=== PATIENT | male | born 1940 | race Caucasian/White ===

== ENCOUNTER 2020-05-22 19:48 | Emergency (ER) | payer MEDICARE, SELFPAY ==
[2020-05-22 19:49] VITALS: BP 214/90; PULSE 135; RESP 22; TEMP 36.8; O2SAT 98; BMI 32.1
--- NOTE | 2020-05-22 20:03 | EKG12_ITS ---
Test Reason : HTN Blood Pressure : / mmHG Vent. Rate : 063 BPM Atrial Rate : 063 BPM P-R Int : 146 ms QRS Dur : 126 ms QT Int : 440 ms P-R-T Axes : 035 059 059 degrees QTc Int : 450 ms Normal sinus rhythm Right bundle branch block Abnormal ECG Confirmed by JUAN J LEON, SIMONE ([id number]), editor farm journal TREV MACIEL ([id number]) on 05/28/2020 11:02:27 AM Referred By: EMIL Confirmed By:ASTRID ARITA MD
--- NOTE | 2020-05-22 20:04 | ED.DCSUM_ITS ---
History of Present Illness Chief Complaint: Hypertension Informant: Patient Narrative: 79-year-old male with past medical history of hypertension presents with concern for elevated blood pressure. Patient recently had an appointment with his rn community health 2 to 3 days ago and was told if his blood pressure goes over 200 systolic to come to the emergency department. Patient checked his blood pressure at home and it was over 200. He is completely asymptomatic. Denies any chest pain, shortness of breath, headache, vision change, lightheadedness, dizziness. Past Medical History - Allergies and Home Meds Allergies/Adverse Reactions: Allergies No Known Allergies Allergy (Verified 05/22/20 19:54) Primary Care Physician: Pasha Bland DO [NON-STAFF] - 2 Days Prior records reviewed: Yes Past Medical History: - - HTN and HLD Surgical History: noncontributory Lives: With Family Smoking Status: Former smoker Alcohol: None Drugs: None Review of Systems General: Denies: Chills, Fever, Sweats Eyes: Denies: Visual changes - bilaterally, Diplopia ENT: Denies: Rhinorrhea, Sore throat Cardiovascular: Denies: Chest pain, Palpitations Respiratory: Denies: Dyspnea, Cough, Dyspnea on exertion Gastrointestinal: Denies: Abdominal pain, Nausea, Vomiting, Diarrhea, Melena, Hematochezia Genitourinary: Denies: Dysuria, Hematuria, Frequency Musculoskeletal: Denies: Back pain, Extremity Pain Skin: Denies: Rash, Wounds Neurological: Denies: Headache, Weakness, Numbness Physical Exam Vital Signs/Narrative: Vital Signs Temp Pulse Resp BP Pulse Ox 05/22/20 19:49 98.2 F 135 H 22 H 214/90 H 98 Inital Vital Signs reviewed: Yes General: Well nourished, Well developed, No Acute Distress Head: Normocephalic, Atraumatic Eyes: Perrl, EOMI ENT: Moist mucous membranes, No rhinorrhea Neck: Supple, Nontender Cardiovascular: Regular rate, Regular rhythm, No murmurs Respiratory: No distress, CTA bilaterally, Chest nontender Abdomen: Soft, Nontender, Nondistended, Normal bowel sounds Back: Nontender, Normal Inspection Extremities: Nontender, No edema Skin: Normal color, No rash Neurological: Alert, Oriented x3, Cranial nerves II-XII grossly intact, Normal Strength, Normal Sensation Psychological: Normal affect, Normal Mood Diagnostic/Tx/Re-eval Laboratory Data 05/22/20 05/22/20 20:01 20:01 WBC 7.1 RBC 4.05 L Hgb 12.4 L Hct 36.9 L MCV 91.1 MCH 30.6 MCHC 33.6 RDW Std Deviation 40.5 RDW Coeff of Sapna 12.2 Plt Count 200 MPV 11.5 Immature Gran % (Auto) 0.400 Neut % (Auto) 57.4 Lymph % (Auto) 24.9 [place] % (Auto) 13.9 H Eos % (Auto) 3.0 Baso % (Auto) 0.4 Absolute Neuts (auto) 4.1 Absolute Lymphs (auto) 1.76 Nucleated RBC % 0 Sodium 137 Potassium 4.2 Chloride 104 Carbon Dioxide 29.0 Anion Gap 4 L BUN 25 H Creatinine 1.20 Estim Creat Clear Calc 35.71 Est GFR (MDRD) Af Amer 75 Est GFR (MDRD) Non-Af 62 BUN/Creatinine Ratio 20.8 H Glucose 96 Calcium 8.8 Troponin I < 0.015 - Rhythm Strip Rhythm Strip: Sinus Rhythm Rate: 63 Ectopy: None - EKG Initial EKG Interpretation: Sinus Rhythm - Sinus rhythm at 63 bpm. MD interval of 146 ms. QTC of 450 ms. Right bundle branch block. No evidence of acute ischemia. - Medical Decision Making Appears well nontoxic. Lab work within normal limits showing no evidence of endorgan damage. EKG nonischemic. Patient will be given 20 mg of IV labetalol. Blood pressure still elevated and was given 10 mg of IV hydralazine. His blood pressure reduced to approximately 180 systolic. Patient's family requesting his nighttime medication. Patient will be given this medication and then will be monitored for approximately 1 hour to make sure that his blood pressure does not drop too low. Patient will be asked to follow-up with his rn community health who manages his blood pressure medicine. It was recently changed yesterday and erik sheila just needs to be titrated. Patient advised to return for any chest pain, shortness of breath, headache, slurred speech, vision change, dizziness, lightheadedness. 1. Hypertension exacerbation ED Disposition - Plan for ED Patient: Disposition: Home or Assisted Living Instructions: ED High Blood Pressure Established Out of Control Referrals: Pasha Bland DO [NON-STAFF] - 2 Days
[2020-05-22 20:16] LABS: Absolute Lymphocyte Count 1.76 X10^3/uL (0.83-4.51); Absolute Neutrophil Count 4.1 X10^3/uL (2.0-7.7); Basophil# 0.03 X10^3/uL; Basophil% 0.4 % (0-1); Eosinophil# 0.21 X10^3/uL; Hematocrit 36.9 % (40-54); Hemoglobin 12.4 g/dL (13.0-16.5); Lymphocyte # 1.76 X10^3/ul (4.0); Lymphocyte % 24.9 % (19-41); Mean Corp Hgb Conc 33.6 g/dL (32-36); Mean Corpuscular Hgb 30.6 pg (27.0-32.0); Mean Corpuscular Volume 91.1 fL (80-94); Mean Platelet Vol. 11.5 fl (6.2-12.0); Monocyte# 0.98 X10^3/uL; Monocyte% 13.9 % (0-10); NRBC Flagged by Analyzer 0 % (0-5); Neutrophil # 4.05 X10^3/uL (2.7-7.7); Neutrophil % 57.4 % (47-70); Platelet Count 200 K/mm3 (150-450); RBC Distribution Width CV 12.2 % (11.6-14.6); RBC Distribution Width SD 40.5 fl (35.1-43.9); Red Blood Count 4.05 M/mm3 (4.6-6.2); White Blood Count 7.1 K/mm3 (4.4-11.0)
[2020-05-22 20:30] LABS: Anion Gap 4 (5-15); BUN 25 mg/dL (7-18); BUN/Creat Ratio 20.8 RATIO (10-20); Calcium,Total 8.8 mg/dL (8.5-10.1); Chloride 104 mmol/L (98-107); EST Glomerular Filtration Rate 62 mL/min (>60); Est Glom Filt Rate - Afr Amer 75 mL/min (>60); Estimated Creatinine Clearance 35.71 ml/min; Glucose 96 mg/dL (74-106); Potassium 4.2 mmol/L (3.5-5.1); Sodium Level 137 mmol/L (136-145)
[2020-05-22] MEDS: Labetalol (Prefilled) 20 MG/4 ML IV (20:49)
[2020-05-22 21:48] VITALS: BP 196/85; PULSE 68; RESP 21; O2SAT 95
--- NOTE | 2020-05-22 21:51 | ED.RN ---
patients son in triage upset that [facility] is not finding anything wrong with the patient. Would like patient transferred to [facility] for further treatment. Will discuss with Dr. Evangelista at this time
[2020-05-22] MEDS: hydrALAZINE 20 MG/ML Vial 10 MG IV (21:52)
[2020-05-22 22:37] VITALS: BP 173/72; PULSE 64; RESP 24; O2SAT 94
[2020-05-22] MEDS: Carvedilol 25 MG Tablet PO (22:44)
[2020-05-22] MEDS: Losartan Potassium 25 MG Tablet 50 MG PO (22:44)
[2020-05-22] MEDS: cloNIDine HCl 0.1 MG Tablet 0.2 MG PO (22:44)
== END 2020-05-22 22:51 | disposition home or self-care (01) ==
PROVIDERS: Emergency Provider Emergency Medicine
DX: I10 Essential (primary) hypertension (principal); I45.10 Unspecified right bundle-branch block; E78.5 Hyperlipidemia, unspecified; Z79.899 Other long term (current) drug therapy; Z87.891 Personal history of nicotine dependence
CPT/HCPCS: 36415; 80048; 84484; 85025; 93005; 96374; 96375; 99285; A4216

== ENCOUNTER 2020-06-18 23:24 | Observation (INO) | payer MEDICARE, SELFPAY ==
[2020-06-18 23:26] VITALS: BP 194/93; PULSE 64; RESP 16; TEMP 36.7; O2SAT 97; BMI 31.6
--- NOTE | 2020-06-18 23:28 | EKG12_ITS ---
Test Reason : NEURO S/X Blood Pressure : / mmHG Vent. Rate : 064 BPM Atrial Rate : 064 BPM P-R Int : 132 ms QRS Dur : 134 ms QT Int : 408 ms P-R-T Axes : 022 064 055 degrees QTc Int : 420 ms Normal sinus rhythm Right bundle branch block Abnormal ECG Confirmed by JUAN J LEON, SIMONE ([id number]), technical writer and editor LUIS HUSAIN ([id number]) on 06/19/2020 12:05:49 PM Referred By: STELLA Confirmed By:ASTRID ARITA MD
--- NOTE | 2020-06-18 23:28 | CT_ITS ---
STUDY: CT BRAIN WITHOUT CONTRAST REASON FOR EXAM: Male, 79 years old. FACIAL DROOP PER FAMILY, HX CHF, HTN, ASTHMA RADIATION DOSAGE (If Supplied By Facility): CTDIvol = ( 44.99 ) mGy, DLP = ( 914.22 ) mGycm TECHNIQUE: Transaxial CT imaging of the brain was performed without administration of intravenous contrast material. Individualized dose optimization techniques were used for this CT. COMPARISON: CT scan brain 01/20/2017. FINDINGS: Normal soft tissue structures. Normal calvarium. There is mild cerebral atrophy with widening of the extra-axial spaces and ventricular dilatation. There are areas of decreased attenuation within the white matter tracts of the supratentorial brain, consistent with microvascular disease changes. Normal basal ganglia and thalami. Normal brainstem. Normal cerebellum. There is atherosclerotic calcification of the cavernous carotid arteries. There is no intracranial hemorrhage. There are no findings of an acute ischemic infarction. Normal visualized paranasal sinuses. CT/Brain/Head without Contrast IMPRESSION: Chronic involutional changes of the brain. No demonstrated acute intracranial process. Electronically Signed: Arturo Lambert MD at 0:35 EST , Service support ,
--- NOTE | 2020-06-18 23:28 | RAD_ITS ---
STUDY: X-RAY CHEST REASON FOR EXAM: Male, 79 years old. COUGH AND FACIAL DROOP TECHNIQUE: Single AP portable view of the chest. COMPARISON: 01/20/2017. 08/25/2016. FINDINGS: There is mild chronic atelectasis or fibrosis in the left lung base. In general, lungs are hyperexpanded, suggesting COPD. There are no confluent pulmonary infiltrates. There is no demonstrated pleural abnormality. Normal size heart. Normal mediastinum and khurram. Normal visualized aortic arch and descending thoracic aorta. There are no demonstrated acute fractures or destructive bone lesions. There is no demonstrated abnormality of the visualized soft tissue structures of the upper abdomen. RAD/Chest 1 View IMPRESSION: Suggestion of COPD. No evidence for acute cardiopulmonary pathology. Electronically Signed: Arturo Lambert MD at 0:05 EST , Service support ,
[2020-06-18 23:30] VITALS: BP 194/93; PULSE 64; RESP 16; TEMP 36.7; O2SAT 97
--- NOTE | 2020-06-18 23:38 | ED.VIS.GEN ---
History of Present Illness Chief Complaint: Neuro S/Sx Informant: Patient, Family Onset: Today Context: Sudden Onset Current Severity: Mild Maximum Severity: Moderate Narrative: Patient is an 79-year-old male with medical history significant for hypertension and CHF that presents to the emergency department with strokelike symptoms. Apparently, family have talked to him on the phone earlier today at around 7 PM. He seemed to have some nonsensical speech. Patient's [id number] went to the house at 8 PM. She seemed noticed that he had a slight right-sided facial droop and had some dysarthria. They took his blood pressure and he was hypertensive. He has been battling with swings of blood pressure here recently. They called his primary care and by Hattie who told him to come to the hospital. On arrival, the patient has had resolution of his facial droop. He still has a mild dysarthria, but states it is improving. He has no history of stroke. He denies headache or visual change. Prior similar symptoms: No Recent Illness/Hospitalization: No Past Medical History - Allergies and Home Meds Allergies/Adverse Reactions: Allergies tylenol arthritis Adverse Reaction (Uncoded 06/18/20 23:36) high blood pressure Primary Care Physician: CLEMENTE SHEN [Other] Prior records reviewed: Yes Past Medical History: - - Hypertension, CHF Surgical History: noncontributory Smoking Status: Former smoker Review of Systems General: Denies: Chills, Fever, Sweats Eyes: Denies: Visual changes - bilaterally, Diplopia ENT: Denies: Rhinorrhea, Sore throat Cardiovascular: Denies: Chest pain, Palpitations Respiratory: Denies: Dyspnea, Cough, Dyspnea on exertion Gastrointestinal: Denies: Abdominal pain, Nausea, Vomiting, Diarrhea, Melena, Hematochezia Genitourinary: Denies: Dysuria, Hematuria, Frequency Musculoskeletal: Denies: Back pain, Extremity Pain Skin: Denies: Rash, Wounds Neurological: Denies: Headache, Weakness, Numbness Physical Exam Vital Signs/Narrative: Vital Signs Temp Pulse Resp BP Pulse Ox 06/18/20 23:26 98.0 F 64 16 194/93 H 97 Inital Vital Signs reviewed: Yes General: Well nourished, Well developed, No Acute Distress Head: Normocephalic, Atraumatic Eyes: Perrl, EOMI ENT: Moist mucous membranes, No rhinorrhea Neck: Supple, Nontender Cardiovascular: Regular rate, Regular rhythm, No murmurs Respiratory: No distress, CTA bilaterally, Chest nontender Abdomen: Soft, Nontender, Nondistended, Normal bowel sounds Back: Nontender, Normal Inspection Extremities: Nontender, No edema Skin: Normal color, No rash Neurological: Alert, Oriented x3, Cranial nerves II-XII grossly intact, Normal Strength, Normal Sensation, - - Patient received an NIH of 1 for mild dysarthria. No other focal neurologic signs. Psychological: Normal affect, Normal Mood Diagnostic/Tx/Re-eval Clinical Impression(s) from Imaging Studies Brain CT 06/18/20 23:28 IMPRESSION: Chronic involutional changes of the brain. No demonstrated acute intracranial process. Electronically Signed: Arturo Lambert MD at 0:35 EST , Service support , Chest X-Ray 06/18/20 23:28 IMPRESSION: Suggestion of COPD. No evidence for acute cardiopulmonary pathology. Electronically Signed: Arturo Lambert MD at 0:05 EST , Service support , Abnormal Lab Results 06/18/20 06/18/20 06/18/20 23:39 23:40 23:40 WBC 10.2 RBC 4.12 L Hgb 12.6 L Hct 37.6 L MCV 91.3 MCH 30.6 MCHC 33.5 RDW Std Deviation 38.8 RDW Coeff of Sapna 11.6 Plt Count 202 MPV 11.3 Immature Gran % (Auto) 0.200 Neut % (Auto) 68.0 Lymph % (Auto) 17.2 L [place] % (Auto) 11.9 H Eos % (Auto) 2.4 Baso % (Auto) 0.3 Absolute Neuts (auto) 6.9 Absolute Lymphs (auto) 1.76 Nucleated RBC % 0 PT 13.4 INR 1.1 APTT 27.9 Sodium Potassium Chloride Carbon Dioxide Anion Gap BUN Creatinine Estim Creat Clear Calc Est GFR (MDRD) Af Amer Est GFR (MDRD) Non-Af BUN/Creatinine Ratio Glucose Calcium Troponin I POC Glucose 115 H 06/18/20 23:40 WBC RBC Hgb Hct MCV MCH MCHC RDW Std Deviation RDW Coeff of Sapna Plt Count MPV Immature Gran % (Auto) Neut % (Auto) Lymph % (Auto) [place] % (Auto) Eos % (Auto) Baso % (Auto) Absolute Neuts (auto) Absolute Lymphs (auto) Nucleated RBC % PT INR APTT Sodium 139 Potassium 5.5 H Chloride 107 Carbon Dioxide 25.0 Anion Gap 7 BUN 41 H Creatinine 1.62 H Estim Creat Clear Calc 26.45 Est GFR (MDRD) Af Amer 53 L Est GFR (MDRD) Non-Af 44 L BUN/Creatinine Ratio 25.3 H Glucose 111 H Calcium 9.4 Troponin I < 0.015 POC Glucose - Medical Decision Making The patient presents with right-sided facial droop that is since resolved and dysarthria. On arrival, his NIH was 1 for the dysarthria. However, his symptoms are rapidly improving. The time of onset was greater than 3-1/2 hours, and his NIH only being 1, I do not feel that he was a candidate for TPA. While in the emergency department, the patient's speech continued to improve with better fluency. His repeat NIH is 0. Metabolic work-up was pursued. EKG demonstrates a sinus rhythm with a right bundle branch block. There is no acute ischemia. Screening labs are unremarkable. Noncontrast head CT was obtained. This was unremarkable for acute process. Given the patient's age and risk factors, I do feel that most prudent plan of care would be observation for TIA work-up. Patient was discussed with the hospitalist. Impression 1. TIA ED Disposition - Plan for ED Patient: Referrals: CLEMENTE SHEN [Other]
[2020-06-18 23:52] VITALS: BMI 31.6
[2020-06-18 23:54] LABS: Absolute Lymphocyte Count 1.76 X10^3/uL (0.83-4.51); Absolute Neutrophil Count 6.9 X10^3/uL (2.0-7.7); Basophil# 0.03 X10^3/uL; Basophil% 0.3 % (0-1); Eosinophil# 0.24 X10^3/uL; Eosinophils% 2.4 % (0-5); Hematocrit 37.6 % (40-54); Hemoglobin 12.6 g/dL (13.0-16.5); Lymphocyte # 1.76 X10^3/ul (4.0); Lymphocyte % 17.2 % (19-41); Mean Corp Hgb Conc 33.5 g/dL (32-36); Mean Corpuscular Hgb 30.6 pg (27.0-32.0); Mean Corpuscular Volume 91.3 fL (80-94); Mean Platelet Vol. 11.3 fl (6.2-12.0); Monocyte# 1.22 X10^3/uL; Monocyte% 11.9 % (0-10); NRBC Flagged by Analyzer 0 % (0-5); Neutrophil # 6.94 X10^3/uL (2.7-7.7); Platelet Count 202 K/mm3 (150-450); RBC Distribution Width CV 11.6 % (11.6-14.6); RBC Distribution Width SD 38.8 fl (35.1-43.9); Red Blood Count 4.12 M/mm3 (4.6-6.2); White Blood Count 10.2 K/mm3 (4.4-11.0)
[2020-06-18 23:55] LABS: Bedside Glucose 115 mg/dL (70-110)
[2020-06-19] VITALS (17 sets, daily range): BP systolic 159–186; BP diastolic 66–88; PULSE 55–76; RESP 16–18; TEMP 36.4–37.1; O2SAT 95–98; BMI 30.3; BMI 30.4
[2020-06-19 00:05] LABS: International Normalized Ratio 1.1; Partial Thromboplast Time 27.9 Seconds (24.1-36.2); Prothrombin Time (Protime)PT. 13.4 SECONDS (11.7-14.9)
[2020-06-19 00:14] LABS: Anion Gap 7 (5-15); BUN 41 mg/dL (7-18); BUN/Creat Ratio 25.3 RATIO (10-20); Calcium,Total 9.4 mg/dL (8.5-10.1); Chloride 107 mmol/L (98-107); Creatinine, Serum 1.62 mg/dL (0.70-1.30); EST Glomerular Filtration Rate 44 mL/min (>60); Est Glom Filt Rate - Afr Amer 53 mL/min (>60); Estimated Creatinine Clearance 26.45 ml/min; Glucose 111 mg/dL (74-106); Potassium 5.5 mmol/L (3.5-5.1); Sodium Level 139 mmol/L (136-145)
--- NOTE | 2020-06-19 00:36 | HP.PCM_ITS ---
Problem List (1) TIA (transient ischemic attack) Status: Acute (2) SHIVA (acute kidney injury) Status: Acute (3) CKD (chronic kidney disease), stage III Status: Chronic Qualifiers: Chronic kidney disease stage 3 subtype: unspecified whether 3a or 3b Qualified Code(s): N18.30 - Chronic kidney disease, stage 3 unspecified (4) CHF (congestive heart failure) Status: Chronic Qualifiers: Heart failure type: unspecified Heart failure chronicity: chronic Qualified Code(s): I50.9 - Heart failure, unspecified (5) Hypertension Status: Chronic Qualifiers: Hypertension type: essential hypertension Qualified Code(s): I10 - Essential (primary) hypertension (6) Hyperlipidemia Status: Chronic Qualifiers: Hyperlipidemia type: unspecified Qualified Code(s): E78.5 - Hyperlipidemia, unspecified (7) COPD with asthma Status: Chronic History of Present Illness Date of Admission: 06/19/20 Chief Complaint: R sided facial droop, dysarthria, expressive aphasia The patient is a 79 y/o M w/ PMHx: CKD stage III, HTN, HLD, BPH, CHF unclear type, Asthma/COPD who presents to the [facility] ED on 06/19/20 with history of noted expressive aphasia with described nonsensical speech over the phone at approximately 7 PM with evaluation per his [id number] at 8 PM at which point patient had a right-sided facial droop and dysarthria with blood pressure at that time noted to be elevated with PCP recommendation to present to the ED for evaluation with noted resolution of facial droop upon ED presentation however ongoing mild dysarthria but improving. Patient notes he feels as though he is back to his baseline. In the emergency room he states that when his asthma acts up he does tend to have alterations in his speech however family did note that he consistently will use this excuse thus some concern that this has been happening intermittently over time. ED physician notes that he definitely had aphasia upon presentation. Work-up in the ED included T 98, heart rate 64, BP initially 194/93 with repeat most recently 178/79, respiratory rate 16, 97% on room air, CBC with WBC 10.2, hemoglobin 12.6, platelet 202 without market shift, unremarkable coags, BMP with potassium 5.5, BUN/creatinine 41/1.62, glucose 111, troponin less than 0.015, chest x-ray with chronic COPD type changes with no acute cardiopulmonary findings otherwise, CT of the brain with no acute intra cranial process with chronic involutional changes the EKG with sinus rhythm with right bundle branch block with no acute evidence of ischemia. Past Medical History Past Medical History (Chronic Problems): Chronic Problems CKD (chronic kidney disease), stage III (Chronic) CHF (congestive heart failure) (Chronic) Hypertension (Chronic) Hyperlipidemia (Chronic) COPD with asthma (Chronic) Allergies tylenol arthritis Adverse Reaction (Uncoded 06/18/20 23:36) high blood pressure Home Medications: Ambulatory Orders Medication Instructions Recorded Albuterol Inhaler [Ventolin Hfa 2 puff INHALATION Q6H PRN PRN 08/25/16 (SP)] Carvedilol [Coreg] 25 mg PO BID 08/25/16 Clonidine HCl 0.2 mg PO BID 08/25/16 Doxazosin Mesylate [Cardura] 4 mg PO QHS 08/25/16 Losartan Potassium [Cozaar] 100 mg PO BID 08/25/16 Simvastatin [Zocor] 40 mg PO QHS 08/25/16 Ascorbic Acid [Vitamin C] 1,000 mg PO DAILY 01/20/17 Calcium Carbonate [Calcium] 500 mg PO DAILY 01/20/17 [place] 450 mg PO DAILY 01/20/17 Cholecalciferol (Vitamin D3) 2,000 unit PO DAILY 01/20/17 [Vitamin D3] Garlic 1,000 mg PO DAILY 01/20/17 Ginseng 100 mg PO DAILY 01/20/17 Lecithin 1,200 mg PO DAILY 01/20/17 Milk Thistle 150 mg PO DAILY 01/20/17 [place]-3 Fatty Acids [Fish Oil] 500 mg PO DAILY 01/20/17 Papaya 1 each PO DAILY 01/20/17 Saw [place] 500 mg PO DAILY 01/20/17 Vitamin B Complex/Folic Acid 0.4 mg PO DAILY 01/20/17 [Super B Maxi Complex Caplet] Furosemide [Lasix] 20 mg PO DAILY 05/22/20 Surgical History: noncontributory, - - Lumbar spine surgery, tonsillectomy, vocal cord tumor resection. Psychiatric History: No pertinent psych hx Lives: Alone Smoking Status: Former smoker - Patient quit cigarette tobacco usage in 1992, prior to this was up to 3 pack/day and had been progressively increasing since he was early teenager. Tobacco Use: Cigarettes Alcohol: None Drugs: None - *Family History Paternal History Items: Cancer - Father with a history of stomach cancer noted to be metastatic. Maternal History Items: Pulmonary Disease, Stroke Sibling History Items: Stroke - Patient's youngest brother with history of stroke. Review of Systems Constitutional: Reports: Fatigue. Denies: Anorexia, Chills, Fever, Malaise, Weakness, Weight Change HEENT: Reports: - - R sided facial droop per family.. Denies: Head Aches, Sinus Congestion, Sinus Drainage Cardiovascular: Denies: Chest Pain, Palpitations Respiratory: Reports: Shortness of Breath - Notes occasional difficulties with his asthma.. Denies: Cough, Shortness of breath at rest, Sputum production Gastrointestinal: Denies: Abdominal Pain, Nausea, Vomiting Genitourinary: Denies: Dysuria Musculoskeletal: Reports: Joint Pain. Denies: Joint Tenderness Skin: Denies: Rash, Wounds Neurological: Reports: Change in Speech, Slurred speech. Denies: Focal weakness, Numbness, Tingling Psychiatric: Denies: Anxiety, Depression, Homicidal Ideations, Suicidal Ideations Hematologic/ Lymphatic: Denies: Easy Bruising, Easy Bleeding VTE Information - Inpt Only VTE Present on Admission: No VTE Mechan Device Prophylaxis: SCD's VTE Pharm Prophylaxis ordered?: Yes Subjective: Patient seated upright in the ED bed, returned to baseline, denies any acute complaints. Objective: Physical Examination: General: awake, alert, oriented x 3 including to person, place, recent events and cooperative, seated upright in the ED bed in no apparent distress. Skin: normal color, turgor, no icterus, cyanosis. HEENT: AT/NC, EOMI, PERRLA, MMM, lacking teeth, no obvious evidence of ongoing right sided facial droop, no carotid bruits or JVD noted. Lungs: Diminished breath sounds, greater bases, normal effort, no rales, ronchi or wheezing. Heart: Regular rate and rhythm; no gallop, rub audible. Abdomen: soft, NTTP, ND, normal BS, no HSM. Extremities: no cyanosis, clubbing, mild bilateral lower extremity ankle edema. Neurological: patient awake, alert, oriented as noted; cognitive function appears baseline intact; pupils equally reactive to light and accomodation; cranial nerves II-XII grossly normal, moving all 4 extremities, no focal deficits, strength preserved, resolved prior noted aphasia, no facial droop, equivocal Babinski, normal finger to toe and [id number]. Psychiatric: affect appears normal, no acute evidence of depressive or anxiety feelings. - Physical Exam Vitals/I&O's: Vital Signs Temp Pulse Resp BP Pulse Ox 98.0 F 76 18 178/79 H 96 06/18/20 23:30 06/19/20 00:04 06/19/20 00:04 06/19/20 00:04 06/19/20 00:04 Oxygen Delivery Method Room Air Weight: 167 lb 5.294 oz Body Mass Index (BMI) 31.6 Finger Stick Blood Glucose 115 Laboratory Results 06/18/20 23:39: POC Glucose 115 H 06/18/20 23:40: WBC 10.2, RBC 4.12 L, Hgb 12.6 L, Hct 37.6 L, MCV 91.3, MCH 30.6, MCHC 33.5, RDW Std Deviation 38.8, RDW Coeff of Sapna 11.6, Plt Count 202, M PV 11.3, Immature Gran % (Auto) 0.200, Neut % (Auto) 68.0, Lymph % (Auto) 17.2 L , [place] % (Auto) 11.9 H, Eos % (Auto) 2.4, Baso % (Auto) 0.3, Absolute Neuts (auto) 6.9, Absolute Lymphs (auto) 1.76, Nucleated RBC % 0 06/18/20 23:40: PT 13.4, INR 1.1, APTT 27.9 06/18/20 23:40: Sodium 139, Potassium 5.5 H, Chloride 107, Carbon Dioxide 25.0, Anion Gap 7, BUN 41 H, Creatinine 1.62 H, Estim Creat Clear Calc 26.45, Est GFR (MDRD) Af Amer 53 L, Est GFR (MDRD) Non-Af 44 L, BUN/Creatinine Ratio 25.3 H, Glucose 111 H, Calcium 9.4, Troponin I < 0.015 Current Medications Labetalol HCl (Labetalol (Prefilled) 20 Mg/4 Ml) 20 mg IV X1 PRN PRN Reason: BLOOD PRESSURE Assessment/Plan All Active Problems TIA (transient ischemic attack) (Acute) SHIVA (acute kidney injury) (Acute) The patient is a 79 y/o M w/ PMHx: CKD stage III, HTN, HLD, BPH, CHF unclear type, Asthma/COPD who presents to the [facility] ED on 06/19/20 with history of noted expressive aphasia with described nonsensical speech over the phone at approximately 7 PM with evaluation per his [id number] at 8 PM at which point patient had a right-sided facial droop and dysarthria, resolved. 1. Expressive aphasia, dysarthria, right-sided facial droop, improving concerning for TIA/CVA: Will admit to PCU, will obtain MRI Brain, MRA Head and Neck, ECHO, PT/OT/Speech/Nutrition evaluation per protocol. Given dysarthria still present upon ED presentation although improving will maintain on permissiv e HTN, maintain on asa, statin w/ AM FLP, fall precautions. Magnesium, TSH, hemoglobin A1c, FLP pending. 2. Acute kidney injury on CKD stage III: Secondary to likely acute presentation, suspect poor oral intake over the course of today. Admission BUN/Cr 41/1.62, prior baseline creatinine noted to be 1.1-1.2, most recently 05/22/2020 21.2. Will hydrate, hold nephrotoxic medications and repeat chemistry in AM. If no improvement would plan FeNa and renal ultrasound assessment. 3. Hyperkalemia: Admission potassium 5.5, judiciously hydrating given concurrent SHIVA, will repeat BMP and initiate medical intervention if not improved. 4. CHF, unclear type: No echocardiogram noted in system, will maintain on aspirin, statin, temporarily holding patient Coreg, Lasix, losartan for permissive hypertension but resume once appropriate, judiciously hydrating given unclear history, echocardiogram requested. 5. Hypertension: Given presentation with dysarthria still upon presentation although improving will maintain on permissive hypertension with as needed agents add back if MRI unremarkable immediately as patient is on aggressive regimen and does have labile history including currently on clonidine. 6. Hyperlipidemia: Continue home statin regimen. AM FLP. 7. Chronic asthma/COPD: We will continue head of bed, I-S, as needed albuterol. 8. DVT prophylaxis: SCDs, renally dosed Lovenox. 9. CODE status: Patient HCPOA is his jeremiah Wray and living will is currently in place. Discussed CODE status at length including difference between FULL code, DNR-CCA and DNR-CC status. Following discussions about the differences in these status, requested Full Code status. Advanced Care Planning Face to Face Time: 16 minutes. OBSV E&M: 28727 Initial observation care L3 Procedures: 54942 Advncd Care Plan 30 Min
--- NOTE | 2020-06-19 01:18 | MRI_ITS ---
STUDY: MRA NECK WITHOUT CONTRAST REASON FOR EXAM: Male, 79 years old. cva, right facial droop, slurred speech, expressive aphasia TECHNIQUE: Source images were obtained, MIPs were performed. The study was performed unenhanced. COMPARISON: None. FINDINGS: RIGHT CAROTID ARTERIES: Normal right common carotid artery (CCA). Normal right internal carotid bulb. Normal origin of the right internal carotid (ICA) artery without a hemodynamically significant stenosis. Normal visualized cervical portion of the right internal carotid artery. Normal origin of the right external carotid artery (ECA). LEFT CAROTID ARTERIES: Normal left common carotid artery (CCA). Normal left internal carotid bulb. Normal origin of the left internal carotid (ICA) artery without a hemodynamically significant stenosis. Normal visualized cervical portion of the left internal carotid artery. Normal origin of the left external carotid artery (ECA). VERTEBRAL ARTERIES: Normal antegrade flow within the bilateral vertebral artery without a hemodynamically significant stenosis. The right is markedly hypoplastic. MRI/MRA Neck without Contrast IMPRESSION: 1. Normal bilateral common carotid arteries, bilateral common carotid bifurcations, bilateral internal and external carotid arteries. 2. Normal bilateral vertebral arteries, right is markedly hypoplastic. Electronically Signed: David Wiley MD at 13:34 EST , Service support ,
--- NOTE | 2020-06-19 01:18 | ECHOCS_ITS ---
Reason For Study: TIA/CVA Procedure This was a 2D Doppler, Color Flow transthoracic echocardiogram. The study was technically difficult. Contrast injection was performed. Exam performed portable in patient room. Left Ventricle Normal LV size. The estimated ejection fraction is 65 %. No evidence for diastolic dysfunction. No regional wall motion abnormalities noted. Right Ventricle Normal RV size. Normal systolic function. Atria Normal left atrium. Normal right atrium. No doppler evidence for ASD. Mitral Valve There is mild mitral annular calcification. There is no mitral valve stenosis. No mitral valve insufficiency. Tricuspid Valve There is no tricuspid stenosis. Trivial tricuspid valve insufficiency. Unable to estimate RV systolic pressure due to insufficient tricuspid regurgitant envelope. Aortic Valve Trisinus/trileaflet aortic valve. There is no aortic stenosis. No aortic valve insufficiency. Pulmonic Valve There is no pulmonic valvular stenosis. No pulmonic valve insufficiency. Great Vessels Normal aortic root. Pericardium/Pleural No pericardial effusion. Medication Diluted definity 3ml given slow IV push to enhance endocardial definition. Performed a rapid injection of agitated mix of 9 cc saline and 1cc air to assess for atrial septal defect. MMode/2D Measurements & Calculations LVIDd: 4.1 cm IVSd: 1.4 cm LVOT diam: 2.0 cm LVIDs: 1.9 cm LVPWd: 1.2 cm FS: 54.4 % LVOT area: 3.0 cm2 Ao root diam: 3.4 cm LAV(MOD-sp4): 42.1 ml LA A4 area: 16.2 cm2 LA dimension: 3.7 cm RA A4 area: 15.5 cm2 Time Measurements MV dec time: 0.32 sec Doppler Measurements & Calculations MV E max sandro: 93.0 cm/sec Lat Peak E' Sandro: 6.4 cm/sec Med Peak E' Sandro: 6.8 cm/sec MV A max sandro: 122.2 cm/sec E/E' lat: 14.5 E/E' med: 13.7 MV E/A: 0.76 MV V2 max: 133.9 cm/sec MV P1/2t max sandro: 124.2 cm/sec Ao V2 max: 216.7 cm/sec MV max P.2 mmHg MV P1/2t: 97.6 msec Ao max P.8 mmHg MV V2 mean: 69.7 cm/sec MV dec slope: 372.7 cm/sec2 Ao V2 mean: 131.1 cm/sec MV mean P.3 mmHg MVA(P1/2t): 2.3 cm2 Ao mean P.2 mmHg MV V2 VTI: 42.9 cm Ao V2 VTI: 45.5 cm MVA(VTI): 2.4 cm2 AMBER(I,D): 2.2 cm2 AMBER(V,D): 2.0 cm2 LV V1 max: 140.5 cm/sec SV(LVOT): 102.3 ml PA V2 max: 105.0 cm/sec LV V1 max P.9 mmHg LV V1 mean P.8 mmHg LV V1 mean: 90.3 cm/sec LV V1 VTI: 33.5 cm Interpretation Summary The estimated ejection fraction is 65 %. No evidence for diastolic dysfunction. The study was technically difficult. Contrast injection was performed. Ordering Physician: Lorena Machado Performed By: Reji Downs RCS
[2020-06-19] MEDS: 0.9% Normal Saline 1,000 ML 100 ML IV ×3 (01:50→22:34)
[2020-06-19] MEDS: 0.9% Saline Lock 10 ML Syringe IV (01:50)
[2020-06-19 05:28] LABS: Absolute Lymphocyte Count 1.72 X10^3/uL (0.83-4.51); Absolute Neutrophil Count 4.5 X10^3/uL (2.0-7.7); Basophil# 0.03 X10^3/uL; Basophil% 0.4 % (0-1); Eosinophil# 0.21 X10^3/uL; Eosinophils% 2.8 % (0-5); Hematocrit 36.9 % (40-54); Hemoglobin 12.2 g/dL (13.0-16.5); Lymphocyte # 1.72 X10^3/ul (4.0); Mean Corp Hgb Conc 33.1 g/dL (32-36); Mean Corpuscular Hgb 30.3 pg (27.0-32.0); Mean Corpuscular Volume 91.8 fL (80-94); Mean Platelet Vol. 11.5 fl (6.2-12.0); Monocyte# 0.97 X10^3/uL; NRBC Flagged by Analyzer 0 % (0-5); Neutrophil % 60.3 % (47-70); Platelet Count 192 K/mm3 (150-450); RBC Distribution Width CV 11.5 % (11.6-14.6); RBC Distribution Width SD 39.1 fl (35.1-43.9); Red Blood Count 4.02 M/mm3 (4.6-6.2); White Blood Count 7.5 K/mm3 (4.4-11.0)
--- NOTE | 2020-06-19 05:55 | MRI_ITS ---
STUDY: MRA OF THE HEAD WITHOUT CONTRAST REASON FOR EXAM: Male, 79 years old. cva, right facial droop, slurred speech, expressive aphasia TECHNIQUE: 3-D [id number] (TOF) imaging was performed with MIPs. The study was performed unenhanced. COMPARISON: None. FINDINGS: Normal bilateral petrous carotid arteries. Normal right cavernous carotid artery with a normal supraclinoid bifurcation. Normal left cavernous carotid artery with a normal supraclinoid bifurcation. Normal right A1 segment of the anterior cerebral artery. Normal left A1 segments of the anterior cerebral artery. Normal intact anterior communicating artery (ACOM). Normal bilateral A2 segments of the anterior cerebral arteries. Normal right M1 and M2 segments of the middle cerebral arteries, with a normal M1 bifurcation. Normal left M1 and M2 segments of the middle cerebral arteries, with a normal M1 bifurcation. No visible right posterior communicating artery (PCOM). Normal left posterior communicating artery (PCOM). Normal bilateral vertebral arteries. The right is hypoplastic. Normal basilar artery with a normal basilar bifurcation. The visualized bilateral superior cerebellar (SCA) arteries are normal. Normal bilateral P1, P2 and visualized P3 segments of the posterior cerebral arteries. There is no demonstrated aneurysm of the moapa of [place]. There is no major vessel occlusion or hemodynamically significant stenosis. There is no demonstrated abnormality of the visualized brain. MRI/MRA Head ONLY without Contrast IMPRESSION: Normal MRA of the head Electronically Signed: David Wiley MD at 13:09 EST , Service support ,
--- NOTE | 2020-06-19 05:55 | MRI_ITS ---
STUDY: MRI BRAIN WITHOUT CONTRAST REASON FOR EXAM: Male, 79 years old. cva, right facial droop, slurred speech, expressive aphasia TECHNIQUE: Standardized multiplanar fat and water weighted pulse sequences were obtained. COMPARISON: CT head without contrast 06/18/2020. FINDINGS: No restricted diffusion to suspect acute or subacute ischemic infarct. Normal size of the ventricles and extra-axial spaces for the patient''s age. Multiple small T2 FLAIR hyperintensity foci in the white matter of both cerebral hemispheres are predominantly in the periventricular white matter. They are chronic white matter ischemic changes. No midline shift and no mass effects. Normal bilateral basal ganglia. Normal thalami. There is no extra-axial fluid accumulation. Normal flow voids within the major intracranial circulation suggesting patency by spin echo criteria. Normal sella turcica, pituitary gland, infundibular stalk, optic chiasm and hypothalamus. Normal tectal plate and pineal gland. Normal midbrain, maicol and medulla. Normal cerebellum. Normal basal cisterns. Mucosal edema of the right temporal mastoid bone is unchanged. Normal left temporal bone. Normal bilateral internal auditory canals. No demonstrated orbital abnormality, within the constraints of a routine brain study. Normal visualized paranasal sinuses. Normal calvarium and skull base. Normal visualized soft tissue structures. Normal visualized upper cervical spine. MRI/Brain without Contrast IMPRESSION: 1. No MRI evidence of acute or subacute ischemic infarct or acute intracranial abnormality. 2. Multiple chronic white matter ischemic changes in both cerebral hemispheres. 3. Mucosal edema of the right temporal mastoid bone is unchanged when compared to CT head of 06/18/2020. Electronically Signed: David Wiley MD at 12:08 EST , Service support ,
[2020-06-19 06:00] LABS: AST(SGOT) 17 U/L (15-37); Alanine Aminotransfer ALT/SGPT 22 U/L (16-61); Albumin, Serum 3.6 g/dL (3.2-5.0); Alkaline Phosphatase 63 U/L (45-117); Anion Gap 7 (5-15); BUN 36 mg/dL (7-18); BUN/Creat Ratio 25.5 RATIO (10-20); Calcium,Total 8.8 mg/dL (8.5-10.1); Chloride 106 mmol/L (98-107); Cholesterol 122 mg/dL (200); Creatinine, Serum 1.41 mg/dL (0.70-1.30); EST Glomerular Filtration Rate 51 mL/min (>60); Est Glom Filt Rate - Afr Amer 62 mL/min (>60); Estimated Creatinine Clearance 30.39 ml/min; Globulin 3.5 g/dL (2.2-4.2); Glucose 106 mg/dL (74-106); High Density Lipoprotein 29 mg/dL; Potassium 4.7 mmol/L (3.5-5.1); Protein, Total 7.1 g/dL (6.4-8.2); Sodium Level 139 mmol/L (136-145); Thyroid Stim Hormone (TSH) 3.21 uIU/mL (0.358-3.74); Triglycerides 274 mg/dL; Very Low Density Lipoprotein 55 mg/dL (5-40)
[2020-06-19 07:50] LABS: Hemoglobin A1c 5.6 % (3.8-5.6)
[2020-06-19] MEDS: Aspirin 81 MG TAB.CHEW PO (08:59)
[2020-06-19] MEDS: Enoxaparin 30 MG/0.3 ML Syringe SC (08:59)
--- NOTE | 2020-06-19 12:44 | CASEMGMT ---
Per therapy, no recommendation for further therapy at this time. SStaten RN CM
--- NOTE | 2020-06-19 12:49 | TELEMED_ITS ---
[facility] Telemed has confirmed receipt of a request for visit. This document confirms receipt of the order initiating the consult. To find the results of the consultation, please view the patient's reports for the scanned Telemed Consult.
--- NOTE | 2020-06-19 13:40 | PN_ITS ---
<RodElisa TRACER CLERK - Last Filed: 06/19/20 13:46> Patient Problems: Active and Suspected Problems TIA (transient ischemic attack) (Acute) SHIVA (acute kidney injury) (Acute) Subjective: Patient seen and examined. Denies further speech changes. Patient states he has had this intermittently in the past when his asthma acts up. He denies current neuro symptoms or focal deficits. - Physical Exam Vitals/I&O's: Vital Signs Temp Pulse Resp BP Pulse Ox 97.8 F 62 16 176/84 H 95 06/19/20 11:53 06/19/20 11:53 06/19/20 11:53 06/19/20 11:53 06/19/20 11:53 Oxygen Delivery Method Room Air Weight: 160 lb 11.472 oz Body Mass Index (BMI) 30.3 Finger Stick Blood Glucose 115 Intake and Output for Last 24 Hours 06/17/20 06/18/20 06/19/20 23:59 23:59 23:59 Intake Total 1560.00 / 1560.00 Output Total 200 / 200 Balance 1360.00 / 1360.00 General: Alert, Oriented x3, Cooperative HEENT: Atraumatic, PERRLA, EOMI, Normocephalic Neck: Supple, No JVD, Negative Carotid Bruits Lungs: Clear to auscultation, Normal air movement Cardiovascular: Regular rate, No murmurs Abdomen: Bowel Sounds Present, Soft, Non Tender, Non-Distended Extremities: No clubbing, No cyanosis, No edema, Capillary Refill Less than 3 Seconds Skin: No rashes, No breakdown Musculoskeletal: No Tenderness to Palpation of Joints or Extremities Neurological: Cranial nerves II-XII grossly intact, Neuro grossly intact Psych/Mental Status: Normal Affect, Appropriate Laboratory Results 06/18/20 23:39: POC Glucose 115 H 06/18/20 23:40: WBC 10.2, RBC 4.12 L, Hgb 12.6 L, Hct 37.6 L, MCV 91.3, MCH 30.6, MCHC 33.5, RDW Std Deviation 38.8, RDW Coeff of Sapna 11.6, Plt Count 202, MPV 11.3, Immature Gran % (Auto) 0.200, Neut % (Auto) 68.0, Lymph % (Auto) 17.2 L, [place]ecos % (Auto) 11.9 H, Eos % (Auto) 2.4, Baso % (Auto) 0.3, Absolute Neuts (auto) 6.9, Absolute Lymphs (auto) 1.76, Nucleated RBC % 0 06/18/20 23:40: PT 13.4, INR 1.1, APTT 27.9 06/18/20 23:40: Sodium 139, Potassium 5.5 H, Chloride 107, Carbon Dioxide 25.0, Anion Gap 7, BUN 41 H, Creatinine 1.62 H, Estim Creat Clear Calc 26.45, Est GFR (MDRD) Af Amer 53 L, Est GFR (MDRD) Non-Af 44 L, BUN/Creatinine Ratio 25.3 H, Glucose 111 H, Calcium 9.4, Troponin I < 0.015 06/18/20 23:40: Magnesium 2.0 06/19/20 05:12: WBC 7.5, RBC 4.02 L, Hgb 12.2 L, Hct 36.9 L, MCV 91.8, MCH 30.3, MCHC 33.1, RDW Std Deviation 39.1, RDW Coeff of Sapna 11.5 L, Plt Count 192, MPV 11.5, Immature Gran % (Auto) 0.500, Neut % (Auto) 60.3, Lymph % (Auto) 23.0, [place]ecos % (Auto) 13.0 H, Eos % (Auto) 2.8, Baso % (Auto) 0.4, Absolute Neuts (auto) 4.5, Absolute Lymphs (auto) 1.72, Nucleated RBC % 0 06/19/20 05:12: Sodium 139, Potassium 4.7, Chloride 106, Carbon Dioxide 26.0, Anion Gap 7, BUN 36 H, Creatinine 1.41 H, Estim Creat Clear Calc 30.39, Est GFR (MDRD) Af Amer 62, Est GFR (MDRD) Non-Af 51 L, BUN/Creatinine Ratio 25.5 H, Glucose 106, Calcium 8.8, Total Bilirubin 0.30, AST 17, ALT 22, Alkaline Phosphatase 63, Total Protein 7.1, Albumin 3.6, Globulin 3.5, Albumin/Globulin Ratio 1.0, Triglycerides 274 H, Cholesterol 122, LDL Cholesterol 38, VLDL Cholesterol 55 H, HDL Cholesterol 29 L, TSH 3.21 06/19/20 05:12: Hemoglobin A1c 5.6 Current Medications Acetaminophen (Acetaminophen 325 Mg Tablet) 650 mg PO Q6H PRN PRN PRN Reason: Pain Score 1-10/Temp > 100.7 F Al Hydroxide/Mg Hydroxide (Mag Hydrox/Al Hydrox/Simeth 30 Ml Udc) 30 ml PO Q6H PRN PRN PRN Reason: Gastric Burning Albuterol Sulfate (Albuterol 2.5 Mg/3 Ml Vial.Neb.) 2.5 mg INHALATION Q2H PRN PRN PRN Reason: Dyspnea, wheezing Aspirin (Aspirin 81 Mg Tab.Chew) 81 mg PO DAILY@0800 ON LICENSE OF [facility] Last Admin: 06/19/20 08:59 Dose: 81 mg Documented by: Atorvastatin Calcium (Atorvastatin Calcium 20 Mg Tablet) 20 mg PO QHS ON LICENSE OF [facility] Enoxaparin Sodium (Enoxaparin 30 Mg/0.3 Ml Syringe) 30 mg SC DAILY ON LICENSE OF [facility] Last Admin: 06/19/20 08:59 Dose: 30 mg Documented by: Guaifenesin (Guaifenesin 10 Ml Udc (200mg/10ml)) 20 ml PO Q4H PRN PRN PRN Reason: COUGH Hydralazine HCl (Hydralazine 20 Mg/Ml Vial) 5 mg IV Q30M PRN PRN Reason: to maintain BP goals Sodium Chloride () 1,000 mls @ 100 mls/hr IV .Q10H ON LICENSE OF [facility] Last Admin: 06/19/20 12:42 Dose: 100 mls/hr Documented by: Sodium Chloride () 250 mls @ 15 mls/hr IV .[id number] PRN PRN Reason: Saline Flush Sodium Chloride () 250 mls @ 15 mls/hr IV .[id number] PRN PRN Reason: Additional IVPB Infusion Labetalol HCl (Labetalol (Prefilled) 20 Mg/4 Ml) 10 - 20 mg IV Q10M PRN PRN PRN Reason: to Maintain BP Goals Magnesium Hydroxide (Magnesium Hydroxide 30 Ml Udc) 30 ml PO DAILY PRN PRN PRN Reason: Constipation Melatonin (Melatonin 3 Mg Tablet) 3 mg PO QHS PRN PRN PRN Reason: INSOMNIA Morphine Sulfate (Morphine 2 Mg/Ml Syringe) 2 mg IV Q3H PRN PRN PRN Reason: Pain Score 6-10 Nitroglycerin (Nitroglycerin (Inpatient Use) 0.4 Mg Tab.Subl) 0.4 mg SUBLINGUAL Q5M PRN PRN Reason: CARDIAC/CHEST PAIN Ondansetron HCl (Ondansetron 4 Mg/2 Ml Vial) 4 mg IV Q8H PRN PRN PRN Reason: NAUSEA/VOMITING Oxycodone HCl (Oxycodone 5 Mg Tablet) 5 mg PO Q4H PRN PRN PRN Reason: Pain Score 4-5 Prochlorperazine Edisylate (Prochlorperazine 10 Mg/2 Ml Vial) 5 mg IV Q4H PRN PRN PRN Reason: Breakthrough Nausea/Vomiting Psyllium Hydrophilic Mucilloid (Psyllium 1 Packet) 1 packet PO DAILY PRN PRN PRN Reason: Constipation Senna/Docusate Sodium (Senna/Docusate Sodium 1 Tablet) 2 tablet PO BID PRN PRN PRN Reason: Constipation Sodium Chloride (0.9% Saline Lock 10 Ml Syringe) 10 - 40 ml IV UD PRN PRN Reason: SALINE FLUSH Last Admin: 06/19/20 01:50 Dose: 10 ml Documented by: Throat Lozenges (Benzocaine/Menthol 1 Lozenge) 1 lozenge MUCOUS MEM Q2H PRN PRN PRN Reason: SORE THROAT Medical Necessity - Tobacco Use Smoking Status: Former smoker Tobacco Use: Cigarettes Assessment/Plan All Active Problems TIA (transient ischemic attack) (Acute) SHIVA (acute kidney injury) (Acute) 1. Expressive aphasia, dysarthria, right sided facial droop-CVA ruled out. Possible TIA. MRI of brain without acute infarct. MRA of head and neck normal. Echocardiogram pending. Continue aspirin, statin. SOC consult placed. 2. Acute kidney injury on chronic kidney disease stage III-improved, trend BMP. 3. Hyperkalemia-resolved. 4. Chronic CHF, unclear subtype-echocardiogram pending. 5. Hypertension-uncontrolled. Continue home carvedilol, clonidine. As needed labetalol. 6. Hyperlipidemia-continue statin. 7. 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 DVT prophylaxis-Lovenox This patient was seen by RALPH Del Toro under the supervision of Dr. Kasper. <Dominic Kasper - Last Filed: 06/19/20 14:39> - Physical Exam Vitals/I&O's: Vital Signs Temp Pulse Resp BP Pulse Ox 97.8 F 62 16 176/84 H 95 06/19/20 11:53 06/19/20 11:53 06/19/20 11:53 06/19/20 11:53 06/19/20 11:53 Oxygen Delivery Method Room Air Weight: 72.9 kg Body Mass Index (BMI) 30.3 Finger Stick Blood Glucose 115 Intake and Output for Last 24 Hours 06/17/20 06/18/20 06/19/20 23:59 23:59 23:59 Intake Total 1560.00 / 1560.00 Output Total 200 / 200 Balance 1360.00 / 1360.00 Laboratory Results 06/18/20 23:39: POC Glucose 115 H 06/18/20 23:40: WBC 10.2, RBC 4.12 L, Hgb 12.6 L, Hct 37.6 L, MCV 91.3, MCH 30.6, MCHC 33.5, RDW Std Deviation 38.8, RDW Coeff of Sapna 11.6, Plt Count 202, MPV 11.3, Immature Gran % (Auto) 0.200, Neut % (Auto) 68.0, Lymph % (Auto) 17.2 L, [place] % (Auto) 11.9 H, Eos % (Auto) 2.4, Baso % (Auto) 0.3, Absolute Neuts (auto) 6.9, Absolute Lymphs (auto) 1.76, Nucleated RBC % 0 06/18/20 23:40: PT 13.4, INR 1.1, APTT 27.9 06/18/20 23:40: Sodium 139, Potassium 5.5 H, Chloride 107, Carbon Dioxide 25.0, Anion Gap 7, BUN 41 H, Creatinine 1.62 H, Estim Creat Clear Calc 26.45, Est GFR (MDRD) Af Amer 53 L, Est GFR (MDRD) Non-Af 44 L, BUN/Creatinine Ratio 25.3 H, Glucose 111 H, Calcium 9.4, Troponin I < 0.015 06/18/20 23:40: Magnesium 2.0 06/19/20 05:12: WBC 7.5, RBC 4.02 L, Hgb 12.2 L, Hct 36.9 L, MCV 91.8, MCH 30.3, MCHC 33.1, RDW Std Deviation 39.1, RDW Coeff of Sapna 11.5 L, Plt Count 192, MPV 11.5, Immature Gran % (Auto) 0.500, Neut % (Auto) 60.3, Lymph % (Auto) 23.0, [place] % (Auto) 13.0 H, Eos % (Auto) 2.8, Baso % (Auto) 0.4, Absolute Neuts (auto) 4.5, Absolute Lymphs (auto) 1.72, Nucleated RBC % 0 06/19/20 05:12: Sodium 139, Potassium 4.7, Chloride 106, Carbon Dioxide 26.0, Anion Gap 7, BUN 36 H, Creatinine 1.41 H, Estim Creat Clear Calc 30.39, Est GFR (MDRD) Af Amer 62, Est GFR (MDRD) Non-Af 51 L, BUN/Creatinine Ratio 25.5 H, Glucose 106, Calcium 8.8, Total Bilirubin 0.30, AST 17, ALT 22, Alkaline Phosph atase 63, Total Protein 7.1, Albumin 3.6, Globulin 3.5, Albumin/Globulin Ratio 1.0, Triglycerides 274 H, Cholesterol 122, LDL Cholesterol 38, VLDL Cholesterol 55 H, HDL Cholesterol 29 L, TSH 3.21 06/19/20 05:12: Hemoglobin A1c 5.6 Current Medications Acetaminophen (Acetaminophen 325 Mg Tablet) 650 mg PO Q6H PRN PRN PRN Reason: Pain Score 1-10/Temp > 100.7 F Al Hydroxide/Mg Hydroxide (Mag Hydrox/Al Hydrox/Simeth 30 Ml Udc) 30 ml PO Q6H PRN PRN PRN Reason: Gastric Burning Albuterol Sulfate (Albuterol 2.5 Mg/3 Ml Vial.Neb.) 2.5 mg INHALATION Q2H PRN PRN PRN Reason: Dyspnea, wheezing Aspirin (Aspirin 81 Mg Tab.Chew) 81 mg PO DAILY@0800 ON LICENSE OF [facility] Last Admin: 06/19/20 08:59 Dose: 81 mg Documented by: Atorvastatin Calcium (Atorvastatin Calcium 20 Mg Tablet) 20 mg PO QHS ON LICENSE OF [facility] Carvedilol (Carvedilol 25 Mg Tablet) 25 mg PO BID ON LICENSE OF [facility] Clonidine (Clonidine Hcl 0.2 Mg Tablet) 0.2 mg PO BID ON LICENSE OF [facility] Enoxaparin Sodium (Enoxaparin 30 Mg/0.3 Ml Syringe) 30 mg SC DAILY ON LICENSE OF [facility] Last Admin: 06/19/20 08:59 Dose: 30 mg Documented by: Guaifenesin (Guaifenesin 10 Ml Udc (200mg/10ml)) 20 ml PO Q4H PRN PRN PRN Reason: COUGH Hydralazine HCl (Hydralazine 20 Mg/Ml Vial) 5 mg IV Q30M PRN PRN Reason: to maintain BP goals Sodium Chloride () 1,000 mls @ 100 mls/hr IV .Q10H ON LICENSE OF [facility] Last Admin: 06/19/20 12:42 Dose: 100 mls/hr Documented by: Sodium Chloride () 250 mls @ 15 mls/hr IV .[id number] PRN PRN Reason: Saline Flush Sodium Chloride () 250 mls @ 15 mls/hr IV .[id number] PRN PRN Reason: Additional IVPB Infusion Labetalol HCl (Labetalol (Prefilled) 20 Mg/4 Ml) 10 - 20 mg IV Q10M PRN PRN PRN Reason: to Maintain BP Goals Magnesium Hydroxide (Magnesium Hydroxide 30 Ml Udc) 30 ml PO DAILY PRN PRN PRN Reason: Constipation Melatonin (Melatonin 3 Mg Tablet) 3 mg PO QHS PRN PRN PRN Reason: INSOMNIA Morphine Sulfate (Morphine 2 Mg/Ml Syringe) 2 mg IV Q3H PRN PRN PRN Reason: Pain Score 6-10 Nitroglycerin (Nitroglycerin (Inpatient Use) 0.4 Mg Tab.Subl) 0.4 mg SUBLINGUAL Q5M PRN PRN Reason: CARDIAC/CHEST PAIN Ondansetron HCl (Ondansetron 4 Mg/2 Ml Vial) 4 mg IV Q8H PRN PRN PRN Reason: NAUSEA/VOMITING Oxycodone HCl (Oxycodone 5 Mg Tablet) 5 mg PO Q4H PRN PRN PRN Reason: Pain Score 4-5 Prochlorperazine Edisylate (Prochlorperazine 10 Mg/2 Ml Vial) 5 mg IV Q4H PRN PRN PRN Reason: Breakthrough Nausea/Vomiting Psyllium Hydrophilic Mucilloid (Psyllium 1 Packet) 1 packet PO DAILY PRN PRN PRN Reason: Constipation Senna/Docusate Sodium (Senna/Docusate Sodium 1 Tablet) 2 tablet PO BID PRN PRN PRN Reason: Constipation Sodium Chloride (0.9% Saline Lock 10 Ml Syringe) 10 - 40 ml IV UD PRN PRN Reason: SALINE FLUSH Last Admin: 06/19/20 01:50 Dose: 10 ml Documented by: Throat Lozenges (Benzocaine/Menthol 1 Lozenge) 1 lozenge MUCOUS MEM Q2H PRN PRN PRN Reason: SORE THROAT Assessment/Plan This patient was seen in conjunction with RALPH Del Toro . I have independently interviewed and examined the patient and reviewed pertinent historical, laboratory, and other data. Please refer to RALPH Del Toro note for details of this patient's presentation, findings, and recommendations. I have reviewed RALPH Del Toro note and concur with documented findings. In brief, patient is an 79-year-old male admitted with dysarthria with associated right facial droop Physical Examination: GENERAL: cooperative HEENT: Atraumatic; EYES; Anicteric, Normal Conjunctiva NECK; supple, normal thyroid, RESPIRATORY: Diminished to auscultation CARDIOVASCULAR: Regular S1 S2, GI: soft, normoactive bowel sounds, : No Renal angle tenderness; EXTREMITIES: No edema, no clubbing, MUSCULOSKELETAL: no muscle waisting NEURO: Awake; no lateralizing signs. SKIN: No Rash PSYCH; Flat affect Assessment: 1. TIA 2. Acute kidney injury 3. Hypokalemia 4. Congestive heart failure with preserved ejection fraction 5. Essential hypertension 6. Dyslipidemia 7. Overlap syndrome asthma/COPD 8. DVT prophylaxis Recommendations: 1. I have discussed the results of my overview and impressions with the patient 2. Options for management were reviewed OBSV E&M: [id number] Observ/hosp same date L3
[2020-06-19] MEDS: cloNIDine HCl 0.2 MG Tablet PO ×2 (14:56→22:32)
[2020-06-19] MEDS: Carvedilol 25 MG Tablet PO (14:56)
--- NOTE | 2020-06-19 18:22 | NURSING ---
This RN talked to the pt's son, Óscar this AM and let the son know that the pt's test results were pending and I would call him back this afternoon with a further update. This RN called the pt's son this afternoon to let him know that the brain mri, head and neck mra and echo had all came back normal and that the pt would be kept overnight and may possible go home tomorrow. This RN asked the pt's son if he would like the doctor to call him to discuss any further questions he may have. The pt's son would not answer if he would like to be called by the pt's doctor and was upset that the pt's pcp and flour mixer had not been contacted and updated during his stay at the hospital. This RN attempted to explain to him how things worked but he remained angry and kept yelling why can't you people warehouse picker the phone and call his doctor. This RN was unable to reason with the pt and told him she would have the doctor call him with an update. This RN messaged Diane Velasco NP the pt's number and let her know the situation.
[2020-06-19] MEDS: Atorvastatin Calcium 20 MG Tablet PO (22:32)
[2020-06-20 03:00] VITALS: PULSE 60
[2020-06-20 03:52] VITALS: BP 162/69; PULSE 58; RESP 18; TEMP 36.6; O2SAT 97
[2020-06-20 06:35] VITALS: PULSE 55
[2020-06-20 06:46] VITALS: BMI 30.3
[2020-06-20 06:53] LABS: Hematocrit 38.3 % (40-54); Hemoglobin 12.9 g/dL (13.0-16.5); Mean Corp Hgb Conc 33.7 g/dL (32-36); Mean Corpuscular Hgb 30.9 pg (27.0-32.0); Mean Corpuscular Volume 91.8 fL (80-94); Mean Platelet Vol. 11.4 fl (6.2-12.0); Platelet Count 180 K/mm3 (150-450); RBC Distribution Width CV 11.7 % (11.6-14.6); RBC Distribution Width SD 39.2 fl (35.1-43.9); Red Blood Count 4.17 M/mm3 (4.6-6.2); White Blood Count 6.4 K/mm3 (4.4-11.0)
[2020-06-20 07:17] LABS: Anion Gap 3 (5-15); BUN 29 mg/dL (7-18); Calcium,Total 8.7 mg/dL (8.5-10.1); Chloride 111 mmol/L (98-107); Creatinine, Serum 1.16 mg/dL (0.70-1.30); EST Glomerular Filtration Rate 64 mL/min (>60); Est Glom Filt Rate - Afr Amer 78 mL/min (>60); Estimated Creatinine Clearance 36.95 ml/min; Glucose 93 mg/dL (74-106); Potassium 5.1 mmol/L (3.5-5.1); Sodium Level 140 mmol/L (136-145)
[2020-06-20 07:28] VITALS: O2SAT 97
[2020-06-20 07:44] VITALS: BMI 30.3
[2020-06-20] MEDS: 0.9% Normal Saline 1,000 ML 100 ML IV (08:14)
[2020-06-20 09:23] VITALS: BP 189/62; PULSE 65; RESP 14; TEMP 36.7; O2SAT 97
[2020-06-20] MEDS: cloNIDine HCl 0.2 MG Tablet PO (09:25)
[2020-06-20] MEDS: Aspirin 81 MG TAB.CHEW PO (09:25)
[2020-06-20] MEDS: Carvedilol 25 MG Tablet PO (09:26)
[2020-06-20] MEDS: Enoxaparin 30 MG/0.3 ML Syringe SC (09:26)
--- NOTE | 2020-06-20 10:36 | DCINST_ITS ---
- Discharge Diagnoses Current Active Problems: Current Active and Chronic Problems TIA (transient ischemic attack) (Acute) SHIVA (acute kidney injury) (Acute) CKD (chronic kidney disease), stage III (Chronic) CHF (congestive heart failure) (Chronic) Hypertension (Chronic) Hyperlipidemia (Chronic) COPD with asthma (Chronic) You will use the following diet at home:: Cardiac Discharge Activity: Return to Normal Activity Call your doctor if you observe: Shortness of breath, Dizziness, Fainting spells, Chest pain Allergies/Adverse Reactions: Allergies tylenol arthritis Adverse Reaction (Uncoded 06/18/20 23:36) high blood pressure Medications to take at Discharge Albuterol Inhaler [Ventolin Hfa] 2 puff INHALATION Q6H PRN PRN 08/25/16 Carvedilol [Coreg] 25 mg PO BID 08/25/16 Clonidine HCl 0.2 mg PO BID 08/25/16 Doxazosin Mesylate [Cardura] 4 mg PO QHS 08/25/16 Simvastatin [Zocor] 40 mg PO QHS 08/25/16 Ascorbic Acid [Vitamin C] 1,000 mg PO DAILY 01/20/17 Calcium Carbonate [Calcium] 500 mg PO DAILY 01/20/17 Cayenne 450 mg PO DAILY 01/20/17 Cholecalciferol (Vitamin D3) [Vitamin D3] 2,000 unit PO DAILY 01/20/17 Garlic 1,000 mg PO DAILY 01/20/17 Ginseng 100 mg PO DAILY 01/20/17 Lecithin 1,200 mg PO DAILY 01/20/17 Milk Thistle 150 mg PO DAILY 01/20/17 [place]-3 Fatty Acids [Fish Oil] 500 mg PO DAILY 01/20/17 Papaya 1 each PO DAILY 01/20/17 [place] 500 mg PO DAILY 01/20/17 Vitamin B Complex/Folic Acid [Super B Maxi Complex Caplet] 0.4 mg PO DAILY 01/20/17 Furosemide [Lasix] 20 mg PO DAILY 05/22/20 Aspirin [Aspirin, Baby] 81 mg PO DAILY@0800 #90 tab.chew 06/20/20 Losartan Potassium [Cozaar] 100 mg PO DAILY #0 06/20/20 The following prescriptions were given: Aspirin [Aspirin, Baby] 81 mg PO DAILY@0800 #90 tab.chew Transmission Status: Pending to [facility]/pharmacy #[id number] Primary Care Physician: CLEMENTE SHEN [Other] Please follow up with your Primary Care Physician in: 1 Week Test Results: Test results from this visit will be discussed in further detail at your follow- up appointment, if applicable. Please Follow Up With: Lukasz Palafox MD - Neurology When: Call for follow up appointment Proposed Discharge Date: 06/20/20
--- NOTE | 2020-06-20 10:39 | PCM.DC.SUM ---
<Elisa Velasco SENIOR DIRECTOR MARKETING - Last Filed: 06/20/20 10:54> Discharge Date and Diagnosis - Problem List Patient Problems: Active and Suspected Problems TIA (transient ischemic attack) (Acute) SHIVA (acute kidney injury) (Acute) Date of Admission: 06/19/20 Date of Discharge: 06/20/20 - Primary Discharge Diagnosis Acute Problems: Active Problems 1. TIA versus migraine variant, CVA ruled out 2. Acute kidney injury on chronic kidney disease stage III 3. Hyperkalemia 4. Chronic heart failure with preserved ejection fraction 5. Hypertension 6. Hyperlipidemia 7. Chronic asthma/COPD - Secondary Discharge Diagnosis Chronic Problems: Chronic Problems CKD (chronic kidney disease), stage III (Chronic) CHF (congestive heart failure) (Chronic) Hypertension (Chronic) Hyperlipidemia (Chronic) COPD with asthma (Chronic) Hospital Course and Treatment Imaging Results: Diagnostic Data Brain CT 06/18/20 23:28 IMPRESSION: Chronic involutional changes of the brain. No demonstrated acute intracranial process. Electronically Signed: Arturo Lambert MD at 0:35 EST , Service support , Chest X-Ray 06/18/20 23:28 IMPRESSION: Suggestion of COPD. No evidence for acute cardiopulmonary pathology. Electronically Signed: Arturo Lambert MD at 0:05 EST , Service support , Neck MRA 06/19/20 01:18 IMPRESSION: 1. Normal bilateral common carotid arteries, bilateral common carotid bifurcations, bilateral internal and external carotid arteries. 2. Normal bilateral vertebral arteries, right is markedly hypoplastic. Electronically Signed: David Wiley MD at 13:34 EST , Service support , Brain MRI 06/19/20 05:55 IMPRESSION: 1. No MRI evidence of acute or subacute ischemic infarct or acute intracranial abnormality. 2. Multiple chronic white matter ischemic changes in both cerebral hemispheres. 3. Mucosal edema of the right temporal mastoid bone is unchanged when compared to CT head of 06/18/2020. Electronically Signed: David Wiley MD at 12:08 EST , Service support , Head MRA 06/19/20 05:55 IMPRESSION: Normal MRA of the head Electronically Signed: David Wiley MD at 13:09 EST , Service support , SOC neurology Operations: None Procedures: 2-D Echocardiogram Summary of Care Provided: The patient is a 79 year old M admitted 06/19/2020 due to right facial droop, dysarthria and expressive aphasia. 1. TIA versus migraine variant-CVA ruled out. MRI of brain without acute infarct. MRA of head and neck normal. Echocardiogram demonstrates an EF of 65%. SOC consult placed who suspects TIA versus migraine variant given patient has reported triggers prior to episodes of speech changes. Recommended initiating baby aspirin. Continue statin. Follow-up with PCP in 1 week. Follow-up with neurology in 2 weeks. Continue home statin regimen. 2. Acute kidney injury on chronic kidney disease stage III-resolved with IV fluids. Lasix held during admission. Will resume at discharge however patient will need further BMP monitoring as outpatient. 3. Hyperkalemia-resolved. 4. Chronic heart failure with preserved ejection fraction-echocardiogram as noted above. 5. Hypertension-Continue home carvedilol, clonidine. Home losartan regimen decreased to 100 mg daily. Per home medication list, previously on losartan 100 mg twice daily? 6. Hyperlipidemia-continue statin. 7. 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 General: Alert, Oriented x3, Cooperative HEENT: Atraumatic, PERRLA, EOMI, Normocephalic Neck: Supple, No JVD, Negative Carotid Bruits Lungs: Clear to auscultation, Normal air movement Cardiovascular: Regular rate, No murmurs Abdomen: Bowel Sounds Present, Soft, Non Tender, Non-Distended Extremities: No clubbing, No cyanosis, No edema, Capillary Refill Less than 3 Seconds Skin: No rashes, No breakdown Musculoskeletal: No Tenderness to Palpation of Joints or Extremities Neurological: Cranial nerves II-XII grossly intact, Neuro grossly intact Psych/Mental Status: Normal Affect, Appropriate Patient seen and examined prior to discharge. Physical assessment as noted above. Patient is stable for discharge with follow up recommendations as noted above. This patient was seen by RALPH Del Toro under the supervision of Dr. Kasper. Patient Problems: Active and Suspected Problems TIA (transient ischemic attack) (Acute) SHIVA (acute kidney injury) (Acute) - Physical Exam Vitals/I&O's: Vital Signs Temp Pulse Resp BP Pulse Ox 98.0 F 65 14 189/62 H 97 06/20/20 09:23 06/20/20 09:23 06/20/20 09:23 06/20/20 09:23 06/20/20 09:23 Oxygen Delivery Method Room Air Weight: 160 lb 11.472 oz Body Mass Index (BMI) 30.3 Finger Stick Blood Glucose 115 Intake and Output for Last 24 Hours 06/18/20 06/19/20 06/20/20 23:59 23:59 23:59 Intake Total 3246.67 / 3246.67 1266.67 / 1266.67 Output Total 200 / 200 Balance 3046.67 / 3046.67 1266.67 / 1266.67 Laboratory Results 06/20/20 06:00: WBC 6.4, RBC 4.17 L, Hgb 12.9 L, Hct 38.3 L, MCV 91.8, MCH 30.9, MCHC 33.7, RDW Std Deviation 39.2, RDW Coeff of Sapna 11.7, Plt Count 180, MPV 11.4 06/20/20 06:00: Sodium 140, Potassium 5.1, Chloride 111 H, Carbon Dioxide 26.0, Anion Gap 3 L, BUN 29 H, Creatinine 1.16, Estim Creat Clear Calc 36.95, Est GFR (MDRD) Af Amer 78, Est GFR (MDRD) Non-Af 64, BUN/Creatinine Ratio 25.0 H, Glucose 93, Calcium 8.7 Current Medications Acetaminophen (Acetaminophen 325 Mg Tablet) 650 mg PO Q6H PRN PRN PRN Reason: Pain Score 1-10/Temp > 100.7 F Al Hydroxide/Mg Hydroxide (Mag Hydrox/Al Hydrox/Simeth 30 Ml Udc) 30 ml PO Q6H PRN PRN PRN Reason: Gastric Burning Albuterol Sulfate (Albuterol 2.5 Mg/3 Ml Vial.Neb.) 2.5 mg INHALATION Q2H PRN PRN PRN Reason: Dyspnea, wheezing Aspirin (Aspirin 81 Mg Tab.Chew) 81 mg PO DAILY@0800 [facility] Last Admin: 06/20/20 09:25 Dose: 81 mg Documented by: Atorvastatin Calcium (Atorvastatin Calcium 20 Mg Tablet) 20 mg PO QHS [facility] Last Admin: 06/19/20 22:32 Dose: 20 mg Documented by: Carvedilol (Carvedilol 25 Mg Tablet) 25 mg PO BID [facility] Last Admin: 06/20/20 09:26 Dose: 25 mg Documented by: Clonidine (Clonidine Hcl 0.2 Mg Tablet) 0.2 mg PO BID [facility] Last Admin: 06/20/20 09:25 Dose: 0.2 mg Documented by: Enoxaparin Sodium (Enoxaparin 30 Mg/0.3 Ml Syringe) 30 mg SC DAILY [facility] Last Admin: 06/20/20 09:26 Dose: 30 mg Documented by: Guaifenesin (Guaifenesin 10 Ml Udc (200mg/10ml)) 20 ml PO Q4H PRN PRN PRN Reason: COUGH Hydralazine HCl (Hydralazine 20 Mg/Ml Vial) 5 mg IV Q30M PRN PRN Reason: to maintain BP goals Sodium Chloride () 1,000 mls @ 100 mls/hr IV .Q10H [facility] Last Admin: 06/20/20 08:14 Dose: 100 mls/hr Documented by: Sodium Chloride () 250 mls @ 15 mls/hr IV .[id number] PRN PRN Reason: Saline Flush Sodium Chloride () 250 mls @ 15 mls/hr IV .[id number] PRN PRN Reason: Additional IVPB Infusion Labetalol HCl (Labetalol (Prefilled) 20 Mg/4 Ml) 10 - 20 mg IV Q10M PRN PRN PRN Reason: to Maintain BP Goals Magnesium Hydroxide (Magnesium Hydroxide 30 Ml Udc) 30 ml PO DAILY PRN PRN PRN Reason: Constipation Melatonin (Melatonin 3 Mg Tablet) 3 mg PO QHS PRN PRN PRN Reason: INSOMNIA Morphine Sulfate (Morphine 2 Mg/Ml Syringe) 2 mg IV Q3H PRN PRN PRN Reason: Pain Score 6-10 Nitroglycerin (Nitroglycerin (Inpatient Use) 0.4 Mg Tab.Subl) 0.4 mg SUBLINGUAL Q5M PRN PRN Reason: CARDIAC/CHEST PAIN Ondansetron HCl (Ondansetron 4 Mg/2 Ml Vial) 4 mg IV Q8H PRN PRN PRN Reason: NAUSEA/VOMITING Oxycodone HCl (Oxycodone 5 Mg Tablet) 5 mg PO Q4H PRN PRN PRN Reason: Pain Score 4-5 Prochlorperazine Edisylate (Prochlorperazine 10 Mg/2 Ml Vial) 5 mg IV Q4H PRN PRN PRN Reason: Breakthrough Nausea/Vomiting Psyllium Hydrophilic Mucilloid (Psyllium 1 Packet) 1 packet PO DAILY PRN PRN PRN Reason: Constipation Senna/Docusate Sodium (Senna/Docusate Sodium 1 Tablet) 2 tablet PO BID PRN PRN PRN Reason: Constipation Sodium Chloride (0.9% Saline Lock 10 Ml Syringe) 10 - 40 ml IV UD PRN PRN Reason: SALINE FLUSH Last Admin: 06/19/20 01:50 Dose: 10 ml Documented by: Throat Lozenges (Benzocaine/Menthol 1 Lozenge) 1 lozenge MUCOUS MEM Q2H PRN PRN PRN Reason: SORE THROAT Discharge Diet: Low fat/ Low Cholesterol Discharge Activity: Return to Normal Activity Call your doctor if you observe: Shortness of breath, Dizziness, Fainting spells, Chest pain Home Medications: Medications to take at Discharge Albuterol Inhaler [Ventolin Hfa] 2 puff INHALATION Q6H PRN PRN 08/25/16 Carvedilol [Coreg] 25 mg PO BID 08/25/16 Clonidine HCl 0.2 mg PO BID 08/25/16 Doxazosin Mesylate [Cardura] 4 mg PO QHS 08/25/16 Simvastatin [Zocor] 40 mg PO QHS 08/25/16 Ascorbic Acid [Vitamin C] 1,000 mg PO DAILY 01/20/17 Calcium Carbonate [Calcium] 500 mg PO DAILY 01/20/17 Cayenne 450 mg PO DAILY 01/20/17 Cholecalciferol (Vitamin D3) [Vitamin D3] 2,000 unit PO DAILY 01/20/17 Garlic 1,000 mg PO DAILY 01/20/17 Ginseng 100 mg PO DAILY 01/20/17 Lecithin 1,200 mg PO DAILY 01/20/17 Milk Thistle 150 mg PO DAILY 01/20/17 [place]-3 Fatty Acids [Fish Oil] 500 mg PO DAILY 01/20/17 Papaya 1 each PO DAILY 01/20/17 Saw [place] 500 mg PO DAILY 01/20/17 Vitamin B Complex/Folic Acid [Super B Maxi Complex Caplet] 0.4 mg PO DAILY 01/20/17 Furosemide [Lasix] 20 mg PO DAILY 05/22/20 Aspirin [Aspirin, Baby] 81 mg PO DAILY@0800 #90 tab.chew 06/20/20 Losartan Potassium [Cozaar] 100 mg PO DAILY #0 06/20/20 Following Prescriptions Were Given to Patient: Aspirin [Aspirin, Baby] 81 mg PO DAILY@0800 #90 tab.chew Transmission Status: Received by [id number] Primary Care Physician: CLEMENTE SHEN [Other] Please follow up with your Primary Care Physician in: 1 Week Please Follow Up With: Lukasz Palafox MD - Neurology When: Call for follow up appointment Disposition: Home Minutes spent on discharge:: 35 Patient Condition:: Stable Medical Necessity - Tobacco Use Smoking Status: Former smoker Tobacco Use: Cigarettes Meaningful Use Info Meaningful Use Diagnoses (Choose all that apply): None applicable <Dominic Kasper - Last Filed: 06/20/20 12:27> Discharge Date and Diagnosis - Primary Discharge Diagnosis Acute Problems: Active Problems TIA (transient ischemic attack) (Acute) SHIVA (acute kidney injury) (Acute) - Secondary Discharge Diagnosis Chronic Problems: Chronic Problems CKD (chronic kidney disease), stage III (Chronic) CHF (congestive heart failure) (Chronic) Hypertension (Chronic) Hyperlipidemia (Chronic) COPD with asthma (Chronic) Hospital Course and Treatment Summary of Care Provided: This patient was seen in conjunction with RALPH Del Toro . I have independently interviewed and examined the patient and reviewed pertinent historical, laboratory, and other data. Please refer to RALPH Del Toro note for details of this patient's presentation, findings, and recommendations. I have reviewed RALPH Del Toro note and concur with documented findings. In brief, patient is an 79-year-old male admitted with dysarthria with associated right facial droop Assessment: 1. TIA 2. Acute kidney injury 3. Hypokalemia 4. Congestive heart failure with preserved ejection fraction 5. Essential hypertension 6. Dyslipidemia 7. Overlap syndrome asthma/COPD 8. DVT prophylaxis Hospital course: As documented above - Physical Exam Vitals/I&O's: Vital Signs Temp Pulse Resp BP Pulse Ox 98.0 F 65 14 189/62 H 97 06/20/20 09:23 06/20/20 09:23 06/20/20 09:23 06/20/20 09:23 06/20/20 09:23 Oxygen Delivery Method Room Air Weight: 72.9 kg Body Mass Index (BMI) 30.3 Finger Stick Blood Glucose 115 Intake and Output for Last 24 Hours 06/18/20 06/19/20 06/20/20 23:59 23:59 23:59 Intake Total 3246.67 / 3246.67 1266.67 / 1266.67 Output Total 200 / 200 Balance 3046.67 / 3046.67 1266.67 / 1266.67 Laboratory Results 06/20/20 06:00: WBC 6.4, RBC 4.17 L, Hgb 12.9 L, Hct 38.3 L, MCV 91.8, MCH 30.9, MCHC 33.7, RDW Std Deviation 39.2, RDW Coeff of Sapna 11.7, Plt Count 180, MPV 11.4 06/20/20 06:00: Sodium 140, Potassium 5.1, Chloride 111 H, Carbon Dioxide 26.0, Anion Gap 3 L, BUN 29 H, Creatinine 1.16, Estim Creat Clear Calc 36.95, Est GFR (MDRD) Af Amer 78, Est GFR (MDRD) Non-Af 64, BUN/Creatinine Ratio 25.0 H, Glucose 93, Calcium 8.7 OBSV E&M: 04184 Observation care discharge
--- NOTE | 2020-06-20 10:46 | CASEMGMT ---
SW completed a PHQ9 with patient as he may have had a TIA. He scored a 2 which indicates minimal depression. He denies the need for any counseling. [place] FLANAGAN MSW
--- NOTE | 2020-06-20 10:54 | CASEMGMT ---
This RN CM to room with MILLER form at this time, explanation done-pt voices understanding, and pt signs MILLER form at this time. Original to chart and copy to pt at this time. Pt has IP vs OBS booklet at bedside. Pt declines need for therapy or any further resources at this time. Pt voices no further questions/concerns/needs at this time. SStaten RN CM
--- NOTE | 2020-06-20 14:40 | PHA.DC.MR ---
Pharmacy Service has performed discharge medication reconciliation for this patient. The patient's discharge medication list was reviewed for discrepancies and discrepancies were resolved. Home Medications Albuterol Inhaler [Ventolin Hfa] 2 puff INHALATION Q6H PRN PRN 08/25/16 Carvedilol [Coreg] 25 mg PO BID 08/25/16 Clonidine HCl 0.2 mg PO BID 08/25/16 Doxazosin Mesylate [Cardura] 4 mg PO QHS 08/25/16 Simvastatin [Zocor] 40 mg PO QHS 08/25/16 Ascorbic Acid [Vitamin C] 1,000 mg PO DAILY 01/20/17 Calcium Carbonate [Calcium] 500 mg PO DAILY 01/20/17 [place] 450 mg PO DAILY 01/20/17 Cholecalciferol (Vitamin D3) [Vitamin D3] 2,000 unit PO DAILY 01/20/17 Garlic 1,000 mg PO DAILY 01/20/17 Ginseng 100 mg PO DAILY 01/20/17 Lecithin 1,200 mg PO DAILY 01/20/17 Milk Thistle 150 mg PO DAILY 01/20/17 [place]-3 Fatty Acids [Fish Oil] 500 mg PO DAILY 01/20/17 Papaya 1 each PO DAILY 01/20/17 Saw [place] 500 mg PO DAILY 01/20/17 Vitamin B Complex/Folic Acid [Super B Maxi Complex Caplet] 0.4 mg PO DAILY 01/20/17 Furosemide [Lasix] 20 mg PO DAILY 05/22/20 Aspirin [Aspirin, Baby] 81 mg PO DAILY@0800 #90 tab.chew 06/20/20 Losartan Potassium [Cozaar] 100 mg PO DAILY #0 06/20/20
--- NOTE | 2020-06-20 15:05 | NURSING ---
Read and reviewed SN documentation
== END 2020-06-20 10:39 | disposition home or self-care (01) ==
LOC: ED 06-19 00:11 → PCU 06-19 00:54
PROVIDERS: Nurse Practitioner Family; Admitting Provider Family Medicine; Emergency Provider Emergency Medicine; Visit Provider Internal Medicine
DX: G45.9 Transient cerebral ischemic attack, unspecified (principal); N17.9 Acute kidney failure, unspecified; I13.0 Hypertensive heart and chronic kidney disease with heart failure and stage 1 through stage 4 chronic kidney disease, or unspecified chronic kidney disease; N18.30 Chronic kidney disease, stage 3 unspecified; E87.5 Hyperkalemia; E78.5 Hyperlipidemia, unspecified; J44.9 Chronic obstructive pulmonary disease, unspecified; Z23 Encounter for immunization; R47.1 Dysarthria and anarthria; R29.810 Facial weakness; N40.0 Benign prostatic hyperplasia without lower urinary tract symptoms; I50.32 Chronic diastolic (congestive) heart failure; Z79.899 Other long term (current) drug therapy; Z79.82 Long term (current) use of aspirin; Z87.891 Personal history of nicotine dependence; R47.01 Aphasia
CPT/HCPCS: 36415; 70450; 70544; 70547; 70551; 71045; 80048; 80053; 80061; 82962; 83036; 83735; 84443; 84484; 85025; 85027; 85610; 85730; 92522; 93005; 93306; 96360; 96361; 96372; 97161; 97166; 97802; 99218; 99251; 99285; G0008; J7030; Q9957; 90686; A4216; C8929; G0378; G0463

== ENCOUNTER → 2020-10-09 11:54 | Outpatient (CLI) | payer MEDICARE, SELFPAY ==
--- NOTE | 2020-10-09 11:59 | EKG12_ITS ---
Test Reason : PRE OP Blood Pressure : / mmHG Vent. Rate : 057 BPM Atrial Rate : 057 BPM P-R Int : 160 ms QRS Dur : 140 ms QT Int : 428 ms P-R-T Axes : 044 082 066 degrees QTc Int : 416 ms Sinus bradycardia Right bundle branch block Abnormal ECG Confirmed by JUAN J LEON, SIMONE ([id number]), editor news TREV MACIEL ([id number]) on 10/13/2020 7:51:32 AM Referred By: YE Confirmed By:ASTRID ARITA MD
[2020-10-09 13:33] LABS: Hematocrit 36.6 % (40-54); Hemoglobin 11.8 g/dL (13.0-16.5); Mean Corp Hgb Conc 32.2 g/dL (32-36); Mean Corpuscular Hgb 28.9 pg (27.0-32.0); Mean Corpuscular Volume 89.5 fL (80-94); Mean Platelet Vol. 11.6 fl (6.2-12.0); Platelet Count 254 K/mm3 (150-450); RBC Distribution Width SD 39.2 fl (35.1-43.9); Red Blood Count 4.09 M/mm3 (4.6-6.2); White Blood Count 7.4 K/mm3 (4.4-11.0)
[2020-10-09 13:54] LABS: Anion Gap 5 (5-15); BUN 42 mg/dL (7-18); Calcium,Total 9.6 mg/dL (8.5-10.1); Chloride 97 mmol/L (98-107); Creatinine, Serum 1.45 mg/dL (0.70-1.30); EST Glomerular Filtration Rate 50 mL/min (>60); Est Glom Filt Rate - Afr Amer 60 mL/min (>60); Glucose 109 mg/dL (74-106); Potassium 4.9 mmol/L (3.5-5.1); Sodium Level 131 mmol/L (136-145)
== END ==
LOC: LAB.FUTURE 11:57 → CVS 11:58
PROVIDERS: Visit Provider Urology
DX: Z01.812 Encounter for preprocedural laboratory examination (principal); I11.0 Hypertensive heart disease with heart failure; I50.814 Right heart failure due to left heart failure
CPT/HCPCS: 36415; 80048; 85027; 87635; 93005; C9803; U0005; U0003

== ENCOUNTER 2021-03-28 18:25 | Inpatient (IN) | payer MEDICARE, SELFPAY ==
[2021-03-28] VITALS (12 sets, daily range): BP systolic 130–158; BP diastolic 65–112; PULSE 62–75; RESP 14–32; TEMP 36.4–36.7; O2SAT 87–97; BMI 31.0; BMI 29.0
--- NOTE | 2021-03-28 18:57 | EKG12_ITS ---
Test Reason : AM EKG Blood Pressure : / mmHG Vent. Rate : 066 BPM Atrial Rate : 066 BPM P-R Int : 158 ms QRS Dur : 138 ms QT Int : 446 ms P-R-T Axes : 042 077 035 degrees QTc Int : 467 ms Normal sinus rhythm Right bundle branch block Abnormal ECG Confirmed by INA LEON, MARCELO ([id number]), greeting card editor TREV MACIEL ([id number]) on 04/01/2021 11:04:03 AM Referred By: Anthony Bhatia Confirmed By:MARCELO BUCKLEY MD
--- NOTE | 2021-03-28 19:11 | EDS_ITS ---
HPI History of Present Illness Chief Complaint: Shortness of Breath Informant: patient and family Narrative Narrative: 80-year-old male with a history of stage III chronic kidney disease and CHF presents with dyspnea. Symptoms began yesterday. He notes that last night he was unable to lay flat needed to sleep in a chair. Symptoms got even worse today. He denies any fever or significant cough. He notes significantly more leg swelling and bloating of his abdomen. He notes that he has gained over 10 pounds in about a week. He currently sees a postmaster relief in [place] his primary care doctor is in [place]. He takes Lasix 20 mg a day but today took 40 mg. He does not wear home oxygen [facility] Medical History CHF (congestive heart failure) CKD (chronic kidney disease) COPD (chronic obstructive pulmonary disease) HTN (hypertension) TIA (transient ischemic attack) Home Medications albuterol sulfate [Ventolin HFA] 2 puff INHALATION Q6H PRN PRN 08/25/16 [History Last Taken Unknown] carvedilol [Coreg] 25 mg PO BID 08/25/16 [History Last Taken Unknown] clonidine HCl 0.1 mg PO BID 08/25/16 [History Last Taken Unknown] doxazosin 4 mg PO QHS 08/25/16 [History Last Taken Unknown] simvastatin 40 mg PO QHS 08/25/16 [History Last Taken Unknown] Fish Oil 500 mg PO DAILY 01/20/17 [History Last Taken Unknown] ascorbic acid (vitamin C) [Vitamin C] 1,000 mg PO DAILY 01/20/17 [History Last Taken Unknown] calcium carbonate 500 mg PO DAILY 01/20/17 [History Last Taken Unknown] capsicum (cayenne) 450 mg PO DAILY 01/20/17 [History Last Taken Unknown] carica papaya 1 ea PO DAILY 01/20/17 [History Last Taken Unknown] cholecalciferol (vitamin D3) [Vitamin D3] 2,000 unit PO DAILY 01/20/17 [History Last Taken Unknown] garlic 1,000 mg PO DAILY 01/20/17 [History Last Taken Unknown] ginseng 100 mg PO DAILY 01/20/17 [History Last Taken Unknown] lecithin 1,200 mg PO DAILY 01/20/17 [History Last Taken Unknown] milk thistle 150 mg PO DAILY 01/20/17 [History Last Taken Unknown] saw [place] 500 mg PO DAILY 01/20/17 [History Last Taken Unknown] vitamin B complex-folic acid [Super B Maxi Complex] 0.4 mg PO DAILY 01/20/17 [History Last Taken Unknown] furosemide 20 mg PO DAILY 05/22/20 [History Last Taken Unknown] aspirin 81 mg PO DAILY@0800 #90 tab.chew 06/20/20 [Rx Last Taken Unknown] finasteride 5 mg PO DAILY 03/28/21 [History Last Taken Unknown] losartan 50 mg PO DAILY 03/28/21 [History Last Taken Unknown] nifedipine 60 mg PO DAILY 03/28/21 [History Last Taken Unknown] Allergy/AdvReac Type Severity Reaction Status Date / Time tylenol arthritis AdvReac high blood Uncoded 06/18/20 23:36 pressure Social History Smoking Status: Former smoker substance use type: does not use ROS ROS ED Constitutional Constitutional ED: Denies chills or weight loss Eyes Eyes: Denies change in vision or diplopia ENT ENT ED: Denies ear pain, rhinorrhea or sore throat Cardiovascular Cardiovascular: Reports orthopnea; Denies chest pain, palpitations or racing heartbeat Respiratory/Chest Respiratory/Chest: Reports dyspnea, dyspnea on exertion and orthopnea; Denies cough Gastrointestinal Gastrointestinal: Denies abdominal pain, diarrhea, nausea or vomiting Genitourinary Genitourinary ED: Denies dysuria, hematuria or urinary frequency Musculoskeletal Musculoskeletal: Denies arthralgias or myalgias Integumentary Denies abscess or rash Neurologic Neurologic: Denies headache(s) or weakness Psychiatric Psychiatric: Denies anxiety, depression, suicidal ideation or suicidal thoughts Endocrine Endocrinology: Denies polydipsia, polyphagia or polyuria Allergic/Immunologic Allergic/Immunologic ED: Denies mouth swelling, tongue swelling or urticaria EXAM Physical Exam Const Vital Signs: 03/28/21 18:26 03/28/21 19:32 03/28/21 19:36 Temperature 98.1 F Temperature Source Temporal Pulse Rate 62 Respiratory Rate 22 H Respiratory Effort Normal Non-Labored Respiratory Depth Normal Respiratory Pattern Blood Pressure 130/112 H Blood Pressure Mean 118 Pulse Ox 93 93 Oxygen Delivery Method Room Air Nasal Cannula Nasal Cannula Oxygen Flow Rate (L/min) 2 2 Fraction of Inspired Oxygen (FIO2) 03/28/21 20:10 03/28/21 20:11 03/28/21 20:35 Temperature Temperature Source Pulse Rate 73 69 Respiratory Rate 32 H 28 H Respiratory Effort Respiratory Depth Respiratory Pattern Tachypnea Blood Pressure 156/74 H Blood Pressure Mean 101 Pulse Ox 87 90 94 Oxygen Delivery Method Nasal Cannula Nasal Cannula Oxygen Flow Rate (L/min) 4 6 Fraction of Inspired Oxygen (FIO2) 50 03/28/21 20:37 Temperature 97.8 F Temperature Source Temporal Pulse Rate 70 Respiratory Rate 29 H Respiratory Effort Respiratory Depth Respiratory Pattern Blood Pressure 156/65 H Blood Pressure Mean 95 Pulse Ox 96 Oxygen Delivery Method Bi-pap Oxygen Flow Rate (L/min) Fraction of Inspired Oxygen (FIO2) Positive well nourished and well developed General Appearance ED: well developed HEENT Reports normocephalic, head/scalp atraumatic and moist mucous membranes Eyes PERRL and EOMs intact bilaterally Neck no lymphadenopathy, supple and no JVD Resp normal respiratory effort Auscultation: rales Cardio regular rate, regular rhythm and no murmurs GI normal to inspection, nondistended, normoactive bowel sounds and non-tender Palpation: soft Back/Spine no CVA tenderness and normal ROM Extremity normal to inspection Extremity Narrative: 3+ pitting edema lower extremity General Extremety ED: Yes edema General Extremity: edema Neuro oriented x3 and CN's II-XII intact bilaterally Sensorium / Orientation: alert Motor Exam: strength 5/5 throughout Psych mental status grossly normal Mood & Affect: Negative for depressed or tearful Skin no rashes or lesions noted and no wounds MDM MDM MDM Narrative Medical decision making narrative: Simply having the patient undress and sit in the bed causes his pulse ox to decrease to 87% on room air. Covid test is negative. Patient's chest x-ray shows CHF. Beta natruretic peptide is elevated at 270. Patient has had a substantial weight gain over the past month. While at rest the patient's respiratory rate increased into the 30s. On 6 L he was satting 89 to 90%. Due to the work of breathing and the hypoxemia the patient was placed on BiPAP. Patient will receive 80 mg of Lasix IV. Plan will be admission into the intensive care unit Lab Data Attestation: I reviewed the patient's lab results. Labs: Laboratory Results - last 24 hr 03/28/21 03/28/21 03/28/21 19:20 19:20 19:20 WBC 7.2 RBC 3.80 L Hgb 11.5 L Hct 34.0 L MCV 89.5 MCH 30.3 MCHC 33.8 RDW Std Deviation 39.1 RDW Coeff of Sapna 12.0 Plt Count 208 MPV 11.1 Immature Gran % (Auto) 0.300 Neut % (Auto) 62.3 Lymph % (Auto) 14.2 L [place] % (Auto) 19.0 H Eos % (Auto) 3.6 Baso % (Auto) 0.6 Absolute Neuts (auto) 4.5 Absolute Lymphs (auto) 1.02 Nucleated RBC % 0 Sodium 135 L Potassium 4.2 Chloride 102 Carbon Dioxide 29.0 Anion Gap 4 L BUN 33 H Creatinine 1.40 H Estim Creat Clear Calc 30.09 Est GFR (MDRD) Af Amer 62 Est GFR (MDRD) Non-Af 52 L BUN/Creatinine Ratio 23.6 H Glucose 101 Calcium 9.2 Magnesium Troponin I High Sens 10.2 B-Natriuretic Peptide 270.4 H 03/28/21 19:20 WBC RBC Hgb Hct MCV MCH MCHC RDW Std Deviation RDW Coeff of Sapna Plt Count MPV Immature Gran % (Auto) Neut % (Auto) Lymph % (Auto) [place] % (Auto) Eos % (Auto) Baso % (Auto) Absolute Neuts (auto) Absolute Lymphs (auto) Nucleated RBC % Sodium Potassium Chloride Carbon Dioxide Anion Gap BUN Creatinine Estim Creat Clear Calc Est GFR (MDRD) Af Amer Est GFR (MDRD) Non-Af BUN/Creatinine Ratio Glucose Calcium Magnesium 2.4 Troponin I High Sens B-Natriuretic Peptide Radiography Diagnostic Testing: Radiology Impression Chest X-Ray 03/28/21 19:27 IMPRESSION: 1. Vascular congestion with interstitial and groundglass opacities predominantly in the lung bases. Favor CHF/pulmonary edema although component of viral pneumonitis is possible. Electronically Signed: Andrew Hernández MD ([place]) at 19:39 EDT , Service support , EKG Initial EKG: Attestation: I personally reviewed and interpreted this EKG as follows: Comments: EKG is a normal sinus rhythm at a rate of 69 with right bundle branch block Critical Care Time Critical Care Time: Yes Critical care time (excluding procedures): 30-74 minutes (35), Including time spent:, Discussing w/Patient &/or Family/Special Effects Makeup Artist, Discussing w/Consultants, Arranging Admission or Transfer and Performing Direct Patient Care at Bedside Discharge Plan Dx/Rx/DC Orders Clinical Impression: CHF (congestive heart failure), Acute hypoxemic respiratory failure Disposition Disposition: Acute Care Hospital [facility] Discharge Date/Time: 03/28/21 23:02
[2021-03-28 19:24] LABS: Absolute Lymphocyte Count 1.02 X10^3/uL (0.83-4.51); Absolute Neutrophil Count 4.5 X10^3/uL (2.0-7.7); Basophil# 0.04 X10^3/uL; Basophil% 0.6 % (0-1); Eosinophil# 0.26 X10^3/uL; Eosinophils% 3.6 % (0-5); Hemoglobin 11.5 g/dL (13.0-16.5); Lymphocyte # 1.02 X10^3/ul (0.83-4.51); Lymphocyte % 14.2 % (19-41); Mean Corp Hgb Conc 33.8 g/dL (32-36); Mean Corpuscular Hgb 30.3 pg (27.0-32.0); Mean Corpuscular Volume 89.5 fL (80-94); Mean Platelet Vol. 11.1 fl (6.2-12.0); Monocyte# 1.36 X10^3/uL; NRBC Flagged by Analyzer 0 % (0-5); Neutrophil # 4.47 X10^3/uL (2.7-7.7); Neutrophil % 62.3 % (47-70); Platelet Count 208 K/mm3 (150-450); RBC Distribution Width SD 39.1 fl (35.1-43.9); White Blood Count 7.2 K/mm3 (4.4-11.0)
--- NOTE | 2021-03-28 19:27 | RAD_ITS ---
STUDY: X-RAY CHEST REASON FOR EXAM: Male, 80 years old. dyspnea TECHNIQUE: AP COMPARISON: 06/18/2019 FINDINGS: Reticular and groundglass opacities in the central and lower lungs new since the prior study. No sizable pleural effusion. There is borderline cardiomegaly. Normal mediastinum and khurram. Mild central pulmonary vascular congestion. There is atherosclerotic calcification of the aortic arch with tortuosity. No acute bony process. There is no demonstrated abnormality of the visualized soft tissue structures of the upper abdomen. RAD/Chest 1 View (Portable) IMPRESSION: 1. Vascular congestion with interstitial and groundglass opacities predominantly in the lung bases. Favor CHF/pulmonary edema although component of viral pneumonitis is possible. Electronically Signed: Andrew Hernández MD (Brooks) at 19:39 EDT , Service support ,
[2021-03-28] MEDS: Aspirin 81 MG TAB.CHEW 324 MG PO (19:30)
[2021-03-28 19:42] LABS: BNP,B-Type NATRIURETIC PEPTIDE 270.4 pg/mL (0-100)
[2021-03-28 19:44] LABS: Anion Gap 4 (5-15); BUN 33 mg/dL (7-18); BUN/Creat Ratio 23.6 RATIO (10-20); Calcium,Total 9.2 mg/dL (8.5-10.1); Chloride 102 mmol/L (98-107); EST Glomerular Filtration Rate 52 mL/min (>60); Est Glom Filt Rate - Afr Amer 62 mL/min (>60); Estimated Creatinine Clearance 30.09 ml/min; Glucose 101 mg/dL (74-106); Potassium 4.2 mmol/L (3.5-5.1); Sodium Level 135 mmol/L (136-145); Troponin-I HS 10.2 pg/mL (3.0-78.5)
[2021-03-28] MEDS: Furosemide 100 MG/10 ML Vial 80 MG IV (20:36)
--- NOTE | 2021-03-28 22:08 | PCM.HP.STD ---
HPI - General General Date of Admission: 03/28/21 Date of Service: 03/28/21 Chief Complaint: Acute shortness of breath for last 2 days HPI Narrative CARMEN MOCK, is a 80 M with history of heart failure, being managed by [facility] de icer element winder came to ER with acute worsening of shortness of breath for last 2 days. Patient was put on BiPAP therefore history mainly taken from patient's son near the bedside. Patient has bilateral lower extremity swelling increasing for last 3 to 4 months but for last 2 days he got short of breath, abdominal swelling, bloating, loss of appetite and could not eat. Patient is compliant to his medications, Lasix 20 mg daily and today to 40 mg daily. Patient gained 10 pounds of weight in last 1 week. He also reports decrease in urine output in the last 2 to 3 days. Denies chest pain/pressure. Denies history of fever, chills, purulent sputum or features of pneumonia or bronchitis. He had mild cough and rattling chest today. In ER, patient was found very short of breath and put on BiPAP and Lasix 80 mg IV given which shows improvement in breathing. Patient also put about 400 mL of clear urine in urinal. Twelve-lead EKG shows normal sinus rhythm RBBB, QRS 128 ms. No significant change from the previous EKG of 10/09/2020 except it was sinus bradycardia 57 bpm. Chest x-ray independently reviewed shows interstitial vascular congestion and groundglass opacities predominantly in lower lung bases. Labs reviewed and significant abnormal with elevated BNP, BUN/creatinine 33/1.4, sodium 135. PFSH Medical History CHF (congestive heart failure) CKD (chronic kidney disease) COPD (chronic obstructive pulmonary disease) HTN (hypertension) TIA (transient ischemic attack) Home Medications albuterol sulfate [Ventolin HFA] 2 puff INHALATION Q6H PRN PRN 08/25/16 [History Last Taken Unknown] carvedilol [Coreg] 25 mg PO BID 08/25/16 [History Last Taken Unknown] clonidine HCl 0.1 mg PO BID 08/25/16 [History Last Taken Unknown] doxazosin 4 mg PO QHS 08/25/16 [History Last Taken Unknown] simvastatin 40 mg PO QHS 08/25/16 [History Last Taken Unknown] Fish Oil 500 mg PO DAILY 01/20/17 [History Last Taken Unknown] ascorbic acid (vitamin C) [Vitamin C] 1,000 mg PO DAILY 01/20/17 [History Last Taken Unknown] calcium carbonate 500 mg PO DAILY 01/20/17 [History Last Taken Unknown] capsicum (cayenne) 450 mg PO DAILY 01/20/17 [History Last Taken Unknown] carica papaya 1 ea PO DAILY 01/20/17 [History Last Taken Unknown] cholecalciferol (vitamin D3) [Vitamin D3] 2,000 unit PO DAILY 01/20/17 [History Last Taken Unknown] garlic 1,000 mg PO DAILY 01/20/17 [History Last Taken Unknown] ginseng 100 mg PO DAILY 01/20/17 [History Last Taken Unknown] lecithin 1,200 mg PO DAILY 01/20/17 [History Last Taken Unknown] milk thistle 150 mg PO DAILY 01/20/17 [History Last Taken Unknown] saw palmetto 500 mg PO DAILY 01/20/17 [History Last Taken Unknown] vitamin B complex-folic acid [Super B Maxi Complex] 0.4 mg PO DAILY 01/20/17 [History Last Taken Unknown] furosemide 20 mg PO DAILY 05/22/20 [History Last Taken Unknown] aspirin 81 mg PO DAILY@0800 #90 tab.chew 06/20/20 [Rx Last Taken Unknown] finasteride 5 mg PO DAILY 03/28/21 [History Last Taken Unknown] losartan 50 mg PO DAILY 03/28/21 [History Last Taken Unknown] nifedipine 60 mg PO DAILY 03/28/21 [History Last Taken Unknown] Allergy/AdvReac Type Severity Reaction Status Date / Time tylenol arthritis AdvReac high blood Uncoded 06/18/20 23:36 pressure Social History Smoking Status: Former smoker substance use type: does not use ROS ROS Narrative 12 ROS is limited as patient is on BiPAP Discussed with the patient's son Constitutional: Reports fatigue and weakness, shortness of breath, weight gain HEENT: Reports systems reviewed and no addt'l complaints, except as documented Respiratory/Chest: As mentioned in HPI Gastrointestinal: Denies coffee ground emesis, hematemesis or vomiting Genitourinary: Denies burning urination or new urinary tract symptoms Musculoskeletal: Mild joint pain and limited range of motion Neurologic: Denies seizure-like activity skin: Mild lower leg swelling. No ulcer or rash Endocrinology: Reports systems reviewed and no addt'l complaints, except as documented Hematologic/Lymphatic: Reports systems reviewed and no addt'l complaints, except as documented Rest 12 ROS are negative except as mentioned in HPI Vital Signs Vital Signs Vital Signs: 03/28/21 18:26 03/28/21 19:32 03/28/21 19:36 Temperature 98.1 F Temperature Source Temporal Pulse Rate 62 Respiratory Rate 22 H Respiratory Effort Normal Non-Labored Respiratory Depth Normal Blood Pressure 130/112 H Blood Pressure Mean 118 Pulse Ox 93 93 Oxygen Delivery Method Room Air Nasal Cannula Nasal Cannula Oxygen Flow Rate (L/min) 2 2 03/28/21 20:10 03/28/21 20:11 03/28/21 20:37 Temperature 97.8 F Temperature Source Temporal Pulse Rate 73 70 Respiratory Rate 32 H 29 H Respiratory Effort Respiratory Depth Blood Pressure 156/74 H 156/65 H Blood Pressure Mean 101 95 Pulse Ox 87 90 96 Oxygen Delivery Method Nasal Cannula Nasal Cannula Bi-pap Oxygen Flow Rate (L/min) 4 6 03/28/21 21:00 Temperature Temperature Source Pulse Rate 71 Respiratory Rate 20 H Respiratory Effort Respiratory Depth Blood Pressure 145/67 H Blood Pressure Mean 93 Pulse Ox 97 Oxygen Delivery Method Bi-pap Oxygen Flow Rate (L/min) Weight Weight: 164 lb 3.91 oz Body Mass Index (BMI) 31.0 Physical Exam Narrative General: Awake, oriented x3, Cooperative HEENT: Atraumatic, PERRLA, EOMI, Normocephalic Oral: On BiPAP. Neck: Supple, No JVD, Negative Carotid Bruits Lungs: Air entry diminished in bilateral lung bases. No rhonchi. Cardiovascular: Regular rate, Regular Rhythm, Normal S1, Normal S2, No murmurs Abdomen: Abdomen distended, mildly gaseous probably due to BiPAP. Bowel Sounds Present, possible mild ascites in the flanks. : No renal angle tenderness. No suprapubic tenderness. Extremities: Bilateral LE pitting 3+ edema above knee level, Capillary Refill Less than 3 Seconds Skin: No rashes, No breakdown Musculoskeletal: No Tenderness to Palpation of Joints or Extremities Neurological: Cranial nerves II-XII grossly intact, DTR 2+/4 and Symmetrical, Neuro grossly intact Psych/Mental Status: Normal Affect, Appropriate. Results Lab / Micro Data Result Diagrams: 03/28/21 19:20 03/28/21 19:20 Labs: Laboratory Results - last 24 hr 03/28/21 19:20: WBC 7.2, RBC 3.80 L, Hgb 11.5 L, Hct 34.0 L, MCV 89.5, MCH 30.3, MCHC 33.8, RDW Std Deviation 39.1, RDW Coeff of Sapna 12.0, Plt Count 208, MPV 11.1, Immature Gran % (Auto) 0.300, Neut % (Auto) 62.3, Lymph % (Auto) 14.2 L, J[place]uld % (Auto) 19.0 H, Eos % (Auto) 3.6, Baso % (Auto) 0.6, Absolute Neuts (auto) 4.5, Absolute Lymphs (auto) 1.02, Nucleated RBC % 0 03/28/21 19:20: Sodium 135 L, Potassium 4.2, Chloride 102, Carbon Dioxide 29.0, Anion Gap 4 L, BUN 33 H, Creatinine 1.40 H, Estim Creat Clear Calc 30.09, Est GFR (MDRD) Af Amer 62, Est GFR (MDRD) Non-Af 52 L, BUN/Creatinine Ratio 23.6 H, Glucose 101, Calcium 9.2, Troponin I High Sens 10.2 03/28/21 19:20: B-Natriuretic Peptide 270.4 H Micro: Microbiology 03/28/21 Unknown Mucosa - Nose SARS-CoV-2 Antigen (Rapid) - Final Radiology Impression Chest X-Ray 03/28/21 19:27 IMPRESSION: 1. Vascular congestion with interstitial and groundglass opacities predominantly in the lung bases. Favor CHF/pulmonary edema although component of viral pneumonitis is possible. Electronically Signed: Andrew Hernández MD (Brooks) at 19:39 EDT , Service support , Assessment & Plan Assessment/Plan (1) CHF (congestive heart failure): QUALIFIERS: Heart failure type: unspecified Heart failure chronicity: chronic Qualified Code(s): I50.9 - Heart failure, unspecified (2) Acute on chronic diastolic heart failure: PLAN: This 80-year-old gentleman is being admitted for acute hypoxic respiratory failure due to CHF exacerbation 1. Acute hypoxic respiratory failure due to CHF exacerbation: Patient is being admitted in in the context of. On BiPAP, titrate to keep pulse ox 90%. Consult assessment nurse practitioner. 2. Acute on chronic HFpEF/diastolic heart failure: Obtained medical record from [facility], from his de icer element winder. Previous 2D echo 06/2020 reviewed and shows EF 65% with no evidence for diastolic dysfunction. Lasix 40 I.V. twice daily. Hold carvedilol until patient is euvolemic. Continue losartan, nifedipine, clonidine with holding parameters. High intensity statin. Serial troponin enzymes. Fasting lipid profile and TSH tomorrow a.m. discussed with Dr. Ennis and consulted. 3. COPD: Seems stable. Quit in 1989. No chronic cough, dyspnea on exertion. On bronchodilator as needed. Incentive spirometry. 4. Acute kidney injury on chronic kidney disease stage IIIA, most probably from heart failure exacerbation: Patient baseline creatinine runs around 1.16. Elevated creatinine 1.45 in October 05 and today. Monitor kidney function and electrolytes. 5. Hypertension-as mentioned above 6. Hyperlipidemia-as mentioned above The patient was last admitted in June 2020 for evaluation of TIA and MRI was negative for stroke. VTE prophylaxis: Discontinue if platelet count drops less than 50,000 or hemoglobin less than 8 g% Living will/advanced directive/end of life care: Patient does not have living will or advanced directive. As per sonWan near the bedside, his elder brother Roddy Wray is power of finance attorney for health. After discussion of benefits/risks procedures involved with full code, DNR CC arrest and DNR CC, the patient opted for full code. Patient does want artificial life support including intubation, tube feed, ventilator and/chest compression, central venous catheter, vasopressor and DC shock if needed Total time spent in [id number] encounter in discussion of advanced directive 16 minutes. Charges/Coding Visit Charges Inpatient E&M: 60177 Init Hosp L3 Procedures Hospitalists Procedures: 80271 Advncd Care Plan 30 Min
[2021-03-28 22:21] LABS: Magnesium 2.4 mg/dL (1.6-2.6)
[2021-03-29] VITALS (19 sets, daily range): BP systolic 106–153; BP diastolic 49–67; PULSE 56–82; RESP 14–22; TEMP 36.6–37.1; O2SAT 88–100
[2021-03-29] MEDS: cloNIDine HCl 0.1 MG Tablet PO ×2 (01:03→10:47)
[2021-03-29] MEDS: Atorvastatin Calcium 40 MG Tablet PO ×2 (01:03→20:58)
[2021-03-29] MEDS: Doxazosin 4 MG Tablet PO ×2 (01:03→20:57)
[2021-03-29] MEDS: Enoxaparin 40 MG/0.4 ML Syringe SC ×2 (01:03→10:47)
[2021-03-29 01:51] LABS: Troponin-I HS 11.7 pg/mL (3.0-78.5)
[2021-03-29 05:54] LABS: Absolute Lymphocyte Count 0.84 X10^3/uL (0.83-4.51); Basophil# 0.03 X10^3/uL; Basophil% 0.4 % (0-1); Eosinophil# 0.16 X10^3/uL; Eosinophils% 2.1 % (0-5); Hematocrit 32.3 % (40-54); Hemoglobin 11.1 g/dL (13.0-16.5); Lymphocyte # 0.84 X10^3/ul (0.83-4.51); Lymphocyte % 11.2 % (19-41); Mean Corp Hgb Conc 34.4 g/dL (32-36); Mean Corpuscular Hgb 30.2 pg (27.0-32.0); Mean Platelet Vol. 11.3 fl (6.2-12.0); Monocyte# 1.43 X10^3/uL; NRBC Flagged by Analyzer 0 % (0-5); Neutrophil # 5.02 X10^3/uL (2.7-7.7); Neutrophil % 66.9 % (47-70); Platelet Count 220 K/mm3 (150-450); RBC Distribution Width CV 11.9 % (11.6-14.6); RBC Distribution Width SD 38.8 fl (35.1-43.9); Red Blood Count 3.67 M/mm3 (4.6-6.2); White Blood Count 7.5 K/mm3 (4.4-11.0)
--- NOTE | 2021-03-29 05:55 | EKG12_ITS ---
Test Reason : SOB Blood Pressure : / mmHG Vent. Rate : 069 BPM Atrial Rate : 069 BPM P-R Int : 140 ms QRS Dur : 128 ms QT Int : 440 ms P-R-T Axes : 031 084 028 degrees QTc Int : 471 ms Normal sinus rhythm Right bundle branch block Abnormal ECG Confirmed by CHELSIE LEON, OSBALDO ([id number]), deputy editor in chief TREV MACIEL ([id number]) on 03/31/2021 9:36:08 AM Referred By: Anthony Bhatia Confirmed By:OSBALDO HOLGUIN MD
--- NOTE | 2021-03-29 05:55 | ECHOD_ITS ---
Reason For Study: HEART FAILURE Procedure This was a 2D Doppler, Color Flow transthoracic echocardiogram. Exam performed portable in patient room. Left Ventricle Normal LV size. Left ventricular systolic function is normal. The estimated ejection fraction is 65 %. Stage 1 diastolic dysfunction. No regional wall motion abnormalities noted. Right Ventricle Normal RV size. Normal systolic function. Atria Normal left atrium. Normal right atrium. Mitral Valve Normal mitral valve. Tricuspid Valve Normal tricuspid valve. Mild (1+) tricuspid valve insufficiency. Pulmonary artery systolic pressure is 45 mmHg. Aortic Valve Trisinus/trileaflet aortic valve. Mild focal aortic valve calcification. Peak aortic valve gradient 20 mmHg. Mean aortic valve gradient 11 mmHg. Mild aortic stenosis. Pulmonic Valve Normal pulmonic valve. Great Vessels Mildly dilated aortic root. The pulmonary artery is normal size. Normal inferior vena cava. Pericardium/Pleural No pericardial effusion. MMode/2D Measurements & Calculations LVIDd: 4.1 cm IVSd: 1.0 cm LVOT diam: 2.0 cm LVIDs: 2.5 cm LVPWd: 1.0 cm LVOT area: 3.1 cm2 FS: 39.7 % Ao root diam: 4.0 cm LAV(MOD-bp): 46.0 ml LVAd ap2: 22.7 cm2 LAV(MOD-bp) Indexed: 27.2 ml/m2 LVLd ap2: 8.1 cm LAV(MOD-sp2): 44.9 ml EDV(MOD-sp2): 55.6 ml LAV(MOD-sp4): 44.5 ml EDV(sp2-el): 53.9 ml LVAs ap2: 9.4 cm2 LVLs ap2: 5.7 cm ESV(MOD-sp2): 14.8 ml ESV(sp2-el): 13.2 ml EF(MOD-sp2): 73.4 % SV(MOD-sp2): 40.8 ml LA A4 area: 16.6 cm2 LA dimension(2D): 3.7 cm RA A4 area: 13.9 cm2 Time Measurements MV dec time: 0.32 sec Doppler Measurements & Calculations MV E max sandro: 95.0 cm/sec Lat Peak E' Sandro: 8.3 cm/sec Med Peak E' Sandro: 9.2 cm/sec MV A max sandro: 152.7 cm/sec E/E' lat: 11.4 E/E' med: 10.4 MV E/A: 0.62 Ao V2 max: 224.3 cm/sec LV V1 max: 119.6 cm/sec SV(LVOT): 86.5 ml Ao max P.2 mmHg LV V1 max P.7 mmHg Ao V2 mean: 154.3 cm/sec LV V1 mean P.6 mmHg Ao mean P.8 mmHg LV V1 mean: 91.2 cm/sec Ao V2 VTI: 49.4 cm LV V1 VTI: 27.6 cm AMBER(I,D): 1.8 cm2 AMBER(V,D): 1.7 cm2 PA V2 max: 130.7 cm/sec TR max sandro: 322.0 cm/sec TR max P.5 mmHg ECHO/Echo Complete Interpretation Summary Normal LV size. Left ventricular systolic function is normal. The estimated ejection fraction is 65 %. Stage 1 diastolic dysfunction. Pulmonary artery systolic pressure is 45 mmHg. Mild aortic stenosis. Ordering Physician: Anthony Bhatia Referring Physician: VINCE ZAMAN Performed By: Lesley Oneal, BRENDA, RVT
[2021-03-29 06:43] LABS: Anion Gap 5 (5-15); BUN 30 mg/dL (7-18); BUN/Creat Ratio 23.8 RATIO (10-20); Chloride 100 mmol/L (98-107); Cholesterol 148 mg/dL (200); Creatinine, Serum 1.26 mg/dL (0.70-1.30); EST Glomerular Filtration Rate 58 mL/min (>60); Est Glom Filt Rate - Afr Amer 70 mL/min (>60); Estimated Creatinine Clearance 33.44 ml/min; Glucose 99 mg/dL (74-106); High Density Lipoprotein 31 mg/dL; Phosphorus 3.9 mg/dL (2.5-4.9); Potassium 3.9 mmol/L (3.5-5.1); Sodium Level 136 mmol/L (136-145); Thyroid Stim Hormone (TSH) 2.55 uIU/mL (0.358-3.74); Triglycerides 152 mg/dL; Troponin-I HS 12.9 pg/mL (3.0-78.5); Very Low Density Lipoprotein 30 mg/dL (5-40)
--- NOTE | 2021-03-29 06:56 | EX.PCM.CONCC ---
Assessment & Plan Assessment/Plan (1) Acute hypoxemic respiratory failure: PLAN: RECOMMENDATIONS: 1. Continue to wean supplemental oxygen to maintain saturations at or above 90%. 2. Repeat echocardiogram is pending. 3. Continue diuretic therapy as tolerated by hemodynamics and renal function. 4. Encourage incentive spirometer use and mobilize patient as tolerated. 5. The patient is medically stable for transfer out of the intensive care unit. 6. Given the patient's lack of further ICU needs, will sign off. Please call with any additional questions. IMPRESSIONS: 1. Acute hypoxemic respiratory failure Most likely secondary to decompensated heart failure with preserved ejection fraction. The patient has noted lower extremity edema and weight gain over the last several months. He responded very avidly to noninvasive positive pressure ventilatory support and IV diuretic therapy. He is currently maintaining appropriate oxygen saturations on minimal supplemental O2. Plan to continue to wean as tolerated to maintain saturations at or above 90%. Continue diuretic therapy as tolerated by hemodynamics and renal function. Repeat echocardiogram is pending. Encourage incentive spirometer use and mobilize patient as tolerated. 2. Self-reported history of COPD/prior tobacco dependency The patient has a questionable history of obstructive lung disease with limited smoking history. He currently only utilizes an albuterol rescue inhaler at his baseline. While admitted to the hospital, as needed albuterol aerosol treatments can be offered. 3. Advanced age/hypertension/BPH/hyperlipidemia Complicates care, management, recovery and prognosis. Continue home medications as indicated. This note was generated with SmartSynch dictation software. It may contain incorrect words, spelling, and punctuation that were not noted in checking the note before signing. HPI Consult Data Date of Consult: 03/29/21 HPI Narrative Reason for Consultation: Respiratory failure due to CHF exacerbation HPI Narrative: The patient is an 80-year-old male, with a history as outlined below, who presented to the emergency department on March 28 with worsening shortness of breath. The patient also reported associated lower extremity edema and weight gain, which has been occurring over the last several months. Surface echocardiogram from June 2020 demonstrated a normal ejection fraction of 65%. Right ventricular systolic pressure was unable to be estimated. Although the patient does report a history of COPD, he quit smoking a multitude of years ago and has never been evaluated by grounds maintenance worker. He currently only utilizes proair as needed at his baseline. The patient denies a baseline oxygen requirement. On presentation to the emergency department, the patient was noted to be afebrile and hemodynamically stable. He was, however, noted to be tachypneic and hypoxemic. Initial laboratory evaluation revealed a normal white blood cell count. Coagulation profile was within normal limits. Chemistry profile was notable for a sodium of 135, BUN of 33 and creatinine of 1.4. BNP was elevated to 270. Troponin was negative. Rapid coronavirus antigen testing was negative. Chest x-ray demonstrated stigmata of possible CHF. The patient for a very short period of time was placed on BiPAP therapy and admitted to the medical intensive care unit for further management. Overnight, the patient did receive diuretic therapy and has improved rapidly from an oxygenation standpoint. He is currently maintaining appropriate saturations on 3 L/min via nasal cannula. [facility] Medical History CHF (congestive heart failure) CKD (chronic kidney disease) COPD (chronic obstructive pulmonary disease) HTN (hypertension) TIA (transient ischemic attack) Home Medications albuterol sulfate [Ventolin HFA] 2 puff INHALATION Q6H PRN PRN 08/25/16 [History Last Taken Unknown] carvedilol [Coreg] 25 mg PO BID 08/25/16 [History Last Taken Unknown] clonidine HCl 0.1 mg PO BID 08/25/16 [History Last Taken Unknown] doxazosin 4 mg PO QHS 08/25/16 [History Last Taken Unknown] simvastatin 40 mg PO QHS 08/25/16 [History Last Taken Unknown] Fish Oil 500 mg PO DAILY 01/20/17 [History Last Taken Unknown] ascorbic acid (vitamin C) [Vitamin C] 1,000 mg PO DAILY 01/20/17 [History Last Taken Unknown] calcium carbonate 500 mg PO DAILY 01/20/17 [History Last Taken Unknown] capsicum (cayenne) 450 mg PO DAILY 01/20/17 [History Last Taken Unknown] carica papaya 1 ea PO DAILY 01/20/17 [History Last Taken Unknown] cholecalciferol (vitamin D3) [Vitamin D3] 2,000 unit PO DAILY 01/20/17 [History Last Taken Unknown] garlic 1,000 mg PO DAILY 01/20/17 [History Last Taken Unknown] ginseng 100 mg PO DAILY 01/20/17 [History Last Taken Unknown] lecithin 1,200 mg PO DAILY 01/20/17 [History Last Taken Unknown] milk thistle 150 mg PO DAILY 01/20/17 [History Last Taken Unknown] saw palmetto 500 mg PO DAILY 01/20/17 [History Last Taken Unknown] vitamin B complex-folic acid [Super B Maxi Complex] 0.4 mg PO DAILY 01/20/17 [History Last Taken Unknown] furosemide 20 mg PO DAILY 05/22/20 [History Last Taken Unknown] aspirin 81 mg PO DAILY@0800 #90 tab.chew 06/20/20 [Rx Last Taken Unknown] finasteride 5 mg PO DAILY 03/28/21 [History Last Taken Unknown] losartan 50 mg PO DAILY 03/28/21 [History Last Taken Unknown] nifedipine 60 mg PO DAILY 03/28/21 [History Last Taken Unknown] Allergy/AdvReac Type Severity Reaction Status Date / Time tylenol arthritis AdvReac high blood Uncoded 06/18/20 23:36 pressure Social History Smoking Status: Former smoker substance use type: does not use ROS Constitutional Constitutional: Denies chills, fatigue or fever(s) Eyes Eyes: Denies blurry vision or change in vision ENT HEENT: Denies dizziness, headache(s), loss taste/smell or nasal congestion Cardiovascular Cardiovascular: Reports dyspnea and edema; Denies chest pain Respiratory/Chest Respiratory/Chest: Reports dyspnea; Denies cough Gastrointestinal Gastrointestinal: Denies abdominal pain, diarrhea, nausea or vomiting Genitourinary Genitourinary: Denies difficulty urinating Musculoskeletal Musculoskeletal: Denies arthralgias, back pain or joint pain Integumentary Integumentary: Denies lesions, rash or skin ulcer Neurologic Neurologic: Denies abnormal gait or abnormal speech Psychiatric Psychiatric: Denies anxiety or depression Endocrine Endocrinology: Denies fatigue Hematologic/Lymphatic Hematologic/Lymphatic: Denies easy bleeding or easy bruising Physical Exam Const alert and no apparent distress General Appearance: cooperative HEENT normocephalic and head/scalp atraumatic Eyes PERRL, EOMs intact bilaterally and conjunctivae normal Neck supple General: trachea midline Resp normal respiratory effort and no use of accessory muscles Auscultation: Negative for rales, rhonchi or wheezes Cardio regular rate and regular rhythm GI normal to inspection, nondistended, normoactive bowel sounds Extremity General Extremity: edema bilateral lower extremity; Negative for clubbing Skin no rashes or lesions noted Neuro oriented x3, CN's II-XII intact bilaterally and no focal motor deficits Psych cooperative and affect normal Lab / Micro Data Result Diagrams: 03/29/21 05:30 03/29/21 05:30 Labs: Laboratory Results - last 24 hr 03/28/21 19:20: WBC 7.2, RBC 3.80 L, Hgb 11.5 L, Hct 34.0 L, MCV 89.5, MCH 30.3, MCHC 33.8, RDW Std Deviation 39.1, RDW Coeff of Sapna 12.0, Plt Count 208, MPV 11.1, Immature Gran % (Auto) 0.300, Neut % (Auto) 62.3, Lymph % (Auto) 14.2 L, Barren % (Auto) 19.0 H, Eos % (Auto) 3.6, Baso % (Auto) 0.6, Absolute Neuts (auto) 4.5, Absolute Lymphs (auto) 1.02, Nucleated RBC % 0 03/28/21 19:20: Sodium 135 L, Potassium 4.2, Chloride 102, Carbon Dioxide 29.0, Anion Gap 4 L, BUN 33 H, Creatinine 1.40 H, Estim Creat Clear Calc 30.09, Est GFR (MDRD) Af Amer 62, Est GFR (MDRD) Non-Af 52 L, BUN/Creatinine Ratio 23.6 H, Glucose 101, Calcium 9.2, Troponin I High Sens 10.2 03/28/21 19:20: B-Natriuretic Peptide 270.4 H 03/28/21 19:20: Magnesium 2.4 03/28/21 22:20: Troponin I High Sens 13.0 03/29/21 01:05: Troponin I High Sens 11.7 03/29/21 05:30: WBC 7.5, RBC 3.67 L, Hgb 11.1 L, Hct 32.3 L, MCV 88.0, MCH 30.2, MCHC 34.4, RDW Std Deviation 38.8, RDW Coeff of Sapna 11.9, Plt Count 220, MPV 11.3, Immature Gran % (Auto) 0.400, Neut % (Auto) 66.9, Lymph % (Auto) 11.2 L, Barren % (Auto) 19.0 H, Eos % (Auto) 2.1, Baso % (Auto) 0.4, Absolute Neuts (auto) 5.0, Absolute Lymphs (auto) 0.84, Nucleated RBC % 0 03/29/21 05:30: Sodium 136, Potassium 3.9, Chloride 100, Carbon Dioxide 31.0, Anion Gap 5, BUN 30 H, Creatinine 1.26, Estim Creat Clear Calc 33.44, Est GFR (MDRD) Af Amer 70, Est GFR (MDRD) Non-Af 58 L, BUN/Creatinine Ratio 23.8 H, Glucose 99, Calcium 9.0, Phosphorus 3.9, Troponin I High Sens 12.9, Triglycerides 152, Cholesterol 148, LDL Cholesterol 87, VLDL Cholesterol 30, HDL Cholesterol 31 L, TSH 2.55 Micro: Microbiology 03/28/21 Unknown Mucosa - Nose SARS-CoV-2 Antigen (Rapid) - Final Radiology Impression Chest X-Ray 03/28/21 19:27 IMPRESSION: 1. Vascular congestion with interstitial and groundglass opacities predominantly in the lung bases. Favor CHF/pulmonary edema although component of viral pneumonitis is possible. Electronically Signed: Andrew Hernández MD (Brooks) at 19:39 EDT , Service support , Charges/Coding Visit Charges Inpatient E&M: 52164 Init Hosp L3
[2021-03-29] MEDS: NIFEdipine 60 MG Tablet PO (10:47)
[2021-03-29] MEDS: Cholecalciferol (VIT D3) 25 MCG TABLET (1,000 UNITS) 100 MCG PO (10:47)
[2021-03-29] MEDS: Losartan Potassium 50 MG Tablet PO (10:47)
[2021-03-29] MEDS: Ascorbic Acid 500 MG Tablet 1000 MG PO (10:47)
[2021-03-29] MEDS: 0.9% Saline Lock 10 ML Syringe IV ×2 (10:48→17:20)
[2021-03-29] MEDS: Furosemide 40 MG/4 ML Vial IV ×2 (10:48→17:20)
[2021-03-29] MEDS: Finasteride 5 MG Tablet PO (10:49)
[2021-03-29] MEDS: Aspirin 81 MG TAB.CHEW PO (10:49)
[2021-03-29] MEDS: Calcium (Elemental) 500 MG Tablet PO (10:50)
--- NOTE | 2021-03-29 10:55 | PCM.CONS.C ---
Assessment & Plan Assessment/Plan (1) Acute on chronic diastolic heart failure: PLAN: At the present time there is concern the patient has acute on chronic CHF with heart failure with preserved ejection fraction. This is based upon his recent [facility] echocardiogram demonstrating overall preserved LV systolic function/LVEF. His [facility] cardiovascular records will be requested for continuity of care. In the interim the patient will continue medical therapy which does include diuretic therapy. He will have a follow-up echocardiogram to reassess his left ventricular wall motion and systolic function. (2) Cardiac murmur: PLAN: He does have a cardiac murmur. This will be further assessed with a transthoracic echocardiogram. (3) Hyperlipidemia: QUALIFIERS: Hyperlipidemia type: unspecified Qualified Code(s): E78.5 - Hyperlipidemia, unspecified PLAN: He should continue risk factor evaluation and care. (4) Hypertension: QUALIFIERS: Hypertension type: essential hypertension Qualified Code(s): I10 - Essential (primary) hypertension PLAN: His blood pressure will need to be followed with his medicines adjusted accordingly taking into consideration any other medical issues including renal function, etc. Addt'l Comments The patient's case was discussed and reviewed with the patient. This note was generated using a voice recognition system and there may be incorrect words, spelling or punctuation that were not noted when reviewing the office note prior to saving. HPI Consult Data Date of Consult: 03/29/21 HPI Narrative HPI Narrative: CARMEN MOCK, is a 80 year old white male who presents for cardiovascular consultation based upon concerns of acute on chronic CHF (heart failure with preserved ejection fraction). He states he has been followed by [facility] cardiology in [place], [place]. He does not recall the details of his cardiovascular diagnosis, however, he does not believe he has any history of CAD. He states his main concern was an allergic reaction to acetaminophen/Tylenol which resulted in hypertension which resulted in heart damage . He states he was evaluated by his [facility] food safety technician approximately 1 month ago to the best of his knowledge there were no acute findings and he had no obvious change on medications. He states he has been having, for some time now, progressive edema of the lower extremities. However, more recently, he noted progressive shortness of breath and dyspnea. He does not recall having any chest discomfort, near-syncope, or syncope. He presented to the hospital for further evaluation. He was thought to have acute on chronic CHF (based upon his history of heart failure with preserved ejection fraction). Based upon his pulmonary process he was placed in the ICU for further evaluation and care. His cardiac enzymes have been negative with respect to troponin I levels. His ECG demonstrated sinus rhythm with a right bundle branch block pattern with no significant change. His chest x-ray demonstrated concerns of possible CHF although underlying non-CHF/pneumonitis type findings cannot be excluded. He had a transthoracic echocardiogram performed on 06-19-2020 at [facility]. The results are as noted. Interpretation Summary The estimated ejection fraction is 65 %. No evidence for diastolic dysfunction. The study was technically difficult. Contrast injection was performed. [facility] Medical History (Updated 03/29/21 @ 11:[address] Gold Ennis MD) Cardiac murmur CHF (congestive heart failure) CKD (chronic kidney disease) COPD (chronic obstructive pulmonary disease) HTN (hypertension) TIA (transient ischemic attack) Home Medications albuterol sulfate [Ventolin HFA] 2 puff INHALATION Q6H PRN PRN 08/25/16 [History Last Taken Unknown] carvedilol [Coreg] 25 mg PO BID 08/25/16 [History Last Taken Unknown] clonidine HCl 0.1 mg PO BID 08/25/16 [History Last Taken Unknown] doxazosin 4 mg PO QHS 08/25/16 [History Last Taken Unknown] simvastatin 40 mg PO QHS 08/25/16 [History Last Taken Unknown] Fish Oil 500 mg PO DAILY 01/20/17 [History Last Taken Unknown] ascorbic acid (vitamin C) [Vitamin C] 1,000 mg PO DAILY 01/20/17 [History Last Taken Unknown] calcium carbonate 500 mg PO DAILY 01/20/17 [History Last Taken Unknown] capsicum (cayenne) 450 mg PO DAILY 01/20/17 [History Last Taken Unknown] carica papaya 1 ea PO DAILY 01/20/17 [History Last Taken Unknown] cholecalciferol (vitamin D3) [Vitamin D3] 2,000 unit PO DAILY 01/20/17 [History Last Taken Unknown] garlic 1,000 mg PO DAILY 01/20/17 [History Last Taken Unknown] ginseng 100 mg PO DAILY 01/20/17 [History Last Taken Unknown] lecithin 1,200 mg PO DAILY 01/20/17 [History Last Taken Unknown] milk thistle 150 mg PO DAILY 01/20/17 [History Last Taken Unknown] saw palmetto 500 mg PO DAILY 01/20/17 [History Last Taken Unknown] vitamin B complex-folic acid [Super B Maxi Complex] 0.4 mg PO DAILY 01/20/17 [History Last Taken Unknown] furosemide 20 mg PO DAILY 05/22/20 [History Last Taken Unknown] aspirin 81 mg PO DAILY@0800 #90 tab.chew 06/20/20 [Rx Last Taken Unknown] finasteride 5 mg PO DAILY 03/28/21 [History Last Taken Unknown] losartan 50 mg PO DAILY 03/28/21 [History Last Taken Unknown] nifedipine 60 mg PO DAILY 03/28/21 [History Last Taken Unknown] Allergy/AdvReac Type Severity Reaction Status Date / Time tylenol arthritis AdvReac high blood Uncoded 06/18/20 23:36 pressure Social History Smoking Status: Former smoker substance use type: does not use ROS Constitutional Constitutional: Reports as per HPI Eyes Eyes: Reports as per HPI ENT HEENT: Reports as per HPI Cardiovascular Cardiovascular: Reports dyspnea and edema Respiratory/Chest Respiratory/Chest: Reports dyspnea Gastrointestinal Gastrointestinal: Reports as per HPI Genitourinary Genitourinary: Reports as per HPI Musculoskeletal Musculoskeletal: Reports as per HPI Integumentary Integumentary: Reports as per HPI Neurologic Neurologic: Reports as per HPI Physical Exam Const alert, oriented x3 and no apparent distress Orientation / Consciousness: awake HEENT normocephalic, head/scalp atraumatic and hearing grossly normal bilaterally Eyes PERRL, EOMs intact bilaterally and conjunctivae normal Neck full ROM, supple and no JVD Resp Auscultation: rales bilateral base Cardio regular rate, regular rhythm, S1 normal heart sound and S2 normal heart sound Heart Sounds: murmur systolic II/ harsh mid left sternal border, LVOT and sternal notch GI normal to inspection, nondistended, normoactive bowel sounds Extremity General Extremity: edema bilateral lower extremity (Bilateral lower extremity Aiden wraps) Details: moderate Neuro oriented x3 and moves all extremities Psych mental status grossly normal Procedure Criteria Type of Procedure Procedure Type: Elective Elective Risks - COVID COVID Risk Discussion: The surgeon/proceduralist and patient have discussed in detail the risk of exposure to and/or potential harm posed by the COVID-19 virus with having a surgery/procedure at this time versus the risk of delaying the surgery/procedure. It is not possible to know either the risk of delaying the surgery or procedure or chance of getting an infection with perfect accuracy, but a joint decision was made between the patient and the surgeon/proceduralist to proceed at this time with the scheduled surgery/procedure as indicated on the consent form. Objective Data Vital Signs: Vital Signs Temp Pulse Resp BP Pulse Ox 97.9 F 68 18 145/65 H 99 03/29/21 06:21 03/29/21 07:24 03/29/21 06:21 03/29/21 06:21 03/29/21 07:21 Oxygen Flow Rate (L/min) 2 Oxygen Delivery Method Nasal Cannula Weight: 146 lb 2.664 oz Body Mass Index (BMI) 29.0 Intake & Output: Intake and Output for Last 24 Hours 03/27/21 03/28/21 03/29/21 23:59 23:59 23:59 Intake Total 100 / 100 Output Total 400 / 400 1000 / 1000 Balance -400 / -400 -900 / -900 Lab / Micro Data Result Diagrams: 03/29/21 05:30 03/29/21 05:30 Labs: Laboratory Results - last 24 hr 03/28/21 19:20: WBC 7.2, RBC 3.80 L, Hgb 11.5 L, Hct 34.0 L, MCV 89.5, MCH 30.3, MCHC 33.8, RDW Std Deviation 39.1, RDW Coeff of Spana 12.0, Plt Count 208, MPV 11.1, Immature Gran % (Auto) 0.300, Neut % (Auto) 62.3, Lymph % (Auto) 14.2 L, [place] % (Auto) 19.0 H, Eos % (Auto) 3.6, Baso % (Auto) 0.6, Absolute Neuts (auto) 4.5, Absolute Lymphs (auto) 1.02, Nucleated RBC % 0 03/28/21 19:20: Sodium 135 L, Potassium 4.2, Chloride 102, Carbon Dioxide 29.0, Anion Gap 4 L, BUN 33 H, Creatinine 1.40 H, Estim Creat Clear Calc 30.09, Est GFR (MDRD) Af Amer 62, Est GFR (MDRD) Non-Af 52 L, BUN/Creatinine Ratio 23.6 H, Glucose 101, Calcium 9.2, Troponin I High Sens 10.2 03/28/21 19:20: B-Natriuretic Peptide 270.4 H 03/28/21 19:20: Magnesium 2.4 03/28/21 22:20: Troponin I High Sens 13.0 03/29/21 01:05: Troponin I High Sens 11.7 03/29/21 05:30: WBC 7.5, RBC 3.67 L, Hgb 11.1 L, Hct 32.3 L, MCV 88.0, MCH 30.2, MCHC 34.4, RDW Std Deviation 38.8, RDW Coeff of Sapna 11.9, Plt Count 220, MPV 11.3, Immature Gran % (Auto) 0.400, Neut % (Auto) 66.9, Lymph % (Auto) 11.2 L, [place] % (Auto) 19.0 H, Eos % (Auto) 2.1, Baso % (Auto) 0.4, Absolute Neuts (auto) 5.0, Absolute Lymphs (auto) 0.84, Nucleated RBC % 0 03/29/21 05:30: Sodium 136, Potassium 3.9, Chloride 100, Carbon Dioxide 31.0, Anion Gap 5, BUN 30 H, Creatinine 1.26, Estim Creat Clear Calc 33.44, Est GFR (MDRD) Af Amer 70, Est GFR (MDRD) Non-Af 58 L, BUN/Creatinine Ratio 23.8 H, Glucose 99, Calcium 9.0, Phosphorus 3.9, Troponin I High Sens 12.9, Triglycerides 152, Cholesterol 148, LDL Cholesterol 87, VLDL Cholesterol 30, HDL Cholesterol 31 L, TSH 2.55 Micro: Microbiology 03/28/21 Unknown Mucosa - Nose SARS-CoV-2 Antigen (Rapid) - Final Cardiology Labs/Tests 03/28/21 19:20: WBC 7.2, RBC 3.80 L, Hgb 11.5 L, Hct 34.0 L, MCV 89.5, MCH 30.3, MCHC 33.8, Plt Count 208, MPV 11.1, Immature Gran % (Auto) 0.300, Neut % (Auto) 62.3, Lymph % (Auto) 14.2 L, [place] % (Auto) 19.0 H, Eos % (Auto) 3.6, Baso % (Auto) 0.6, Absolute Neuts (auto) 4.5, Nucleated RBC % 0 03/28/21 19:20: Sodium 135 L, Potassium 4.2, Chloride 102, Carbon Dioxide 29.0, Anion Gap 4 L, BUN 33 H, Creatinine 1.40 H, Est GFR (MDRD) Af Amer 62, Est GFR (MDRD) Non-Af 52 L, BUN/Creatinine Ratio 23.6 H, Glucose 101, Calcium 9.2 03/28/21 19:20: B-Natriuretic Peptide 270.4 H 03/28/21 19:20: Magnesium 2.4 03/29/21 05:30: WBC 7.5, RBC 3.67 L, Hgb 11.1 L, Hct 32.3 L, MCV 88.0, MCH 30.2, MCHC 34.4, Plt Count 220, MPV 11.3, Immature Gran % (Auto) 0.400, Neut % (Auto) 66.9, Lymph % (Auto) 11.2 L, [place] % (Auto) 19.0 H, Eos % (Auto) 2.1, Baso % (Auto) 0.4, Absolute Neuts (auto) 5.0, Nucleated RBC % 0 03/29/21 05:30: Sodium 136, Potassium 3.9, Chloride 100, Carbon Dioxide 31.0, Anion Gap 5, BUN 30 H, Creatinine 1.26, Est GFR (MDRD) Af Amer 70, Est GFR (MDRD) Non-Af 58 L, BUN/Creatinine Ratio 23.8 H, Glucose 99, Calcium 9.0, Phosphorus 3.9, Triglycerides 152, Cholesterol 148, LDL Cholesterol 87, VLDL Cholesterol 30, HDL Cholesterol 31 L Rhythm: Sinus rhythm EKG: Sinus rhythm; right bundle branch block ECHO: As noted above Radiography Diagnostic Testing: Radiology Impression Chest X-Ray 03/28/21 19:27 IMPRESSION: 1. Vascular congestion with interstitial and groundglass opacities predominantly in the lung bases. Favor CHF/pulmonary edema although component of viral pneumonitis is possible. Electronically Signed: Andrew Hernández MD ([place]) at 19:39 EDT , Service support ,
--- NOTE | 2021-03-29 16:41 | PCM.PN.HOSP ---
Subjective Subjective Patient seen and examined. He was admitted with a complaint of shortness of breath and is being managed for acute hypoxic respiratory failure due to heart failure. He had associated lower extremity edema and weight gain. He was tachycardic and tachypneic as well as hypoxemic. BNP was elevated and troponin was negative. Rapid Covid test was also negative and chest x-ray showed evidence of possible heart failure exacerbation. He was placed on BiPAP and admitted to the ICU. He feels much better today. he was off bipap and on oxygen by nasal canula. He had no complaints and felt much better. Review of systems was otherwise negative. He has remained hemodynamically stable. Objective Data Objective Data Vital Signs: Vital Signs Temp Pulse Resp BP Pulse Ox 98.7 F 71 20 H 136/67 H 94 03/29/21 15:33 03/29/21 15:33 03/29/21 15:33 03/29/21 15:33 03/29/21 15:33 Oxygen Flow Rate (L/min) 2 Oxygen Delivery Method Nasal Cannula Weight: 146 lb 2.664 oz Body Mass Index (BMI) 29.0 Intake & Output: Intake and Output for Last 24 Hours 03/27/21 03/28/21 03/29/21 23:59 23:59 23:59 Intake Total 580 / 580 Output Total 400 / 400 2625 / 2625 Balance -400 / -400 -2045 / -2045 Lab / Micro Data Result Diagrams: 03/29/21 05:30 03/29/21 05:30 Labs: Laboratory Results - last 24 hr 03/28/21 19:20: WBC 7.2, RBC 3.80 L, Hgb 11.5 L, Hct 34.0 L, MCV 89.5, MCH 30.3, MCHC 33.8, RDW Std Deviation 39.1, RDW Coeff of Sapna 12.0, Plt Count 208, MPV 11.1, Immature Gran % (Auto) 0.300, Neut % (Auto) 62.3, Lymph % (Auto) 14.2 L, [place] % (Auto) 19.0 H, Eos % (Auto) 3.6, Baso % (Auto) 0.6, Absolute Neuts (auto) 4.5, Absolute Lymphs (auto) 1.02, Nucleated RBC % 0 03/28/21 19:20: Sodium 135 L, Potassium 4.2, Chloride 102, Carbon Dioxide 29.0, Anion Gap 4 L, BUN 33 H, Creatinine 1.40 H, Estim Creat Clear Calc 30.09, Est GFR (MDRD) Af Amer 62, Est GFR (MDRD) Non-Af 52 L, BUN/Creatinine Ratio 23.6 H, Glucose 101, Calcium 9.2, Troponin I High Sens 10.2 03/28/21 19:20: B-Natriuretic Peptide 270.4 H 03/28/21 19:20: Magnesium 2.4 03/28/21 22:20: Troponin I High Sens 13.0 03/29/21 01:05: Troponin I High Sens 11.7 03/29/21 05:30: WBC 7.5, RBC 3.67 L, Hgb 11.1 L, Hct 32.3 L, MCV 88.0, MCH 30.2, MCHC 34.4, RDW Std Deviation 38.8, RDW Coeff of Sapna 11.9, Plt Count 220, MPV 11.3, Immature Gran % (Auto) 0.400, Neut % (Auto) 66.9, Lymph % (Auto) 11.2 L, [place] % (Auto) 19.0 H, Eos % (Auto) 2.1, Baso % (Auto) 0.4, Absolute Neuts (auto) 5.0, Absolute Lymphs (auto) 0.84, Nucleated RBC % 0 03/29/21 05:30: Sodium 136, Potassium 3.9, Chloride 100, Carbon Dioxide 31.0, Anion Gap 5, BUN 30 H, Creatinine 1.26, Estim Creat Clear Calc 33.44, Est GFR (MDRD) Af Amer 70, Est GFR (MDRD) Non-Af 58 L, BUN/Creatinine Ratio 23.8 H, Glucose 99, Calcium 9.0, Phosphorus 3.9, Troponin I High Sens 12.9, Triglycerides 152, Cholesterol 148, LDL Cholesterol 87, VLDL Cholesterol 30, HDL Cholesterol 31 L, TSH 2.55 Micro: Microbiology 03/28/21 Unknown Mucosa - Nose SARS-CoV-2 Antigen (Rapid) - Final Radiography Diagnostic Testing: Radiology Impression Chest X-Ray 03/28/21 19:27 IMPRESSION: 1. Vascular congestion with interstitial and groundglass opacities predominantly in the lung bases. Favor CHF/pulmonary edema although component of viral pneumonitis is possible. Electronically Signed: Andrew Hernández MD ([place]) at 19:39 EDT , Service support , Physical Exam Const alert, oriented x3 and no apparent distress Exam Limitations: no limitations HEENT head/scalp atraumatic and moist oral mucous membranes Head and Scalp: normocephalic Eyes PERRL, EOMs intact bilaterally and conjunctivae normal Neck no lymphadenopathy Resp Resp Narrative: mildly diminished breath sounds bibasally, no wheezes or crackles. On 2L of oxygen by nasal canula Cardio regular rate, regular rhythm, S1 normal heart sound, S2 normal heart sound and no murmurs GI normal to inspection, nondistended, normoactive bowel sounds, soft to palpation, non-tender and non-distended Extremity normal to inspection, full ROM and no clubbing, cyanosis or edema Peripheral Pulses: Yes pulses 2+ throughout Skin no rashes or lesions noted Neuro oriented x3, CN's II-XII intact bilaterally and moves all extremities Sensorium / Orientation: awake and alert Psych affect normal Assessment & Plan Assessment/Plan (1) Acute hypoxemic respiratory failure: (2) Acute on chronic diastolic heart failure: (3) SHIVA (acute kidney injury): PLAN: #Acute on chronic diastolic heart failure BNP was elevated. Patient currently being diuresed. Monitor intake and output. Fluid restriction 1500 cc daily. Repeat 2D echo ordered. cardiology on board incentive spirometry #Acute hypoxic respiratory failure due to decompensated heart failure with preserved ejection fraction Now weaned off of BiPAP. Titrate oxygen to maintain saturation above 90% Breathing treatments of bronchodilators. 2D echo ordered and pending. Pulmonology on board. Currently being diuresed. #Hypertension:on clonidine and losartan and nifedipine #Hyperlipidemia:on statin DVT prophylaxis: lovenox Charges/Coding Visit Charges Inpatient E&M: 99149 [facility] Hosp L3
[2021-03-29] MEDS: Senna/Docusate Sodium 1 Tablet 2 TABLET PO (20:57)
[2021-03-30] VITALS (7 sets, daily range): BP systolic 138–146; BP diastolic 60–66; PULSE 58–71; RESP 14–16; TEMP 36.5–36.9; O2SAT 92–96
--- NOTE | 2021-03-30 00:17 | CPS ---
BiPAP not in pt.'s room. Pt.'s breathing is doing fine, with no sign of any distress.
[2021-03-30 05:21] LABS: Absolute Lymphocyte Count 1.18 X10^3/uL (0.83-4.51); Absolute Neutrophil Count 4.1 X10^3/uL (2.0-7.7); Basophil# 0.03 X10^3/uL; Basophil% 0.4 % (0-1); Eosinophil# 0.24 X10^3/uL; Eosinophils% 3.5 % (0-5); Hematocrit 33.5 % (40-54); Hemoglobin 11.2 g/dL (13.0-16.5); Lymphocyte # 1.18 X10^3/ul (0.83-4.51); Lymphocyte % 17.2 % (19-41); Mean Corp Hgb Conc 33.4 g/dL (32-36); Mean Corpuscular Hgb 30.4 pg (27.0-32.0); Mean Platelet Vol. 11.4 fl (6.2-12.0); Monocyte# 1.29 X10^3/uL; Monocyte% 18.8 % (0-10); NRBC Flagged by Analyzer 0 % (0-5); Neutrophil # 4.08 X10^3/uL (2.7-7.7); Neutrophil % 59.7 % (47-70); Platelet Count 226 K/mm3 (150-450); RBC Distribution Width CV 12.2 % (11.6-14.6); RBC Distribution Width SD 40.5 fl (35.1-43.9); Red Blood Count 3.68 M/mm3 (4.6-6.2); White Blood Count 6.9 K/mm3 (4.4-11.0)
[2021-03-30 05:42] LABS: Anion Gap 6 (5-15); BUN 35 mg/dL (7-18); BUN/Creat Ratio 26.1 RATIO (10-20); Calcium,Total 9.1 mg/dL (8.5-10.1); Chloride 99 mmol/L (98-107); Creatinine, Serum 1.34 mg/dL (0.70-1.30); EST Glomerular Filtration Rate 54 mL/min (>60); Est Glom Filt Rate - Afr Amer 66 mL/min (>60); Estimated Creatinine Clearance 31.44 ml/min; Glucose 94 mg/dL (74-106); Potassium 3.8 mmol/L (3.5-5.1); Sodium Level 136 mmol/L (136-145)
[2021-03-30] MEDS: Losartan Potassium 50 MG Tablet PO (09:59)
[2021-03-30] MEDS: NIFEdipine 60 MG Tablet PO (09:59)
[2021-03-30] MEDS: Aspirin 81 MG TAB.CHEW PO (09:59)
[2021-03-30] MEDS: Enoxaparin 40 MG/0.4 ML Syringe SC (09:59)
[2021-03-30] MEDS: Furosemide 40 MG/4 ML Vial IV (09:59)
[2021-03-30] MEDS: Finasteride 5 MG Tablet PO (10:00)
[2021-03-30] MEDS: Cholecalciferol (VIT D3) 25 MCG TABLET (1,000 UNITS) 100 MCG PO (10:00)
[2021-03-30] MEDS: Ascorbic Acid 500 MG Tablet 1000 MG PO (10:00)
[2021-03-30] MEDS: Calcium (Elemental) 500 MG Tablet PO (10:01)
--- NOTE | 2021-03-30 10:40 | CASEMGMT ---
RORO LUCAS assessment: Face to Face with patient for initial transition planning/care coordination assessment. RORO LUCAS introduced self and role at [facility], pt voices understanding and consents to assessment. Pt is sitting up in chair in no distress on room air. Pt is A/Ox4 and answers all questions appropriately. Care providers, pharmacy, and demographics verified/updated. Presentation: Pt c/o SOB, edema, weight gain-hx CHF Admitting dx: CHF exacerbation PCP: Edwina Specialists: [facility] in [place] Preferred Pharmacy: [facility] Insurance: [facility] Prescription Benefit: [employer] Living Will/HPOA: Pt states has LW/HPOA and is aware that it's not on file at [facility]. Pt states his son, Roddy Wray, is HPOA. LNOK: Roddy Wray, son/HPOA; Julieta Canela, daughter; Óscar Deras, son Living Arrangements: Pt states lives alone in mobile home and states no concerns at home. Pt states is independent with ADL's. Transportation: Pt states drives self and states no transportation concerns. DME/HHC: Pt states no current DME or need for any at this time. Pt states no hx SNF but has had HHC in the past. Pt states no concerns with going home at time of discharge. Pt is retired. Pt states does not smoke cigarettes and rarely drinks ETOH. Pt states no further concerns/needs. CM to follow for any further discharge planning/needs. Advised pt to ask for CM if any further questions/concerns/needs arise, voices understanding. Pt Goal: Home [place] RORO LUCAS
--- NOTE | 2021-03-30 12:45 | CASEMGMT ---
Per Mick READ, pt does not qualify for home oxygen at this time. Darío READ CM
--- NOTE | 2021-03-30 15:05 | DS.PCM_ITS ---
Providers Date of Admission: 03/28/21 Primary Care Physician: Dr. Pasha Bland, Consultations 03/28/21 23:07 Consult: Cardiology Routine Consulting Provider: Gold Ennis Reason for Consult: Acute on chronic diastolic heart failure EMERGENT Consult: No Notified: Yes Date Notified: 03/28/21 Time Notified: 22:00 Method of Notification: Text Consult: Inspector Experimental Assembly / Pulmonary Medicine Routine Consulting Provider: Pulmonary Medicine thanh Ansted Reason for Consult: Acute respiratory failure on BiPAP EMERGENT Consult: No Notified: Yes Date Notified: 03/28/21 Time Notified: 22:29 Method of Notification: Text Method of Consult:: In-Person Reason For Visit: CHF EXACERBATION Diagnosis Discharge Diagnosis (1) Acute hypoxemic respiratory failure: Status: Acute Code(s): J96.01 - Acute respiratory failure with hypoxia (2) Acute on chronic diastolic heart failure: Status: Chronic Code(s): I50.33 - Acute on chronic diastolic (congestive) heart failure (3) SHIVA (acute kidney injury): Status: Acute Code(s): N17.9 - Acute kidney failure, unspecified Medications at Discharge Home Medications albuterol sulfate [Ventolin HFA] 2 puff INHALATION Q6H PRN PRN 08/25/16 carvedilol [Coreg] 25 mg PO BID 08/25/16 clonidine HCl 0.1 mg PO BID 08/25/16 doxazosin 4 mg PO QHS 08/25/16 simvastatin 40 mg PO QHS 08/25/16 Fish Oil 500 mg PO DAILY 01/20/17 ascorbic acid (vitamin C) [Vitamin C] 1,000 mg PO DAILY 01/20/17 calcium carbonate 500 mg PO DAILY 01/20/17 capsicum (cayenne) 450 mg PO DAILY 01/20/17 carica papaya 1 ea PO DAILY 01/20/17 cholecalciferol (vitamin D3) [Vitamin D3] 2,000 unit PO DAILY 01/20/17 garlic 1,000 mg PO DAILY 01/20/17 ginseng 100 mg PO DAILY 01/20/17 lecithin 1,200 mg PO DAILY 01/20/17 milk thistle 150 mg PO DAILY 01/20/17 saw palmetto 500 mg PO DAILY 01/20/17 vitamin B complex-folic acid [Super B Maxi Complex] 0.4 mg PO DAILY 01/20/17 aspirin 81 mg PO DAILY@0800 #90 tab.chew 06/20/20 finasteride 5 mg PO DAILY 03/28/21 losartan 50 mg PO DAILY 03/28/21 nifedipine 60 mg PO DAILY 03/28/21 furosemide [Lasix] 40 mg PO BID #60 tab 03/30/21 potassium chloride 20 meq PO BID #60 tab 03/30/21 Hospital Course Operations None Procedures 2-D Echocardiogram Summary of Care Provided Minutes Spent on Discharge: 45 Hospital Course: Patient is an 80 y/o with an extensive PMH as outlined who was admitted via the ED on 03/30/2021 with a complaint of shortness of breath for 2 days prior to admission. He had lower extremity edema which had been worsening for about 3-4 months but had worsened for 2 days prior to admission, with associated bloating and loss of appetite and loss of appetite.He said he was compliant with her medication. He said he had gained ~ 10 pounds within one week prior to admission. On admission, he was very short of breath, and EKG showed no acute ST changes. CXR showed interstitial vascular congestion and groundglass opacities in the lower lung bases. BNP was also elevated. HE was admitted and managed for acute hypoxic respiratory failure due to acute on chronic heart failure. He was put on BIPAP and started on IV lasix for diuresis. Troponins x 3 were not elevated. Cardiology was consulted. Paitent subsequently improved and was weaned off BIPAP. Shortness of breath improved and he was weaned off oxygen. He didnt need home oxygen per walking pulse ox. 2D echo was done and result was pending at time of review. He remained stable and was discharged home on 03/30/2021. 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 Patient seen and examined prior to discharge. He has no complaints and felt very well. Review of systems otherwise negative. Labs and vitals reviewed. Home medications reviewed and reconciled. O/E; Const alert, oriented x3 and no apparent distress Exam Limitations: no limitations HEENT head/scalp atraumatic and moist oral mucous membranes Head and Scalp: normocephalic Eyes PERRL, EOMs intact bilaterally and conjunctivae normal Neck no lymphadenopathy Resp Resp Narrative: mildly diminished breath sounds bibasally, no wheezes or crackles. On 2L of oxygen by nasal canula; weaned onto room air Cardio regular rate, regular rhythm, S1 normal heart sound, S2 normal heart sound and no murmurs GI normal to inspection, nondistended, normoactive bowel sounds, soft to palpation, non-tender and non-distended Extremity normal to inspection, full ROM and no clubbing, cyanosis or edema Peripheral Pulses: Yes pulses 2+ throughout Skin no rashes or lesions noted Neuro oriented x3, CN's II-XII intact bilaterally and moves all extremities Sensorium / Orientation: awake and alert Plan is for discharge home as above. Physical Exam Const alert, oriented x3 and no apparent distress General Appearance: cooperative and comfortable Exam Limitations: no limitations HEENT normocephalic, head/scalp atraumatic, hearing grossly normal bilaterally and moist oral mucous membranes Eyes PERRL, EOMs intact bilaterally and conjunctivae normal Neck no lymphadenopathy Resp normal respiratory effort, no retractions, no use of accessory muscles and clear to auscultation bilaterally Cardio regular rate, regular rhythm, S1 normal heart sound, S2 normal heart sound and no murmurs GI normal to inspection, nondistended, normoactive bowel sounds, soft to palpation, non-tender and non-distended Extremity normal to inspection, full ROM and no clubbing, cyanosis or edema Skin no rashes or lesions noted Neuro oriented x3, CN's II-XII intact bilaterally and moves all extremities Sensorium / Orientation: awake and alert Psych affect normal Weight / BMI Weight Weight: 146 lb 13.246 oz Body Mass Index (BMI) 29.0 ABG / Lab / Microbiology Data Result Diagrams: 03/30/21 04:58 03/30/21 04:58 Laboratory: Laboratory Results - last 24 hr 03/30/21 04:58: WBC 6.9, RBC 3.68 L, Hgb 11.2 L, Hct 33.5 L, MCV 91.0, MCH 30.4, MCHC 33.4, RDW Std Deviation 40.5, RDW Coeff of Sapna 12.2, Plt Count 226, MPV 11.4, Immature Gran % (Auto) 0.400, Neut % (Auto) 59.7, Lymph % (Auto) 17.2 L, [place] % (Auto) 18.8 H, Eos % (Auto) 3.5, Baso % (Auto) 0.4, Absolute Neuts (auto) 4.1, Absolute Lymphs (auto) 1.18, Nucleated RBC % 0 03/30/21 04:58: Sodium 136, Potassium 3.8, Chloride 99, Carbon Dioxide 31.0, Anion Gap 6, BUN 35 H, Creatinine 1.34 H, Estim Creat Clear Calc 31.44, Est GFR (MDRD) Af Amer 66, Est GFR (MDRD) Non-Af 54 L, BUN/Creatinine Ratio 26.1 H, Glucose 94, Calcium 9.1 Microbiology: Microbiology 03/28/21 Unknown Mucosa - Nose SARS-CoV-2 Antigen (Rapid) - Final D/C Instructions Discharge Diet: Low fat / Low cholesterol Discharge Activity: Return to Normal Activity Weight Bearing Status: Weight bearing as tolerated Call your doctor if you observe: Fever of 101 or Higher, Shortness of breath, Dizziness, Swelling in the ankles and Increased palpitations (irregular heartbeat) Meaningful Use Info Meaningful Use Diagnoses (Choose all that apply): CHF CHF GIL/ARB ordered at discharge?: Yes Documented LVEF (%): 65 Discharge Plan Admission Admit Date/Time: 03/28/21 22:05 Primary Reason for Your Visit: acute respiratory failure due to acute on chronic heart failure Attending Provider: Crys Haddad Primary Care Provider: Pasha Bland Consulting Providers: Gold Ennis ; Felix Orellana ; Wilian Dumont ; Zoë Perea WIRE DRAWER Instructions Patient Instructions: ICU Inside, Coping with Heart Failure, ED Heart Failure, Congestive (CHF) Additional Instructions / Restrictions: Please follow up with your 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 supervisor at [facility] on outpatient basis in 1-2 weeks Discharge Orders/Prescriptions Prescriptions: New furosemide [Lasix] 40 mg tablet 40 mg PO BID Qty: 60 RF: 1 potassium chloride 20 mEq tablet extended release 20 meq PO BID Qty: 60 RF: 1 Continued carvedilol [Coreg] 25 MG tablet 25 mg PO BID RF: 0 simvastatin 40 MG tablet 40 mg PO QHS RF: 0 clonidine HCl 0.2 MG tablet 0.1 mg PO BID RF: 0 doxazosin 4 MG tablet 4 mg PO QHS RF: 0 albuterol sulfate [Ventolin HFA] 1 INHALER inhaler 2 puff inhalation Q6H PRN PRN (Reason: Asthma) RF: 0 ascorbic acid (vitamin C) [Vitamin C] 1,000 MG tablet 1,000 mg PO DAILY RF: 0 ginseng 100 MG capsule 100 mg PO DAILY RF: 0 carica papaya 1 EACH tablet 1 ea PO DAILY RF: 0 lecithin 1,200 MG capsule 1,200 mg PO DAILY RF: 0 capsicum (cayenne) 450 MG capsule 450 mg PO DAILY RF: 0 garlic 1,000 MG capsule 1,000 mg PO DAILY RF: 0 milk thistle 150 MG capsule 150 mg PO DAILY RF: 0 calcium carbonate 500 MG tablet 500 mg PO DAILY RF: 0 saw palmetto 500 MG capsule 500 mg PO DAILY RF: 0 vitamin B complex-folic acid [Super B Maxi Complex] 0.4 MG tablet 0.4 mg PO DAILY RF: 0 Fish Oil 500 MG capsule,delayed release(DR/EC) 500 mg PO DAILY RF: 0 cholecalciferol (vitamin D3) [Vitamin D3] 2,000 UNIT capsule 2,000 unit PO DAILY RF: 0 aspirin 81 MG tablet,chewable 81 mg PO DAILY@0800 Qty: 90 RF: 0 nifedipine 60 mg tablet extended release 24hr 60 mg PO DAILY RF: 0 finasteride 5 mg tablet 5 mg PO DAILY RF: 0 losartan 50 MG tablet 50 mg PO DAILY RF: 0 Discontinued furosemide 20 MG tablet 20 mg PO DAILY RF: 0 Referrals / Follow Up: Pasha Bland DO [Primary Care Provider] - Within 1 Week Care Physician,No Primary [NON-STAFF] - Disposition Disposition (needs filled in before D/C Order can be placed): Home, Self Care Charges/Coding Visit Charges Inpatient E&M: 91851 Disch Hosp
--- NOTE | 2021-03-30 15:35 | PHA.DC.MC ---
Pharmacy Service has performed discharge medication reconciliation and counseling for this patient. 1. POTASSIUM CHLORIDE 20MEQ PO BID The patient's discharge medication list was reviewed for discrepancies and discrepancies were resolved. Home Medications albuterol sulfate [Ventolin HFA] 2 puff INHALATION Q6H PRN PRN 08/25/16 carvedilol [Coreg] 25 mg PO BID 08/25/16 clonidine HCl 0.1 mg PO BID 08/25/16 doxazosin 4 mg PO QHS 08/25/16 simvastatin 40 mg PO QHS 08/25/16 Fish Oil 500 mg PO DAILY 01/20/17 ascorbic acid (vitamin C) [Vitamin C] 1,000 mg PO DAILY 01/20/17 calcium carbonate 500 mg PO DAILY 01/20/17 capsicum (cayenne) 450 mg PO DAILY 01/20/17 carica papaya 1 ea PO DAILY 01/20/17 cholecalciferol (vitamin D3) [Vitamin D3] 2,000 unit PO DAILY 01/20/17 garlic 1,000 mg PO DAILY 01/20/17 ginseng 100 mg PO DAILY 01/20/17 lecithin 1,200 mg PO DAILY 01/20/17 milk thistle 150 mg PO DAILY 01/20/17 saw palmetto 500 mg PO DAILY 01/20/17 vitamin B complex-folic acid [Super B Maxi Complex] 0.4 mg PO DAILY 01/20/17 aspirin 81 mg PO DAILY@0800 #90 tab.chew 06/20/20 finasteride 5 mg PO DAILY 03/28/21 losartan 50 mg PO DAILY 03/28/21 nifedipine 60 mg PO DAILY 03/28/21 furosemide [Lasix] 40 mg PO BID #60 tab 03/30/21 potassium chloride 20 meq PO BID #60 tab 03/30/21 The patient was counseled on the following discharge medications and changes in medications for homegoing were reviewed. The Reason for Use, instructions for use, and potential side effects were reviewed for all new medications. The patient's questions regarding all of their medications were answered. The patient was able to verbally demonstrate an understanding of their discharge medications.
--- NOTE | 2021-03-30 15:58 | PN.CARD_ITS ---
Subjective Subjective The patient is awake and alert. He states he has been breathing much better since being in the hospital receiving IV diuretics. He believes his lower extremity edema is better as his legs do not feel as tight . He has had no other acute symptoms. Objective Data Vital Signs: Vital Signs Temp Pulse Resp BP Pulse Ox 98.2 F 66 16 138/60 H 94 03/30/21 10:00 03/30/21 10:00 03/30/21 10:00 03/30/21 10:00 03/30/21 12:27 Oxygen Flow Rate (L/min) 2 Oxygen Delivery Method Room Air Weight: 146 lb 13.246 oz Body Mass Index (BMI) 29.0 Intake & Output: Intake and Output for Last 24 Hours 03/28/21 03/29/21 03/30/21 23:59 23:59 23:59 Intake Total 580 / 580 400 / 400 Output Total 400 / 400 2625 / 3340 2315 / 2315 Balance -400 / -400 -2045 / -2760 -1915 / -1914 Lab / Micro Data Result Diagrams: 03/30/21 04:58 03/30/21 04:58 Labs: Laboratory Results - last 24 hr 03/30/21 04:58: WBC 6.9, RBC 3.68 L, Hgb 11.2 L, Hct 33.5 L, MCV 91.0, MCH 30.4, MCHC 33.4, RDW Std Deviation 40.5, RDW Coeff of Sapna 12.2, Plt Count 226, MPV 11.4, Immature Gran % (Auto) 0.400, Neut % (Auto) 59.7, Lymph % (Auto) 17.2 L, [place] % (Auto) 18.8 H, Eos % (Auto) 3.5, Baso % (Auto) 0.4, Absolute Neuts (auto) 4.1, Absolute Lymphs (auto) 1.18, Nucleated RBC % 0 03/30/21 04:58: Sodium 136, Potassium 3.8, Chloride 99, Carbon Dioxide 31.0, Anion Gap 6, BUN 35 H, Creatinine 1.34 H, Estim Creat Clear Calc 31.44, Est GFR (MDRD) Af Amer 66, Est GFR (MDRD) Non-Af 54 L, BUN/Creatinine Ratio 26.1 H, Glucose 94, Calcium 9.1 Cardiology Labs/Tests 03/30/21 04:58: WBC 6.9, RBC 3.68 L, Hgb 11.2 L, Hct 33.5 L, MCV 91.0, MCH 30.4, MCHC 33.4, Plt Count 226, MPV 11.4, Immature Gran % (Auto) 0.400, Neut % (Auto) 59.7, Lymph % (Auto) 17.2 L, [place] % (Auto) 18.8 H, Eos % (Auto) 3.5, Baso % (Auto) 0.4, Absolute Neuts (auto) 4.1, Nucleated RBC % 0 03/30/21 04:58: Sodium 136, Potassium 3.8, Chloride 99, Carbon Dioxide 31.0, Anion Gap 6, BUN 35 H, Creatinine 1.34 H, Est GFR (MDRD) Af Amer 66, Est GFR (MDRD) Non-Af 54 L, BUN/Creatinine Ratio 26.1 H, Glucose 94, Calcium 9.1 Rhythm: Sinus rhythm Radiography Diagnostic Testing: Radiology Impression Echocardiogram 03/29/21 05:55 Interpretation Summary Normal LV size. Left ventricular systolic function is normal. The estimated ejection fraction is 65 %. Stage 1 diastolic dysfunction. Pulmonary artery systolic pressure is 45 mmHg. Mild aortic stenosis. Ordering Physician: Anthony Bhatia Referring Physician: VINCE ZAMAN Performed By: Lesley Oneal, RDCS, RVT Physical Exam Const alert, oriented x3 and no apparent distress Orientation / Consciousness: awake HEENT normocephalic, head/scalp atraumatic and hearing grossly normal bilaterally Eyes PERRL, EOMs intact bilaterally and conjunctivae normal Neck full ROM, supple and no JVD Resp clear to auscultation bilaterally Cardio regular rate, regular rhythm, S1 normal heart sound and S2 normal heart sound Heart Sounds: murmur systolic II/ harsh mid left sternal border, LVOT and sternal notch GI normal to inspection, nondistended, normoactive bowel sounds Extremity General Extremity: edema bilateral lower extremity (Bilateral lower extremity Aiden wraps) Details: mild Neuro oriented x3 and moves all extremities Psych mental status grossly normal Assessment & Plan Assessment/Plan (1) Acute on chronic diastolic heart failure: PLAN: At the present time there is concern the patient has acute on chronic CHF with heart failure with preserved ejection fraction. He has undergone noninvasive evaluation with a transthoracic echocardiogram. At the present time he will continue medical therapy with adjustment of his diuretics from IV to oral. If he remains stable on oral medication then hopefully he will eventually be able to be released home for continued outpatient cardiovascular follow-up. (2) Cardiac murmur: PLAN: He does have a cardiac murmur. Based upon his echocardiogram there are findings compatible with aortic valve stenosis. This will need to be followed over time by history, exam, and echocardiographic studies. (3) Hyperlipidemia: QUALIFIERS: Hyperlipidemia type: unspecified Qualified Code(s): E78.5 - Hyperlipidemia, unspecified PLAN: He should continue risk factor evaluation and care. (4) Hypertension: QUALIFIERS: Hypertension type: essential hypertension Qualified Code(s): I10 - Essential (primary) hypertension PLAN: His blood pressure will need to be followed with his medicines adjusted accordingly taking into consideration any other medical issues including renal function, etc. Addt'l Comments The patient's case has been discussed and reviewed with the patient. This note was generated using a voice recognition system and there may be incorrect words, spelling or punctuation that were not noted when reviewing the office note prior to saving.
--- NOTE | 2021-03-31 13:19 | CASEMGMT ---
RORO LUCAS Discharge Follow-up Phone Call: VAISHNAVI: Brandy Strata: 3 Call Date: 03/30/21 Discharge Date: 03/29/21 Time of Call: 1315 Duration: 5 min Admitting Diagnosis: CHF exacerbation RORO LUCAS completed follow-up phone call after recent hospitalization. Patient states he is doing well. Patient had no questions regarding discharge instructions. Patient was able to fill prescriptions without any issues. Patient has follow-up appt scheduled with PCP. Patient had no further questions or concerns regarding discharge instructions.
== END 2021-03-30 16:44 | disposition home or self-care (01) | DRG 291 ==
LOC: ED 20:59 → ICU 23:30 → PCU 03-29 16:01
PROVIDERS: Admitting Provider Internal Medicine; Emergency Provider Emergency Medicine; PCP Family Medicine; Referring Provider Internal Medicine; Visit Provider Student in an Organized Health Care Education/Training Program
DX: I13.0 Hypertensive heart and chronic kidney disease with heart failure and stage 1 through stage 4 chronic kidney disease, or unspecified chronic kidney disease (principal); I50.33 Acute on chronic diastolic (congestive) heart failure; J96.01 Acute respiratory failure with hypoxia; N17.9 Acute kidney failure, unspecified; R01.1 Cardiac murmur, unspecified; N18.31 Chronic kidney disease, stage 3a; J44.9 Chronic obstructive pulmonary disease, unspecified; E78.5 Hyperlipidemia, unspecified; I45.10 Unspecified right bundle-branch block; N40.0 Benign prostatic hyperplasia without lower urinary tract symptoms; Z86.73 Personal history of transient ischemic attack (TIA), and cerebral infarction without residual deficits; Z79.82 Long term (current) use of aspirin; Z79.899 Other long term (current) drug therapy; Z87.891 Personal history of nicotine dependence
CPT/HCPCS: 36415; 71045; 80048; 80061; 83735; 83880; 84100; 84443; 84484; 85025; 87426; 93005; 93306; 94002; 99251; 99285; Q9957; A4216; G0463; J1940; J3490

== ENCOUNTER 2021-08-08 20:13 | Observation (INO) | payer MEDICARE, SELFPAY ==
[2021-08-08] VITALS (12 sets, daily range): BP systolic 143–168; BP diastolic 61–74; PULSE 64–79; RESP 22–92; TEMP 36.3–36.8; O2SAT 24–96; BMI 29.5
--- NOTE | 2021-08-08 20:59 | EKG12_ITS ---
Test Reason : SOB Blood Pressure : / mmHG Vent. Rate : 078 BPM Atrial Rate : 078 BPM P-R Int : 120 ms QRS Dur : 124 ms QT Int : 404 ms P-R-T Axes : 043 082 030 degrees QTc Int : 460 ms Normal sinus rhythm Right bundle branch block Abnormal ECG Confirmed by CHELSIE LEON, OSBALDO ([id number]), editorial cartoonist TREV MACIEL ([id number]) on 08/11/2021 9:54:26 AM Referred By: PRINCESS Confirmed By:OSBALDO HOLGUIN MD
[2021-08-08 21:13] LABS: Absolute Lymphocyte Count 1.47 X10^3/uL (0.83-4.51); Absolute Neutrophil Count 5.4 X10^3/uL (2.0-7.7); Basophil# 0.04 X10^3/uL; Basophil% 0.5 % (0-1); Eosinophil# 0.34 X10^3/uL; Eosinophils% 4.1 % (0-5); Hematocrit 35.1 % (40-54); Hemoglobin 11.8 g/dL (13.0-16.5); Lymphocyte # 1.47 X10^3/ul (0.83-4.51); Lymphocyte % 17.6 % (19-41); Mean Corp Hgb Conc 33.6 g/dL (32-36); Mean Corpuscular Hgb 29.6 pg (27.0-32.0); Mean Corpuscular Volume 88.2 fL (80-94); Mean Platelet Vol. 11.5 fl (6.2-12.0); Monocyte# 1.08 X10^3/uL; Monocyte% 12.9 % (0-10); NRBC Flagged by Analyzer 0 % (0-5); Neutrophil # 5.39 X10^3/uL (2.7-7.7); Neutrophil % 64.7 % (47-70); Platelet Count 223 K/mm3 (150-450); RBC Distribution Width CV 12.5 % (11.6-14.6); RBC Distribution Width SD 40.3 fl (35.1-43.9); Red Blood Count 3.98 M/mm3 (4.6-6.2); White Blood Count 8.3 K/mm3 (4.4-11.0)
[2021-08-08] MEDS: Nitroglycerin SL (ED/IMG/CATH) 0.4 MG TABLET SL (21:13)
[2021-08-08] MEDS: Furosemide 20 MG/2 ML VIAL IV (21:14)
--- NOTE | 2021-08-08 21:18 | RAD_ITS ---
INDICATION: sob EXAMINATION/TECHNIQUE: X-RAY - XR Chest 1 View COMPARISON: 03/28/2021 FINDINGS: LIFE-SUPPORT AND LINES: 1. None HEART AND VESSELS: Cardiac silhouette is borderline enlarged without change. No evidence of central vascular increased circulating volume, there is diffuse interstitial prominence however bilaterally. LUNGS AND PLEURAL SPACES: Diffuse by basilar interstitial prominence. No consolidation, no effusion. No pulmonary mass is noted. MEDIASTINUM AND HILAR REGIONS: No masses adenopathy noted. No areas of calcification. Visualized upper airway is normal in position. BONY ELEMENTS: No acute bony changes noted. RAD/Chest 1 View (Portable) IMPRESSION: 1. Diffuse bibasilar interstitial prominence. There has been negligible interval change. 2. Although interstitial edema is a consideration, there is no evidence of widening of the vascular pedicle nor increased central circulating volume. Findings are suspicious of atypical interstitial infiltrate/viral pneumonia. No consolidation, no effusion Electronically Signed: David Gallardo MD at 21:54 EST Tel , Service support ,
[2021-08-08 21:27] LABS: Anion Gap 6 (5-15); BUN 27 mg/dL (7-18); BUN/Creat Ratio 24.5 RATIO (10-20); Calcium,Total 8.8 mg/dL (8.5-10.1); Chloride 108 mmol/L (98-107); EST Glomerular Filtration Rate 68 mL/min (>60); Est Glom Filt Rate - Afr Amer 82 mL/min (>60); Glucose 161 mg/dL (74-106); Potassium 4.2 mmol/L (3.5-5.1); Sodium Level 139 mmol/L (136-145); Troponin-I HS 8 pg/mL (3.0-78.0)
[2021-08-08 21:32] LABS: BNP,B-Type NATRIURETIC PEPTIDE 181.2 pg/mL (0-100)
[2021-08-08] MEDS: Albuterol 2.5 MG/3 ML VIAL.NEB. INHALATION ×2 (21:48)
--- NOTE | 2021-08-08 23:54 | ED.RN ---
patient able to walk on room air at first but after a few minutes sitting and 87% walking on RA. Put back on 2L NC and 92% on that flow immediately. Able to tolerate ambulating with SPO2 90 on 2 L. INCREASED to 3L NC again and tolerated better at 93% ambulating.
--- NOTE | 2021-08-08 23:59 | ED.RN ---
patient on 3L sitting now at 89% and increased to 4L NC and increased to 92%. sitting. Dropped to 90% walking.
[2021-08-09] VITALS (14 sets, daily range): BP systolic 125–172; BP diastolic 63–82; PULSE 63–76; RESP 16–20; TEMP 36.2–37.2; O2SAT 94–98; BMI 27.5
--- NOTE | 2021-08-09 00:13 | EDS_ITS ---
HPI History of Present Illness Chief Complaint: Shortness of Breath Informant: patient Onset/Context/Timing Onset: Today Context: gradual Timing: Continuous Quality: Positive for Dyspnea on exertion, Orthopnea and Wheezing Current Severity: Moderate Maximum Severity: Moderate Worsened by: Exertion and Lying flat Relieved by: Rest and Oxygen Associated Symptoms cough Chest Pain: Positive for None Narrative Narrative: Patient presenting with dyspnea today gradual in onset, he has a history of COPD and congestive heart failure, he states it feels like I am filling up with fluid again. He has a history of a chronic cough with some mild sputum production and states that is unchanged. Denies any fevers or chills recently or exposure to COVID-19 that he knows of. He has chronic swelling in his legs, he does not know if it is worse than usual neither does family. He is having a little discomfort in his upper abdomen but not his chest. No nausea, vomiting, diarrhea, hematemesis, hematochezia. He states he forgot to take his Lasix this morning. Usually takes 20 mg once daily. His medication list says 20 mg twice daily. He states he does not like to urinate all night. Furthermore, it being Mathieu today, he had some ham, and daughter states we had a very salty meal. [facility] Medical History (Updated 08/09/21 @ 00:[address] Juan Francisco Meza MD) Cardiac murmur CHF (congestive heart failure) CKD (chronic kidney disease) COPD (chronic obstructive pulmonary disease) HTN (hypertension) Hyperlipidemia Hypertension TIA (transient ischemic attack) Home Medications albuterol sulfate [Ventolin HFA] 2 puff INHALATION Q6H PRN PRN 08/25/16 [History Last Taken Unknown] carvedilol [Coreg] 25 mg PO BID 08/25/16 [History Last Taken Unknown] clonidine HCl 0.1 mg PO TID 08/25/16 [History Last Taken Unknown] doxazosin 4 mg PO QHS 08/25/16 [History Last Taken Unknown] simvastatin 40 mg PO QHS 08/25/16 [History Last Taken Unknown] Fish Oil 500 mg PO DAILY 01/20/17 [History Last Taken Unknown] ascorbic acid (vitamin C) [Vitamin C] 1,000 mg PO DAILY 01/20/17 [History Last Taken Unknown] calcium carbonate 500 mg PO DAILY 01/20/17 [History Last Taken Unknown] capsicum (cayenne) 450 mg PO DAILY 01/20/17 [History Last Taken Unknown] carica papaya 1 ea PO DAILY 01/20/17 [History Last Taken Unknown] cholecalciferol (vitamin D3) [Vitamin D3] 2,000 unit PO DAILY 01/20/17 [History Last Taken Unknown] garlic 1,000 mg PO DAILY 01/20/17 [History Last Taken Unknown] ginseng 100 mg PO DAILY 01/20/17 [History Last Taken Unknown] lecithin 1,200 mg PO DAILY 01/20/17 [History Last Taken Unknown] milk thistle 150 mg PO DAILY 01/20/17 [History Last Taken Unknown] saw palmetto 500 mg PO DAILY 01/20/17 [History Last Taken Unknown] vitamin B complex-folic acid [Super B Maxi Complex] 0.4 mg PO DAILY 01/20/17 [History Last Taken Unknown] aspirin 81 mg PO DAILY@0800 #90 tab.chew 06/20/20 [Rx Last Taken Unknown] finasteride [Proscar] 5 mg PO DAILY 03/28/21 [History Last Taken Unknown] losartan 50 mg PO DAILY 03/28/21 [History Last Taken Unknown] nifedipine 60 mg PO DAILY 03/28/21 [History Last Taken Unknown] potassium chloride 20 meq PO BID #60 tab 03/30/21 [Rx Last Taken Unknown] furosemide [Lasix] 20 mg PO BID 08/08/21 [History Last Taken Unknown] Allergy/AdvReac Type Severity Reaction Status Date / Time tylenol arthritis AdvReac high blood Uncoded 08/08/21 20:14 pressure Social History Smoking Status: Former smoker substance use type: does not use ROS ROS ED Constitutional Constitutional ED: Denies chills or fever(s) Eyes Eyes: Denies change in vision or diplopia ENT ENT ED: Denies rhinorrhea or sore throat Cardiovascular Cardiovascular: Reports dyspnea, dyspnea on exertion and pedal edema; Denies chest pain or palpitations Respiratory/Chest Respiratory/Chest: Reports as per HPI, cough and dyspnea; Denies excessive phlegm production Gastrointestinal Gastrointestinal: Reports as per HPI and abdominal pain; Denies diarrhea, nausea or vomiting Genitourinary Genitourinary ED: Denies dysuria or hematuria Musculoskeletal Musculoskeletal: Denies back pain or neck pain Integumentary Denies abscess or rash Neurologic Neurologic: Denies headache(s), paresthesias or weakness Psychiatric Psychiatric: Denies anxiety or suicidal thoughts EXAM Physical Exam Const Vital Signs: 08/08/21 20:15 08/08/21 21:01 08/08/21 21:13 Temperature 97.3 F L 98.2 F Temperature Source Temporal Temporal Pulse Rate 79 77 76 Respiratory Rate 22 H 92 H Respiratory Effort Respiratory Depth Respiratory Pattern Blood Pressure 163/61 H 168/74 H 168/74 H Blood Pressure Mean 95 105 Pulse Ox 89 24 Oxygen Delivery Method Room Air Nasal Cannula Oxygen Flow Rate (L/min) 4 08/08/21 21:49 08/08/21 22:04 08/08/21 22:59 Temperature Temperature Source Pulse Rate 79 64 Respiratory Rate 32 H Respiratory Effort Short of Breath Labored Respiratory Depth Shallow Respiratory Pattern Tachypnea Tachypnea Blood Pressure 145/62 H Blood Pressure Mean 89 Pulse Ox 95 Oxygen Delivery Method Nasal Cannula Nasal Cannula Oxygen Flow Rate (L/min) 6 08/08/21 23:49 08/08/21 23:50 08/08/21 23:53 Temperature Temperature Source Pulse Rate Respiratory Rate Respiratory Effort Respiratory Depth Respiratory Pattern Blood Pressure 143/65 H Blood Pressure Mean 91 Pulse Ox 96 95 88 Oxygen Delivery Method Nasal Cannula Nasal Cannula Room Air Oxygen Flow Rate (L/min) 5 2 Positive well nourished, well developed and obese General Appearance ED: well developed and NAD Nutritional Appearance: obese HEENT Reports moist mucous membranes normocephalic and atraumatic Eyes PERRL and EOMs intact bilaterally Neck full ROM, no lymphadenopathy and supple General: JVD Resp Resp Narrative: Tachypneic with mild respiratory distress, bibasilar rhonchi and a few expiratory wheezes. Diminished throughout, symmetrically. Trachea midline. Cardio regular rate, regular rhythm and peripheral pulses 2+ throughout Cardio Narrative: Soft systolic ejection murmur GI non-distended GI Narrative: Protuberant abdomen, mildly tender epigastrium no guarding or rebound otherwise benign Auscultation: normoactive bowel sounds Palpation: soft Back/Spine no CVA tenderness General Back: other FROM Extremity normal to inspection General Extremety ED: Yes edema; Negative for pulses abnormal or tenderness General Extremity: edema bilateral lower extremity Details: moderate (Ankles di stal pretibial, symmetric); Negative for pulses abnormal Neuro oriented x3, CN's II-XII intact bilaterally and no sensory deficits noted Sensorium / Orientation: awake and alert Motor Exam: strength 5/5 throughout Skin no rashes or lesions noted and no wounds MDM MDM MDM Narrative Medical decision making narrative: Patient is hypertensive, bibasilar rhonchi with JVD, pedal edema, and history that is consistent with an exacerbation of congestive heart failure. He was initially given Lasix while we performed a work-up, before he urinated, his breathing started getting worse, luckily his Covid returned negative so we can give him an aerosol safely, and this helped significantly. He then urinated quite a bit. He felt a lot better, however with ambulation, he did not get very far, he gets tachypneic and fairly hypoxic, even with 2 L on he desats to 88%. He required 3-4 L to keep him in the nineties, but at rest he is doing well clinically. His blood pressure is better as well. Given this, he will require admission for further treatment, diuresis. I feel like the patient is likely fluid overloaded due to a combination of taking in too much fluid and not taking his Lasix appropriately. His chest x- ray interpretation was noted, I think this represents CHF. We did note his echo from several months ago, it showed good systolic function, good ejection fraction, he does have diastolic dysfunction and some aortic stenosis. EKG stable right bundle branch block, negative troponin. Lab Data Attestation: I reviewed the patient's lab results. Labs: Laboratory Results - last 24 hr 08/08/21 08/08/21 08/08/21 20:40 20:40 20:40 WBC 8.3 RBC 3.98 L Hgb 11.8 L Hct 35.1 L MCV 88.2 MCH 29.6 MCHC 33.6 RDW Std Deviation 40.3 RDW Coeff of Sapna 12.5 Plt Count 223 MPV 11.5 Immature Gran % (Auto) 0.200 Neut % (Auto) 64.7 Lymph % (Auto) 17.6 L [place] % (Auto) 12.9 H Eos % (Auto) 4.1 Baso % (Auto) 0.5 Absolute Neuts (auto) 5.4 Absolute Lymphs (auto) 1.47 Nucleated RBC % 0 Sodium 139 Potassium 4.2 Chloride 108 H Carbon Dioxide 25.0 Anion Gap 6 BUN 27 H Creatinine 1.10 Estim Creat Clear Calc 38.30 Est GFR (MDRD) Af Amer 82 Est GFR (MDRD) Non-Af 68 BUN/Creatinine Ratio 24.5 H Glucose 161 H Calcium 8.8 Troponin I High Sens 8 B-Natriuretic Peptide 181.2 H Radiography Diagnostic Testing: Clinical Impression(s) from Imaging Studies Chest X-Ray 08/08/21 21:18 IMPRESSION: 1. Diffuse bibasilar interstitial prominence. There has been negligible interval change. 2. Although interstitial edema is a consideration, there is no evidence of widening of the vascular pedicle nor increased central circulating volume. Findings are suspicious of atypical interstitial infiltrate/viral pneumonia. No consolidation, no effusion Electronically Signed: David Gallardo MD at 21:54 EST Tel , Service support , Rhythm Strip Rhythm Strip: Sinus Rhythm Rate: 82 Ectopy: None EKG Initial EKG: Attestation: I personally reviewed and interpreted this EKG as follows: Interpretation: Sinus Rhythm, No Acute Injury Pattern and RBBB Prior EKG tracings: available for review Prior: Unchanged Discharge Plan Dx/Rx/DC Orders Clinical Impression: Acute exacerbation of congestive heart failure, Hypoxemia Disposition Disposition: Acute Care Hospital [facility] Discharge Date/Time: 08/09/21 00:38
--- NOTE | 2021-08-09 00:24 | HP.PCM.HOS_ITS ---
HPI - General General Date of Admission: 08/09/21 HPI Narrative CARMEN MOCK, is a 80 M with a significant history of congestive heart failure; COPD; Hyperlipidemia; hypertension and COPD who presents to the emergency department with shortness of breath. Per daughter who was with patie nt patient's symptoms came on suddenly while the patient was eating dinner on . Daughter described the onset of symptoms as flash. Patient was brought to the emergency department by her daughter. En-route to the hospital he got more dyspneic with ambulation. He reports weight gain noticed when he was weighed at the emergency department. Reportedly he has had some mild swelling in his lower extremities. At baseline patient wears FABIENNE hose. Patient is prescribed Lasix 2 times per day. However, he does not take evening dose of Lasix because that would make him have nocturia. On the day of presentation he missed his Lasix dose. Reportedly with ambulation on 2 L patient's oxygen saturation dropped to the 80s so ED doctor made a recommendation was made for patient to stay at the hospital. Patient reports swelling to bilateral knees that he attributes to arthritis. [facility] Medical History (Updated 08/09/21 @ 00:[address] Indra Rose MD) Cardiac murmur CHF (congestive heart failure) CKD (chronic kidney disease) COPD (chronic obstructive pulmonary disease) HTN (hypertension) Hyperlipidemia Hypertension TIA (transient ischemic attack) Home Medications albuterol sulfate [Ventolin HFA] 2 puff INHALATION Q6H PRN PRN 08/25/16 [History Last Taken Unknown] carvedilol [Coreg] 25 mg PO BID 08/25/16 [History Last Taken Unknown] clonidine HCl 0.1 mg PO TID 08/25/16 [History Last Taken Unknown] doxazosin 4 mg PO QHS 08/25/16 [History Last Taken Unknown] simvastatin 40 mg PO QHS 08/25/16 [History Last Taken Unknown] Fish Oil 500 mg PO DAILY 01/20/17 [History Last Taken Unknown] ascorbic acid (vitamin C) [Vitamin C] 1,000 mg PO DAILY 01/20/17 [History Last Taken Unknown] calcium carbonate 500 mg PO DAILY 01/20/17 [History Last Taken Unknown] capsicum (cayenne) 450 mg PO DAILY 01/20/17 [History Last Taken Unknown] carica papaya 1 ea PO DAILY 01/20/17 [History Last Taken Unknown] cholecalciferol (vitamin D3) [Vitamin D3] 2,000 unit PO DAILY 01/20/17 [History Last Taken Unknown] garlic 1,000 mg PO DAILY 01/20/17 [History Last Taken Unknown] ginseng 100 mg PO DAILY 01/20/17 [History Last Taken Unknown] lecithin 1,200 mg PO DAILY 01/20/17 [History Last Taken Unknown] milk thistle 150 mg PO DAILY 01/20/17 [History Last Taken Unknown] saw palmetto 500 mg PO DAILY 01/20/17 [History Last Taken Unknown] vitamin B complex-folic acid [Super B Maxi Complex] 0.4 mg PO DAILY 01/20/17 [History Last Taken Unknown] aspirin 81 mg PO DAILY@0800 #90 tab.chew 06/20/20 [Rx Last Taken Unknown] finasteride [Proscar] 5 mg PO DAILY 03/28/21 [History Last Taken Unknown] losartan 50 mg PO DAILY 03/28/21 [History Last Taken Unknown] nifedipine 60 mg PO DAILY 03/28/21 [History Last Taken Unknown] potassium chloride 20 meq PO BID #60 tab 03/30/21 [Rx Last Taken Unknown] furosemide [Lasix] 20 mg PO BID 08/08/21 [History Last Taken Unknown] Allergy/AdvReac Type Severity Reaction Status Date / Time tylenol arthritis AdvReac high blood Uncoded 08/08/21 20:14 pressure Family History (Updated 08/09/21 @ 00:[address] Indra Rose MD) Other CVA (cerebral vascular accident) Cancer Surgical History History of tonsillectomy Previous back surgery Social History Smoking Status: Former smoker substance use type: does not use Vital Signs Vital Signs Vital Signs: 08/08/21 20:15 08/08/21 21:01 08/08/21 21:13 Temperature 97.3 F L 98.2 F Temperature Source Temporal Temporal Pulse Rate 79 77 76 Respiratory Rate 22 H 92 H Respiratory Effort Respiratory Depth Respiratory Pattern Blood Pressure 163/61 H 168/74 H 168/74 H Blood Pressure Mean 95 105 Pulse Ox 89 24 Oxygen Delivery Method Room Air Nasal Cannula Oxygen Flow Rate (L/min) 4 08/08/21 21:49 08/08/21 22:04 08/08/21 22:59 Temperature Temperature Source Pulse Rate 79 64 Respiratory Rate 32 H Respiratory Effort Short of Breath Labored Respiratory Depth Shallow Respiratory Pattern Tachypnea Tachypnea Blood Pressure 145/62 H Blood Pressure Mean 89 Pulse Ox 95 Oxygen Delivery Method Nasal Cannula Nasal Cannula Oxygen Flow Rate (L/min) 6 08/08/21 23:49 08/08/21 23:50 08/08/21 23:53 Temperature Temperature Source Pulse Rate Respiratory Rate Respiratory Effort Respiratory Depth Respiratory Pattern Blood Pressure 143/65 H Blood Pressure Mean 91 Pulse Ox 96 95 88 Oxygen Delivery Method Nasal Cannula Nasal Cannula Room Air Oxygen Flow Rate (L/min) 5 2 Weight Weight: 71 kg Body Mass Index (BMI) 29.5 Physical Exam Narrative Physical exam: General: Well-nourished, well-developed. Head: Normocephalic, atraumatic, no tenderness Eyes: PERRLA, EOMI ENT, no trauma, moist mucous membranes, no rhinorrhea Neck: Nontender, full range of motion, no spinal tenderness. CVS: Regular rate and rhythm. S1-S2 present. No murmur, gallop or rub. Respiratory : Rales. Chest wall nontender, no wheezing Abdomen: Soft, nontender, nondistended, normal bowel sounds, no masses : Deferred Back: Nontender, no CVA tenderness. Extremities: Bilateral lower legs and edema +1, nontender full range of motion, no trauma Skin: Normal color, no trauma, abrasions Neuro: Alert, oriented, cranial nerves II through XII grossly intact. Psychiatry: Normal mood. Normal affect. Not depressed. Not anxious. Results Lab / Micro Data Result Diagrams: 08/08/21 20:40 08/08/21 20:40 Labs: Laboratory Results - last 24 hr 08/08/21 20:40: WBC 8.3, RBC 3.98 L, Hgb 11.8 L, Hct 35.1 L, MCV 88.2, MCH 29.6, MCHC 33.6, RDW Std Deviation 40.3, RDW Coeff of Sapna 12.5, Plt Count 223, MPV 11.5, Immature Gran % (Auto) 0.200, Neut % (Auto) 64.7, Lymph % (Auto) 17.6 L, [place] % (Auto) 12.9 H, Eos % (Auto) 4.1, Baso % (Auto) 0.5, Absolute Neuts (auto) 5.4, Absolute Lymphs (auto) 1.47, Nucleated RBC % 0 08/08/21 20:40: Sodium 139, Potassium 4.2, Chloride 108 H, Carbon Dioxide 25.0, Anion Gap 6, BUN 27 H, Creatinine 1.10, Estim Creat Clear Calc 38.30, Est GFR (MDRD) Af Amer 82, Est GFR (MDRD) Non-Af 68, BUN/Creatinine Ratio 24.5 H, Glucose 161 H, Calcium 8.8, Troponin I High Sens 8 08/08/21 20:40: B-Natriuretic Peptide 181.2 H Micro: Microbiology 08/08/21 20:40 Nasal Secretion SARS-CoV-2 Antigen (Rapid) - Final Radiology Impression Chest X-Ray 08/08/21 21:18 IMPRESSION: 1. Diffuse bibasilar interstitial prominence. There has been negligible interval change. 2. Although interstitial edema is a consideration, there is no evidence of widening of the vascular pedicle nor increased central circulating volume. Findings are suspicious of atypical interstitial infiltrate/viral pneumonia. No consolidation, no effusion Electronically Signed: David Gallardo MD at 21:54 EST Tel , Service support , Assessment & Plan Assessment/Plan (1) Acute exacerbation of congestive heart failure: QUALIFIERS: Heart failure type: diastolic Qualified Code(s): I50.33 - Acute on chronic diastolic (congestive) heart failure PLAN: Procardia, COPD Stable. No wheezing examination.. Albuterol continued.Acute Exacerbation of heart failure with preserved ejection fraction Place on monitored bed on progressive care unit Weight on admission to the floor; and then daily Strict I&O's Actual CXR independently image was independently interpreted and I agree with radiologist interpretation above. EKG independently reviewed confirms right bundle branch block. Old EKGs reviewed is consistent with current EKG. BNP on presentation was 181.2. Received Lasix 20 mg IV push at the emergency department. Lasix 20 mg IV twice daily ordered. Hold home p.o. Lasix supplementation. Home potassium supplementation continued. Last echocardiogram on file was on March 29, 2021: Estimated ejection fraction was 65%. Stage I diastolic dysfunction. Monitor electrolytes and renal function Trend blood pressure Home FABIENNE hose continued. Fluid restriction of 1500 mls daily Cardiac diet Hypertension Blood pressure is not within goal Losartan, clonidine,and Doxazosin continued. Trend blood pressure and adjust blood pressure medications. COPD Stable No wheezing on examination. As needed albuterol inhalation continued. BPH: Doxazosin ordered. DVT prophylaxis: Subcutaneous Lovenox ordered Charges/Coding Visit Charges Inpatient E&M: 89398 Init Hosp L3
--- NOTE | 2021-08-09 00:50 | PCS.PANDOC ---
PANDEMIC DOCUMENTATION INITIATED: Date: 03/30/2021 Time: 190
[2021-08-09] MEDS: cloNIDine HCl 0.1 MG Tablet PO ×3 (05:48→21:56)
[2021-08-09 07:08] LABS: Absolute Lymphocyte Count 1.16 X10^3/uL (0.83-4.51); Absolute Neutrophil Count 6.1 X10^3/uL (2.0-7.7); Basophil# 0.04 X10^3/uL; Basophil% 0.5 % (0-1); Eosinophil# 0.32 X10^3/uL; Eosinophils% 3.6 % (0-5); Hematocrit 38.7 % (40-54); Hemoglobin 13.1 g/dL (13.0-16.5); Lymphocyte # 1.16 X10^3/ul (0.83-4.51); Lymphocyte % 13.1 % (19-41); Mean Corp Hgb Conc 33.9 g/dL (32-36); Mean Corpuscular Hgb 29.6 pg (27.0-32.0); Mean Corpuscular Volume 87.4 fL (80-94); Monocyte% 13.5 % (0-10); NRBC Flagged by Analyzer 0 % (0-5); Neutrophil # 6.13 X10^3/uL (2.7-7.7); Platelet Count 238 K/mm3 (150-450); RBC Distribution Width CV 12.4 % (11.6-14.6); RBC Distribution Width SD 39.9 fl (35.1-43.9); Red Blood Count 4.43 M/mm3 (4.6-6.2); White Blood Count 8.9 K/mm3 (4.4-11.0)
[2021-08-09 07:34] LABS: Anion Gap 8 (5-15); BUN 18 mg/dL (7-18); BUN/Creat Ratio 20.9 RATIO (10-20); Calcium,Total 9.5 mg/dL (8.5-10.1); Chloride 104 mmol/L (98-107); Creatinine, Serum 0.86 mg/dL (0.70-1.30); EST Glomerular Filtration Rate 90 mL/min (>60); Est Glom Filt Rate - Afr Amer 109 mL/min (>60); Estimated Creatinine Clearance 48.99 ml/min; Glucose 97 mg/dL (74-106); Potassium 3.9 mmol/L (3.5-5.1); Sodium Level 139 mmol/L (136-145)
[2021-08-09] MEDS: Multivitamins,Ther W-Minerals Tablet 0.4 TABLET PO (08:29)
[2021-08-09] MEDS: Omega-3 Acid Ethyl Esters 1 GM Capsule PO (08:30)
[2021-08-09] MEDS: Finasteride 5 MG Tablet PO (08:30)
[2021-08-09] MEDS: NIFEdipine 60 MG Tablet PO (08:30)
[2021-08-09] MEDS: Ascorbic Acid 500 MG Tablet 1000 MG PO (08:31)
[2021-08-09] MEDS: Carvedilol 25 MG Tablet PO ×2 (08:31→21:56)
[2021-08-09] MEDS: Cholecalciferol (VIT D3) 25 MCG TABLET (1,000 UNITS) 50 MCG PO (08:31)
[2021-08-09] MEDS: Losartan Potassium 50 MG Tablet PO (08:31)
[2021-08-09] MEDS: Calcium (Elemental) 500 MG Tablet PO (08:31)
[2021-08-09] MEDS: Potassium Chloride Oral Tablet 20 MEQ PO ×2 (08:31→17:25)
[2021-08-09] MEDS: 0.9% Saline Lock 10 ML Syringe IV ×2 (08:32→17:25)
[2021-08-09] MEDS: Furosemide 20 MG/2 ML VIAL IV ×2 (08:32→17:25)
[2021-08-09] MEDS: Enoxaparin 40 MG/0.4 ML Syringe SC (08:32)
--- NOTE | 2021-08-09 10:51 | PCM.HOSP.N ---
Documented by User: Florian MUNGUIA 08/09/21 10:55 Hospitalist Note Patient is an 80-year-old male who was admitted to the hospital for evaluation and management of acute on chronic HFpEF exacerbation. Patient's exacerbation was brought on while patient was eating Mathieu dinner. Patient was initiated on IV Lasix and has responded to well in regards to lower extremity swelling and respiratory status. Patient is currently satting 98% on 2 L and respirations are not elevated. Echocardiogram from March 2021 demonstrated an estimated ejection fraction of 65% and stage I diastolic dysfunction. We will continue IV Lasix, fluid restriction, daily weights, strict I's and O's. DVT prophylaxis - Lovenox Patient seen by Florian Juarez PA-C, under the supervision of Dr. Haddad. Documented by User: Dr. rCys Haddad MD 08/09/21 14:07 Addendum Addendum: Patient seen by Florian Juarez PA-C under my supervision Patient seen and examined. He was admitted with a complaint of shortness of breath and lower extremity edema. BNP was elevated, and he was started on IV lasix. He is being managed for acute on chronic HFpEF. He is being diuresed with IV lasix. Patient feels much better today. Shortness of breath has improved. Review of systems is otherwise negative. Will continue on IV lasix 40mg bid, and fluid restriction to 1500cc daily. He has known EF of 65%. Rest as per Florian Juarez PA-C's note, which I have reviewed and endorsed.
[2021-08-09] MEDS: Doxazosin 4 MG Tablet PO (21:55)
[2021-08-09] MEDS: Atorvastatin Calcium 20 MG Tablet PO (21:56)
[2021-08-10 03:00] VITALS: PULSE 55
[2021-08-10 03:56] VITALS: BP 140/69; PULSE 54; RESP 18; TEMP 36.6; O2SAT 94
[2021-08-10] MEDS: cloNIDine HCl 0.1 MG Tablet PO (06:11)
[2021-08-10 07:00] VITALS: PULSE 58
[2021-08-10 07:34] VITALS: O2SAT 94
[2021-08-10 07:53] LABS: Anion Gap 7 (5-15); BUN 24 mg/dL (7-18); BUN/Creat Ratio 22.4 RATIO (10-20); Calcium,Total 9.3 mg/dL (8.5-10.1); Chloride 102 mmol/L (98-107); Creatinine, Serum 1.07 mg/dL (0.70-1.30); EST Glomerular Filtration Rate 70 mL/min (>60); Est Glom Filt Rate - Afr Amer 85 mL/min (>60); Estimated Creatinine Clearance 39.37 ml/min; Glucose 88 mg/dL (74-106); Potassium 4.3 mmol/L (3.5-5.1); Sodium Level 137 mmol/L (136-145)
[2021-08-10 08:50] VITALS: BP 139/69; PULSE 61; RESP 16; TEMP 36.4; O2SAT 95
[2021-08-10] MEDS: Potassium Chloride Oral Tablet 20 MEQ PO (08:50)
[2021-08-10] MEDS: Enoxaparin 40 MG/0.4 ML Syringe SC (08:50)
[2021-08-10] MEDS: 0.9% Saline Lock 10 ML Syringe IV (08:51)
[2021-08-10] MEDS: Furosemide 20 MG/2 ML VIAL IV (08:51)
[2021-08-10] MEDS: NIFEdipine 60 MG Tablet PO (08:51)
[2021-08-10] MEDS: Carvedilol 25 MG Tablet PO (08:51)
[2021-08-10] MEDS: Multivitamins,Ther W-Minerals Tablet 0.4 TABLET PO (08:51)
[2021-08-10] MEDS: Finasteride 5 MG Tablet PO (08:52)
[2021-08-10] MEDS: Ascorbic Acid 500 MG Tablet 1000 MG PO (08:52)
[2021-08-10] MEDS: Losartan Potassium 50 MG Tablet PO (08:52)
[2021-08-10] MEDS: Cholecalciferol (VIT D3) 25 MCG TABLET (1,000 UNITS) 50 MCG PO (08:52)
[2021-08-10] MEDS: Omega-3 Acid Ethyl Esters 1 GM Capsule PO (08:52)
[2021-08-10] MEDS: Calcium (Elemental) 500 MG Tablet PO (08:52)
--- NOTE | 2021-08-10 11:20 | PCM.DC ---
Discharge Instructions Diet Discharge Diet: No restrictions Activity Discharge Activity: Return to Normal Activity Weight Bearing Status: Weight bearing as tolerated Dressing / Incision Call your doctor if you observe: Fever of 101 or Higher, Numbness or Tingling, Shortness of breath, Dizziness, Chest pain, Increased palpitations (irregular heartbeat) and Calf discomfort Follow Up Care Please Follow Up With: Primary care provider When: Within the next two weeks. Test Results: Test results from this visit will be discussed in further detail at your follow-up appointment, if applicable. Discharge Plan Admission Admit Date/Time: 08/09/21 00:15 Primary Reason for Your Visit: Shortness of breath Attending Provider: Crys Haddad Primary Care Provider: Pasha Bland Discharge Orders/Prescriptions Prescriptions: Continued carvedilol [Coreg] 25 MG tablet 25 mg PO BID RF: 0 simvastatin 40 MG tablet 40 mg PO QHS RF: 0 clonidine HCl 0.2 MG tablet 0.1 mg PO TID RF: 0 doxazosin 4 MG tablet 4 mg PO QHS RF: 0 albuterol sulfate [Ventolin HFA] 1 INHALER inhaler 2 puff inhalation Q6H PRN PRN (Reason: Asthma) RF: 0 ascorbic acid (vitamin C) [Vitamin C] 1,000 MG tablet 1,000 mg PO DAILY RF: 0 ginseng 100 MG capsule 100 mg PO DAILY RF: 0 carica papaya 1 EACH tablet 1 ea PO DAILY RF: 0 lecithin 1,200 MG capsule 1,200 mg PO DAILY RF: 0 capsicum (cayenne) 450 MG capsule 450 mg PO DAILY RF: 0 garlic 1,000 MG capsule 1,000 mg PO DAILY RF: 0 milk thistle 150 MG capsule 150 mg PO DAILY RF: 0 calcium carbonate 500 MG tablet 500 mg PO DAILY RF: 0 saw palmetto 500 MG capsule 500 mg PO DAILY RF: 0 vitamin B complex-folic acid [Super B Maxi Complex] 0.4 MG tablet 0.4 mg PO DAILY RF: 0 Fish Oil 500 MG capsule,delayed release(DR/EC) 500 mg PO DAILY RF: 0 cholecalciferol (vitamin D3) [Vitamin D3] 2,000 UNIT capsule 2,000 unit PO DAILY RF: 0 aspirin 81 MG tablet,chewable 81 mg PO DAILY@0800 Qty: 90 RF: 0 nifedipine 60 mg tablet extended release 24hr 60 mg PO DAILY RF: 0 finasteride [Proscar] 5 mg tablet 5 mg PO DAILY RF: 0 losartan 50 MG tablet 50 mg PO DAILY RF: 0 potassium chloride 20 mEq tablet extended release 20 meq PO BID Qty: 60 RF: 1 furosemide [Lasix] 40 mg tablet 20 mg PO BID RF: 0 Referrals / Follow Up: Pasha Bland DO [Primary Care Provider] - Within 2 Weeks Disposition Disposition (needs filled in before D/C Order can be placed): Home, Self Care
--- NOTE | 2021-08-10 11:28 | CASEMGMT ---
RORO LUCAS Assessment: Face to Face with pt for initial transition planning/care coordination assessment. RN CM introduced self and role at [facility], pt voices understanding and consents to assessment. Patient sitting up in chair, in no apparent distress. Pt is A/O x4 and answers all questions appropriately at this time. Care providers, pharmacy, and demographics verified/updated. Admitting Dx: Acute exacerbation of heart failure PCP: Pasha Bland Specialists: [facility] Sung Bello[facility] [place], [place] Insurance: [employer] HMO Prescription Benefit: yes LW/HPOA: Patient states he have LW/HPOA. HPOA is Rashel hearn. Patient made aware these forms are not on file at [facility] and may be brought in to be scanned into record. LNOK: Rashel Hearn Living Arrangements: Pt lives alone in trailer with 5 steps to enter with railing. Patient reports independent with ADLs prior to hospitalization. Social: former smoker (quit in 1992), denies ETOH use Transportation: Pt drives self and denies concerns with transportation. Son and daughter also available to assist with transport needs. DME/HHC/SNF: Patient has walker and cane in home but states typically ambulates without assistive device, occasionally uses cane to walk to mailbox. Patient has grab bars in bathroom. Denies previous HHC or SNF stays. Pt states no concerns with going home at time of dc. Pt states no further concerns/needs. CM to follow. Advised pt to ask CM if any further question/concerns/needs arise, voices understanding. Pt Goal: home Plan: home
[2021-08-10 11:42] VITALS: O2SAT 94; O2SAT 97
--- NOTE | 2021-08-10 12:01 | CASEMGMT ---
Per Sita READ, pt does not qualify for home oxygen with ambulation. Pt voices no further questions/concerns/needs. Darío READ CM
--- NOTE | 2021-08-10 12:02 | PHA.DC.MR ---
Pharmacy Service has performed discharge medication reconciliation for this patient. The patient's discharge medication list was reviewed for discrepancies and discrepancies were resolved. Home Medications albuterol sulfate [Ventolin HFA] 2 puff INHALATION Q6H PRN PRN 08/25/16 carvedilol [Coreg] 25 mg PO BID 08/25/16 clonidine HCl 0.1 mg PO TID 08/25/16 doxazosin 4 mg PO QHS 08/25/16 simvastatin 40 mg PO QHS 08/25/16 Fish Oil 500 mg PO DAILY 01/20/17 ascorbic acid (vitamin C) [Vitamin C] 1,000 mg PO DAILY 01/20/17 calcium carbonate 500 mg PO DAILY 01/20/17 capsicum (cayenne) 450 mg PO DAILY 01/20/17 carica papaya 1 ea PO DAILY 01/20/17 cholecalciferol (vitamin D3) [Vitamin D3] 2,000 unit PO DAILY 01/20/17 garlic 1,000 mg PO DAILY 01/20/17 ginseng 100 mg PO DAILY 01/20/17 lecithin 1,200 mg PO DAILY 01/20/17 milk thistle 150 mg PO DAILY 01/20/17 saw palmetto 500 mg PO DAILY 01/20/17 vitamin B complex-folic acid [Super B Maxi Complex] 0.4 mg PO DAILY 01/20/17 aspirin 81 mg PO DAILY@0800 #90 tab.chew 06/20/20 finasteride [Proscar] 5 mg PO DAILY 03/28/21 losartan 50 mg PO DAILY 03/28/21 nifedipine 60 mg PO DAILY 03/28/21 potassium chloride 20 meq PO BID #60 tab 03/30/21 furosemide [Lasix] 20 mg PO BID 08/08/21
--- NOTE | 2021-08-10 14:04 | PCM.DC.SUM ---
Documented by User: Florian MUNGUIA 08/10/21 14:10 Providers Date of Admission: 08/09/21 Primary Care Physician: Dr. Pasha Bland, Reason For Visit: ACUTE EXACERBATION OF HEART FAILURE WITH Diagnosis Discharge Diagnosis (1) Acute exacerbation of congestive heart failure: Status: Chronic Code(s): I50.9 - Heart failure, unspecified Qualifiers: Heart failure type: diastolic Qualified Code(s): I50.33 - Acute on chronic diastolic (congestive) heart failure Medications at Discharge Home Medications albuterol sulfate [Ventolin HFA] 2 puff INHALATION Q6H PRN PRN 08/25/16 carvedilol [Coreg] 25 mg PO BID 08/25/16 clonidine HCl 0.1 mg PO TID 08/25/16 doxazosin 4 mg PO QHS 08/25/16 simvastatin 40 mg PO QHS 08/25/16 Fish Oil 500 mg PO DAILY 01/20/17 ascorbic acid (vitamin C) [Vitamin C] 1,000 mg PO DAILY 01/20/17 calcium carbonate 500 mg PO DAILY 01/20/17 capsicum (cayenne) 450 mg PO DAILY 01/20/17 carica papaya 1 ea PO DAILY 01/20/17 cholecalciferol (vitamin D3) [Vitamin D3] 2,000 unit PO DAILY 01/20/17 garlic 1,000 mg PO DAILY 01/20/17 ginseng 100 mg PO DAILY 01/20/17 lecithin 1,200 mg PO DAILY 01/20/17 milk thistle 150 mg PO DAILY 01/20/17 saw palmetto 500 mg PO DAILY 01/20/17 vitamin B complex-folic acid [Super B Maxi Complex] 0.4 mg PO DAILY 01/20/17 aspirin 81 mg PO DAILY@0800 #90 tab.chew 06/20/20 finasteride [Proscar] 5 mg PO DAILY 03/28/21 losartan 50 mg PO DAILY 03/28/21 nifedipine 60 mg PO DAILY 03/28/21 potassium chloride 20 meq PO BID #60 tab 03/30/21 furosemide [Lasix] 20 mg PO BID 08/08/21 Hospital Course Summary of Care Provided Minutes Spent on Discharge: 35 Hospital Course: Patient is an 80-year-old male who was admitted to the hospital for evaluation and management of acute on chronic HFpEF exacerbation. Patient's exacerbation was brought on while patient was eating [place] dinner, as well as patient believes that he has been noncompliant with his afternoon dose of Lasix. Patient was initiated on IV Lasix and responded well in regards to lower extremity swelling and respiratory status. On day of discharge patient was satting 95% on room air and respirations were within normal limits. Echocardiogram from March 2021 demonstrated an estimated ejection fraction of 65% and stage I diastolic dysfunction. Patient's home CHF regimen was continued on discharge, and patient was advised of importance of being compliant with this home medication list. Patient acknowledged and reported to this provider that he would be compliant with home medications. Patient seen by Florian Juarez PA-C, under the supervision of Dr. Haddad. Physical Exam Narrative Patient is a 80-year-old male comfortably resting in a chair, alert and orient x3. Patient reports that shortness of breath and swelling have significantly improved from admission. Denies development of any new symptoms overnight. Does not appear in acute distress. Const alert, oriented x3 and no apparent distress HEENT normocephalic, head/scalp atraumatic and hearing grossly normal bilaterally Eyes PERRL, EOMs intact bilaterally and conjunctivae normal Neck no lymphadenopathy, supple and no JVD Resp normal respiratory effort, no retractions, no use of accessory muscles and clear to auscultation bilaterally Cardio regular rate, regular rhythm, no murmurs and no JVD GI normal to inspection, nondistended, normoactive bowel sounds, soft to palpation and non-tender Extremity normal to inspection, full ROM and no clubbing, cyanosis or edema Skin no rashes or lesions noted, no wounds and skin turgor normal Neuro CN's II-XII intact bilaterally Psych affect normal Weight / BMI Weight Weight: 143 lb 8.335 oz Body Mass Index (BMI) 27.5 ABG / Lab / Microbiology Data Result Diagrams: 08/09/21 06:35 08/10/21 06:37 Laboratory: Laboratory Results - last 24 hr 08/10/21 06:37: Sodium 137, Potassium 4.3, Chloride 102, Carbon Dioxide 28.0, Anion Gap 7, BUN 24 H, Creatinine 1.07, Estim Creat Clear Calc 39.37, Est GFR (MDRD) Af Amer 85, Est GFR (MDRD) Non-Af 70, BUN/Creatinine Ratio 22.4 H, Glucose 88, Calcium 9.3 Microbiology: Microbiology 08/08/21 20:40 Nasal Secretion SARS-CoV-2 Antigen (Rapid) - Final D/C Instructions Discharge Diet: No restrictions Weight Bearing Status: Weight bearing as tolerated Call your doctor if you observe: Fever of 101 or Higher, Numbness or Tingling, Shortness of breath, Dizziness, Chest pain, Increased palpitations (irregular heartbeat) and Calf discomfort Please Follow Up With: Primary care provider When: Within the next two weeks. Meaningful Use Info Meaningful Use Diagnoses (Choose all that apply): CHF CHF GIL/ARB ordered at discharge?: Yes Documented LVEF (%): 65 Discharge Plan Admission Admit Date/Time: 08/09/21 00:15 Primary Reason for Your Visit: Shortness of breath Attending Provider: Crys Haddad Primary Care Provider: Pasha Bland Discharge Orders/Prescriptions Prescriptions: Continued carvedilol [Coreg] 25 MG tablet 25 mg PO BID RF: 0 simvastatin 40 MG tablet 40 mg PO QHS RF: 0 clonidine HCl 0.2 MG tablet 0.1 mg PO TID RF: 0 doxazosin 4 MG tablet 4 mg PO QHS RF: 0 albuterol sulfate [Ventolin HFA] 1 INHALER inhaler 2 puff inhalation Q6H PRN PRN (Reason: Asthma) RF: 0 ascorbic acid (vitamin C) [Vitamin C] 1,000 MG tablet 1,000 mg PO DAILY RF: 0 ginseng 100 MG capsule 100 mg PO DAILY RF: 0 carica papaya 1 EACH tablet 1 ea PO DAILY RF: 0 lecithin 1,200 MG capsule 1,200 mg PO DAILY RF: 0 capsicum (cayenne) 450 MG capsule 450 mg PO DAILY RF: 0 garlic 1,000 MG capsule 1,000 mg PO DAILY RF: 0 milk thistle 150 MG capsule 150 mg PO DAILY RF: 0 calcium carbonate 500 MG tablet 500 mg PO DAILY RF: 0 saw palmetto 500 MG capsule 500 mg PO DAILY RF: 0 vitamin B complex-folic acid [Super B Maxi Complex] 0.4 MG tablet 0.4 mg PO DAILY RF: 0 Fish Oil 500 MG capsule,delayed release(DR/EC) 500 mg PO DAILY RF: 0 cholecalciferol (vitamin D3) [Vitamin D3] 2,000 UNIT capsule 2,000 unit PO DAILY RF: 0 aspirin 81 MG tablet,chewable 81 mg PO DAILY@0800 Qty: 90 RF: 0 nifedipine 60 mg tablet extended release 24hr 60 mg PO DAILY RF: 0 finasteride [Proscar] 5 mg tablet 5 mg PO DAILY RF: 0 losartan 50 MG tablet 50 mg PO DAILY RF: 0 potassium chloride 20 mEq tablet extended release 20 meq PO BID Qty: 60 RF: 1 furosemide [Lasix] 40 mg tablet 20 mg PO BID RF: 0 Referrals / Follow Up: Pasha Bland DO [Primary Care Provider] - Within 2 Weeks (Please call to setup an appointment.) Disposition Disposition (needs filled in before D/C Order can be placed): Home, Self Care Documented by User: Dr. Crys Haddad MD 08/10/21 16:04 Providers Date of Admission: 08/09/21 Reason For Visit: ACUTE EXACERBATION OF HEART FAILURE WITH Medications at Discharge Home Medications albuterol sulfate [Ventolin HFA] 2 puff INHALATION Q6H PRN PRN 08/25/16 carvedilol [Coreg] 25 mg PO BID 08/25/16 clonidine HCl 0.1 mg PO TID 08/25/16 doxazosin 4 mg PO QHS 08/25/16 simvastatin 40 mg PO QHS 08/25/16 Fish Oil 500 mg PO DAILY 01/20/17 ascorbic acid (vitamin C) [Vitamin C] 1,000 mg PO DAILY 01/20/17 calcium carbonate 500 mg PO DAILY 01/20/17 capsicum (cayenne) 450 mg PO DAILY 01/20/17 carica papaya 1 ea PO DAILY 01/20/17 cholecalciferol (vitamin D3) [Vitamin D3] 2,000 unit PO DAILY 01/20/17 garlic 1,000 mg PO DAILY 01/20/17 ginseng 100 mg PO DAILY 01/20/17 lecithin 1,200 mg PO DAILY 01/20/17 milk thistle 150 mg PO DAILY 01/20/17 saw palmetto 500 mg PO DAILY 01/20/17 vitamin B complex-folic acid [Super B Maxi Complex] 0.4 mg PO DAILY 01/20/17 aspirin 81 mg PO DAILY@0800 #90 tab.chew 06/20/20 finasteride [Proscar] 5 mg PO DAILY 03/28/21 losartan 50 mg PO DAILY 03/28/21 nifedipine 60 mg PO DAILY 03/28/21 potassium chloride 20 meq PO BID #60 tab 03/30/21 furosemide [Lasix] 20 mg PO BID 08/08/21 ABG / Lab / Microbiology Data Result Diagrams: 08/09/21 06:35 08/10/21 06:37 Discharge Plan Admission Admit Date/Time: 08/09/21 00:15 Primary Reason for Your Visit: Shortness of breath Attending Provider: Crys Haddad Primary Care Provider: Pasha Bland Discharge Orders/Prescriptions Prescriptions: Continued carvedilol [Coreg] 25 MG tablet 25 mg PO BID RF: 0 simvastatin 40 MG tablet 40 mg PO QHS RF: 0 clonidine HCl 0.2 MG tablet 0.1 mg PO TID RF: 0 doxazosin 4 MG tablet 4 mg PO QHS RF: 0 albuterol sulfate [Ventolin HFA] 1 INHALER inhaler 2 puff inhalation Q6H PRN PRN (Reason: Asthma) RF: 0 ascorbic acid (vitamin C) [Vitamin C] 1,000 MG tablet 1,000 mg PO DAILY RF: 0 ginseng 100 MG capsule 100 mg PO DAILY RF: 0 carica papaya 1 EACH tablet 1 ea PO DAILY RF: 0 lecithin 1,200 MG capsule 1,200 mg PO DAILY RF: 0 capsicum (cayenne) 450 MG capsule 450 mg PO DAILY RF: 0 garlic 1,000 MG capsule 1,000 mg PO DAILY RF: 0 milk thistle 150 MG capsule 150 mg PO DAILY RF: 0 calcium carbonate 500 MG tablet 500 mg PO DAILY RF: 0 saw palmetto 500 MG capsule 500 mg PO DAILY RF: 0 vitamin B complex-folic acid [Super B Maxi Complex] 0.4 MG tablet 0.4 mg PO DAILY RF: 0 Fish Oil 500 MG capsule,delayed release(DR/EC) 500 mg PO DAILY RF: 0 cholecalciferol (vitamin D3) [Vitamin D3] 2,000 UNIT capsule 2,000 unit PO DAILY RF: 0 aspirin 81 MG tablet,chewable 81 mg PO DAILY@0800 Qty: 90 RF: 0 nifedipine 60 mg tablet extended release 24hr 60 mg PO DAILY RF: 0 finasteride [Proscar] 5 mg tablet 5 mg PO DAILY RF: 0 losartan 50 MG tablet 50 mg PO DAILY RF: 0 potassium chloride 20 mEq tablet extended release 20 meq PO BID Qty: 60 RF: 1 furosemide [Lasix] 40 mg tablet 20 mg PO BID RF: 0 Referrals / Follow Up: Pasha Bland, [Primary Care Provider] - Within 2 Weeks (Please call to setup an appointment.) Disposition Disposition (needs filled in before D/C Order can be placed): Home, Self Care Charges/Coding Addendum Addendum: Patient seen by Florian Juarez PA-C under my supervision Patient is an 80-year-old male with a past medical history as outlined which includes congestive heart failure was admitted through the ED on 08/09/2021 with a complaint of shortness of breath which started when he was eating dinner on . He also had worsening shortness of breath with exertion and also reported weight gain with lower extremity edema. Patient said he had not been taking his Lasix twice a day as prescribed due to concerns about nocturia. On admission his BNP was also elevated so he was admitted to be managed for acute on chronic heart failure with preserved ejection fraction. He was diuresed with IV Lasix. His shortness of breath gradually improved and he was weaned off of oxygen. Patient was counseled about importance of compliant with his home Lasix dose as prescribed. He remained stable and was discharged home on 08/10/2021. 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 Patient seen and examined prior to discharge. He had no active complaints and felt well. Review of systems otherwise negative. Labs and vitals reviewed. Medication reviewed and reconciled. O/E: Const alert, oriented x3 and no apparent distress HEENT normocephalic, head/scalp atraumatic and hearing grossly normal bilaterally Eyes PERRL, EOMs intact bilaterally and conjunctivae normal Neck no lymphadenopathy, supple and no JVD Resp normal respiratory effort, no retractions, no use of accessory muscles and clear to auscultation bilaterally Cardio regular rate, regular rhythm, no murmurs and no JVD GI normal to inspection, nondistended, normoactive bowel sounds, soft to palpation and non-tender Extremity normal to inspection, full ROM and no clubbing, cyanosis or edema Skin no rashes or lesions noted, no wounds and skin turgor normal Neuro CN's II-XII intact bilaterally Psych affect normal Plan is for discharge home today. Rest as per Florian Juarez PA-C's notes which I have reviewed and endorsed. Visit Charges Inpatient E&M: 75731 Disch Hosp
== END 2021-08-10 13:01 | disposition home or self-care (01) | DRG 291 ==
LOC: ED 08-09 00:21 → PCU 08-09 00:28
PROVIDERS: Physician Assistant; Admitting Provider Hospitalist; Emergency Provider Emergency Medicine; PCP Family Medicine; Visit Provider Student in an Organized Health Care Education/Training Program
DX: I13.0 Hypertensive heart and chronic kidney disease with heart failure and stage 1 through stage 4 chronic kidney disease, or unspecified chronic kidney disease (principal); J44.9 Chronic obstructive pulmonary disease, unspecified; I50.33 Acute on chronic diastolic (congestive) heart failure; R09.02 Hypoxemia; I45.10 Unspecified right bundle-branch block; N18.2 Chronic kidney disease, stage 2 (mild); E78.5 Hyperlipidemia, unspecified; Z79.82 Long term (current) use of aspirin; Z79.899 Other long term (current) drug therapy; Z87.891 Personal history of nicotine dependence
CPT/HCPCS: 36415; 71045; 80048; 83880; 84484; 85025; 87426; 93005; 94640; 96372; 96374; 96376; 99218; 99285; A4216; G0378; J1940

== ENCOUNTER 2023-08-13 08:27 | Inpatient (IN) | payer MEDICARE, SELFPAY ==
[2023-08-13] VITALS (12 sets, daily range): BP systolic 115–166; BP diastolic 47–66; PULSE 63–78; RESP 14–22; TEMP 37–38.4; O2SAT 88–94; BMI 28.1; BMI 26.2
[2023-08-13 09:15] LABS: Absolute Lymphocyte Count 0.57 X10^3/uL (0.83-4.51); Basophil# 0.04 X10^3/uL; Basophil% 0.4 % (0-1); Eosinophil# 0.22 X10^3/uL; Eosinophils% 2.4 % (0-5); Hematocrit 40.4 % (40-54); Hemoglobin 13.9 g/dL (13.0-16.5); Lymphocyte # 0.57 X10^3/ul (0.83-4.51); Lymphocyte % 6.3 % (19-41); Mean Corp Hgb Conc 34.4 g/dL (32-36); Mean Corpuscular Hgb 30.5 pg (27.0-32.0); Mean Corpuscular Volume 88.6 fL (80-94); Mean Platelet Vol. 11.4 fl (6.2-12.0); Monocyte# 1.19 X10^3/uL; Monocyte% 13.1 % (0-10); NRBC Flagged by Analyzer 0 % (0-5); Neutrophil # 7.04 X10^3/uL (2.7-7.7); Neutrophil % 77.5 % (47-70); POSITIVE DIFFERENTIAL YES; Platelet Count 197 K/mm3 (150-450); RBC Distribution Width CV 12.2 % (11.6-14.6); RBC Distribution Width SD 39.6 fl (35.1-43.9); Red Blood Count 4.56 M/mm3 (4.6-6.2); White Blood Count 9.1 K/mm3 (4.4-11.0)
--- OUTSIDE RECORDS SUMMARY | 2023-08-13 09:16 | XMS RPT_ITS | CCD ---
Author Name Unknown Address [address] [place] [address] Organization [facility] Care Team Providers Care Cash Sales Audit Clerk Name Role Phone Petrilla, Pasha Attending Unavailable UNKNOWN, PROVIDER Referring Unavailable Petrilla, Pasha Primary Care Unavailable Petrilla, Pasha Attending Unavailable UNKNOWN, PROVIDER Referring Unavailable Petrilla, Pasha Primary Care Unavailable Petrilla, Pasha Attending Unavailable UNKNOWN, PROVIDER Referring Unavailable Petrilla, Pasha Primary Care Unavailable Petrilla, Pasha Attending Unavailable UNKNOWN, PROVIDER Referring Unavailable Petrilla, Pasha Primary Care Unavailable Petrilla, Pasha Attending Unavailable UNKNOWN, PROVIDER Referring Unavailable Petrilla, Pasha Primary Care Unavailable Petrilla Pasha F Primary Care Provider Kiana Alejandre MD Unavailable Yani Woodson MD Unavailable Sung Shen DO Unavailable Jasmina Pasha F Primary Care Provider Kiana Alejandre MD Unavailable Yani Woodson MD Unavailable Sung Shen DO Unavailable Edwina Pasha F Primary Care Provider Kiana Alejandre MD Unavailable Yani Woodson MD Unavailable Sung Shen DO Unavailable Edwina PETTY Pasha F Primary Care Provider Pasha Bland DO Primary Care Provider [phone] Pasha Bland DO Primary Care Provider [phone] PASHA BLAND Primary Care Unavailable MOISÉS SOSA Referring Unavailable PASHA BLAND Primary Care Unavailable MOISÉS SOSA Attending Unavailable SUNG SHEN Referring Unavailab SUNG Gonzalez Attending Unavailab PASHA Burton Primary Care Unavailable EDWINA, PASHA Primary Care Unavailable EDWINA, PASHA Attending Unavailable JEFFLLInge, PASHA Primary Care Unavailable EDWINA, PASHA Attending Unavailable JEFFLLInge, PASHA Primary Care Unavailable Allergies Allergy Classification Reported Allergen(s) Allergy Type Date of Onset Reaction(s) Facility (4 sources) Acetaminophen; Translations: [ACETAMINOPHEN] Drug Allergy 0 Other: See Comments [facility] (4 sources) Seasonal allergy; Translations: [SEASONAL ALLERGIES] Propensity to adverse reactions 9 [facility] Work Phone: (4 sources) Adhesive Tape-Silicones; Translations: [ADHESIVE TAPE-SILICONES] Drug Allergy 0 Rash [facility] (2 sources) Sea salt; Translations: [SEA SALT] Drug Allergy 3 Hives, Shortness of Breath [facility] (5 sources) Acetaminophen Drug Allergy 0 [facility] (5 sources) Non-steroidal anti-inflammatory agent Drug Intolerance 6 [facility] (5 sources) Sodium Chloride Drug Allergy 3 Hives, Shortness of breath [facility] (5 sources) traMADol Drug Allergy 6 Shortness of breath [facility] (5 sources) Other Propensity to adverse reactions 9 [facility] (5 sources) Wound Dressing Adhesive Drug Allergy 0 Rash [facility] Medications Current Medications Medication Drug Class(es) Dates Sig (Normalized) Sig (Original) acetaminophen 325 mg oral tablet (8 sources) take 2 tablets by mouth in the morning acetaminophen (Tylenol) 325 MG tablet Take 650 mg by mouth in the morning and 650 mg in the evening. 0 Active Completed/Discontinued Medications Medication Drug Class(es) Dates Sig (Normalized) Sig (Original) Aloe Vera 25 mg cap (3 sources) Aloe Vera 25 mg cap Take 1 capsule by mouth. 0 Active Problems Active Problems Problem Classification Problem Date Documented Date Episodic/Chronic Acute cerebrovascular disease (3 sources) Ischemic stroke; Translations: [Cerebral infarction, unspecified] Onset: 07-21-2020 07-21-2020 Chronic Asthma (8 sources) Unspecified asthma, uncomplicated; Translations: [Asthma, unspecified type, unspecified] Onset: 08-30-2006 08-30-2006 Chronic Chronic kidney disease (11 sources) Chronic kidney disease stage 2; Translations: [Chronic kidney disease, stage 2 (mild)] Onset: 08-06-2020 Chronic Conduction disorders (5 sources) Right bundle branch block; Translations: [Unspecified right bundle-branch block] Onset: 04-17-2020 04-05-2021 Chronic Congestive heart failure; nonhypertensive (14 sources) Chronic diastolic heart failure; Translations: [Chronic diastolic (congestive) heart failure] Onset: 01-15-2020 04-05-2021 Chronic Disorders of lipid metabolism (19 sources) Mixed hyperlipidemia; Translations: [Mixed hyperlipidemia] Onset: 09-13-2005 Resolved: 11-24-2022 02-02-2020 Chronic Essential hypertension (15 sources) Essential hypertension; Translations: [Essential (primary) hypertension] Onset: 09-13-2005 02-02-2020 Chronic Hyperplasia of prostate (11 sources) Benign prostatic hypertrophy with outflow obstruction; Translations: [Benign prostatic hyperplasia with lower urinary tract symptoms] Onset: 08-30-2006 08-30-2006 Chronic Other diseases of bladder and urethra (8 sources) Bladder neck obstruction; Translations: [Bladder-neck obstruction] Onset: 10-09-2007 10-09-2007 Chronic Other non-traumatic joint disorders (2 sources) Other specific arthropathies, not elsewhere classified, other specified site; Translations: [Oth specific arthropathies, NEC, vertebrae] Onset: 08-14-2018 Chronic Other nutritional; endocrine; and metabolic disorders (3 sources) Obese class I; Translations: [Obesity, unspecified] Onset: 01-15-2020 02-02-2020 Chronic Peripheral and visceral atherosclerosis (2 sources) Atherosclerosis of aorta; Translations: [Atherosclerosis of aorta] Onset: 05-15-2018 Chronic Residual codes; unclassified (2 sources) Other specified postprocedural states; Translations: [Other specified postprocedural states] Onset: 08-14-2018 Spondylosis; intervertebral disc disorders; other back problems (11 sources) Other spondylosis, lumbar region; Translations: [Spondylosis without myelopathy or radiculopathy, lumbar region] Onset: 05-15-2018 05-31-2022 Chronic Transient cerebral ischemia (5 sources) Transient cerebral ischemia; Translations: [Transient cerebral ischemic attack, unspecified] Onset: 08-06-2020 05-31-2022 Chronic Past or Other Problems Problem Classification Problem Date Documented Date Episodic/Chronic Cardiac dysrhythmias (3 sources) Sinus bradycardia; Translations: [Bradycardia, unspecified] Onset: 01-24-2020 01-24-2020 Episodic Deficiency and other anemia (7 sources) Normocytic normochromic anemia; Translations: [Anemia, unspecified] Onset: 08-01-2016 Episodic Deficiency and other anemia (2 sources) Anemia, unspecified; Translations: [Anemia, unspecified] Onset: 05-31-2022 Episodic Diabetes mellitus without complication (14 sources) Impaired fasting glycemia; Translations: [Impaired fasting glucose] Onset: 07-23-2009 07-23-2009 Episodic E Codes: Adverse effects of medical drugs (5 sources) Non-steroidal anti-inflammatory drug adverse reaction; Translations: [Adverse effect of other nonsteroidal anti-inflammatory drugs [NSAID], initial encounter] Onset: 07-13-2015 05-31-2022 Episodic Hemorrhoids (3 sources) Internal hemorrhoids; Translations: [Other hemorrhoids] Onset: 03-24-2009 03-24-2009 Episodic Noninfectious gastroenteritis (3 sources) Chronic diarrhea; Translations: [Noninfective gastroenteritis and colitis, unspecified] Onset: 09-22-2009 09-22-2009 Episodic Other and unspecified benign neoplasm (3 sources) Benign neoplasm of colon; Translations: [Benign neoplasm of colon, unspecified] Onset: 03-24-2009 03-24-2009 Episodic Other and unspecified benign neoplasm (5 sources) History of polyp of colon; Translations: [Personal history of colonic polyps] Onset: 07-13-2015 05-31-2022 Episodic Other connective tissue disease (2 sources) Arthrodesis status; Translations: [Arthrodesis status] Onset: 05-15-2018 Episodic Other injuries and conditions due to external causes (5 sources) H/O: fracture; Translations: [Personal history of (healed) traumatic fracture] Onset: 04-26-2016 Resolved: 11-24-2022 11-24-2022 Episodic Other lower respiratory disease (3 sources) Multiple nodules of lung; Translations: [Other nonspecific abnormal finding of lung field] Onset: 01-12-2020 01-15-2020 Episodic Other screening for suspected conditions (not mental disorders or infectious disease) (8 sources) Raised prostate specific antigen; Translations: [Elevated prostate specific antigen [PSA]] Onset: 07-23-2019 Resolved: 11-24-2022 07-23-2020 Episodic Residual codes; unclassified (3 sources) Family history of malignant neoplasm of gastrointestinal tract; Translations: [Family history of malignant neoplasm of digestive organs] Onset: 08-30-2006 08-30-2006 Episodic Residual codes; unclassified (5 sources) Family history of cancer of colon; Translations: [Family history of malignant neoplasm of digestive organs] Onset: 07-13-2015 05-31-2022 Episodic Residual codes; unclassified (5 sources) History of colonoscopy; Translations: [Other specified postprocedural states] Onset: 04-26-2016 Resolved: 11-24-2022 11-24-2022 Episodic Screening and history of mental health and substance abuse codes (3 sources) Ex-tobacco user; Translations: [Personal history of nicotine dependence] Onset: 01-24-2020 01-24-2020 Episodic Spondylosis; intervertebral disc disorders; other back problems (14 sources) Radiculopathy, lumbar region; Translations: [Sciatica, unspecified side] Onset: 08-22-2007 08-22-2007 Episodic Results Test Name Value Interpretation Reference Range Facil ity Vital Signs Date Time Vital Sign Value Performing Clinician Faci lity 06-16-2023 09:08-0400 Diastolic blood pressure 70 mm[Hg] [facility] Schedule [facility] 06-16-2023 09:08-0400 Heart rate 57 /min [facility] Schedule [facility] 06-16-2023 09:08-0400 SaO2% (BldA) [Mass fraction] 97 % [facility] Schedule [facility] 06-16-2023 09:08-0400 Systolic blood pressure 127 mm[Hg] [facility] Schedule [facility] 05-26-2023 14:29-0400 Diastolic blood pressure 84 mm[Hg] Pasha Bland DO Work Phone: [facility] 05-26-2023 14:29-0400 Heart rate 68 /min Pasha Bland DO Work Phone: [facility] 05-26-2023 14:29-0400 Systolic blood pressure 144 mm[Hg] Pasha Bland DO Work Phone: [facility] 05-26-2023 13:55-0400 Body height 152.4 cm Pasha Bland DO Work Phone: [facility] 05-26-2023 13:55-0400 Body mass index (BMI) [Ratio] 29.29 kg/m2 Pasha Bland DO Work Phone: [facility] 05-26-2023 13:55-0400 Body temperature 98.6 [degF] Pasha Bland DO Work Phone: [facility] 05-26-2023 13:55-0400 Body weight 68.04 kg Pasha Bland DO Work Phone: [facility] 05-26-2023 13:55-0400 SaO2% (BldA) [Mass fraction] 93 % Pasha Bland DO Work Phone: [facility] 11-24-2022 13:58-0400 Body height 152.4 cm Pasha Bland DO Work Phone: [facility] 11-24-2022 13:58-0400 Body mass index (BMI) [Ratio] 30.27 kg/m2 Pasha Bland DO Work Phone: [facility] 11-24-2022 13:58-0400 Body temperature 98.01 [degF] Pasha Bland DO Work Phone: [facility] 11-24-2022 13:58-0400 Body weight 70.31 kg Pasha Bland DO Work Phone: [facility] 11-24-2022 13:58-0400 Diastolic blood pressure 55 mm[Hg] Pasha Bland DO Work Phone: [facility] 11-24-2022 13:58-0400 Heart rate 60 /min Pasha Bland DO Work Phone: [facility] 11-24-2022 13:58-0400 SaO2% (BldA) [Mass fraction] 97 % Pasha Bland DO Work Phone: [facility] 11-24-2022 13:58-0400 Systolic blood pressure 134 mm[Hg] Pasha Bland DO Work Phone: [facility] 11-02-2022 13:56-0400 Body height 152.4 cm Sung Shen DO Work Phone: [facility] 11-02-2022 13:56-0400 Body weight 68.04 kg Sung Shen DO Work Phone: [facility] 11-02-2022 13:56-0400 Diastolic blood pressure 48 mm[Hg] Sung Shen DO Work Phone: [facility] 11-02-2022 13:56-0400 Heart rate 54 /min Sung Shen DO Work Phone: [facility] 11-02-2022 13:56-0400 SaO2% (BldA) [Mass fraction] 96 % Sung Shen DO Work Phone: [facility] 11-02-2022 13:56-0400 Systolic blood pressure 110 mm[Hg] Sung Shen DO Work Phone: [facility] 05-03-2022 09:51-0400 Body height 152.4 cm Mariah White NURSE ANESTHETIST.HOME MORTGAGE DISCLOSURE ACT SPECIALIST Work Phone: [facility] 05-03-2022 09:51-0400 Body weight 64.68 kg Mariah White NURSE ANESTHETIST.HOME MORTGAGE DISCLOSURE ACT SPECIALIST Work Phone: [facility] 05-03-2022 09:51-0400 Diastolic blood pressure 62 mm[Hg] Mariah White NURSE ANESTHETIST.HOME MORTGAGE DISCLOSURE ACT SPECIALIST Work Phone: [facility] 05-03-2022 09:51-0400 Heart rate 55 /min Mariah White NURSE ANESTHETIST.HOME MORTGAGE DISCLOSURE ACT SPECIALIST Work Phone: [facility] 05-03-2022 09:51-0400 SaO2% (BldA) [Mass fraction] 96 % Mariah White APRN.CNP Work Phone: [facility] 05-03-2022 09:51-0400 Systolic blood pressure 134 mm[Hg] Mariah White APRN.CNP Work Phone: [facility] Encounters Encounter Date Encounter Type Care Provider Facility Start: 06-16-2023 End: 06-16-2023 ambulatory PASHA BLAND [facility] Start: 06-16-2023 End: 06-16-2023 Clinical Support [facility] Procedures Date Procedure Procedure Detail Performing Clinician Start: 05-26-2023 Lipid 1996 panel - S thanh or Plasma [facility] Schedule Start: 11-25-2022 Lipid 1996 panel - S thanh or Plasma Pasha Bland DO Work Phone: Start: 05-27-2022 Lipid 1996 panel - S thanh or Plasma Pasha Bland DO Work Phone: Plan of Treatment Date Care Activity Detail Author Start: 05-26-2028 Lipid panel Lipid Panel [facility] Start: 11-26-2027 Lipid panel Lipid Panel [facility] Start: 05-27-2027 Lipid panel Lipid Panel [facility] Start: 05-26-2024 Creatinine measurement Creatinine Level [facility] Start: 05-26-2024 Potassium measurement Potassium Level [facility] Start: 04-07-2024 DIABETES SCREEN DIABETES SCREEN [facility] Start: 11-26-2023 Creatinine measurement Creatinine Level [facility] Start: 11-26-2023 Potassium measurement Potassium Level [facility] Start: 11-24-2023 End: 11-24-2023 Patient encounter procedure 11/24/2023 1:30 PM EDT Office Visit [facility] [address] [place] [address] Pasha Bland DO [address] [place] [address] [facility] Start: 06-16-2023 End: 06-16-2023 Clinical Support 06/16/2023 9:20 AM EDT Clinical Support [facility] [address] [place] [address] [facility] Start: 06-14-2023 Potassium measurement Potassium Level [facility] Start: 05-27-2023 Creatinine measurement Creatinine Level [facility] Start: 05-26-2023 End: 05-26-2024 CBC W Auto Differential panel - Blood CBC auto differential Lab Routine Normochromic normocytic anemia Expected: 05/26/2023 (Approximate), Expires: 05/26/2024 [facility] Work Phone: Immunizations Immunization Date Immunization Notes Care Provider Fa cili 05-26-2023 Influenza, Seasonal, Quadrivalent, Adjuvanted Pasha Petrilla DO Work Phone: [facility] 05-26-2022 Influenza, Seasonal, Quadrivalent, Adjuvanted Pasha Petrilla DO Work Phone: [facility] 05-26-2022 unknown vaccine or immune globulin Pasha Jefflla DO Work Phone: [facility] 05-26-2022 influenza virus vacc ine, unspecified formulation Pasha Jefflla DO Work Phone: [facility] 05-26-2021 Influenza, High-dose Seasonal, Quadrivalent, Preservative Free Pasha Petrilla DO Work Phone: [facility] 10-23-2020 Mercedes SARS-CoV-2 Vaccination Pasha Petrilla DO Work Phone: [facility] 06-19-2020 influenza virus vacc ine, unspecified formulation Pasha Petrilla DO Work Phone: [facility] 06-19-2020 influenza, seasonal, injectable, preservative free Pasha Petrilla DO Work Phone: [facility] 07-23-2019 influenza, high dose seasonal, preservative-free Mariah Santos RN [facility] 05-29-2018 influenza, high dose seasonal, preservative-free Mariah Santos RN [facility] 06-06-2017 influenza, injectabl e, quadrivalent, contains preservative Mariah Santos RN [facility] 05-07-2016 influenza virus vacc ine, unspecified formulation Pasha Bland DO Work Phone: [facility] 05-07-2016 influenza, seasonal, injectable Mariah Santos RN [facility] 05-07-2016 pneumococcal polysaccharide vaccine, 23 valent Mariah Santos RN [facility] 07-14-2015 pneumococcal conjuga te vaccine, 13 valent Mariah Santos RN [facility] 05-14-2015 influenza virus vacc ine, unspecified formulation Pasha Montelongojuan m DO Work Phone: [facility] 05-14-2015 influenza, high dose seasonal, preservative-free Mariah Santos RN [facility] 05-25-2014 influenza virus vacc ine, unspecified formulation Pasha Montelongojuan m DO Work Phone: [facility] 05-25-2014 influenza, seasonal, injectable Mariah Santos RN [facility] 05-25-2014 zoster vaccine, live Mariah Santos RN [facility] 02-28-2008 pneumococcal polysaccharide vaccine, 23 valent Mariah White NURSE ANESTHETIST.HOME MORTGAGE DISCLOSURE ACT SPECIALIST Work Phone: [facility] 06-19-2007 influenza virus vacc ine, unspecified formulation Mariah Santos RN [facility] Work Phone: 06-19-2007 influenza, seasonal, injectable Mariah Santos RN [facility] Payers Date Payer Category Payer Medicare AN[employer]M MEDICARE ADVANTAGE ANTH MEDICARE ADVANTAGE [id number] 2021-Present [address] [place] [address] Medicare O [id number] 2020 Unknown 2020 Unknown ANTHEM BLUE [facility] AND BLUE [facility] [id number] 2020 [address] [place] [address] [facility] [id number] 2020 Unknown [id number] 1940 Unknown [id number] 1938 Unknown [id number] 1938 Unknown [id number] 1938 Unknown [id number] 1938 Unknown [id number] Social History Date Type Detail Facility Start: 05-03-2022 End: 05-26-2023 Tobacco smoking status NHIS Ex-smoker [facility] History of tobacco use Chews Tobacco [facility] Start: 10-15-2021 End: 05-26-2023 Alcohol intake Current drinker of alcohol (finding) [facility] Start: 02-19-2020 History SDOH Financial 5 [facility] Start: 02-19-2020 History SDOH Food Worry 1 [facility] Start: 02-19-2020 History SDOH Transpo rt Med 2 [facility] Start: 1940 Sex Assigned At Not on file [facility] End: 07-14-1993 History of tobacco use Current smoker [facility] Start: 05-03-2022 End: 05-26-2023 Tobacco use and exposure Former smokeless tobacco user [facility] Start: 05-03-2022 Tobacco Comment QUIT IN 1992 [facility] End: 07-14-1993 History of tobacco use Cigarette Smoker [facility] End: 04-26-1999 History of tobacco use User of smokeless tobacco [facility] Start: 11-24-2022 End: 05-26-2023 Alcohol intake [facility] Start: 11-14-2022 End: 11-24-2022 Exposure to SARS-CoV-2 (event) Not sure [facility] Start: 11-24-2022 End: 05-26-2023 Tobacco use panel [facility] Clinical Notes 02-01-2020 to 06-16-2023 Nandini Romano MA - 06/16/2023 9:20 AM EDTJennifer Howard LPN - 06/16/2023 9:20 AM Jaylyn Bland DO - 05/26/2023 2:00 PM EDTTelephone Encounter - Jennifer Howard LPN - 01/17/2023 1:33 PM EDT Note Date & Type Note Facility 06-16-2023 History of Present illness Narrative The patient, Carmen Mock, identity was verified by name. Supervising provider for clinic visit: Dr. Bland Chief Complaint Patient presents with Blood Pressure Check Elevated in the office Reason for BP visit: elevated in office BP 127/70 Pulse 57 SpO2 97% BP Readings from Last 3 Encounters: 06/16/23 127/70 05/26/23 (!) 144/84 11/24/22 134/55 Pulse Readings from Last 3 Encounters: 06/16/23 57 05/26/23 68 11/24/22 60 Patient denies any shortness of breath or distress at this time. Patient states compliant with medications as written: YES Medication Reconciliation completed. BP medication taken prior to this visit? YES BP taken with MANUAL Home monitoring BP: YES Phone number where patient can be reached: SEE CHART Pt advised if follow up needed, outreach will occur within 48 hrs. Future Appointments Date Time Provider Department Center 06/16/2023 9:20 AM SCHEDULE, [facility] 11/24/2023 1:30 PM Pasha Bland DO [facility] Placed call to patient. Was able to speak to patient. All concerns in message have been addressed. No questions at this time. 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 I just picked up some but he last night. [facility] [address] [facility] [address] Visit type: Established Patient Reason for Visit: Follow-up (6 month med check) Assessment / Plan: Carmen was seen today for follow-up. Diagnoses and all orders for this visit: Essential hypertension (Primary) Comments: Uncontrolled, increase clonidine 0.1 3 times daily. BP check in 4 weeks Hypercholesterolemia Comments: Stable, continue simvastatin Orders: - Lipid panel; Future - Lipid panel Chronic renal impairment, stage 2 (mild) Comments: Noted review. No NSAIDs only Tylenol Normochromic normocytic anemia - CBC auto differential; Future - Comprehensive metabolic panel; Future - CBC auto differential - Comprehensive metabolic panel Congestive heart failure, unspecified HF chronicity, unspecified heart failure type (HCC) Comments: Stable, continue Lasix carvedilol and aspirin Other orders - carvedilol (Coreg) 25 MG tablet; Take 1 tablet (25 mg) by mouth in the morning and 1 tablet (25 mg) in the evening. Take with meals. - cloNIDine (Catapres) 0.1 MG tablet; Take 1 tablet (0.1 mg) by mouth 3 times daily for 270 doses. - doxazosin (Cardura) 8 MG tablet; Take 1 tablet (8 mg) by mouth Nightly. - finasteride (Proscar) 5 MG tablet; Take 1 tablet (5 mg) by mouth in the morning. - simvastatin (Zocor) 80 MG tablet; Take 1 tablet (80 mg) by mouth Nightly. - Flu vaccine quadrivalent, for patients ages 65+, (Fluad) preservative free Subjective: Patient ID: Carmen Mock is a 82 y.o. male. HPI hypertensive patient with chronic renal failure and CHF presents with daughter to review his meds and overall checkup. Of note saw cardiology will be getting echocardiogram in a few weeks. He has had a good summer. Compliant with meds. Blood pressure sometimes over 140 systolic at home. Review of Systems no recent earache sore throat or cough. No chest pain or palpitations. No PND orthopnea and no change in chronic pedal edema. No abdominal pain. No melena or blood. Bowels are regular. No constipation or diarrhea. No dysuria. No recent falls or injury. Rare arthralgia. He keeps pretty upbeat and his extended family keeps a tab on him. Allergies Allergen Reactions Sodium Chloride Hives and Shortness of breath Pt reaction to pink salt. Tramadol Shortness of breath Nsaids Other reaction(s): Other (See Comments) Renal injury Acetaminophen Other reaction(s): Other: See Comments HTN Other reaction(s): Other: See Comments Other Wound Dressing Adhesive Rash Current Outpatient Medications on File Prior to Visit Medication Sig Dispense Refill acetaminophen (Tylenol) 325 MG tablet Take 650 mg by mouth in the morning and 650 mg in the evening. albuterol 108 (90 Base) MCG/ACT inhaler TAKE 2 PUFFS BY MOUTH EVERY 6 HOURS NEEDED FOR WHEEZE Strength: 108 (90 Base) MCG/ACT 18 g 3 Aloe Vera 25 MG capsule Take 1 capsule by mouth. ascorbic acid (Vitamin C) 1000 MG tablet Take by mouth. aspirin 81 MG chewable tablet Chew 81 mg in the morning. Cayenne 450 MG capsule Take 1 capsule by mouth. cholecalciferol (Vitamin D-3) 10 MCG (400 UNIT) capsule Take by mouth. Cranberry-Vitamin C-Vitamin E (Cranberry Plus Vitamin C) 4200-20-3 MG-MG-UNIT capsule Take 1 capsule by mouth. cyanocobalamin (Vitamin B-12) 500 MCG tablet Take 1 tablet by mouth in the morning. furosemide (Lasix) 20 MG tablet Take 20 mg by mouth. Ginseng 100 MG capsule Take by mouth. Lecithin 1200 MG capsule Take 1 capsule by mouth. magnesium 250 MG tablet Take 250 mg by mouth. milk thistle extract 175 MG tablet Take 1 tablet by mouth. NIFEdipine XL (Procardia XL) 30 MG 24 hr tablet TAKE 2 TABLETS BY MOUTH EVERY MORNING AND 1 TABLET EVERY EVENING Strength: 30 mg 90 tablet 5 saw palmetto (Serenoa repens) 450 MG capsule Take 1 capsule by mouth. triamcinolone (Kenalog) 0.5 % cream APPLY TO AFFECTED AREA 3 TIMES A DAY zinc gluconate 50 MG tablet Take 50 mg by mouth. [DISCONTINUED] carvedilol (Coreg) 25 MG tablet Take 1 tablet (25 mg) by mouth in the morning and 1 tablet (25 mg) in the evening. Take with meals. 180 tablet 1 [DISCONTINUED] cloNIDine (Catapres) 0.1 MG tablet Take 1 tablet (0.1 mg) by mouth 2 times daily. 180 tablet 1 [DISCONTINUED] doxazosin (Cardura) 8 MG tablet Take 1 tablet (8 mg) by mouth Nightly. 90 tablet 1 [DISCONTINUED] finasteride (Proscar) 5 MG tablet Take 1 tablet (5 mg) by mouth in the morning. 90 tablet 1 [DISCONTINUED] simvastatin (Zocor) 80 MG tablet Take 1 tablet by mouth Nightly. No current facility-administered medications on file prior to visit. Patient Active Problem List Diagnosis Chronic renal impairment History of colonic polyps Hypercholesterolemia TIA (transient ischemic attack) BPH with obstruction/lower urinary tract symptoms Normochromic normocytic anemia Asthma NSAIDs adverse reaction Essential hypertension Family history of colon cancer Impaired fasting glucose Bladder neck obstruction Lumbar degenerative disc disease Congestive heart failure (HCC) Lumbar spinal stenosis Social History Tobacco Use Smoking status: Former Packs/day: 3 Types: Cigarettes Quit date: 07/14/1993 Years since quittin.8 Smokeless tobacco: Former Quit date: 04/26/1999 Substance Use Topics Alcohol use: Yes Alcohol/week: 1.0 standard drink of alcohol Past Surgical History: Procedure Laterality Date COLONOSCOPY 2015 Maira -polyps- COLONOSCOPY [address] [address] Muro- COLONOSCOPY 04/2018 Dr. Rodney- no need for rech LARYNX SURGERY 1981 bx LUMBAR SPINE SURGERY 04/2016 Alvaro Howard MD. postop wound infection IV ancef TONSILLECTOMY (HISTORICAL) 1971 ULNAR TUNNEL RELEASE Left 1994 UPPER GASTROINTESTINAL ENDOSCOPY 2012 Bhaskar- mild gastritis Family History Problem Relation Name Age of Onset Other (11488) Sister MVA Diabetes Brother 6 Other ([id number]) Brother infancy Stroke Mother 75 acute CVA Lung cancer Brother age 69 Other ([id number]) Brother infancy Cancer Father 73 ,met gastric CA Colon cancer Sister age 68 Other ([id number]) Sister 3 all 6 bro and 3 sis , -colon, lung CA, DM, CVA Stroke Brother Objective: BP (!) 144/84 Pulse 68 Temp 37 C (98.6 F) (Temporal) Ht 5' (1.524 m) Wt 150 lb (68 kg) SpO2 93% BMI 29.29 kg/m Physical Exam Blood pressure recheck is too high. Alert and pleasant cooperative. Nonicteric. Normal eardrums. No JVD adenopathy or carotid bruits. No neck masses. Heart is regular without gallops murmurs or ectopy. Lungs have crackles in both bases which is chronic. Abdomen obese nontender without pain hepatosplenomegaly masses bruits or ascites. 2+ pedal edema is unchanged. No skin breakdowns. documented in this encounter [facility] 05-05-2023 Note HNO ID: [id number] Author: Moisés Sosa APRN.[employer]URE ACT SPECIALIST Service: ? Author Type: Nurse Practitioner Type: Progress Notes Filed: 05/09/2023 11:05 AM Note Text: [facility] [place] [facility] Department of Cardiovascular Medicine SECTION OF CLINICAL CARDIOLOGY OUTPATIENT VISIT DATE May 05, 2023 OUTPATIENT VISIT TYPE ESTABLISHED Elements of this note, including but not limited to HPI, ROS, Physical Exam, Assessment and Plan were copied and pasted from previous office visit notes completed within our department. Updates have been made where appropriate/noted and reflect current exam and medical decision making from date of this visit. Patient Name: Carmen Mock : 1940 PRIMARY CARE PHYSICIAN: Pasha Bland CHIEF COMPLAINT: Patient presents with: Cardiology Follow Up : F/U ECG today ROOM 9 No Issues Interval Hx: Mr. Mock comes for a follow up visit. The last office visit visit with Dr. Shen was 11/02/2022. Patient with 0 hospitalizations or ER visits since last OV. Since last office visit patient has been feeling really good. NO chest pain SOB at baseline - has COPD Taking Lasix PRN - rarely uses Will take if he feels bloated. Does not watch NA intake Good office BP control - will have some higher home reading before mediations. Does not miss doses of medications. Sleep is good - no orthopnea, no PND, no history of HANNAH Appetite is fair Fluid intake is not great. No D/L No syncope or falls + LE edema Able to do ADL's with slight limitations Labs per PCP - last cholesterol check was in November. Weight has been ~ 142 (stable). IMPRESSION/PLAN: 1. Chronic diastolic CHF - Echo 03/2021: EF 65%, grade I LVDD - NYHA FC II, stage C - GDMT: Coreg, Lasix - Heart failure stable - Currently on furosemide 20mg PRN (for weights > 140lb) - schedule repeat echo - Follows with the CHF clinic 2. RBBB (right bundle branch block) - Chronic 3. Essential hypertension - Good control on clonidine, carvedilol, nifedipine, and doxazosin - Hx of hypertensive urgency AND has admitted in the past to occasionally missing home BP meds - Encouraged dietary sodium restriction/DASH diet - Reviewed risks of HTN and principles of treatment - Goal of BP <130/80 - Renal artery US 07/2020: no stenosis bilaterally - Off ARB due to tendency for hyperkalemia 4. Mixed hyperlipidemia - Continue simvastatin 40mg daily - Last lipid panel 11/2022 with LDL 105, HDL 36, TG 255 5. Prediabetes - Last A1C 5.9 6. Former tobacco use - Quit in 1992 I spent a total of 30 minutes on the date of the service which included preparing to see the patient, [id number] patient care, completing clinical documentation, performing a medically appropriate examination, counseling and educating the patient/family/caregiver, ordering medications, tests, or procedures, and communicating results to the patient/family/caregiver. Thank you very much for allowing me to assist in the care of Carmen Mock. The above information was discussed at length and detail with the patient who verbalized an understanding of the plan and was given ample opportunity to ask questions. The appropriate follow up has been arranged. I have advised the patient to contact me if any questions/problems arise prior to the follow up. Moisés Sosa APRN.[facility] Cardiology Nurse Practitioner Section of Regional Cardiology [facility] Dept of Cardiovascular Medicine [facility] [place] [address] [place] [address] Office Office May 05, 2023 2:30 PM This note was partially generated using [employer] voice recognition system and may contain errors related to that system including grammar, punctuation, spelling, and words that may be inappropriate. CARDIAC STUDIES: LV Ejection Fraction (%) Date Value 01/14/2020 67 09/10/2008 65 LABS: Sodium (mmol/L) Date Value 04/07/2021 136 07/03/2020 132 Potassium (mmol/L) Date Value 04/07/2021 4.6 07/03/2020 5.2 BUN (mg/dL) Date Value 04/07/2021 32 07/03/2020 42 06/12/2020 43 05/29/2020 21 Creatinine (mg/dL) Date Value 04/07/2021 1.41 07/03/2020 1.20 06/12/2020 1.91 05/29/2020 1.13 Magnesium (mg/dL) Date Value 06/12/2020 2.5 02/02/2020 2.3 Hemoglobin (g/dL) Date Value 06/12/2020 12.6 03/10/2020 12.1 No results found for: PROBNP No results found for: HSTNT Cholesterol, Total (mg/dL) Date Value 03/10/2020 125 HDL Cholesterol (mg/dL) Date Value 03/10/2020 24 Triglyceride (mg/dL) Date Value 03/10/2020 235 LDL Cholesterol (mg/dL) Date Value 03/10/2020 54 TSH (uU/mL) Date Value 01/12/2020 4.060 No results found for: INR EKG completed in the office today shows NSR with RBBB - appears similar to prior. I have personally reviewed the Electro (more content not included)... [facility] 01-17-2023 Miscellaneous Notes Rx loaded Medication name: NIFEdipine XL (Procardia XL) 30 MG 24 hr tablet Medication dosage: 30 mg (Miligrams Monthly quantity needed: 90 How many day supply requestin days Medication route: oral (PO) Medication administration time(s): 2 every morning and 1 every evening If taking medication PRN, reason for taking medication: N/A If this is a controlled substance do you receive this or any other controlled medication from any other doctor or facility: N/A Ordering provider: Edwina Date of last office visit: 11/24/22 Date of next office visit: 05/26/23 Date of last refill: (see medication tab): 09/09/22 Updated/Validated preferred pharmacy: Yes Patient instructed to contact the pharmacy prior to picking up the medication: Yes documented in this encounter [facility] 01-17-2023 Telephone encounter Note Rx loaded [facility] 01-17-2023 Telephone encounter Note Medication name: NIFEdipine XL (Procardia XL) 30 MG 24 hr tablet Medication dosage: 30 mg (Miligrams Monthly quantity needed: 90 How many day supply requestin days Medication route: oral (PO) Medication administration time(s): 2 every morning and 1 every evening If taking medication PRN, reason for taking medication: N/A If this is a controlled substance do you receive this or any other controlled medication from any other doctor or facility: N/A Ordering provider: Edwina Date of last office visit: 11/24/22 Date of next office visit: 05/26/23 Date of last refill: (see medication tab): 09/09/22 Updated/Validated preferred pharmacy: Yes Patient instructed to contact the pharmacy prior to picking up the medication: Yes [facility] 11-24-2022 History of Present illness Narrative Images from the original note were not included. [facility] [address] [facility] [id number] Visit type: Established Patient Reason for Visit: Follow-up (6 month med check) Assessment / Plan: Carmen was seen today for follow-up. Diagnoses and all orders for this visit: Essential hypertension (Primary) Comments: Stable, continue current meds Normochromic normocytic anemia Hypercholesterolemia Comments: Stable, continue Zocor, check lab Impaired fasting glucose Chronic renal impairment, stage 2 (mild) Other orders - carvedilol (Coreg) 25 MG tablet; Take 1 tablet (25 mg) by mouth in the morning and 1 tablet (25 mg) in the evening. Take with meals. - cloNIDine (Catapres) 0.1 MG tablet; Take 1 tablet (0.1 mg) by mouth 2 times daily. - doxazosin (Cardura) 8 MG tablet; Take 1 tablet (8 mg) by mouth Nightly. - finasteride (Proscar) 5 MG tablet; Take 1 tablet (5 mg) by mouth in the morning. Subjective: Patient ID: Carmen Mock is a 82 y.o. male. HPI hypertension lipid management. History of LV dysfunction and intermittent heart failure. Recently saw glove boarder with no change in meds. Last fall increase Zocor to 80 mg daily. Needs fasting lab. Overall has felt well. Still driving. Compliant with meds. His children checking on him. Review of Systems no recent earache sore throat or cough. Denies dyspnea chest pain palpitations PND orthopnea or change in mild chronic leg edema. No abdominal pain. Eating and voiding well. No melena or blood. No dysuria. Nocturia unchanged on his meds. Allergies Allergen Reactions Sodium Chloride Hives and Shortness of breath Pt reaction to pink salt. Tramadol Shortness of breath Nsaids Other reaction(s): Other (See Comments) Renal injury Acetaminophen Other reaction(s): Other: See Comments HTN Other reaction(s): Other: See Comments Other Wound Dressing Adhesive Rash Current Outpatient Medications on File Prior to Visit Medication Sig Dispense Refill acetaminophen (Tylenol) 325 MG tablet Take 650 mg by mouth in the morning and 650 mg in the evening. albuterol 108 (90 Base) MCG/ACT inhaler TAKE 2 PUFFS BY MOUTH EVERY 6 HOURS NEEDED FOR WHEEZE Strength: 108 (90 Base) MCG/ACT 18 g 3 Aloe Vera 25 MG capsule Take 1 capsule by mouth. ascorbic acid (Vitamin C) 1000 MG tablet Take by mouth. aspirin 81 MG chewable tablet Chew 81 mg in the morning. Cayenne 450 MG capsule Take 1 capsule by mouth. cholecalciferol (Vitamin D-3) 10 MCG (400 UNIT) capsule Take by mouth. Cranberry-Vitamin C-Vitamin E (Cranberry Plus Vitamin C) 4200-20-3 MG-MG-UNIT capsule Take 1 capsule by mouth. cyanocobalamin (Vitamin B-12) 500 MCG tablet Take 1 tablet by mouth in the morning. Ginseng 100 MG capsule Take by mouth. Lecithin 1200 MG capsule Take 1 capsule by mouth. magnesium 250 MG tablet Take 250 mg by mouth. milk thistle extract 175 MG tablet Take 1 tablet by mouth. NIFEdipine XL (Procardia XL) 30 MG 24 hr tablet TAKE 2 TABLETS BY MOUTH EVERY MORNING AND 1 TABLET EVERY EVENING Strength: 30 mg 90 tablet 3 saw palmetto (Serenoa repens) 450 MG capsule Take 1 capsule by mouth. simvastatin (Zocor) 80 MG tablet Take 1 tablet by mouth Nightly. triamcinolone (Kenalog) 0.5 % cream APPLY TO AFFECTED AREA 3 TIMES A DAY zinc gluconate 50 MG tablet Take 50 mg by mouth. [DISCONTINUED] carvedilol (Coreg) 25 MG tablet Take 1 tablet (25 mg) by mouth in the morning and 1 tablet (25 mg) in the evening. Take with meals. 180 tablet 1 [DISCONTINUED] cloNIDine (Catapres) 0.1 MG tablet Take 0.1 mg by mouth in the morning and 0.1 mg before bedtime. [DISCONTINUED] doxazosin (Cardura) 8 MG tablet Take 1 tablet (8 mg) by mouth Nightly. 90 tablet 0 [DISCONTINUED] finasteride (Proscar) 5 MG tablet Take 1 tablet (5 mg) by mouth in the morning. 90 tablet 1 furosemide (Lasix) 20 MG tablet Take 20 mg by mouth. No current facility-administered medications on file prior to visit. Patient Active Problem List Diagnosis Chronic renal impairment History of colonic polyps Hypercholesterolemia TIA (transient ischemic attack) BPH with obstruction/lower urinary tract symptoms Normochromic normocytic anemia Asthma NSAIDs adverse reaction Essential hypertension Family history of colon cancer Impaired fasting glucose Bladder neck obstruction Lumbar degenerative disc disease Congestive heart failure (CMS/HCC) (HCC) Lumbar spinal stenosis Social History Tobacco Use Smoking status: Former Packs/day: 3.00 Types: Cigarettes Quit date: 07/14/1993 Years since quittin.3 Smokeless tobacco: Former Quit date: 04/26/1999 Substance Use Topics Alcohol use: Yes Alcohol/week: 1.0 standard drink Past Surgical History: Procedure Laterality Date COLONOSCOPY 2015 Maira -polyps- COLONOSCOPY [address] [address] Muro- COLONOSCOPY 04/2018 Dr. Rodney- no need for rech LARYNX SURGERY 1981 bx LUMBAR SPINE SURGERY 04/2016 Alvaro Howard MD. postop wound infection IV ancef TONSILLECTOMY (HISTORICAL) 1972 ULNAR TUNNEL RELEASE Left 1994 UPPER GASTROINTESTINAL ENDOSCOPY 2012 Bhaksar- mild gastritis Family History Problem Relation Name Age of Onset Other (95430) Sister MVA Diabetes Brother 6 Other (34336) Brother infancy Stroke Mother 75 acute CVA Lung cancer Brother age 69 Other ([id number]) Brother infancy Cancer Father 73 ,met gastric CA Colon cancer Sister age 68 Other ([id number]) Sister 3 all 6 bro and 3 sis , -colon, lung CA, DM, CVA Stroke Brother Objective: BP 134/55 Pulse 60 Temp 36.7 C (98 F) (Temporal) Ht 5' (1.524 m) Wt 155 lb (70.3 kg) SpO2 97% BMI 30.27 kg/m Physical Exam pleasant cooperative. No JVD adenopathy or carotid bruits. Heart is regular without ectopy or new murmurs. Lungs are clear. Abdomen soft protuberant without pain hepatosplenomegaly masses ascites or bruits. Femoral pulses are fair. Patient has 2+ leg edema which is chronic. documented in this encounter [facility] 11-02-2022 Note HNO ID: [id number] Author: Sung Shen DO Service: ? Author Type: Physician Type: Progress Notes Filed: 11/02/2022 2:13 PM Note Text: [facility] SECTION [facility] CARDIOLOGY [facility] OUTPATIENT VISIT DATE November 02, 2022 PRIMARY CARE PHYSICIAN: PASHA BLAND [address] [place] [address] HISTORY OF PRESENT ILLNESS: Mr. Mock is a 81 year old male. The patient returns for follow-up second history of chronic diastolic heart failure with additional history of hypertension, hyperlipidemia, prediabetes and right bundle branch block pattern. His daughter accompanies him again today. He denies chest,, dyspnea, orthopnea, paroxysmal nocturnal dyspnea, palpitations, near-syncope or syncope. He does have some lower extremity edema that worsens as the day goes on and improves upon awakening in the morning. PLAN AND RECOMMENDATIONS: The patient remained stable without symptoms that would suggest angina or cardiac decompensation. Heart rate and blood pressure are favorable. Recent cholesterol profile was not at goal but his simvastatin was increased and he is pending repeat labs in the future. Dietary and lifestyle modification was reemphasized to facilitate risk factor reduction and prevention of heart failure. We discussed improving such particularly sodium intake which may help with some of his edema. We have made no additions or changes. We will look forward to reevaluating him in 6 months time. Vitals: BP (!) 110/48 Pulse (!) 54 Ht 152.4 cm (5') Wt 68 kg (150 lb) SpO2 96% BMI 29.29 kg/m? Physical Exam Vitals reviewed. Constitutional: General: He is not in acute distress. Appearance: He is well-developed. He is not diaphoretic. HENT: Head: Normocephalic and atraumatic. Right Ear: External ear normal. Left Ear: External ear normal. Nose: Nose normal. Eyes: General: No scleral icterus. Right eye: No discharge. Left eye: No discharge. Pupils: Pupils are equal, round, and reactive to light. Neck: Thyroid: No thyromegaly. Vascular: No JVD. Cardiovascular: Rate and Rhythm: Normal rate and regular rhythm. Heart sounds: No murmur heard. No friction rub. No gallop. Pulmonary: Effort: Pulmonary effort is normal. No respiratory distress. Breath sounds: Normal breath sounds. No wheezing or rales. Abdominal: General: Bowel sounds are normal. Palpations: Abdomen is soft. Musculoskeletal: General: Normal range of motion. Cervical back: Neck supple. Right lower leg: Edema (+1) present. Left lower leg: Edema (+1 ) present. Skin: General: Skin is warm and dry. Coloration: Skin is not pale. Neurological: Mental Status: He is alert and oriented to person, place, and time. Cranial Nerves: No cranial nerve deficit. Psychiatric: Mood and Affect: Mood is not anxious or depressed. Behavior: Behavior normal. Thought Content: Thought content normal. Judgment: Judgment normal. Review of Systems Constitutional: Negative for activity change, appetite change, fatigue and unexpected weight change. HENT: Negative for ear pain and trouble swallowing. Eyes: Negative for pain and visual disturbance. Respiratory: Negative for chest tightness and shortness of breath. Cardiovascular: Positive for leg swelling (improved). Negative for chest pain and palpitations. Gastrointestinal: Negative for abdominal pain and blood in stool. Endocrine: Negative for cold intolerance and heat intolerance. Genitourinary: Negative for dysuria, hematuria and scrotal swelling. Musculoskeletal: Negative for arthralgias and myalgias. Skin: Negative for pallor and rash. Allergic/Immunologic: Negative for immunocompromised state. Neurological: Negative for dizziness, syncope and light-headedness. Hematological: Negative for adenopathy. Does not bruise/bleed easily. Psychiatric/Behavioral: Negative for sleep disturbance. The patient is not nervous/anxious. PAST MEDICAL HISTORY Diagnosis Date Benign neoplasm of colon Chronic diastolic heart failure (HCC) 01/15/2020 Essential hypertension 09/13/2005 Essential hypertension, benign Family history of malignant neoplasm of gastrointestinal tract Former tobacco use 01/24/2020 Internal hemorrhoids without mention of complication Kidney disease Mixed hyperlipidemia 09/13/2005 PMH - PAST MEDICAL HISTORY OF hernia Sinus bradycardia 01/24/2020 Snoring Unspecified asthma(493.90) PAST SURGICAL HISTORY Procedure Laterality Date ADENOIDECTOMY PRIMARY Adenoidectomy per Dr Nicole COLONOSCOPY - DIAGNOSTIC 1998 [facility]: colonoscopy per Dr. Rodney: WNL COLONOSCOPY FLX DX W/COLLJ SPEC WHEN PFRMD 05/08/13 Colonoscopy repeat 2 years COLONOSCOPY FLX DX W/COLLJ SPEC WHEN PFRMD 11/27/15 Colonoscopy COLONOSCOPY W/BIOPSY SINGLE/MULTIPLE 03/24/09 ESOPHAGOGASTRODUODENOSCOPY TRANSORAL DIAGNOSTIC 05/08/13 EGD NEUROPLASTY AND/VIGIL (more content not included)... [facility] 11-02-2022 History of Present illness Narrative Images from the original note were not included. [facility] SE[facility] CARDIOLOGY [facility] OUTPATIENT VISIT DATE November 02, 2022 PRIMARY CARE PHYSICIAN: PASHA BLAND [address] [place], [place] [id number] HISTORY OF PRESENT ILLNESS: Mr. Mcok is a 81 year old male. The patient returns for follow-up second history of chronic diastolic heart failure with additional history of hypertension, hyperlipidemia, prediabetes and right bundle branch block pattern. His daughter accompanies him again today. He denies chest,, dyspnea, orthopnea, paroxysmal nocturnal dyspnea, palpitations, near-syncope or syncope. He does have some lower extremity edema that worsens as the day goes on and improves upon awakening in the morning. PLAN AND RECOMMENDATIONS: The patient remained stable without symptoms that would suggest angina or cardiac decompensation. Heart rate and blood pressure are favorable. Recent cholesterol profile was not at goal but his simvastatin was increased and he is pending repeat labs in the future. Dietary and lifestyle modification was reemphasized to facilitate risk factor reduction and prevention of heart failure. We discussed improving such particularly sodium intake which may help with some of his edema. We have made no additions or changes. We will look forward to reevaluating him in 6 months time. Vitals: BP (!) 110/48 Pulse (!) 54 Ht 152.4 cm (5') Wt 68 kg (150 lb) SpO2 96% BMI 29.29 kg/m Physical Exam Vitals reviewed. Constitutional: General: He is not in acute distress. Appearance: He is well-developed. He is not diaphoretic. HENT: Head: Normocephalic and atraumatic. Right Ear: External ear normal. Left Ear: External ear normal. Nose: Nose normal. Eyes: General: No scleral icterus. Right eye: No discharge. Left eye: No discharge. Pupils: Pupils are equal, round, and reactive to light. Neck: Thyroid: No thyromegaly. Vascular: No JVD. Cardiovascular: Rate and Rhythm: Normal rate and regular rhythm. Heart sounds: No murmur heard. No friction rub. No gallop. Pulmonary: Effort: Pulmonary effort is normal. No respiratory distress. Breath sounds: Normal breath sounds. No wheezing or rales. Abdominal: General: Bowel sounds are normal. Palpations: Abdomen is soft. Musculoskeletal: General: Normal range of motion. Cervical back: Neck supple. Right lower leg: Edema (+1) present. Left lower leg: Edema (+1 ) present. Skin: General: Skin is warm and dry. Coloration: Skin is not pale. Neurological: Mental Status: He is alert and oriented to person, place, and time. Cranial Nerves: No cranial nerve deficit. Psychiatric: Mood and Affect: Mood is not anxious or depressed. Behavior: Behavior normal. Thought Content: Thought content normal. Judgment: Judgment normal. Review of Systems Constitutional: Negative for activity change, appetite change, fatigue and unexpected weight change. HENT: Negative for ear pain and trouble swallowing. Eyes: Negative for pain and visual disturbance. Respiratory: Negative for chest tightness and shortness of breath. Cardiovascular: Positive for leg swelling (improved). Negative for chest pain and palpitations. Gastrointestinal: Negative for abdominal pain and blood in stool. Endocrine: Negative for cold intolerance and heat intolerance. Genitourinary: Negative for dysuria, hematuria and scrotal swelling. Musculoskeletal: Negative for arthralgias and myalgias. Skin: Negative for pallor and rash. Allergic/Immunologic: Negative for immunocompromised state. Neurological: Negative for dizziness, syncope and light-headedness. Hematological: Negative for adenopathy. Does not bruise/bleed easily. Psychiatric/Behavioral: Negative for sleep disturbance. The patient is not nervous/anxious. PAST MEDICAL HISTORY Diagnosis Date Benign neoplasm of colon Chronic diastolic heart failure (HCC) 01/15/2020 Essential hypertension 09/13/2005 Essential hypertension, benign Family history of malignant neoplasm of gastrointestinal tract Former tobacco use 01/24/2020 Internal hemorrhoids without mention of complication Kidney disease Mixed hyperlipidemia 09/13/2005 PMH - PAST MEDICAL HISTORY OF hernia Sinus bradycardia 01/24/2020 Snoring Unspecified asthma(493.90) PAST SURGICAL HISTORY Procedure Laterality Date ADENOIDECTOMY PRIMARY <AGE 10 [address] Nicole COLONOSCOPY - DIAGNOSTIC 1998 [facility]: colonoscopy per Dr. Rodney: WNL COLONOSCOPY FLX DX W/COLLJ SPEC WHEN PFRMD 05/08/13 Colonoscopy repeat 2 years COLONOSCOPY FLX DX W/COLLJ SPEC WHEN PFRMD 11/27/15 Colonoscopy COLONOSCOPY W/BIOPSY SINGLE/MULTIPLE 03/24/09 ESOPHAGOGASTRODUODENOSCOPY TRANSORAL DIAGNOSTIC 05/08/13 EGD NEUROPLASTY &/TRANSPOSITION ULNAR NERVE ELBOW [address] Friend PAST SURGICAL HISTORY OF 1981 removal benign tumor on voice box/ Dr. Nicole PAST SURGICAL HISTORY OF 1997 release tendon left 5th finger Dr. Friend PAST SURGICAL HISTORY OF 2004 surgery left TONSILLECTOMY PRIMARY/SECONDARY <AGE 10 [address] Nicole Social History Tobacco Use Smoking status: Former Smokeless tobacco: Former Types: Chew Tobacco comments: QUIT IN 1992 Vaping Use Vaping Use: Never used Substance Use Topics Alcohol use: Yes Comment: 1-4 per month Drug use: No FAMILY HISTORY Problem Relation Age of Onset Stroke Mother age 75 CVA Cancer Father age 73 stomach cancer Stroke Brother other (Other) Brother Lyme disease Colon Cancer Sister Cancer Brother lung cancer Cancer Brother lung cancer ALLERGIES Allergen Reactions Adhesive Tape-Silic* Rash Sea Salt Hives, Shortness of Breath Pt reaction to pink salt. Seasonal Allergies Tylenol Arthritis [* Other: See Comments HTN CURRENT MEDICATIONS: finasteride (PROSCAR) 5 mg tablet Take 5 mg by mouth once daily. NIFEdipine ER (PROCARDIA XL) 30 mg 24 hr tablet Take 2 tablets (60mg) in the morning and take 1 tablet (30mg) in the evening. carvedilol (COREG) 25 mg tablet Take 1 tablet by mouth twice daily with meals. doxazosin (CARDURA) 4 mg tablet Take 1 tablet by mouth daily at bedtime. cloNIDine HCl (CATAPRES) 0.1 mg tablet Take 1 tablet by mouth twice daily. aspirin 81 mg chewable tablet Take 81 mg by mouth once daily. albuterol HFA (PROAIR HFA) 90 mcg/actuation inhaler Inhale 2 Puffs as instructed every 6 hours as needed. simvastatin (ZOCOR) 40 mg tablet Take 1 tablet by mouth daily at bedtime. Lecithin 1,200 mg cap Take 1 capsule by mouth. calcium carbonate (CALCIUM 300 ORAL) Take 1,200 mg by mouth. Aloe Vera 25 mg cap Take 1 capsule by mouth. [place] Fruit 450 mg cap Take 1 capsule by mouth. cyanocobalamin (VITAMIN B-12) 500 mcg tablet Take 1 tablet by mouth once daily. Capsicum, Cayenne, 450 mg cap Take 1 capsule by mouth. Zinc 50 mg tab Take 50 mg by mouth. cranberry conc-ascorbic acid 4,200-20 mg cap Take 1 capsule by mouth. Magnesium 250 mg tab Take 250 mg by mouth. Milk Thistle 175 mg tab Take 1 tablet by mouth. CALCIUM-VITAMIN D3 ORAL Take 325 Int'l Units by mouth. acetaminophen (TYLENOL) 325 mg tablet Take 650 mg by mouth twice daily. papaya(PAPAYA ENZYME CHEWABLE TAB) takes 2 with each meal and at bedtime GARLIC 1,000 MG CAP takes 2 in am and 2 in pm omega-3 fatty acids(FISH OIL 500 MG CAP) Take one(1) capsule daily. ascorbic acid(VITAMIN C 1,000 MG TAB) Take one(1) tablet two(2) times daily. GINSENG 100 MG CAP Take one(1) tablet two(2) times daily. furosemide (LASIX) 20 mg tablet Take 1 tablet by mouth once daily as needed (For weight gain > 140lb). Sung Shen DO, FACC, FACOI Clinical and Preventive Cardiology Department of Medicine and Division of Cardiology, [facility] Roughenerdocument control coordinator [facility] Roughener of Congestive Heart Failure Clinic [facility] Cardiology Office Roughener [facility] Staff Drying Machine Operator, Leif [facility] Shayy [place] Department of Cardiovascular Medicine/[facility] [place], [facility] Clinical Paradi Operator Profressor of Medicine, [facility] [place] [facility] - [facility] Please note: This note has been produced using speech recognition software and may contain errors related to that system including vish, punctuation, spelling, words, gender and phrases that may be inappropriate. documented in this encounter [facility] 05-03-2022 History of Present illness Narrative Images from the original note were not included. [facility] [place] [facility] Department of Cardiovascular Medicine SECTION OF CLINICAL CARDIOLOGY OUTPATIENT VISIT DATE May 01, 2022 OUTPATIENT VISIT TYPE ESTABLISHED PRIMARY CARE PHYSICIAN: [place] [address] REASON FOR VISIT: 6 month follow up - last OV with me 10/15/21 (no changes) HISTORY OF PRESENT ILLNESS: Mr. Mock is a 81 year old male with a history of chronic diastolic CHF, RBBB, HTN, HLD, prediabetes, former tobacco use, TIA, and CKD3. The patient has had no hospitalizations, surgeries, or procedures following his last office visit. He reports no change in cardiac symptoms over the past 6 months. Chronic exertional dyspnea with more moderate to heavy efforts is at baseline; this has remained unchanged for years. Home weights have remained stable ~ 138lb. He denies chest pain, palpitations, near-syncope, syncope, orthopnea (1 pillow), PND, or edema. Home blood pressures tare checked and in good range. Subjective PAST MEDICAL HISTORY Diagnosis Date Benign neoplasm of colon Chronic diastolic heart failure (HCC) 01/15/2020 Essential hypertension 09/13/2005 Essential hypertension, benign Family history of malignant neoplasm of gastrointestinal tract Former tobacco use 01/24/2020 Internal hemorrhoids without mention of complication Kidney disease Mixed hyperlipidemia 09/13/2005 PMH - PAST MEDICAL HISTORY OF hernia Sinus bradycardia 01/24/2020 Snoring Unspecified asthma(493.90) PAST SURGICAL HISTORY Procedure Laterality Date ADENOIDECTOMY PRIMARY <AGE 10 [address] Nicole COLONOSCOPY - DIAGNOSTIC 1998 [facility]: colonoscopy per Dr. Rodney: WNL COLONOSCOPY FLX DX W/COLLJ SPEC WHEN PFRMD 05/08/13 Colonoscopy repeat 2 years COLONOSCOPY FLX DX W/COLLJ SPEC WHEN PFRMD 11/27/15 Colonoscopy COLONOSCOPY W/BIOPSY SINGLE/MULTIPLE 03/24/09 ESOPHAGOGASTRODUODENOSCOPY TRANSORAL DIAGNOSTIC 05/08/13 EGD NEUROPLASTY &/TRANSPOSITION ULNAR NERVE ELBOW [address] Friend PAST SURGICAL HISTORY OF 1981 removal benign tumor on voice box/ Dr. Nicole PAST SURGICAL HISTORY OF 1997 release tendon left 5th finger Dr. Friend PAST SURGICAL HISTORY OF 2004 surgery left TONSILLECTOMY PRIMARY/SECONDARY <AGE 10 [address] Nicole SOCIAL HISTORY Social History Tobacco Use Smoking status: Former Smokeless tobacco: Former Types: Chew Tobacco comments: QUIT IN 1992 Vaping Use Vaping Use: Never used Substance Use Topics Alcohol use: Yes Comment: 1-4 per month Drug use: No FAMILY HISTORY Problem Relation Age of Onset Stroke Mother age 75 CVA Cancer Father age 73 stomach cancer Stroke Brother other (Other) Brother Lyme disease Colon Cancer Sister Cancer Brother lung cancer Cancer Brother lung cancer ALLERGIES: ALLERGIES Allergen Reactions Adhesive Tape-Silic* Rash Seasonal Allergies Tylenol Arthritis [* Other: See Comments HTN MEDICATIONS: finasteride (PROSCAR) 5 mg tablet Take 5 mg by mouth once daily. NIFEdipine ER (PROCARDIA XL) 30 mg 24 hr tablet Take 2 tablets (60mg) in the morning and take 1 tablet (30mg) in the evening. carvedilol (COREG) 25 mg tablet Take 1 tablet by mouth twice daily with meals. doxazosin (CARDURA) 4 mg tablet Take 1 tablet by mouth daily at bedtime. cloNIDine HCl (CATAPRES) 0.1 mg tablet Take 1 tablet by mouth twice daily. aspirin 81 mg chewable tablet Take 81 mg by mouth once daily. albuterol HFA (PROAIR HFA) 90 mcg/actuation inhaler Inhale 2 Puffs as instructed every 6 hours as needed. simvastatin (ZOCOR) 40 mg tablet Take 1 tablet by mouth daily at bedtime. Lecithin 1,200 mg cap Take 1 capsule by mouth. calcium carbonate (CALCIUM 300 ORAL) Take 1,200 mg by mouth. Aloe Vera 25 mg cap Take 1 capsule by mouth. [place] Fruit 450 mg cap Take 1 capsule by mouth. cyanocobalamin (VITAMIN B-12) 500 mcg tablet Take 1 tablet by mouth once daily. Capsicum, Cayenne, 450 mg cap Take 1 capsule by mouth. Zinc 50 mg tab Take 50 mg by mouth. cranberry conc-ascorbic acid 4,200-20 mg cap Take 1 capsule by mouth. Magnesium 250 mg tab Take 250 mg by mouth. Milk Thistle 175 mg tab Take 1 tablet by mouth. CALCIUM-VITAMIN D3 ORAL Take 325 Int'l Units by mouth. acetaminophen (TYLENOL) 325 mg tablet Take 650 mg by mouth twice daily. papaya(PAPAYA ENZYME CHEWABLE TAB) takes 2 with each meal and at bedtime GARLIC 1,000 MG CAP takes 2 in am and 2 in pm omega-3 fatty acids(FISH OIL 500 MG CAP) Take one(1) capsule daily. ascorbic acid(VITAMIN C 1,000 MG TAB) Take one(1) tablet two(2) times daily. GINSENG 100 MG CAP Take one(1) tablet two(2) times daily. furosemide (LASIX) 20 mg tablet Take 1 tablet by mouth once daily as needed (For weight gain > 140lb). REVIEW OF SYSTEMS: GENERAL: Negative for: Weight loss or gain, Fever or Chills, Weakness and Sleep difficulties. HEENT: Negative for: Headache, Impaired Vision, Glasses, Hearing Impairment, Ringing in Ears, Nosebleeds, Poor Dental Care, Bleeding Gums and Dentures. NECK: Negative for: Swelling, Pain, Stiffness RESPIRATORY: See HPI CARDIOVASCULAR: See HPI GASTROINTESTINAL: Negative for: Trouble swallowing, Heartburn, Change in bowel habits, Blood in stool, Dark black stools MUSCULOSKELETAL: + chronic back pain NEUROLOGIC/PSYCHIATRIC: Negative for: Weakness, Paralysis, Numbness, Tingling, Tremor, Nervousness or anxiety, Depressed mood, Memory loss SKIN: Negative for: Rash, Itching HEMATOLOGICAL/LYMPHATIC: Negative for: Easy bruising, Easy bleeding ENDOCRINE: Negative for: Heat or Cold Intolerance, Excessive Sweating, Frequent Urination, Frequent Thirst Objective PHYSICAL EXAMINATION: BP 134/62 Pulse (!) 55 Ht 152.4 cm (5') Wt 64.7 kg (142 lb 9.6 oz) SpO2 96% BMI 27.85 kg/m General: Well appearing, in no acute distress, speaking in complete sentences. Skin: No clubbing, no cyanosis. Eyes: Extra ocular movements intact Oropharynx: Teeth in good repair. Neck: No jugular venous distention, no carotid bruits, carotids have a normal upstroke, no palpable thyromegaly. Lungs: Clear to auscultation bilaterally, no wheezing or rhonchi. Heart: Regular rhythm, no murmur. Abdomen: Soft, nontender, bowel sounds normal, no palpable organomegaly, no bruits. Extremities: Trace b/l ankle edema . Grade 2/4 distal pulses bilaterally. Neuro: Oriented to person, place and time, alert. CARDIOVASCULAR MEDICINE TESTING: EKG (05/01/22): Sinus michaela, RBBB, 55bpm Pharmacologic MPI stress test (01/31/2020): CONCLUSIONS: 1. SPECT Perfusion Study: Normal. 2. There is no scintigraphic evidence for inducible ischemia. 3. No evidence of scarred myocardium. 4. Left ventricle is normal in size. The left ventricle systolic function is normal. 5. Right ventricle is normal in size. The right ventricle systolic function is normal. 6. This is a low risk scan. Gated Stress FBP LVEF % 71 Echocardiogram (03/28/2021; David): - Normal LV size. - Left ventricular systolic function is normal. - The estimated ejection fraction is 65 %. - Stage 1 diastolic dysfunction. - Pulmonary artery systolic pressure is 45 mmHg. - Mild aortic stenosis. I have personally reviewed the Electrocardiogram. IMPRESSION: 1. Chronic diastolic CHF - Echo 03/2021: EF 65%, grade I LVDD - NYHA FC II, stage C - Heart failure stable - Currently on furosemide 20mg PRN (for weights > 140lb) - Follows with the CHF clinic 2. RBBB (right bundle branch block) - Chronic 3. Essential hypertension - Good control on clonidine, carvedilol, nifedipine, and doxazosin - Hx of hypertensive urgency & has admitted in the past to occasionally missing home BP meds - Encouraged dietary sodium restriction/DASH diet - Reviewed risks of HTN and principles of treatment - Goal of BP <130/80 - Renal artery 07/2020: no stenosis bilaterally - Off ARB due to tendency for hyperkalemia 4. Mixed hyperlipidemia - Continue simvastatin 40mg daily - Last lipid panel 03/2021 with LDL 87, HDL 31, TG 152 - Repeat fasting lipid panel 5. Prediabetes - Last A1C 5.9 6. Former tobacco use - Quit in 1992 7. History of TIA - Admit to [facility] 06/2020, neuroimaging negative for acute stroke 8. CKD stage 3 PLAN AND RECOMMENDATIONS: Patient appears stable with no symptoms to suggest angina or cardiac decompensation. Heart rate and blood pressure appears under favorable control. He is due for a repeat fasting lipid panel. I have made no additions or changes to his medications. He should continue to actively engage in cardiovascular risk factor modification and follow up with Dr. hSen in 6 months time, or sooner should need arise. CONTACT INFORMATION: Mariah White APRN.GREG Cardiology Nurse Practitioner Section of Regional Cardiology [facility] Dept of Cardiovascular Medicine [facility] [place] [address] [place] [address] Office Office This note was partially generated using [employer] voice recognition system, and there may be some incorrect words, spellings, and punctuation that were not noted in checking the note before saving. I personally interviewed, confirmed and edited the above information if obtained by others. documented in this encounter [facility] 11-13-2021 Miscellaneous Notes Received call from Zoë at Dr. Bland's office. Trying to find out if patient is supposed to be taking Lasix and Losartan. Returned call; per notes, no medication changes were made during STACY. Patient self-discontinued losartan potassium back on 06/16/2021. Per request, faxed current med report and STACY notes to [phone]. documented in this encounter [facility] 04-07-2021 Note HNO ID: [id number] Author: Teresita Klein APRN.GREG Service: ? Author Type: Nurse Practitioner Type: Progress Notes Filed: 04/07/2021 10:42 AM Note Text: [facility] [place] [facility] Heart Failure Clinic OUTPATIENT VISIT DATE April 07, 2021 OUTPATIENT VISIT TYPE ESTABLISHED PRIMARY CARE PHYSICIAN: Pasha Bland CHIEF COMPLAINT: Patient presents with: Leg Edema HISTORY OF PRESENT ILLNESS: Carmen Mock is a 80 year old male who presents today for a follow-up visit in the Heart Failure Clinic. He was last seen in the Heart Failure Clinic in August 2020. He is an established patient of Dr. Shen. During his last visit with Heart Failure Clinic, concern for increased lower extremity edema was expressed. The lower extremity edema was thought to be partly as a result of an increase in his amlodipine which at that time was relatively new for him.He had an appointment the following day with Dr. Shen who did discontinue his amlodipine. The patient followed up with cardiology at a later date in which he reported elevated blood pressure readings and was therefore started on low dose nifedipine 30 mg daily which was subsequently increased to 60 mg daily. The patient continued to experience lower extremity edema documented by his PCP during an office visit in which the patient had reportedly been taking both amlodipine and nifedipine. He was instructed to stop taking the amlodipine. The patient was seen by Dr. Shen in 12/2020. Blood pressure readings had stabilized; however, he continued to endorse lower extremity edema which was thought to be secondary to dependency and possible venous insufficiency. He was instructed to take additional lasix 1-2 times a day weekly to improve diuresis. Of note, he was seen by his PCP on 03/10/2021 and was found to be hyperkalemic. His losartan was stopped at that time. Patient has had 1 hospitalizations and/or emergency room encounters in the last 12 months. Admission was on 03/28/2021 in [place] in which he was treated for heart failure exacerbation. He had a 10 lb weight gain during one week time frame. He was placed on bipap therapy as he was also found to be in respiratory distress. NT BNP was 270 and EKG was negative for ischemia. He was admitted to the ICU for aggressive diuresis with intravenous lasix. The patient was seen by Cardiology via [facility] on 04/02/2021 for complaints of lower extremity edema. The patient reported a hospital discharge weight of 149 lbs. His weight during this last visit was 152 lbs. Cardiology started the patient on 2.5 mg of metolazone for 1-2 days which was to be taken only depending on response. Further instructions for metolazone was to be taken for 3-4 lb weight gain in 1-4 day period of time. It was discussed with him that his dry weight would be 149 lbs. Today, the patient is present with his son, Rashel. He reports feeling well . Denies shortness of breath and chest pain. His lower extremity edema has improved but is still present. He is compliant with his medications. He is taking 40 mg of lasix twice a day. He denies having to take any metolazone as his weight has been consistent at 149 lbs. Does not eat dinner at times because he is not hungry. Admits to eating hot sauce and crackers. States he makes his own hot sauce from peppers and does not use store bought. Weighs himself every day. Blood pressure at home today was 143/62 mmHg. He reports not taking his medications prior to this appointment. Patient does live alone however, his son lives down the road from him. Denies wearing compression stockings. SOB: No Fatigue: No Orthopnea:Yes: 1 pillow(s) PND: No Edema:Yes: Improving in his legs Chest Pain:No (0/10) Palpitations:No Dizziness/Lightheadedness:Yes, with position changes Syncope:No Appetite: good Diet:low salt (2000 mg) Fluid Restriction: 48-60 ounces of water Regular Exercise: No PAST CARDIAC HISTORY: Heart failure: diastolic Non-ischemic, subtype: Hypertensive. His cardiac history is also significant for HTN, HLD, sinus bradycardia. Device: NA. PAST MEDICAL HISTORY Diagnosis Date - Benign neoplasm of colon - Chronic diastolic heart failure (HCC) 01/15/2020 - Essential hypertension 09/13/2005 - Essential hypertension, benign - Family history of malignant neoplasm of gastrointestinal tract - Former tobacco use 01/24/2020 - Internal hemorrhoids without mention of complication - Kidney disease - Mixed hyperlipidemia 09/13/2005 - PMH - PAST MEDICAL HISTORY OF hernia - Sinus bradycardia 01/24/2020 - Snoring - Unspecified asthma(493.90) PAST SURGICAL HISTORY Procedure Laterality Date - COLONOSCOP W/ OR W/O [facility] SPEC 05/08/13 Colonoscopy repeat 2 years - COLONOSCOP W/ OR W/O [facility] SPEC 11/27/15 Colonoscopy - COLONOSCOPY - DIAGNOSTIC 1998 [facility]: colonoscopy per Dr. Rodney: WNL - COLONOSCOPY W/BX 03/24/09 - EGD W/O OR W/ (more content not included)... [facility] 09-02-2020 Note HNO ID: [id number] Author: Nanette Anguiano Service: ? Author Type: Nurse Practitioner Type: Progress Notes Filed: 09/02/2020 11:57 AM Note Text: [facility] [place] [facility] Heart Failure Clinic OUTPATIENT VISIT DATE September 02, 2020 OUTPATIENT VISIT TYPE ESTABLISHED PRIMARY CARE PHYSICIAN: Pasha Bland CHIEF COMPLAINT: Patient presents with: Edema CHF HISTORY OF PRESENT ILLNESS: Carmen Mock?is a?79 year old man with a history of former smoker, asthma, BPH, HLD, HTN and chronic diastolic heart failure?who presents today for?a follow-up visit in the Heart Failure Clinic. He was most recently seen in the HF clinic via distance health visit by myself on 06/04/2020 and has since been following with Dr. Shen from cardiology. Since most recent visit with HF clinic, he has also been seen by neurology after being admitted for suspected TIA. Was most recent seen by Dr. Shen on 07/29/2020 at which time his clonidine was decreased from 0.2 to 0.1 mg and he was started on amlodipine 5 mg po daily. Pt was then seen by the nurse for BP check x 1 week at which time his [id number] was increased to 10 mg daily. He has since called into Dr. Shen' office with reports of increasing LE edema and hesitancy about taking diuretic due to having previous episodes of associated hypotension. Today Carmen presents and is accompanied by his son, Óscar with complaints of increasing LE edema bilaterally. Per pt, he has been doing well otherwise but noted that not too long after his amlodipine was increased from 5 mg to 10 mg daily, he started experiencing an increase in his LE edema. He has continued to track and monitor his daily weights and his weights have remained stable ~ 159-160 lbs on his home scale. He denies any other associated sxs such as shortness of breath, early satiety or increased fatigue. Otherwise pt states he is doing well. Has been active around his house as it relates to tackling home improvement projects and also rides his stationary bike at home 3x/daily most days of the week. Continues to limit dietary sodium intake and is not adding salt to his food. Has been mindful about trying to avoid soup and has been rinsing his canned vegetables when he has needed to do so. Has continued to monitor his BP at home and reports that SBP has been trending 120-130 and DBP in the 60's. No other acute concerns or complaints at this time. Patient has had 4 hospitalizations and/or emergency room encounters in the last 12 months. Most recent hospitalization was in June 2020. SOB: Yes: with heavy exertion (ie: riding his stationary bike) Fatigue: No Orthopnea:No PND: No Edema:Yes: Stable in his legs Chest Pain:No (0/10) Palpitations:No Dizziness/Lightheadedness:Yes, with position changes Syncope:No Appetite: good Diet:low salt (2000 mg) Fluid Restriction: {YES, Explain / NO: Regular Exercise: Yes: rides stationary bike at home 3x/day, most days of the week PAST CARDIAC HISTORY: Heart failure: diastolic Non-ischemic, subtype: Hypertensive. His cardiac history is also significant for HTN, HLD, sinus bradycardia. Device: NA. PAST MEDICAL HISTORY Diagnosis Date - Benign neoplasm of colon - Chronic diastolic heart failure (HCC) 01/15/2020 - Essential hypertension 09/13/2005 - Essential hypertension, benign - Family history of malignant neoplasm of gastrointestinal tract - Former tobacco use 01/24/2020 - Internal hemorrhoids without mention of complication - Kidney disease - Mixed hyperlipidemia 09/13/2005 - PMH - PAST MEDICAL HISTORY OF hernia - Sinus bradycardia 01/24/2020 - Snoring - Unspecified asthma(493.90) PAST SURGICAL HISTORY Procedure Laterality Date - COLONOSCOP W/ OR W/O [facility] SPEC 05/08/13 Colonoscopy repeat 2 years - COLONOSCOP W/ OR W/O [facility] SPEC 11/27/15 Colonoscopy - COLONOSCOPY - DIAGNOSTIC 1998 [facility]: colonoscopy per Dr. Rodney: WNL - COLONOSCOPY W/BX 03/24/09 - EGD W/O OR W/BRUSH/WASH 05/08/13 EGD - PAST SURGICAL HISTORY OF 1981 removal benign tumor on voice box/ Dr. Nciole - PAST SURGICAL HISTORY OF 1997 release tendon left 5th finger Dr. Friend - PAST SURGICAL HISTORY OF 2004 surgery left - REMOVAL ADENOIDS,PRIMARY,<12 Y/O [address] Nicole - REMOVAL OF TONSILS,<12 Y/O [address] Nicole - REVISE ULNAR NERVE AT ELBOW [address] Friend Social History Tobacco Use - Smoking status: Former Smoker - Smokeless tobacco: Former User Types: Chew - Tobacco comment: QUIT IN 1992 Substance Use Topics - Alcohol use: Yes Comment: 1-4 per month - Drug use: No Family History Problem Relation Age of Onset - Stroke Mother age 75 CVA - Cancer Father age 73 stomach cancer - Stroke Brother - other (Other) Brother Lyme disease - Colon Cancer Sister - (more content not included)... [facility] 06-04-2020 Note HNO ID: [id number] Author: Nanette Oliva) Silvio Service: ? Author Type: Nurse Practitioner Type: Progress Notes Filed: 06/04/2020 10:31 AM Note Text: AMBULATORY TELEPHONE VISIT Carmen Mock has consented to this telephone encounter. Persons Present: patient Chief Complaint/Reason: Follow up CHF, blood pressure HPI: Carmen Mock?is a?79 year old man with a history of former smoker, asthma, BPH, HLD, HTN and chronic diastolic heart failure?who presents today for?a follow-up visit via telephone in the heart failure clinic. He was most recently seen by myself on 05/21/2020 at which time pt was endorsing increasing LE edema and labile blood pressures on his home machine. His LE edema was increasing to the point that it prompted him to buy an OTC, water pill, rather than use his furosemide as prescribed. Today Carmen reports, I am feeling great. He has continued to track and monitor his daily weights and his weight at home has remained stable at 160 lbs on his home scale. While he does continue to endorse some mild LE edema he does note that it is improved as compared to when last seen in office. His sx burden is otherwise minimal to none at this time. Denies chest pain, palpitations, dyspnea, increasing fatigue, orthopnea, PND, syncope, dizziness or lightheadedness. He has also continued to track and monitor his daily blood pressures and has a recent log with him to report today as follows. All of the following blood pressures are after morning medications: 05/31: 100/52 06/01: 106/54 06/02: 155/76 06/03: 118/57 Continues to follow low sodium diet and no regular aerobic exercise reported at this time. No acute concerns or complaints today. Repeat BMP was drawn 05/29/2020. ROS negative unless otherwise noted in HPI Data Reviewed: Most recent labs Results for CARMEN MOCK ( ) as of 06/04/2020 10:25 Ref. Range 05/29/2020 08:25 Sodium Latest Ref Range: 136 - 144 mmol/L 138 Potassium Latest Ref Range: 3.7 - 5.1 mmol/L 4.6 Chloride Latest Ref Range: 97 - 105 mmol/L 101 CO2 Latest Ref Range: 22 - 30 mmol/L 29 BUN Latest Ref Range: 9 - 24 mg/dL 21 Creatinine Latest Ref Range: 0.73 - 1.22 mg/dL 1.13 Glucose Latest Ref Range: 74 - 99 mg/dL 100 (H) Calcium Latest Ref Range: 8.5 - 10.2 mg/dL 9.2 Anion Gap Latest Ref Range: 9 - 18 mmol/L 8 (L) eGFR- Unknown >60 eGFR-All Other Races Latest Units: . 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 Overall, pt's HF appears stable at this time and he reports no acute s/sx's to suggest overt cardiac decompensation. He has been splitting his losartan dose as instructed along with taking his furosemide daily and as a result seems to have had a favorable effect on his blood pressure. BMP reviewed during call today and shows improvement in renal function and serum potassium with daily furosemide dosing. Plan: 1. Chronic Diastolic HF/HTN: - Continue all current medications as instructed; including furosemide daily - Continue to track and monitor daily weights; instructed to contact office with any weight gain of 3-4 lbs over 1-4 days - Continue adherence to low sodium diet; < 2000 mg/day - Activity as tolerated with rest breaks as warranted 2. Reviewed s/sx's of when to call the office along with s/sx's of cardiac/respiratory emergency at which time pt instructed to seek emergency medical attention via 911 or the ED should any of these present 3. RTC prn or with any change/increase in sx burden 4. F/U w/ Dr. Shen on 08/28/2019 5. Pt agreeable to plan and verbalizes understanding Total Time Spent: 15 minutes Nanette Anguiano APRN.GREG [facility] 05-21-2020 Note HNO ID: [id number] Author: Nanette Oliva) Silvio Service: ? Author Type: Nurse Practitioner Type: Progress Notes Filed: 05/21/2020 10:41 AM Note Text: [facility] [place] [facility] Heart Failure Clinic OUTPATIENT VISIT DATE May 21, 2020 OUTPATIENT VISIT TYPE ESTABLISHED PRIMARY CARE PHYSICIAN: Pasha Bland CHIEF COMPLAINT: Patient presents with: Edema Blood Pressure CHF HISTORY OF PRESENT ILLNESS: Carmen Mock?is a?79 year old man with a history of former smoker, asthma, BPH, HLD, HTN and chronic diastolic heart failure?who presents today for a follow-up visit in the Heart Failure Clinic. He was most recently seen in the HF clinic on 03/18/2020 at which time HF appeared to be stable. Since most recent visit, pt was seen by Mariah White CNP on 04/17/2020 at which time he continued to report labile BP's at home and had an in office BP of 176/84 at which time his clonidine was increased to 0.2 mg po bid. Since this visit, he had f/u via telephone with cardiology at which time he reported BP readings that were again labile in nature and pt had not recorded whether the readings were taken prior to or after his medication administration. Mariah White consulted with Dr. Shen on this and due to the number of unknown variables, it was suggested that regimen remain as is and follow up x 2-3 months (see telephone encounter dated 04/28/2020). On 05/19/2020, pt's son contacted HF clinic and reported low BP of 85/49 with associated dizziness and lightheadedness at which time he was recommended that he seek further evaluation in the ED, however, pt declined. He was then instructed to hold all BP medications for the remainder of the day and to call 911 should sxs increase. He was scheduled for a follow up with me today in office and instructed to call on 05/20/2020 for instruction regarding medications. On 05/20/2020, ann's son contacted office reporting BP of 165/78 and was instructed to resume his Coreg and Losartan but to continue to hold Clonidine until follow up today. Today Carmen returns and is accompanied by his son, Óscar who helps to provide some of the hx. Per son, on Tuesday pt had a BP reading of 210/102 on his home monitor at which time they called, the on-call doctor for Dr. Shen. Per son, pt was then instructed to seek further evaluation in the ED, however, pt refused. As a result, pt was instructed, to take 60 mg of Lasix and an extra 0.2 mg of Clonidine, after which his BP did come down. However, due to having hypotensive episodes with 40 mg of furosemide in the past, pt was only will to take 20 mg of furosemide with the extra 0.2 mg of clonidine. The following morning, Tuesday, is when the pt experienced the BP of 87/49, prompting the call to the HF clinic. While at this time pt did also report dizziness and lightheadedness, pt is attributing this to his asthma rather than low BP. This morning pt presents after having taken his morning medications though reports that he took Losartan 50 mg (1/2) tablet, 25 mg of Coreg and 0.2 mg of Carvedilol. Upon further questioning, ann has not been splitting his dose (50 mg po q am and 50 mg po q pm) of Losartan as instructed by Dr. Shen back in early February 2020; he had been taking 100 mg po daily q am. Carmen has been continuing to track and monitor his daily weights and reports that his home weight has remained relatively stable ~159 lbs on his home scale but he has noted some increase in LE edema recently. As a result of increasing edema, he recently purchased, a water pill that you can get over the counter, and started taking because, I heard that these are not as hard on your kidneys. Has not been using his Lasix prn. Also endorsing low energy though reports that this is his baseline and is unchanged at this time. Denies any recent change to diet or exercise regimen. Pt attempts to follow low sodium diet though he does admit to adding salt to certain foods, using canned vegetables and eating deli meat. Denies chest pain, palpitations, dyspnea, orthopnea, PND, syncope, dizziness or lightheadedness. Patient has had 2 hospitalizations and/or emergency room encounters in the last 12 months. Most recent hospitalization was from 02/01/2020 to 02/02/2020. SOB: No Fatigue: Yes: at baseline; unchanged Orthopnea:No PND: No Edema:Yes: Worsening in his legs Chest Pain:No (0/10) Palpitations:No Dizziness/Lightheadedness:No Syncope:No Appetite: good Diet:attempts low sodium Fluid Restriction: {YES, Explain / NO: Regular Exercise: No PAST CARDIAC HISTORY: Heart failure: diastolic Non-ischemic, subtype: Hypertensive. His cardiac history is also significant for HTN, HLD, sinus bradycardia. Device: NA. PAST MEDICAL HISTORY Diagnosis Date - Benign neoplasm of colon - Chronic diastolic heart failure (HCC) 01/15/2020 - Essential hypertension 09/13/2005 - (more content not included)... [facility] documented as of this encounter (statuses as of 11/13/2021) [facility]06-[facility]2020 History of Past illness Narrative* Problem Noted Date Resolved Date Drug-induced hypotension 02/01/2020 020 Last Assessment & Plan: Assessment/PLAN: He presented to ED with noted intermittent episodes of hypotension and orthostatic dizziness after starting amlodipine 2.5 mg on 01/28 during heart failure follow- up Blood pressure normal currently Hold amlodipine Continue other antihypertensives Continue telemetry monitoring Monitor vital signs Basic labs unremarkable Hyperkalemia 01/14/2020 01/15/2020 SHIVA (acute kidney injury) 01/14/20202019 Acute decompensated heart failure 01/12/2020 01/15/2020 Hypertensive urgency 01/12/2020 01/24/2020 Shortness of breath on exertion 01/12/2020 01/15/2020 documented as of this encounter (statuses as of 05/03/2022) [facility] History of Past illness Narrative* Problem Noted Date Resolved Date Drug-induced hypotension 02/01/2020 020 Last Assessment & Plan: Assessment/PLAN: He presented to ED with noted intermittent episodes of hypotension and orthostatic dizziness after starting amlodipine 2.5 mg on 01/28 during heart failure follow- up Blood pressure normal currently Hold amlodipine Continue other antihypertensives Continue telemetry monitoring Monitor vital signs Basic labs unremarkable Hyperkalemia 01/14/2020 01/15/2020 SHIVA (acute kidney injury) 01/14/20202019 Acute decompensated heart failure 01/12/2020 01/15/2020 Hypertensive urgency 01/12/2020 01/24/2020 Shortness of breath on exertion 01/12/2020 01/15/2020 documented as of this encounter (statuses as of 11/02/2022) [facility] note* Diagnosis Chronic diastolic CHF (congestive heart failure) (HCC)- Primary Chronic diastolic heart failure RBBB Right bundle branch block Essential hypertension Unspecified essential hypertension Mixed hyperlipidemia documented in this encounter [facility] note* Diagnosis Chronic diastolic CHF (congestive heart failure) (HCC)- Primary Chronic diastolic heart failure Essential hypertension Unspecified essential hypertension Mixed hyperlipidemia RBBB Right bundle branch block documented in this encounter [facility] note* Diagnosis Essential hypertension- Primary Unspecified essential hypertension Normochromic normocytic anemia Hypercholesterolemia Pure hypercholesterolemia Impaired fasting glucose Chronic renal impairment, stage 2 (mild) [facility] Diagnosis Essential hypertension- Primary Unspecified essential hypertension Hypercholesterolemia Pure hypercholesterolemia Chronic renal impairment, stage 2 (mild) Normochromic normocytic anemia Congestive heart failure, unspecified HF chronicity, unspecified heart failure type (HCC) [facility]* Diagnosis Essential hypertension Unspecified essential hypertension [facility] Outpatient Procedure (Routine) - Closed Specialty Diagnoses / Procedures Referred By Contac t Referred To [facility] Diagnoses Chronic diastolic CHF (congestive heart failure) (HCC) RBBB Essential hypertension Mixed hyperlipidemia Procedures ECG COMPLETE ECG ROUTINE ECG W/LEAST 12 LDS W/I&R Mariah White APRN.CNP [address] [place] [address] [facility] [place] [address] [place] [address] Referral ID Status Reason Start Date Expiration Date V isits Requested Visits Authorized [id number] Closed Auto-Generate d Referral 05/03/2022 05/01/2023 1 1 [facility] Summary Purpose Family History No Family History Records FoundNo Family History Records FoundNo Family History Records FoundNo Family History Records FoundNo Family History Records Found Advance Directives No Advanced Directives Records FoundDocuments on File Type Date Recorded Patient Rn Clinical Resource Expl anation Advance Directive(s) 06/12/2020 12:15 PM Advance Directive(s) 02/01/2020 7:23 PM Advance Directive(s) 01/12/2020 3:57 PM Advance Directive(s) 11/27/2015 8:36 AM Advance Directive(s) 10/30/2015 11:48 PM Additional Source Comments (unrecognized sect ion and content) No Status Records FoundNo Status Records FoundNo Status Records FoundNo Status Records FoundNo Status Records Found INFORMATION SOURCE (unrecogn ized section and content) DATE CREATED AUTHOR AUTHOR'S ORGANIZ ATION 09/08/2020 [facility] DATE CREATED AUTHOR AUTHOR'S ORGANIZ ATION 04/08/2021 [facility] DATE CREATED AUTHOR AUTHOR'S ORGANIZ ATION 06/14/2023 [facility] DATE CREATED AUTHOR AUTHOR'S ORGANIZ ATION 06/21/2023 [facility] Source Comments (unrecognize d section and content) In the event this informatio n is protected by the Federal Confidentiality of Alcohol and Drug Abuse Patient Records regulations: The Federal rules restrict any use of the information to criminally investigate or prosecute any alcohol or drug abuse patient.[facility] the event this information is protected by the Federal Confidentiality of Alcohol and Drug Abuse Patient Records regulations: The Federal rules restrict any use of the information to criminally investigate or prosecute any alcohol or drug abuse patient.[facility] the event this information is protected by the Federal Confidentiality of Alcohol and Drug Abuse Patient Records regulations: The Federal rules restrict any use of the information to criminally investigate or prosecute any alcohol or drug abuse patient.[facility] Reason for Visit (unrecogniz ed section and content) Reason Comments Cardiology Follow Up Reason Comments Established Patient Follow-Up Swelling i n legs Reason Comments Follow-up 6 month med check Reason Onset Date Comments Med Refill 01/17/2023 Reason Comments Blood Pressure Check Elevated in the off ice Care Teams (unrecognized sec tion and content) Cash Sales Audit Clerk Relationship Specialty Start Date End Date Pasha Bland [address] [place] [id number] PCP - General Family Practice 07/18/20 Kiana Alejadnre MD [address] [place] [address] Consulting Neurology 07/29/20 Yani Woodson MD [address] [facility] [place] [address] Consulting Neurology 07/29/20 Sung Shen, DO [address] [place] [address] Drying Machine Operator Cardiology 04/05/21 Cash Sales Audit Clerk Relationship Specialty Start Date End Date Pasha Bland [address] [address] PCP - General Family Medicine 07/18/20 Kiana Alejandre MD [address] [place] [address] Consulting Neurology 07/29/20 Yani Woodson MD [address] [place] [address] Consulting Neurology 07/29/20 Sung Shen, DO [address] [place] [address] Drying Machine Operator Cardiology 04/05/21 Cash Sales Audit Clerk Relationship Specialty Start Date End Date Pasha Bland, [address] [place] [id number] PCP - General 02/11/15 Cash Sales Audit Clerk Relationship Specialty Start Date End Date Pasha Bland, [address] [place], [place] [id number] PCP - General 02/11/15 Cash Sales Audit Clerk Relationship Specialty Start Date End Date Pasha Bland DO [address] [place], [place] [id number] PCP - General 02/11/15 Cash Sales Audit Clerk Relationship Specialty Start Date End Date Pasha Bland DO [address] [place] [address] PCP - General 02/11/15 Cash Sales Audit Clerk Relationship Specialty Start Date End Date Pasha Bland DO [address] [place] [address] PCP - General 02/11/15 FOR RECORDS PERTAINING TO PATIENTS WHO ARE OR HAVE BEEN ENROLLED IN A CHEMICAL DEPENDENCY/SUBSTANCEABUSE PROGRAM, SOME INFORMATION MAY BE OMITTED. This clinical summary was aggregated from multiple sources. Caution should be exercised in using it in the provision of clinical care. This summary normalizes information from multiple sources, and as a consequence, information in this document may materially change the coding, format and clinical context of patient data. In addition, data may be omitted in some cases. CLINICAL DECISIONS SHOULD BE BASED ON THE PRIMARY CLINICAL RECORDS. [facility]. provides no warranty or guarantee of the accuracy or completeness of information in this document.
[2023-08-13 09:21] LABS: Differential Indicated SCAN CRITERIA MET
[2023-08-13] MEDS: Ipratropium/Albuterol Sulfate 3 ML AMPUL.NEB INHALATION ×2 (09:27→20:10)
[2023-08-13 09:38] LABS: Anion Gap 5 (5-15); BUN 34 mg/dL (7-18); Calcium,Total 9.4 mg/dL (8.5-10.1); Chloride 106 mmol/L (98-107); Creatinine, Serum 1.31 mg/dL (0.70-1.30); EST Glomerular Filtration Rate 55 mL/min (>60); Est Glom Filt Rate - Afr Amer 67 mL/min (>60); Estimated Creatinine Clearance 31.05 ml/min; Glucose 143 mg/dL (74-106); Potassium 4.2 mmol/L (3.5-5.1); Sodium Level 139 mmol/L (136-145)
--- NOTE | 2023-08-13 09:39 | EDS_ITS ---
HPI History of Present Illness Chief Complaint: Shortness of Breath Informant: patient Narrative Narrative: 2-day history of cough overnight had sweats. No fevers headaches. No vomiting or diarrhea. Denies urinary symptoms. History of asthma. Mild wheezing. No home oxygen. Lives alone. States felt weak overnight therefore came for evaluation. There is been no falls. [facility] Medical History Acute exacerbation of congestive heart failure Asthma Cardiac murmur CHF (congestive heart failure) CKD (chronic kidney disease) COPD (chronic obstructive pulmonary disease) HTN (hypertension) Hyperlipidemia Hypertension Hypoxemia TIA (transient ischemic attack) Home Medications albuterol sulfate 90 mcg/actuation aerosol inhaler (Ventolin HFA) 2 puff inhalation Q6H PRN PRN Asthma 08/25/16 [History Last Taken Unknown] carvedilol 25 mg tablet (Coreg) 25 mg PO BID blood pressure 08/25/16 [History Last Taken Unknown] clonidine HCl 0.2 mg tablet 0.1 mg PO TID blood pressure 08/25/16 [History Last Taken Unknown] doxazosin 4 mg tablet 4 mg PO QHS prostate 08/25/16 [History Last Taken Unknown] simvastatin 40 mg tablet 40 mg PO QHS cholesterol 08/25/16 [History Last Taken Unknown] ascorbic acid (vitamin C) 1,000 mg tablet (Vitamin C) 1,000 mg PO DAILY vitamin 01/20/17 [History Last Taken Unknown] calcium carbonate 500 mg calcium (1,250 mg) tablet 500 mg PO DAILY supplement 01/20/17 [History Last Taken Unknown] capsicum (cayenne) 450 mg capsule 450 mg PO DAILY supplement 01/20/17 [History Last Taken Unknown] carica papaya 1 ea PO DAILY supplement 01/20/17 [History Last Taken Unknown] cholecalciferol (vitamin D3) 50 mcg (2,000 unit) capsule (Vitamin D3) 2,000 unit PO DAILY vitamin 01/20/17 [History Last Taken Unknown] garlic 1,000 mg capsule 1,000 mg PO DAILY supplement 01/20/17 [History Last Taken Unknown] ginseng 100 mg capsule 100 mg PO DAILY supplement 01/20/17 [History Last Taken Unknown] lecithin 1,200 mg capsule 1,200 mg PO DAILY supplement 01/20/17 [History Last Taken Unknown] milk thistle 150 mg capsule 150 mg PO DAILY supplement 01/20/17 [History Last Taken Unknown] omega 3-dha 60 mg-epa 90 mg-fish oil 500 mg capsule, delayed release (Fish Oil) 500 mg PO DAILY supplement 01/20/17 [History Last Taken Unknown] saw palmetto 500 mg capsule 500 mg PO DAILY supplement 01/20/17 [History Last Taken Unknown] vitamin B complex-folic acid 0.4 mg tablet (Super B Maxi Complex) 0.4 mg PO DAILY vitamin 01/20/17 [History Last Taken Unknown] aspirin 81 mg chewable tablet 81 mg PO DAILY@0800 ##90 06/20/20 [Rx Last Taken Unknown] finasteride 5 mg tablet (Proscar) 5 mg PO DAILY prostate 03/28/21 [History Last Taken Unknown] losartan 50 mg tablet 50 mg PO DAILY blood pressure 03/28/21 [History Last Taken Unknown] nifedipine 60 mg tablet,extended release 24 hr 60 mg PO DAILY blood pressure 03/28/21 [History Last Taken Unknown] potassium chloride 20 mEq tablet,extended release 20 meq PO BID #60 tabs 03/30/21 [Rx Last Taken Unknown] furosemide 40 mg tablet (Lasix) 20 mg PO BID diuretic 08/08/21 [History Last Taken Unknown] Allergy/AdvReac Type Severity Reaction Status Date / Time acetaminophen [From Tylenol] AdvReac Other Verified 08/13/23 08:28 Family History Other CVA (cerebral vascular accident) Cancer Surgical History History of tonsillectomy Previous back surgery Previous back surgery Social History Smoking Status: Former smoker substance use type: does not use ROS ROS ED Constitutional Constitutional ED: Reports sweats; Denies chills or fever(s) Eyes Eyes: Denies change in vision ENT ENT ED: Denies dysphagia or sore throat Cardiovascular Cardiovascular: Denies chest pain, leg edema, palpitations or racing heartbeat Respiratory/Chest Respiratory/Chest: Reports cough; Denies dyspnea or dyspnea on exertion Gastrointestinal Gastrointestinal: Denies abdominal pain, diarrhea, nausea or vomiting Genitourinary Genitourinary ED: Denies dysuria, hematuria or urinary frequency Musculoskeletal Musculoskeletal: Denies back pain, extremity pain or neck pain Integumentary Denies rash or wounds Neurologic Neurologic: Reports weakness; Denies headache(s) or paresthesias EXAM Physical Exam Const Vital Signs: 08/13/23 08:28 08/13/23 09:54 08/13/23 09:55 Temperature 99.9 F H Temperature Source Temporal Pulse Rate 78 Respiratory Rate 20 H Respiratory Effort Respiratory Depth Respiratory Pattern Blood Pressure 166/66 H Blood Pressure Mean 99 Pulse Ox 93 88 92 Oxygen Delivery Method Room Air Room Air Room Air Oxygen Flow Rate (L/min) 2 08/13/23 09:31 08/13/23 10:28 08/13/23 11:33 Temperature Temperature Source Pulse Rate 63 63 66 Respiratory Rate 17 14 18 Respiratory Effort Respiratory Depth Respiratory Pattern Blood Pressure 115/49 L 119/47 L Blood Pressure Mean 71 71 Pulse Ox 92 94 Oxygen Delivery Method Nasal Cannula Nasal Cannula Oxygen Flow Rate (L/min) 2 2 08/13/23 11:35 Temperature Temperature Source Pulse Rate Respiratory Rate Respiratory Effort Short of Breath Respiratory Depth Normal Respiratory Pattern Normal Blood Pressure Blood Pressure Mean Pulse Ox Oxygen Delivery Method Oxygen Flow Rate (L/min) Positive well nourished and well developed Constitutional Narrative: 2 L nasal cannula during evaluation. General Appearance ED: well developed and NAD HEENT Reports moist mucous membranes normocephalic and atraumatic Eyes PERRL, EOMs intact bilaterally and conjunctivae normal General Eye ED: Yes normal appearance of both eyes Neck no lymphadenopathy and supple General: Negative for tenderness Chest Wall Chest: Negative for tenderness Resp normal respiratory effort and normal air movement Resp Narrative: Mild expiratory wheezing noted. Effort and Inspection: symmetric chest movement; Negative for respiratory distress Cardio regular rate, regular rhythm and no murmurs Peripheral Pulses: pulses 2+ throughout GI normal to inspection, nondistended, normoactive bowel sounds and non-tender Palpation: Negative for guarding or rebound tenderness present Back/Spine no CVA tenderness and no thoracic nor lumbar tenderness Extremity normal to inspection General Extremety ED: Negative for edema or tenderness General Extremity: Negative for edema Neuro oriented x3 and no sensory deficits noted Sensorium / Orientation: awake and alert Skin no rashes or lesions noted and no wounds MDM MDM MDM Narrative Medical decision making narrative: Interventions / MDM: Differential diagnosis: Asthma exacerbation, COVID-19 infection Diagnosis considered but do not suspect: Pneumonia however x-ray negative My EKG interpretation: Sinus rate of 78, no ST changes, T wave version anterior leads, right bundle branch block. Similar findings from 2020 Imaging independently reviewed and interpreted by myself: 2 view chest x-ray: No acute process. Per radiology questionable air-fluid level incidental finding in the colon, clinically no vomiting for concerns for obstructive findings. External documents reviewed: N/A Test considered but not ordered:N/A ED course: Patient 91% room air on arrival 2-day history cough with sweats last night. Superiorly put on 2 L oxygen which helped his symptoms. Workup initiated chest x-ray labs. EKG with chronic finding. COVID flu RSV sent. Expiratory wheezing therefore aerosol treatments were ordered. X-ray negative COVID results returned positive. Labs are stable creatinine slightly elevated 1.3. Up from 1.0. Wheezing improved with aerosol treatments. He was ambulated on room air 1 down to 87% with reported dyspnea. He is placed back on oxygen. Dexamethasone 6 mg IV ordered for COVID-19 hypoxia with wheezing. I will discuss with hospitalist service for admission. Re-evaluation: stable Disposition discussed with patient/family/significant other: Patient Case discussed with consulting clinician: Hospitalist This note was generated with [employer] dictation software. It may contain incorrect words, spelling, and punctuation that were not noted in checking the note before signing. Lab Data Attestation: I reviewed the patient's lab results. Labs: Laboratory Results - last 24 hr 08/13/23 08:58 WBC 9.1 RBC 4.56 L Hgb 13.9 Hct 40.4 MCV 88.6 MCH 30.5 MCHC 34.4 RDW Std Deviation 39.6 RDW Coeff of Sapna 12.2 Plt Count 197 MPV 11.4 Immature Gran % (Auto) 0.300 Neut % (Auto) 77.5 H Lymph % (Auto) 6.3 L [place] % (Auto) 13.1 H Eos % (Auto) 2.4 Baso % (Auto) 0.4 Absolute Neuts (auto) 7.0 Absolute Lymphs (auto) 0.57 L Nucleated RBC % 0 Differential Comment SCANNED Sodium 139 Potassium 4.2 Chloride 106 Carbon Dioxide 28.0 Anion Gap 5 BUN 34 H Creatinine 1.31 H Estim Creat Clear Calc 31.05 Est GFR (MDRD) Af Amer 67 Est GFR (MDRD) Non-Af 55 L BUN/Creatinine Ratio 26.0 H Glucose 143 H Calcium 9.4 Radiography Diagnostic Testing: Clinical Impression(s) from Imaging Studies Chest X-Ray 08/13/23 10:00 IMPRESSION: 1. Hyperinflated lungs with mild diffuse interstitial prominence although no focal airspace disease likely secondary to COPD. 2. Nonspecific partially visualized bowel gas pattern with moderate amount of colonic gas identified. Possible air-fluid levels partially visualized on frontal view. Consider abdominal radiographs or CT if there is high clinical suspicion. Electronically Signed: Tino Raines DO at 11:00 EST , Discharge Plan Triage Chief Complaint: Shortness of Breath ED Provider: Renato Disla Dx/Rx/DC Orders Clinical Impression: COVID-19 virus infection, CKD (chronic kidney disease), stage III, Hypoxia, Cough, Asthma exacerbation Prescriptions: No Action carvedilol [Coreg] 25 MG tablet 25 mg PO BID simvastatin 40 MG tablet 40 mg PO QHS clonidine HCl 0.2 MG tablet 0.1 mg PO TID doxazosin 4 MG tablet 4 mg PO QHS albuterol sulfate [Ventolin HFA] 1 INHALER inhaler 2 puff inhalation Q6H PRN PRN (Reason: Asthma) ascorbic acid (vitamin C) [Vitamin C] 1,000 MG tablet 1,000 mg PO DAILY ginseng 100 MG capsule 100 mg PO DAILY carica papaya 1 EACH tablet 1 ea PO DAILY lecithin 1,200 MG capsule 1,200 mg PO DAILY capsicum (cayenne) 450 MG capsule 450 mg PO DAILY garlic 1,000 MG capsule 1,000 mg PO DAILY milk thistle 150 MG capsule 150 mg PO DAILY calcium carbonate 500 MG tablet 500 mg PO DAILY saw palmetto 500 MG capsule 500 mg PO DAILY vitamin B complex-folic acid [Super B Maxi Complex] 0.4 MG tablet 0.4 mg PO DAILY Fish Oil 500 MG capsule,delayed release(DR/EC) 500 mg PO DAILY cholecalciferol (vitamin D3) [Vitamin D3] 2,000 UNIT capsule 2,000 unit PO DAILY aspirin 81 MG tablet,chewable 81 mg PO DAILY@0800 Qty: 90 0RF nifedipine 60 mg tablet extended release 24hr 60 mg PO DAILY Patient Comments: TAKE 1 TABLET BY MOUTH EVERY DAY finasteride [Proscar] 5 mg tablet 5 mg PO DAILY Patient Comments: TAKE 1 TABLET BY MOUTH EVERY DAY losartan 50 MG tablet 50 mg PO DAILY potassium chloride 20 mEq tablet extended release 20 meq PO BID Qty: 60 1RF
[2023-08-13 09:55] LABS: Differential Comment SCANNED
--- NOTE | 2023-08-13 10:00 | RAD_ITS ---
EXAM: XR CHEST, 2 VIEWS CLINICAL INDICATION: cough TECHNIQUE: Frontal and lateral views of the chest. COMPARISON: 08/08/2021 FINDINGS: LUNGS AND PLEURAL SPACES: Hyperinflated lungs with mild diffuse interstitial prominence although no focal airspace disease likely secondary to COPD. No pneumothorax. No effusion. HEART: No significant abnormality. Cardiac silhouette not enlarged. MEDIASTINUM: Central airways and mediastinal contour are unremarkable. BONES/JOINTS: Degenerative changes in the spine and shoulders. No acute fracture. SOFT TISSUES: No significant abnormality. VASCULATURE: Atherosclerosis. UPPER ABDOMEN: Nonspecific partially visualized bowel gas pattern with moderate amount of colonic gas identified. Possible air-fluid levels partially visualized on frontal view. RAD/Chest PA and Lateral IMPRESSION: 1. Hyperinflated lungs with mild diffuse interstitial prominence although no focal airspace disease likely secondary to COPD. 2. Nonspecific partially visualized bowel gas pattern with moderate amount of colonic gas identified. Possible air-fluid levels partially visualized on frontal view. Consider abdominal radiographs or CT if there is high clinical suspicion. Electronically Signed: Tino Raines DO at 11:00 EST ,
--- NOTE | 2023-08-13 12:11 | PCM.HP.STD ---
HPI - General General Date of Admission: 08/13/23 Date of Service: 08/13/23 Chief Complaint: Cough shortness of breath since 08/10/2023 HPI Narrative CARMEN MOCK, is a 82 M with history of COPD and asthma came to ED for worsening cough, shortness of breath started on 08/10/2023. Patient states he usually does not have cough but advanced evening he started having cough which progressively got worse along with shortness of breath. He also brings up thick yellow mucus/phlegm along with a cough. He was also wheezing, subjective fever and sore throat. Has loss of taste and smell. [place] nausea but no vomiting. Denies abdominal pain alteration of bowel habit but has loss of appetite. Denies burning micturition. In ED, he was found COVID-positive. Chest x-ray done which did not show any acute infiltrate. Patient has history of smoking started at age of 16, started about 1956 and quit in 1992, 3 packs/day. Therefore 23 x 3, 69 pack years of smoking. PENDING SALE TO [facility] Medical History Acute exacerbation of congestive heart failure Asthma Cardiac murmur CHF (congestive heart failure) CKD (chronic kidney disease) COPD (chronic obstructive pulmonary disease) HTN (hypertension) Hyperlipidemia Hypertension Hypoxemia TIA (transient ischemic attack) Home Medications albuterol sulfate 90 mcg/actuation aerosol inhaler (Ventolin HFA) 2 puff inhalation Q6H PRN PRN Asthma 08/25/16 [History Last Taken Unknown] carvedilol 25 mg tablet (Coreg) 25 mg PO BID blood pressure 08/25/16 [History Last Taken Unknown] clonidine HCl 0.2 mg tablet 0.1 mg PO TID blood pressure 08/25/16 [History Last Taken Unknown] doxazosin 4 mg tablet 8 mg PO QHS prostate 08/25/16 [History Last Taken Unknown] simvastatin 40 mg tablet 40 mg PO QHS cholesterol 08/25/16 [History Last Taken Unknown] ascorbic acid (vitamin C) 1,000 mg tablet (Vitamin C) 1,000 mg PO DAILY vitamin 01/20/17 [History Last Taken Unknown] calcium carbonate 500 mg calcium (1,250 mg) tablet 500 mg PO DAILY supplement 01/20/17 [History Last Taken Unknown] capsicum (cayenne) 450 mg capsule 450 mg PO DAILY supplement 01/20/17 [History Last Taken Unknown] carica papaya 1 ea PO DAILY supplement 01/20/17 [History Last Taken Unknown] cholecalciferol (vitamin D3) 50 mcg (2,000 unit) capsule (Vitamin D3) 2,000 unit PO DAILY vitamin 01/20/17 [History Last Taken Unknown] garlic 1,000 mg capsule 1,000 mg PO DAILY supplement 01/20/17 [History Last Taken Unknown] ginseng 100 mg capsule 100 mg PO DAILY supplement 01/20/17 [History Last Taken Unknown] lecithin 1,200 mg capsule 1,200 mg PO DAILY supplement 01/20/17 [History Last Taken Unknown] milk thistle 150 mg capsule 150 mg PO DAILY supplement 01/20/17 [History Last Taken Unknown] omega 3-dha 60 mg-epa 90 mg-fish oil 500 mg capsule, delayed release (Fish Oil) 500 mg PO DAILY supplement 01/20/17 [History Last Taken Unknown] saw palmetto 500 mg capsule 500 mg PO DAILY supplement 01/20/17 [History Last Taken Unknown] vitamin B complex-folic acid 0.4 mg tablet (Super B Maxi Complex) 0.4 mg PO DAILY vitamin 01/20/17 [History Last Taken Unknown] aspirin 81 mg chewable tablet 81 mg PO DAILY@0800 ##90 06/20/20 [Rx Last Taken Unknown] finasteride 5 mg tablet (Proscar) 5 mg PO DAILY prostate 03/28/21 [History Last Taken Unknown] nifedipine 60 mg tablet,extended release 24 hr 30 mg PO DAILY blood pressure 03/28/21 [History Last Taken Unknown] Allergy/AdvReac Type Severity Reaction Status Date / Time acetaminophen [From Tylenol] AdvReac Other Verified 08/13/23 08:28 Family History Other CVA (cerebral vascular accident) Cancer Surgical History History of tonsillectomy Previous back surgery Previous back surgery Social History Smoking Status: Former smoker substance use type: does not use ROS ROS Narrative Constitutional: Reports fatigue and weakness. Subjective fever HEENT: Reports systems reviewed and no addt'l complaints, except as documented Respiratory/Chest: Mild shortness of breath on exertion and wheezing. Rest as described in HPI. CVS: No chest pain or pressure. Gastrointestinal: As described in HPI denies coffee ground emesis, hematemesis or vomiting Genitourinary: Denies burning urination or new urinary tract symptoms Musculoskeletal: Denies acute joint pain or limited range of motion. No acute injury Neurologic: Denies seizure-like symptoms. skin: No ulcer. No rash Endocrinology: Reports systems reviewed and no addt'l complaints, except as documented Hematologic/Lymphatic: Reports systems reviewed and no addt'l complaints, except as documented Rest 14 ROS are negative except as mentioned in HPI Vital Signs Vital Signs Vital Signs: 08/13/23 08:28 08/13/23 09:54 08/13/23 09:55 Temperature 99.9 F H Temperature Source Temporal Pulse Rate 78 Respiratory Rate 20 H Respiratory Effort Respiratory Depth Respiratory Pattern Blood Pressure 166/66 H Blood Pressure Mean 99 Pulse Ox 93 88 92 Oxygen Delivery Method Room Air Room Air Room Air Oxygen Flow Rate (L/min) 2 08/13/23 09:31 08/13/23 10:28 08/13/23 11:33 Temperature Temperature Source Pulse Rate 63 63 66 Respiratory Rate 17 14 18 Respiratory Effort Respiratory Depth Respiratory Pattern Blood Pressure 115/49 L 119/47 L Blood Pressure Mean 71 71 Pulse Ox 92 94 Oxygen Delivery Method Nasal Cannula Nasal Cannula Oxygen Flow Rate (L/min) 2 2 08/13/23 11:35 Temperature Temperature Source Pulse Rate Respiratory Rate Respiratory Effort Short of Breath Respiratory Depth Normal Respiratory Pattern Normal Blood Pressure Blood Pressure Mean Pulse Ox Oxygen Delivery Method Oxygen Flow Rate (L/min) Weight Weight: 149 lb Body Mass Index (BMI) 28.1 Physical Exam Narrative General: Alert, Oriented x3, Cooperative HEENT: Bilateral hard of hearing. Atraumatic, PERRLA, EOMI, Normocephalic Oral: Oral mucosa dry. No Gingival or Mucosal Lesions/ Ulcerations Neck: Supple, No JVD, Negative Carotid Bruits Lungs: Air entry diminished in bilateral lungs. Bilateral coarse crepitation and rhonchi. On 2 L of oxygen. Cardiovascular: Regular rate, Regular Rhythm, Normal S1, Normal S2, systolic murmur right second ICS, . Abdomen: Bowel Sounds Present, Soft, Non Tender, Non-Distended : No renal angle tenderness. No suprapubic tenderness. Extremities: No edema, Capillary Refill Less than 3 Seconds Skin: No rashes, No breakdown Musculoskeletal: No Tenderness to Palpation of Joints or Extremities, muscle strength 5/5 at major joints. Neurological: Cranial nerves II-XII grossly intact, DTR 2+/4. No acute focal neurological deficit. Psych/Mental Status: Normal Affect, Appropriate. Results Lab / Micro Data 08/13/23 08:58 08/13/23 08:58 Labs: Laboratory Results - last 24 hr 08/13/23 08:58: WBC 9.1, RBC 4.56 L, Hgb 13.9, Hct 40.4, MCV 88.6, MCH 30.5, MCHC 34.4, RDW Std Deviation 39.6, RDW Coeff of Sapna 12.2, Plt Count 197, MPV 11.4, Immature Gran % (Auto) 0.300, Neut % (Auto) 77.5 H, Lymph % (Auto) 6.3 L, [place] % (Auto) 13.1 H, Eos % (Auto) 2.4, Baso % (Auto) 0.4, Absolute Neuts (auto) 7.0, Absolute Lymphs (auto) 0.57 L, Nucleated RBC % 0, Differential Comment SCANNED, Sodium 139, Potassium 4.2, Chloride 106, Carbon Dioxide 28.0, Anion Gap 5, BUN 34 H, Creatinine 1.31 H, Estim Creat Clear Calc 31.05, Est GFR (MDRD) Af Amer 67, Est GFR (MDRD) Non-Af 55 L, BUN/Creatinine Ratio 26.0 H, Glucose 143 H, Calcium 9.4 Micro: Microbiology 08/13/23 09:30 Mucosa - Nose SARS-CoV-2, Influenza & RSV (PCR) - Final SARS-CoV-2 (COVID 19 PCR) Imagaing Radiology Impression Chest X-Ray 08/13/23 10:00 IMPRESSION: 1. Hyperinflated lungs with mild diffuse interstitial prominence although no focal airspace disease likely secondary to COPD. 2. Nonspecific partially visualized bowel gas pattern with moderate amount of colonic gas identified. Possible air-fluid levels partially visualized on frontal view. Consider abdominal radiographs or CT if there is high clinical suspicion. Electronically Signed: Tino Raines DO at 11:00 EST , Assessment & Plan Assessment/Plan (1) COPD exacerbation: (2) COVID-19 virus infection: PLAN: Plan This is a 82-year-old gentleman being admitted for cough, shortness of breath URI symptoms consistent with COVID-19 bronchitis 1. COPD/asthma overlap exacerbation most likely due to COVID-19 viral bronchitis: Patient is being admitted to [facility] with telemetry. Patient chest x-ray initially did not show acute infiltrate or consolidation. Patient is started on dexamethasone and remdesivir. Liver chemistry normal. COVID-19 acute inflammatory labs ordered. Patient is being managed on scheduled bronchodilator, Mucinex, incentive spirometry and Pep. Urinary antigens ordered. COVID-19 PCR positive but RSV and flu are negative. Patient had Jung vaccination about a year ago. Never had COVID infection before. Enhanced COVID precaution for 9 days from symptom onset which is 08/10/2023. 2. SHIVA most likely prerenal: Patient baseline creatinine runs around 1.0 admitted with 1.31. BUN 34, BUNs/creatinine ratio 26. IV fluid normal saline at 100 mill per hour for 2 L. Monitor kidney function. Electrolytes in normal range. Serum magnesium level normal. 3. Hyperglycemia: Glucose 143. A1c ordered for tomorrow. Patient does not carry diagnosis of diabetes mellitus. Long history of COPD/asthma with 69 pack years of smoking: Patient on Ventolin HFA at home otherwise no scheduled inhaler. Seen does not follow any food broker. 3. Hypertension and dyslipidemia: Blood pressure in normal range. Hold antihypertensive medications may be resumed from tomorrow. On simvastatin. 4. BPH: BPH: Doxazosin and finasteride ordered. Patient on multiple herbal medications including saw palmetto milk thistle, lecithin, ginseng like fish oil. DVT prophylaxis: Lovenox 30 mg SQ twice daily adjusted to the creatinine clearance as per COVID protocol. Living will/advanced directive/end of life care: Patient does not have living will or advanced directive. He states his next of kin is Roddy Wray, he is jeremiah. After discussion of benefits/risks procedures involved with full code, DNR CC arrest and DNR CC, the patient opted for full code. Patient does want artificial life support including intubation, tube feed, ventilator and/chest compression, central venous catheter, vasopressor and DC shock if needed Total time spent in [id number] encounter in discussion of advanced directive 17 minutes. Microbiology Past 72 Hours 08/13/23 09:30 Mucosa - Nose SARS-CoV-2, Influenza & RSV (PCR) - Final SARS-CoV-2 (COVID 19 PCR) Laboratory Results 08/13/23 08:58: WBC 9.1, RBC 4.56 L, Hgb 13.9, Hct 40.4, MCV 88.6, MCH 30.5, MCHC 34.4, RDW Std Deviation 39.6, RDW Coeff of Sapna 12.2, Plt Count 197, MPV 11.4, Immature Gran % (Auto) 0.300, Neut % (Auto) 77.5 H, Lymph % (Auto) 6.3 L, [place] % (Auto) 13.1 H, Eos % (Auto) 2.4, Baso % (Auto) 0.4, Absolute Neuts (auto) 7.0, Absolute Lymphs (auto) 0.57 L, Nucleated RBC % 0, Differential Comment SCANNED, Sodium 139, Potassium 4.2, Chloride 106, Carbon Dioxide 28.0, Anion Gap 5, BUN 34 H, Creatinine 1.31 H, Estim Creat Clear Calc 31.05, Est GFR (MDRD) Af Amer 67, Est GFR (MDRD) Non-Af 55 L, BUN/Creatinine Ratio 26.0 H, Glucose 143 H, Calcium 9.4, Magnesium 2.2, Total Bilirubin 0.30, Direct Bilirubin 0.13, AST 17, ALT 24, Alkaline Phosphatase 72, Total Protein 7.6, Albumin 3.8, Globulin 3.8 Clinical Impression(s) from Imaging Studies Chest X-Ray 08/13/23 10:00 IMPRESSION: 1. Hyperinflated lungs with mild diffuse interstitial prominence although no focal airspace disease likely secondary to COPD. 2. Nonspecific partially visualized bowel gas pattern with moderate amount of colonic gas identified. Possible air-fluid levels partially visualized on frontal view. Consider abdominal radiographs or CT if there is high clinical suspicion. 03/29/2021 Interpretation Summary Normal LV size. Left ventricular systolic function is normal. The estimated ejection fraction is 65 %. Stage 1 diastolic dysfunction. Pulmonary artery systolic pressure is 45 mmHg. Mild aortic stenosis. Charges/Coding Visit Charges Inpatient E&M: 52995 Init Hosp L3 Procedures Hospitalists Procedures: 53374 Advncd Care Plan 30 Min
[2023-08-13] MEDS: dexAMETHasone 10 MG/ML Vial 6 MG IV (12:13)
--- OUTSIDE RECORDS SUMMARY | 2023-08-13 12:24 | XMS RPT_ITS | CCD ---
Author Name Unknown Address [address] [place] [address] Organization [facility] Care Team Providers Care Director Of Graduate Medical Education Name Role Phone Petrilla, Pasha Attending Unavailable [...] Pasha Bland DO Primary Care Provider [phone] Pasha Bland DO Primary Care Provider PASHA BLAND Primary Care Unavailable MOISÉS SOSA [...] [ACETAMINOPHEN] Drug Allergy 0 Other: See Comments [facility] (4 sources) Seasonal allergy; Translations: [SEASONAL ALLERGIES] Propensity to adverse reactions 9 [facility] Work Phone: (4 sources) Adhesive Tape-Silicones; Translations: [ADHESIVE TAPE-SILICONES] Drug Allergy 0 Rash [facility] (2 sources) Sea salt; Translations: [SEA SALT] Drug Allergy 3 Hives, Shortness of Breath [facility] (5 sources) Acetaminophen Drug Allergy 0 [facility] (5 sources) Non-steroidal anti-inflammatory agent Drug Intolerance 6 [facility] (5 sources) Sodium Chloride Drug Allergy 3 Hives, Shortness of breath [facility] (5 sources) traMADol Drug Allergy 6 Shortness of breath [facility] (5 sources) Other Propensity to adverse reactions 9 [facility] (5 sources) Wound Dressing Adhesive Drug Allergy 0 Rash [facility] Medications Current Medications Medication Drug Class(es) Dates [...] 06-16-2023 09:08-0400 Diastolic blood pressure 70 mm[Hg] [facility] [place] [facility] 06-16-2023 09:08-0400 Heart rate 57 /min [facility] [place] [facility] 06-16-2023 09:08-0400 SaO2% (BldA) [Mass fraction] 97 % [facility] [place] [facility] 06-16-2023 09:08-0400 Systolic blood pressure 127 mm[Hg] [facility] [place] [facility] 05-26-2023 14:29-0400 Diastolic blood pressure 84 mm[Hg] Pasha Bland DO Work Phone: [facility] 05-26-2023 14:29-0400 Heart rate 68 /min Pasha Bland DO Work Phone: [facility] 05-26-2023 14:29-0400 Systolic blood pressure 144 mm[Hg] Pasha Bland DO Work Phone: [facility] 05-26-2023 13:55-0400 Body height 152.4 cm Pasha Bland DO Work Phone: [facility] 05-26-2023 13:55-0400 Body mass index (BMI) [Ratio] 29.29 kg/m2 Pasha Bland DO Work Phone: [facility] 05-26-2023 13:55-0400 Body temperature 98.6 [degF] Pasha Bland DO Work Phone: [facility] 05-26-2023 13:55-0400 Body weight 68.04 kg Pasha Bland DO Work Phone: [facility] 05-26-2023 13:55-0400 SaO2% (BldA) [Mass fraction] 93 % Pasha Bland DO Work Phone: [facility] 11-24-2022 13:58-0400 Body height 152.4 cm Pasha Bland DO Work Phone: [facility] 11-24-2022 13:58-0400 Body mass index (BMI) [Ratio] 30.27 kg/m2 Pasha Bland DO Work Phone: [facility] 11-24-2022 13:58-0400 Body temperature 98.01 [degF] Pasha Bland DO Work Phone: [facility] 11-24-2022 13:58-0400 Body weight 70.31 kg Pasha Bland DO Work Phone: [facility] 11-24-2022 13:58-0400 Diastolic blood pressure 55 mm[Hg] Pasha Bland DO Work Phone: [facility] 11-24-2022 13:58-0400 Heart rate 60 /min Pasha Bland DO Work Phone: [facility] 11-24-2022 13:58-0400 SaO2% (BldA) [Mass fraction] 97 % Pasha Bland DO Work Phone: [facility] 11-24-2022 13:58-0400 Systolic blood pressure 134 mm[Hg] Pasha Bland DO Work Phone: [facility] 11-02-2022 13:56-0400 Body height 152.4 cm Sung Shen DO Work Phone: [facility] 11-02-2022 13:56-0400 Body weight 68.04 kg Sung Shen DO Work Phone: [facility] 11-02-2022 13:56-0400 Diastolic blood pressure 48 mm[Hg] Sung Shen DO Work Phone: [facility] 11-02-2022 13:56-0400 Heart rate 54 /min Sung Shen DO Work Phone: [facility] 11-02-2022 13:56-0400 SaO2% (BldA) [Mass fraction] 96 % Sung Shen DO Work Phone: [facility] 11-02-2022 13:56-0400 Systolic blood pressure 110 mm[Hg] Sung Shen DO Work Phone: [facility] 05-03-2022 09:51-0400 Body height 152.4 cm Mariah White SUEDE CLEANER.TAG CLERK Work Phone: [facility] 05-03-2022 09:51-0400 Body weight 64.68 kg Mariah White SUEDE CLEANER.TAG CLERK Work Phone: [facility] 05-03-2022 09:51-0400 Diastolic blood pressure 62 mm[Hg] Mariah White SUEDE CLEANER.TAG CLERK Work Phone: [facility] 05-03-2022 09:51-0400 Heart rate 55 /min Mariah White SUEDE CLEANER.TAG CLERK Work Phone: [facility] 05-03-2022 09:51-0400 SaO2% (BldA) [Mass fraction] 96 % Mariah White APRN.CNP Work Phone: [facility] 05-03-2022 09:51-0400 Systolic blood pressure 134 mm[Hg] Mariah White APRN.CNP Work Phone: [facility] Encounters Encounter Date Encounter Type Care Provider Facility Start: 06-16-2023 End: 06-16-2023 ambulatory PASHA BLAND [facility] Start: 06-16-2023 End: 06-16-2023 Clinical Support [facility] Schedule [facility] Family [facility] Procedures Date Procedure Procedure Detail Performing Clinician Start: 05-26-2023 Lipid 1996 panel - S thanh or Plasma [facility] [place] Start: 11-25-2022 Lipid 1996 panel - S thanh or Plasma Pasha Bland DO Work Phone: Start: 05-27-2022 Lipid 1996 panel - S thanh or Plasma Pasha Bland DO Work Phone: Plan of Treatment Date Care Activity Detail Author Start: 05-26-2028 Lipid panel Lipid Panel [facility] Start: 11-26-2027 Lipid panel Lipid Panel [facility] Start: 05-27-2027 Lipid panel Lipid Panel [facility] Start: 05-26-2024 Creatinine measurement Creatinine Level [facility] Start: 05-26-2024 Potassium measurement Potassium Level [facility] Start: 04-07-2024 DIABETES SCREEN DIABETES SCREEN [facility] Start: 11-26-2023 Creatinine measurement Creatinine Level [facility] Start: 11-26-2023 Potassium measurement Potassium Level [facility] Start: 11-24-2023 End: 11-24-2023 Patient encounter procedure 11/24/2023 1:30 PM EDT Office Visit [facility] [address] [place] [address] Pasha Bland DO [address] [place] [address] [facility] Start: 06-16-2023 End: 06-16-2023 Clinical Support 06/16/2023 9:20 AM EDT Clinical Support [facility] [address] [place] [address] [facility] Start: 06-14-2023 Potassium measurement Potassium Level [facility] Start: 05-27-2023 Creatinine measurement Creatinine Level [facility] Start: 05-26-2023 End: 05-26-2024 CBC W Auto Differential panel - Blood CBC auto differential Lab Routine Normochromic normocytic anemia Expected: 05/26/2023 (Approximate), Expires: 05/26/2024 [facility] Work Phone: Immunizations Immunization Date Immunization Notes Care Provider Fa cili 05-26-2023 Influenza, Seasonal, Quadrivalent, Adjuvanted Pasha Petrilla DO Work Phone: [facility] 05-26-2022 Influenza, Seasonal, Quadrivalent, Adjuvanted Pasha Petrilla DO Work Phone: [facility] 05-26-2022 unknown vaccine or immune globulin Pasha Jefflla DO Work Phone: [facility] 05-26-2022 influenza virus vacc ine, unspecified formulation Pasha Jefflla DO Work Phone: [facility] 05-26-2021 Influenza, High-dose Seasonal, Quadrivalent, Preservative Free Pasha Petrilla DO Work Phone: [facility] 10-23-2020 Mercedes SARS-CoV-2 Vaccination Pasha Petrilla DO Work Phone: [facility] 06-19-2020 influenza virus vacc ine, unspecified formulation Pasha Petrilla DO Work Phone: [facility] 06-19-2020 influenza, seasonal, injectable, preservative free Pasha Petrilla DO Work Phone: [facility] 07-23-2019 influenza, high dose seasonal, preservative-free Mariah Santos RN [facility] 05-29-2018 influenza, high dose seasonal, preservative-free Mariah Santos RN [facility] 06-06-2017 influenza, injectabl e, quadrivalent, contains preservative Mariah Santos RN [facility] 05-07-2016 influenza virus vacc ine, unspecified formulation Pasha Bland DO Work Phone: [facility] 05-07-2016 influenza, seasonal, injectable Mariah Santos RN [facility] 05-07-2016 pneumococcal polysaccharide vaccine, 23 valent Mariah Santos RN [facility] 07-14-2015 pneumococcal conjuga te vaccine, 13 valent Mariah Santos RN [facility] 05-14-2015 influenza virus vacc ine, unspecified formulation Pasha Montelongojuan m DO Work Phone: [facility] 05-14-2015 influenza, high dose seasonal, preservative-free Mariah Santos RN [facility] 05-25-2014 influenza virus vacc ine, unspecified formulation Pasha Montelongojuan m DO Work Phone: [facility] 05-25-2014 influenza, seasonal, injectable Mariah Santos RN [facility] 05-25-2014 zoster vaccine, live Mariah Santos RN [facility] 02-28-2008 pneumococcal polysaccharide vaccine, 23 valent Mariah White SUEDE CLEANER.TAG CLERK Work Phone: [facility] 06-19-2007 influenza virus vacc ine, unspecified formulation Mariah Santos RN [facility] Work Phone: 06-19-2007 influenza, seasonal, injectable Mariah Santso RN [facility] Payers Date Payer Category Payer Medicare ANTHEM MEDICARE ADVANTAGE ANTH MEDICARE ADVANTAGE [id number] 2021-Present [address] [place] [address] Medicare O [id number] 2020 Unknown 2020 Unknown ANTHEM BLUE [facility] S AND BLUE [facility] [id number] 2020 [address] [place] [address] [facility] [id number] 2020 Unknown [id number] 1940 Unknown [id number] 1938 Unknown [id number] 1938 Unknown [id number] 1938 Unknown [id number] 1938 Unknown [id number] Social History Date Type Detail Facility Start: 05-03-2022 End: 05-26-2023 Tobacco smoking status NHIS Ex-smoker [facility] History of tobacco use Chews Tobacco [facility] Start: 10-15-2021 End: 05-26-2023 Alcohol intake Current drinker of alcohol (finding) [facility] Start: 02-19-2020 History SDOH Financial 5 [facility] Start: 02-19-2020 History SDOH Food Worry 1 [facility] Start: 02-19-2020 History SDOH Transpo rt Med 2 [facility] Start: 1940 Sex Assigned At Not on file C [facility] End: 07-14-1993 History of tobacco use Current smoker [facility] Start: 05-03-2022 End: 05-26-2023 Tobacco use and exposure Former smokeless tobacco user [facility] Start: 05-03-2022 Tobacco Comment QUIT IN 1992 [facility] End: 07-14-1993 History of tobacco use Cigarette Smoker [facility] End: 04-26-1999 History of tobacco use User of smokeless tobacco [facility] Start: 11-24-2022 End: 05-26-2023 Alcohol intake [facility] Start: 11-14-2022 End: 11-24-2022 Exposure to SARS-CoV-2 (event) Not sure [facility] Start: 11-24-2022 End: 05-26-2023 Tobacco use panel [facility] Clinical Notes 02-01-2020 to 06-16-2023 Nandini Romano [...] Provider Department Center 06/16/2023 9:20 AM SCHEDULE, [facility] 11/24/2023 1:30 PM Pasha Bland DO [facility] Placed call to patient. Was able to speak to patient. All concerns in message have been addressed. No questions at this time. 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 I just picked up some but he last night. [facility] [address] [facility] [address] Visit type: Established Patient Reason for [...] Problem Relation Name Age of Onset Other (23349) Sister MVA Diabetes Brother 6 Other ([id number]) Brother infancy Stroke Mother 75 acute CVA Lung cancer Brother age 69 Other ([id number]) Brother infancy Cancer Father 73 ,met gastric CA Colon cancer Sister age 68 Other ([id number]) Sister 3 all 6 bro and 3 [...] No skin breakdowns. documented in this encounter [facility] 05-05-2023 Note HNO ID: [id number] Author: Moisés Sosa APRN.TAG CLERK Service: ? Author Type: Nurse Practitioner Type: Progress Notes Filed: 05/09/2023 11:05 AM Note Text: [facility] Department of Cardiovascular Medicine SECTION [...] which included preparing to see the patient, [id number] patient care, completing clinical documentation, performing a [...] prior to the follow up. Moisés Sosa APRN.[facility] Cardiology Nurse Practitioner Section of Regional Cardiology [facility] Dept of Cardiovascular Medicine [facility] [address] [place] [address] Office Office May 05, 2023 2:30 PM This note was partially generated using [employer] voice recognition system and may contain errors [...] reviewed the Electro (more content not included)... [facility] 01-17-2023 Miscellaneous Notes Rx loaded Medication [...] the medication: Yes documented in this encounter [facility] 01-17-2023 Telephone encounter Note Rx loaded [facility] 01-17-2023 Telephone encounter Note Medication name: NIFEdipine [...] prior to picking up the medication: Yes [facility] 11-24-2022 History of Present illness Narrative Images from the original note were not included. [facility] [address] [facility] [address] Visit type: Established Patient Reason for Visit: [...] dysfunction and intermittent heart failure. Recently saw finish machine tender with no change in meds. Last fall [...] Problem Relation Name Age of Onset Other (02882) Sister MVA Diabetes Brother 6 Other ([id number]) Brother infancy Stroke Mother 75 acute CVA Lung cancer Brother age 69 Other (13205) Brother infancy Cancer Father 73 ,met gastric CA Colon cancer Sister age 68 Other (60098) Sister 3 all 6 bro and 3 [...] which is chronic. documented in this encounter [facility] 11-02-2022 Note HNO ID: [id number] Author: Sung Shen DO Service: ? Author Type: Physician Type: Progress Notes Filed: 11/02/2022 2:13 PM Note Text: [facility] OUTPATIENT VISIT DATE November 02, 2022 PRIMARY CARE PHYSICIAN: PASHA BLAND [address] [place] [address] HISTORY OF PRESENT ILLNESS: Mr. Mock is [...] per Dr Nicole COLONOSCOPY - DIAGNOSTIC [facility]: colonoscopy per Dr. Rodney: WNL COLONOSCOPY FLX DX W/COLLJ SPEC WHEN PFRMD 05/08/13 Colonoscopy repeat 2 years COLONOSCOPY FLX DX W/COLLJ SPEC WHEN PFRMD 11/27/15 Colonoscopy COLONOSCOPY W/BIOPSY SINGLE/MULTIPLE 03/24/09 ESOPHAGOGASTRODUODENOSCOPY TRANSORAL DIAGNOSTIC 05/08/13 EGD NEUROPLASTY AND/VIGIL (more content not included)... [facility] 11-02-2022 History of Present illness Narrative Images from the original note were not included. [facility] OUTPATIENT VISIT DATE November 02, 2022 PRIMARY CARE PHYSICIAN: PASHA BLAND [address] [place], [place] [id number] HISTORY OF PRESENT ILLNESS: Mr. Mock is [...] per Dr Nicole COLONOSCOPY - DIAGNOSTIC [facility]: colonoscopy per Dr. Rodney: WNL COLONOSCOPY [...] cap Take 1 capsule by mouth. Saw [place] Fruit 450 mg cap Take 1 capsule [...] Department of Medicine and Division of Cardiology, [facility] Police Specialistcrime scene analyst [facility] Police Specialist of Congestive Heart Failure Clinic [facility] Cardiology Office Police Specialist [facility] Staff Information Assistant, [facility] Department of Cardiovascular Medicine/[facility], [facility] Clinical Burner Shaft Profressor of Medicine, [facility] Please note: This note has been produced using speech recognition software and may contain errors related to that system including vish, punctuation, spelling, words, gender and phrases that may be inappropriate. documented in this encounter [facility] 05-03-2022 History of Present illness Narrative Images from the original note were not included. [facility] Department of Cardiovascular Medicine SECTION OF CLINICAL CARDIOLOGY OUTPATIENT VISIT DATE May 01, 2022 OUTPATIENT VISIT TYPE ESTABLISHED PRIMARY CARE PHYSICIAN: [place] [address] REASON FOR VISIT: 6 month follow up [...] per Dr Nicole COLONOSCOPY - DIAGNOSTIC [facility]: colonoscopy per Dr. Rodney: WNL COLONOSCOPY [...] cap Take 1 capsule by mouth. Saw [place] Fruit 450 mg cap Take 1 capsule [...] 7. History of TIA - Admit to [facility] 06/2020, neuroimaging negative for acute stroke 8. [...] factor modification and follow up with Dr. Shen in 6 months time, or sooner should need arise. CONTACT INFORMATION: Mariah White APRN.GREG Cardiology Nurse Practitioner Section of Regional Cardiology [facility] Dept of Cardiovascular Medicine [facility] [address] [place] [address] Office Office This note was partially generated using [employer] voice recognition system, and there may be some incorrect words, spellings, and punctuation that were not noted in checking the note before saving. I personally interviewed, confirmed and edited the above information if obtained by others. documented in this encounter [facility] 11-13-2021 Miscellaneous Notes Received call from Zoë at Dr. Bland's office. Trying to find out if patient is supposed to be taking Lasix and Losartan. Returned call; per notes, no medication changes were made during STACY. Patient self-discontinued losartan potassium back on 06/16/2021. Per request, faxed current med report and STACY notes to [phone]. documented in this encounter [facility] 04-07-2021 Note HNO ID: [id number] Author: Teresita Klein APRN.GREG Service: ? Author Type: Nurse Practitioner Type: Progress Notes Filed: 04/07/2021 10:42 AM Note Text: [facility] Failure [facility] OUTPATIENT VISIT DATE [...] 12 months. Admission was on 03/28/2021 in [place] in which he was treated for heart [...] The patient was seen by Cardiology via [facility] on 04/02/2021 for complaints of lower extremity [...] Laterality Date - COLONOSCOP W/ OR W/O [facility] SPEC 05/08/13 Colonoscopy repeat 2 years - COLONOSCOP W/ OR W/O [facility] SPEC 11/27/15 Colonoscopy - COLONOSCOPY - DIAGNOSTIC [facility]: colonoscopy per Dr. Rodney: WNL - COLONOSCOPY W/BX 03/24/09 - EGD W/O OR W/ (more content not included)... [facility] 09-02-2020 Note HNO ID: [id number] Author: Nanette Anguiano Service: ? Author Type: Nurse Practitioner Type: Progress Notes Filed: 09/02/2020 11:57 AM Note Text: [facility] OUTPATIENT VISIT DATE [...] x 1 week at which time his [id number] was increased to 10 mg daily. He [...] Laterality Date - COLONOSCOP W/ OR W/O [facility] SPEC 05/08/13 Colonoscopy repeat 2 years - COLONOSCOP W/ OR W/O [facility] SPEC 11/27/15 Colonoscopy - COLONOSCOPY - DIAGNOSTIC [facility]: colonoscopy per Dr. Rodney: WNL - COLONOSCOPY W/BX 03/24/09 - EGD W/O OR W/BRUSH/WASH 05/08/13 EGD - PAST SURGICAL HISTORY OF 1981 removal benign tumor on voice box/ Dr. Nicole - PAST SURGICAL HISTORY OF 1997 release [...] Cancer Sister - (more content not included)... [facility] 06-04-2020 Note HNO ID: [id number] Author: Nanette Oliva) Silvio Service: ? 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 Author Type: Nurse Practitioner Type: Progress Notes Filed: 05/21/2020 10:41 AM Note Text: [facility] Failure [facility] OUTPATIENT VISIT DATE [...] hypertension 09/13/2005 - (more content not included)... [facility] documented as of this encounter (statuses as of 11/13/2021) [facility] History of Past illness Narrative* Problem [...] of this encounter (statuses as of 05/03/2022) [facility] History of Past illness Narrative* Problem [...] of this encounter (statuses as of 11/02/2022) [facility] note* Diagnosis Chronic diastolic CHF (congestive heart failure) (HCC)- Primary Chronic diastolic heart failure RBBB Right bundle branch block Essential hypertension Unspecified essential hypertension Mixed hyperlipidemia documented in this encounter [facility] note* Diagnosis Chronic diastolic CHF (congestive heart failure) (HCC)- Primary Chronic diastolic heart failure Essential hypertension Unspecified essential hypertension Mixed hyperlipidemia RBBB Right bundle branch block documented in this encounter [facility] note* Diagnosis Essential hypertension- Primary Unspecified essential hypertension Normochromic normocytic anemia Hypercholesterolemia Pure hypercholesterolemia Impaired fasting glucose Chronic renal impairment, stage 2 (mild) [facility] [place] Diagnosis Essential hypertension- Primary Unspecified essential hypertension Hypercholesterolemia Pure hypercholesterolemia Chronic renal impairment, stage 2 (mild) Normochromic normocytic anemia Congestive heart failure, unspecified HF chronicity, unspecified heart failure type (HCC) [facility] Diagnosis Essential hypertension Unspecified essential hypertension [facility] Outpatient Procedure (Routine) - Closed Specialty Diagnoses / Procedures Referred By Contac t Referred To Contact [facility] Diagnoses Chronic diastolic CHF (congestive heart failure) (HCC) RBBB Essential hypertension Mixed hyperlipidemia Procedures ECG COMPLETE ECG ROUTINE ECG W/LEAST 12 LDS W/I&R Mariah White APRN.CNP [address] [place] [address] [facility] [address] [place] [id number] Referral ID Status Reason Start Date Expiration Date V isits Requested Visits Authorized [id number] Closed Auto-Generate d Referral 05/03/2022 05/01/2023 1 1 [facility] Summary Purpose Family History No Family History Records FoundNo Family History Records FoundNo Family History Records FoundNo Family History Records FoundNo Family History Records Found Advance Directives No Advanced Directives Records FoundDocuments on File Type Date Recorded Patient Regional Clinical Director Expl anation Advance Directive(s) 06/12/2020 12:15 PM [...] DATE CREATED AUTHOR AUTHOR'S ORGANIZ ATION 09/08/2020 [facility] DATE CREATED AUTHOR AUTHOR'S ORGANIZ ATION 04/08/2021 [facility] DATE CREATED AUTHOR AUTHOR'S ORGANIZ ATION 06/14/2023 [facility] DATE CREATED AUTHOR AUTHOR'S ORGANIZ ATION 06/21/2023 [facility] Source Comments (unrecognize d section and content) In the event this informatio n is protected by the Federal Confidentiality of Alcohol and Drug Abuse Patient Records regulations: The Federal rules restrict any use of the information to criminally investigate or prosecute any alcohol or drug abuse patient.[facility] the event this information is protected by the Federal Confidentiality of Alcohol and Drug Abuse Patient Records regulations: The Federal rules restrict any use of the information to criminally investigate or prosecute any alcohol or drug abuse patient.[facility] the event this information is protected by the Federal Confidentiality of Alcohol and Drug Abuse Patient Records regulations: The Federal rules restrict any use of the information to criminally investigate or prosecute any alcohol or drug abuse patient.[facility] Reason for Visit (unrecogniz ed section and content) Reason Comments Cardiology Follow Up Reason Comments Established Patient Follow-Up Swelling i n legs Reason Comments Follow-up 6 month med check Reason Onset Date Comments Med Refill 01/17/2023 Reason Comments Blood Pressure Check Elevated in the off ice Care Teams (unrecognized sec tion and content) Director Of Graduate Medical Education Relationship Specialty Start Date End Date Pasha Bland [address] [place] [id number] PCP - General Family Practice 07/18/20 Kiana Alejandre MD [address] [place] [address] Consulting Neurology 07/29/20 Yani Woodson MD [address] [place] [address] Consulting Neurology 07/29/20 Sung Shen, DO [address] [place] [address] Information Assistant Cardiology 04/05/21 Director Of Graduate Medical Education Relationship Specialty Start Date End Date Pasha Bland [address] [address] PCP - General Family Medicine 07/18/20 Kiana Alejandre MD [address] [place] [address] Consulting Neurology 07/29/20 Yani Woodson MD [address] [place] [address] Consulting Neurology 07/29/20 Sung Shen, DO [address] [place] [address] Information Assistant Cardiology 04/05/21 Director Of Graduate Medical Education Relationship Specialty Start Date End Date Pasha Bland, [address] [place], [place] [id number] PCP - General 02/11/15 Director Of Graduate Medical Education Relationship Specialty Start Date End Date Pasha Bland, [address] [place], [place] [id number] PCP - General 02/11/15 Director Of Graduate Medical Education Relationship Specialty Start Date End Date Pasha Bland DO [address] [place], [place] [id number] PCP - General 02/11/15 Director Of Graduate Medical Education Relationship Specialty Start Date End Date Pasha Bland DO [address] [place] [address] PCP - General 02/11/15 Director Of Graduate Medical Education Relationship Specialty Start Date End Date Pasha Bland DO [address] [place] [address] PCP - General 02/11/15 FOR [...] BE BASED ON THE PRIMARY CLINICAL RECORDS. [facility]. provides no warranty or guarantee of the accuracy or completeness of information in this document.
[2023-08-13 12:44] LABS: AST(SGOT) 17 U/L (15-37); Alanine Aminotransfer ALT/SGPT 24 U/L (16-61); Albumin, Serum 3.8 g/dL (3.2-5.0); Alkaline Phosphatase 72 U/L (45-117); Bilirubin, Direct 0.13 mg/dL (0.00-0.30); Globulin 3.8 g/dL (2.2-4.2); Magnesium 2.2 mg/dL (1.6-2.6); Protein, Total 7.6 g/dL (6.4-8.2)
--- OUTSIDE RECORDS SUMMARY | 2023-08-13 12:46 | XMS RPT_ITS | CCD ---
Author Name Unknown Address [address] [place] [address] Organization [facility] Care Team Providers Care Applications Developer Name Role Phone Petrilla, Pasha Attending Unavailable [...] Primary Care Provider Kiana Alejandre MD Unavailable [phone] Yani Woodson MD Unavailable Sung Shen DO Unavailable Jasmina Pasha F Primary Care Provider Kiana Alejandre MD Unavailable [phone] Yani Woodson MD Unavailable Sung Shen DO Unavailable Edwina Pasha F Primary Care Provider Kiana Alejandre MD Unavailable Yani Woosdon MD Unavailable Sung Shen DO Unavailable Edwina PETTY Pasha F Primary Care Provider Pasha Bland DO Primary Care Provider Pasha Bland DO Primary Care Provider PASHA BLAND Primary Care Unavailable MOISÉS SOSA Referring Unavailable PASHA BLAND Primary Care Unavailable MOISÉS SOSA Attending Unavailable USNG SHEN Referring Unavailab SUNG Gonzalez Attending Unavailab PASHA Burton Primary Care Unavailable EDWINA, PASHA Primary Care Unavailable EDWINA, PASHA Attending Unavailable JEFFLLInge, PASHA Primary Care Unavailable EDWINA, PASHA Attending Unavailable JEFFLLInge, PASHA Primary Care Unavailable Allergies Allergy Classification Reported Allergen(s) Allergy Type Date of Onset Reaction(s) Facility (4 sources) Acetaminophen; Translations: [ACETAMINOPHEN] Drug Allergy 0 Other: See Comments [facility] (4 sources) Seasonal allergy; Translations: [SEASONAL ALLERGIES] Propensity to adverse reactions 9 [facility] Work Phone: (4 sources) Adhesive Tape-Silicones; Translations: [ADHESIVE TAPE-SILICONES] Drug Allergy 0 Rash [facility] (2 sources) Sea salt; Translations: [SEA SALT] Drug Allergy 3 Hives, Shortness of Breath [facility] (5 sources) Acetaminophen Drug Allergy [address] [facility] (5 sources) Non-steroidal anti-inflammatory agent Drug Intolerance [address] [facility] (5 sources) Sodium Chloride Drug Allergy 3 Hives, Shortness of breath [facility] (5 sources) traMADol Drug Allergy 6 Shortness of breath [facility] (5 sources) Other Propensity to adverse reactions [address] [facility] (5 sources) Wound Dressing Adhesive Drug Allergy [address] [facility] Medications Current Medications Medication Drug [...] 06-16-2023 09:08-0400 Diastolic blood pressure 70 mm[Hg] [facility] 06-16-2023 09:08-0400 Heart rate 57 /min [facility] 06-16-2023 09:08-0400 SaO2% (BldA) [Mass fraction] 97 % [facility] 06-16-2023 09:08-0400 Systolic blood pressure 127 mm[Hg] [facility] [place] [facility] 05-26-2023 14:29-0400 Diastolic blood pressure 84 mm[Hg] Pasha Bland DO Work Phone: [facility] [employer] 05-26-2023 14:29-0400 Heart rate 68 /min Pasha Bland DO Work Phone: [facility] [employer] 05-26-2023 14:29-0400 Systolic blood pressure 144 mm[Hg] Pasha Bland DO Work Phone: [facility] [employer] 05-26-2023 13:55-0400 Body height 152.4 cm Pasha Bland DO Work Phone: [facility] [employer] 05-26-2023 13:55-0400 Body mass index (BMI) [Ratio] 29.29 kg/m2 Pasha Bland DO Work Phone: [facility] [employer] 05-26-2023 13:55-0400 Body temperature 98.6 [degF] Pasha Bland DO Work Phone: [facility] [employer] 05-26-2023 13:55-0400 Body weight 68.04 kg Pasha Bland DO Work Phone: [facility] [employer] 05-26-2023 13:55-0400 SaO2% (BldA) [Mass fraction] 93 % Pasha Bland DO Work Phone: [facility] [employer] 11-24-2022 13:58-0400 Body height 152.4 cm Pasha Bland DO Work Phone: [facility] [employer] 11-24-2022 13:58-0400 Body mass index (BMI) [Ratio] 30.27 kg/m2 Pasha Bland DO Work Phone: [facility] [employer] 11-24-2022 13:58-0400 Body temperature 98.01 [degF] Pasha Bland DO Work Phone: [facility] [employer] 11-24-2022 13:58-0400 Body weight 70.31 kg Pasha Bland DO Work Phone: [facility] [employer] 11-24-2022 13:58-0400 Diastolic blood pressure 55 mm[Hg] Pasha Bland DO Work Phone: [facility] [employer] 11-24-2022 13:58-0400 Heart rate 60 /min Pasha Bland DO Work Phone: [facility] [employer] 11-24-2022 13:58-0400 SaO2% (BldA) [Mass fraction] 97 % Pasha Bland DO Work Phone: [facility] [employer] 11-24-2022 13:58-0400 Systolic blood pressure 134 mm[Hg] Pasha Bland DO Work Phone: [facility] 11-02-2022 13:56-0400 Body height 152.4 cm Sung Shen DO Work Phone: [facility] 11-02-2022 13:56-0400 Body weight 68.04 kg Sung Shen DO Work Phone: [facility] 11-02-2022 13:56-0400 Diastolic blood pressure 48 mm[Hg] Sung Shen DO Work Phone: [facility] 11-02-2022 13:56-0400 Heart rate 54 /min Sung Shen DO Work Phone: [facility] 11-02-2022 13:56-0400 SaO2% (BldA) [Mass fraction] 96 % Sung Shen DO Work Phone: [facility] 11-02-2022 13:56-0400 Systolic blood pressure 110 mm[Hg] Sung Shen DO Work Phone: [facility] 05-03-2022 09:51-0400 Body height 152.4 cm Mariah White PREPARATION SUPERVISOR CANNING.BULK SEALER OPERATOR Work Phone: [facility] 05-03-2022 09:51-0400 Body weight 64.68 kg Mariah White PREPARATION SUPERVISOR CANNING.BULK SEALER OPERATOR Work Phone: [facility] 05-03-2022 09:51-0400 Diastolic blood pressure 62 mm[Hg] Mariah White PREPARATION SUPERVISOR CANNING.BULK SEALER OPERATOR Work Phone: [facility] 05-03-2022 09:51-0400 Heart rate 55 /min Mariah White PREPARATION SUPERVISOR CANNING.BULK SEALER OPERATOR Work Phone: [facility] 05-03-2022 09:51-0400 SaO2% (BldA) [Mass fraction] 96 % Mariah White APRN.CNP Work Phone: [facility] 05-03-2022 09:51-0400 Systolic blood pressure 134 mm[Hg] Mariah White APRN.CNP Work Phone: [facility] Encounters Encounter Date Encounter Type Care Provider Facility Start: 06-16-2023 End: 06-16-2023 ambulatory PASHA BLAND [facility] Start: 06-16-2023 End: 06-16-2023 Clinical Support [facility] Procedures Date Procedure Procedure Detail Performing Clinician Start: 05-26-2023 Lipid 1996 panel - S thanh or Plasma [facility] Start: 11-25-2022 Lipid 1996 panel - S thanh or Plasma Pasha Bland DO Work Phone: Start: 05-27-2022 Lipid 1996 panel - S thanh or Plasma Pasha Bland DO Work Phone: Plan of Treatment Date Care Activity Detail Author Start: 05-26-2028 Lipid panel Lipid Panel [facility] Start: 11-26-2027 Lipid panel Lipid Panel [facility] Start: 05-27-2027 Lipid panel Lipid Panel [facility] Start: 05-26-2024 Creatinine measurement Creatinine Level [facility] Start: 05-26-2024 Potassium measurement Potassium Level [facility] Start: 04-07-2024 DIABETES SCREEN DIABETES SCREEN [facility] Start: 11-26-2023 Creatinine measurement Creatinine Level [facility] Start: 11-26-2023 Potassium measurement Potassium Level [facility] Start: 11-24-2023 End: 11-24-2023 Patient encounter procedure 11/24/2023 1:30 PM EDT Office Visit [facility] [address] [place] [address] Pasha Bland DO [address] [place] [address] [facility] Start: 06-16-2023 End: 06-16-2023 Clinical Support 06/16/2023 9:20 AM EDT Clinical Support [facility] [address] [place] [address] [facility] Start: 06-14-2023 Potassium measurement Potassium Level [facility] Start: 05-27-2023 Creatinine measurement Creatinine Level [facility] Start: 05-26-2023 End: 05-26-2024 CBC W Auto Differential panel - Blood CBC auto differential Lab Routine Normochromic normocytic anemia Expected: 05/26/2023 (Approximate), Expires: 05/26/2024 [facility] [employer] [facility] Work Phone: Immunizations Immunization Date Immunization Notes Care Provider Fa cili 05-26-2023 Influenza, Seasonal, Quadrivalent, Adjuvanted Pasha Petrilla DO Work Phone: [facility] [employer] 05-26-2022 Influenza, Seasonal, Quadrivalent, Adjuvanted Pasha Petrilla DO Work Phone: [facility] [employer] 05-26-2022 unknown vaccine or immune globulin Pasha Jefflla DO Work Phone: [facility] [employer] 05-26-2022 influenza virus vacc ine, unspecified formulation Pasha Jefflla DO Work Phone: [facility] [employer] 05-26-2021 Influenza, High-dose Seasonal, Quadrivalent, Preservative Free Pasha Petrilla DO Work Phone: [facility] [employer] 10-23-2020 Mercedes SARS-CoV-2 Vaccination Pasha Petrilla DO Work Phone: [facility] [employer] 06-19-2020 influenza virus vacc ine, unspecified formulation Pasha Petrilla DO Work Phone: [facility] [employer] 06-19-2020 influenza, seasonal, injectable, preservative free Pasha Petrilla DO Work Phone: [facility] [employer] 07-23-2019 influenza, high dose seasonal, preservative-free Mariah Santos RN [facility] 05-29-2018 influenza, high dose seasonal, preservative-free Mariah Santos RN [facility] 06-06-2017 influenza, injectabl e, quadrivalent, contains preservative Mariah Santos RN [facility] 05-07-2016 influenza virus vacc ine, unspecified formulation Pasha Bland DO Work Phone: [facility] 05-07-2016 influenza, seasonal, injectable Mariah Santos RN [facility] 05-07-2016 pneumococcal polysaccharide vaccine, 23 valent Mariah Santos RN [facility] 07-14-2015 pneumococcal conjuga te vaccine, 13 valent Mariah Santos RN [facility] 05-14-2015 influenza virus vacc ine, unspecified formulation Pasha Montelongojuan m DO Work Phone: [facility] 05-14-2015 influenza, high dose seasonal, preservative-free Mariah Snatos RN [facility] 05-25-2014 influenza virus vacc ine, unspecified formulation Pasha Montelongojuan m DO Work Phone: [facility] 05-25-2014 influenza, seasonal, injectable Mariah Santos RN [facility] 05-25-2014 zoster vaccine, live Mariah Santos RN [facility] 02-28-2008 pneumococcal polysaccharide vaccine, 23 valent Mariah White PREPARATION SUPERVISOR CANNING.BULK SEALER OPERATOR Work Phone: [facility] 06-19-2007 influenza virus vacc ine, unspecified formulation Mariah Santos RN [facility] Work Phone: 06-19-2007 influenza, seasonal, injectable Mariah Santos RN [facility] Payers Date Payer Category Payer Medicare ANTHEM MEDICARE ADVANTAGE ANTH MEDICARE ADVANTAGE [id number] 2021-Present [address] [place] [address] Medicare O [id number] 2020 Unknown 2020 Unknown ANTHEM BLUE [facility] S AND BLUE [facility] [id number] 2020 [address] [place] [address] [facility] [id number] 2020 Unknown [id number] 1938 Unknown [id number] 1938 Unknown [id number] 1938 Unknown [id number] 1938 Unknown [id number] 1938 Unknown [id number] Social History Date Type Detail Facility Start: 05-03-2022 End: 05-26-2023 Tobacco smoking status NHIS Ex-smoker [facility] History of tobacco use Chews Tobacco [facility] Start: 10-15-2021 End: 05-26-2023 Alcohol intake Current drinker of alcohol (finding) [facility] Start: 02-19-2020 History SDOH Financial 5 [facility] Start: 02-19-2020 History SDOH Food Worry 1 [facility] Start: 02-19-2020 History SDOH Transpo rt Med 2 [facility] Start: 1940 Sex Assigned At Not on file C [facility] End: 07-14-1993 History of tobacco use Current smoker [facility] Start: 05-03-2022 End: 05-26-2023 Tobacco use and exposure Former smokeless tobacco user [facility] Start: 05-03-2022 Tobacco Comment QUIT IN 1992 [facility] End: 07-14-1993 History of tobacco use Cigarette Smoker [facility] End: 04-26-1999 History of tobacco use User of smokeless tobacco [facility] Start: 11-24-2022 End: 05-26-2023 Alcohol intake [facility] Start: 11-14-2022 End: 11-24-2022 Exposure to SARS-CoV-2 (event) Not sure [facility] Start: 11-24-2022 End: 05-26-2023 Tobacco use panel [facility] Clinical Notes 02-01-2020 to 06-16-2023 [...] Provider Department Center 06/16/2023 9:20 AM SCHEDULE, [facility] 11/24/2023 1:30 PM Pasha Bland DO [facility] Placed call to patient. Was able to speak to patient. All concerns in message have been addressed. No questions at this time. Call ended documented in this encounter [facility] 05-26-2023 History of Present illness Narrative Do not need another liquor clerk however. I just picked up some but he last night. [facility] [address] [facility] [address] Visit type: Established Patient Reason [...] Problem Relation Name Age of Onset Other (88364) Sister MVA Diabetes Brother 6 Other ([id number]) Brother infancy Stroke Mother 75 acute CVA Lung cancer Brother age 69 Other ([id number]) Brother infancy Cancer Father 73 ,met gastric CA Colon cancer Sister age 68 Other ([id number]) Sister 3 all 6 bro and 3 [...] No skin breakdowns. documented in this encounter [facility] [employer] 05-05-2023 Note HNO ID: [id number] Author: Moisés Sosa APRN.BULK SEALER OPERATOR Service: ? Author Type: Nurse Practitioner Type: Progress Notes Filed: 05/09/2023 11:05 AM Note Text: [facility] Department of Cardiovascular Medicine SECTION [...] which included preparing to see the patient, [id number] patient care, completing clinical documentation, performing a [...] prior to the follow up. Moisés Sosa APRN.[facility] Cardiology Nurse Practitioner Section of Regional Cardiology [facility] Dept of Cardiovascular Medicine [facility] [address] [place] [address] Office Office May 05, 2023 2:30 PM This note was partially generated using Curse voice recognition system and may contain errors [...] reviewed the Electro (more content not included)... [facility] 01-17-2023 Miscellaneous Notes Rx loaded Medication name: [...] other doctor or facility: N/A Ordering provider: Edwian Date of last office visit: 11/24/22 Date of next office visit: 05/26/23 Date of last refill: (see medication tab): 09/09/22 Updated/Validated preferred pharmacy: Yes Patient instructed to contact the pharmacy prior to picking up the medication: Yes documented in this encounter [facility] 01-17-2023 Telephone encounter Note Rx loaded [facility] 01-17-2023 Telephone encounter Note Medication [...] prior to picking up the medication: Yes [facility] 11-24-2022 History of Present illness Narrative Images from the original note were not included. [facility] [address] [address] Visit type: Established Patient Reason for Visit: [...] dysfunction and intermittent heart failure. Recently saw computer hardware developer with no change in meds. Last fall [...] Problem Relation Name Age of Onset Other (33753) Sister MVA Diabetes Brother 6 Other ([id number]) Brother infancy Stroke Mother 75 acute CVA Lung cancer Brother age 69 Other ([id number]) Brother infancy Cancer Father 73 ,met gastric CA Colon cancer Sister age 68 Other ([phone]) Sister 3 all 6 bro and 3 [...] which is chronic. documented in this encounter [facility] 11-02-2022 Note HNO ID: [id number] Author: Sung Shen DO Service: ? Author Type: Physician Type: Progress Notes Filed: 11/02/2022 2:13 PM Note Text: [facility] SECTION OF [facility] CARDIOLOGY [facility] OUTPATIENT VISIT DATE November 02, 2022 PRIMARY CARE PHYSICIAN: PASHA BLAND [address] [place] [address] HISTORY OF PRESENT ILLNESS: Mr. Mock is [...] per Dr Nicole COLONOSCOPY - DIAGNOSTIC [address] [facility]: colonoscopy per Dr. Rodney: WNL COLONOSCOPY FLX DX W/COLLJ SPEC WHEN PFRMD 05/08/13 Colonoscopy repeat 2 years COLONOSCOPY FLX DX W/COLLJ SPEC WHEN PFRMD 11/27/15 Colonoscopy COLONOSCOPY W/BIOPSY SINGLE/MULTIPLE 03/24/09 ESOPHAGOGASTRODUODENOSCOPY TRANSORAL DIAGNOSTIC 05/08/13 EGD NEUROPLASTY AND/VIGIL (more content not included)... [facility] 11-02-2022 History of Present illness Narrative Images from the original note were not included. [facility] SECTION OF [facility] CARDIOLOGY [facility] OUTPATIENT VISIT DATE November 02, 2022 PRIMARY CARE PHYSICIAN: PASHA BLAND [address] [place], [place] [id number] HISTORY OF PRESENT ILLNESS: Mr. Mock is [...] per Dr Nicole COLONOSCOPY - DIAGNOSTIC [address] [facility]: colonoscopy per Dr. Rodney: WNL [...] cap Take 1 capsule by mouth. Saw Brillion Fruit 450 mg cap Take 1 capsule [...] Department of Medicine and Division of Cardiology, [facility] Small Wind Energy Installerhelp desk specialist [facility] [employer] Installer of Congestive Heart Failure Clinic [facility] Cardiology Office Small Wind Energy Installer [facility] Staff Spline Rolling Machine Job Setter, Leif and Shayy Blanton Department of Cardiovascular Medicine/[facility] [place], [facility] Clinical Communications Tower Climber Profressor of Medicine, [facility] Please note: This note has been produced using speech recognition software and may contain errors related to that system including vish, punctuation, spelling, words, gender and phrases that may be inappropriate. documented in this encounter [facility] 05-03-2022 History of Present illness Narrative Images from the original note were not included. [facility] Department of Cardiovascular Medicine SECTION OF CLINICAL CARDIOLOGY OUTPATIENT VISIT DATE May 01, 2022 OUTPATIENT VISIT TYPE ESTABLISHED PRIMARY CARE PHYSICIAN: [place] [address] REASON FOR VISIT: 6 month follow up [...] per Dr Nicole COLONOSCOPY - DIAGNOSTIC [address] [facility]: colonoscopy per Dr. Rodney: WNL [...] cap Take 1 capsule by mouth. Saw Brillion Fruit 450 mg cap Take 1 capsule [...] 7. History of TIA - Admit to [facility] 06/2020, neuroimaging negative for acute stroke [...] Cardiology Nurse Practitioner Section of Regional Cardiology [facility] Dept of Cardiovascular Medicine [facility] [place] [address] [place] [address] Office Office This note was partially generated using Curse voice recognition system, and there may be some incorrect words, spellings, and punctuation that were not noted in checking the note before saving. I personally interviewed, confirmed and edited the above information if obtained by others. documented in this encounter [facility] 11-13-2021 Miscellaneous Notes Received call from Zoë at Dr. Bland's office. Trying to find out if patient is supposed to be taking Lasix and Losartan. Returned call; per notes, no medication changes were made during STACY. Patient self-discontinued losartan potassium back on 06/16/2021. Per request, faxed current med report and STACY notes to [phone]. documented in this encounter [facility] 04-07-2021 Note HNO ID: [id number] Author: Teresita Klein APRN.GREG Service: ? Author Type: Nurse Practitioner Type: Progress Notes Filed: 04/07/2021 10:42 AM Note Text: [facility] Heart Failure Clinic OUTPATIENT VISIT DATE [...] 12 months. Admission was on 03/28/2021 in [place] in which he was treated for heart [...] The patient was seen by Cardiology via [facility] on 04/02/2021 for complaints of lower extremity [...] Laterality Date - COLONOSCOP W/ OR W/O [facility] SPEC 05/08/13 Colonoscopy repeat 2 years - COLONOSCOP W/ OR W/O [facility] SPEC 11/27/15 Colonoscopy - COLONOSCOPY - DIAGNOSTIC [address] [facility]: colonoscopy per Dr. Rodney: WNL - COLONOSCOPY W/BX 03/24/09 - EGD W/O OR W/ (more content not included)... [facility] 09-02-2020 Note HNO ID: [id number] Author: Nanette Anguiano Service: ? Author Type: Nurse Practitioner Type: Progress Notes Filed: 09/02/2020 11:57 AM Note Text: [facility] Heart Failure Clinic OUTPATIENT VISIT DATE [...] x 1 week at which time his [id number] was increased to 10 mg daily. He [...] Laterality Date - COLONOSCOP W/ OR W/O [facility] SPEC 05/08/13 Colonoscopy repeat 2 years - COLONOSCOP W/ OR W/O [facility] SPEC 11/27/15 Colonoscopy - COLONOSCOPY - DIAGNOSTIC [address] [facility]: colonoscopy per Dr. Rodney: WNL [...] Cancer Sister - (more content not included)... [facility] 06-04-2020 Note HNO ID: [id number] Author: Nanette Oliva) Silvio Service: ? 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 Author Type: Nurse Practitioner Type: Progress Notes Filed: 05/21/2020 10:41 AM Note Text: [facility] OUTPATIENT VISIT DATE [...] hypertension 09/13/2005 - (more content not included)... [facility] documented as of this encounter (statuses as of 11/13/2021) [facility] History of Past illness Narrative* Problem Noted [...] of this encounter (statuses as of 05/03/2022) [facility] History of Past illness Narrative* Problem Noted [...] of this encounter (statuses as of 11/02/2022) [facility] note* Diagnosis Chronic diastolic CHF (congestive heart failure) (HCC)- Primary Chronic diastolic heart failure RBBB Right bundle branch block Essential hypertension Unspecified essential hypertension Mixed hyperlipidemia documented in this encounter [facility] note* Diagnosis Chronic diastolic CHF (congestive heart failure) (HCC)- Primary Chronic diastolic heart failure Essential hypertension Unspecified essential hypertension Mixed hyperlipidemia RBBB Right bundle branch block documented in this encounter [facility] note* Diagnosis Essential hypertension- Primary Unspecified essential hypertension Normochromic normocytic anemia Hypercholesterolemia Pure hypercholesterolemia Impaired fasting glucose Chronic renal impairment, stage 2 (mild) [facility] Diagnosis Essential hypertension- Primary Unspecified essential hypertension Hypercholesterolemia Pure hypercholesterolemia Chronic renal impairment, stage 2 (mild) Normochromic normocytic anemia Congestive heart failure, unspecified HF chronicity, unspecified heart failure type (HCC) [facility] Diagnosis Essential hypertension Unspecified essential hypertension [facility] (n[facility]ative[facility] Outpatient Procedure (Routine) - Closed Specialty Diagnoses / Procedures Referred By Contac t Referred To [facility] Diagnoses Chronic diastolic CHF (congestive heart failure) (HCC) RBBB Essential hypertension Mixed hyperlipidemia Procedures ECG COMPLETE ECG ROUTINE ECG W/LEAST 12 LDS W/I&R aMriah White APRN.CNP [address] [place] [address] [facility] [address] [place] [id number] Referral ID Status Reason Start Date Expiration Date V isits Requested Visits Authorized [id number] Closed Auto-Generate d Referral 05/03/2022 05/01/2023 1 1 [facility] Summary Purpose Family History No Family History Records FoundNo Family History Records FoundNo Family History Records FoundNo Family History Records FoundNo Family History Records Found Advance Directives No Advanced Directives Records FoundDocuments on File Type Date Recorded Patient Yarn Skeins Examiner Expl anation Advance Directive(s) 06/12/2020 12:15 PM [...] DATE CREATED AUTHOR AUTHOR'S ORGANIZ ATION 09/08/2020 [facility] DATE CREATED AUTHOR AUTHOR'S ORGANIZ ATION 04/08/2021 [facility] DATE CREATED AUTHOR AUTHOR'S ORGANIZ ATION 06/14/2023 [facility] DATE CREATED AUTHOR AUTHOR'S ORGANIZ ATION 06/21/[address] [facility] Source Comments (unrecognize d section and content) In the event this informatio n is protected by the Federal Confidentiality of Alcohol and Drug Abuse Patient Records regulations: The Federal rules restrict any use of the information to criminally investigate or prosecute any alcohol or drug abuse patient.[facility] the event this information is protected by the Federal Confidentiality of Alcohol and Drug Abuse Patient Records regulations: The Federal rules restrict any use of the information to criminally investigate or prosecute any alcohol or drug abuse patient.[facility] the event this information is protected by the Federal Confidentiality of Alcohol and Drug Abuse Patient Records regulations: The Federal rules restrict any use of the information to criminally investigate or prosecute any alcohol or drug abuse patient.[facility] Reason for Visit (unrecogniz ed section and content) Reason Comments Cardiology Follow Up Reason Comments Established Patient Follow-Up Swelling i n legs Reason Comments Follow-up 6 month med check Reason Onset Date Comments Med Refill 01/17/2023 Reason Comments Blood Pressure Check Elevated in the off ice Care Teams (unrecognized sec tion and content) Applications Developer Relationship Specialty Start Date End Date Pasha Bland [address] [place] [id number] PCP - General Family Practice 07/18/20 Kiana Alejandre MD [address] [place] [address] Consulting Neurology 07/29/20 Yani Woodson MD [address] [facility] [place] [address] Consulting Neurology 07/29/20 Sung Shen, DO [address] [place] [address] Spline Rolling Machine Job Setter Cardiology 04/05/21 Applications Developer Relationship Specialty Start Date End Date Pasha Bland [address] [address] PCP - General Family Medicine 07/18/20 Kiana Alejandre MD [address] [place] [address] Consulting Neurology 07/29/20 Yani Woodson MD [address] [place] [address] Consulting Neurology 07/29/20 Sung Shen, DO [address] [place] [address] Spline Rolling Machine Job Setter Cardiology 04/05/21 Applications Developer Relationship Specialty Start Date End Date Pasha Bland, [address] [place], [place] [phone] PCP - General 02/11/15 Applications Developer Relationship Specialty Start Date End Date Pasha Bland, [address] [place], [place] [phone] PCP - General 02/11/15 Applications Developer Relationship Specialty Start Date End Date Pasha Bland DO [address] [place], [place] [phone] PCP - General 02/11/15 Applications Developer Relationship Specialty Start Date End Date Pasha Bland DO [address] [place] [address] PCP - General 02/11/15 Applications Developer Relationship Specialty Start Date End Date Pasha Bland DO [address] [place] [address] PCP - General 02/11/15 FOR [...] BE BASED ON THE PRIMARY CLINICAL RECORDS. [facility] [employer] [facility]. provides no warranty or guarantee of the accuracy or completeness of information in this document.
--- OUTSIDE RECORDS SUMMARY | 2023-08-13 14:37 | XMS RPT_ITS | CCD ---
Author Name Unknown Address [address] [place] [address] Organization [facility] Care Team Providers Care Cloth Painter Name Role Phone Petrilla, Pasha Attending Unavailable [...] [ACETAMINOPHEN] Drug Allergy 0 Other: See Comments [facility] (4 sources) Seasonal allergy; Translations: [SEASONAL ALLERGIES] Propensity to adverse reactions 9 [facility] Work Phone: (4 sources) Adhesive Tape-Silicones; Translations: [ADHESIVE TAPE-SILICONES] Drug Allergy 0 Rash [facility] (2 sources) Sea salt; Translations: [SEA SALT] Drug Allergy 3 Hives, Shortness of Breath [facility] (5 sources) Acetaminophen Drug Allergy 0 [facility] (5 sources) Non-steroidal anti-inflammatory agent Drug Intolerance 6 [facility] (5 sources) Sodium Chloride Drug Allergy 3 Hives, Shortness of breath [facility] (5 sources) traMADol Drug Allergy 6 Shortness of breath [facility] (5 sources) Other Propensity to adverse reactions 9 [facility] (5 sources) Wound Dressing Adhesive Drug Allergy 0 Rash [facility] Medications Current Medications Medication Drug Class(es) [...] 06-16-2023 09:08-0400 Diastolic blood pressure 70 mm[Hg] [facility] Schedule [facility] 06-16-2023 09:08-0400 Heart rate 57 /min [facility] Schedule [facility] 06-16-2023 09:08-0400 SaO2% (BldA) [Mass fraction] 97 % [facility] Schedule [facility] 06-16-2023 09:08-0400 Systolic blood pressure 127 mm[Hg] [facility] Schedule [facility] 05-26-2023 14:29-0400 Diastolic blood pressure 84 mm[Hg] Pasha Bland DO Work Phone: [facility] 05-26-2023 14:29-0400 Heart rate 68 /min Pasha Bland DO Work Phone: [facility] 05-26-2023 14:29-0400 Systolic blood pressure 144 mm[Hg] Pasha Bland DO Work Phone: [facility] 05-26-2023 13:55-0400 Body height 152.4 cm Pasha Bland DO Work Phone: [facility] 05-26-2023 13:55-0400 Body mass index (BMI) [Ratio] 29.29 kg/m2 Pasha Bland DO Work Phone: [facility] 05-26-2023 13:55-0400 Body temperature 98.6 [degF] Pasha Bland DO Work Phone: [facility] 05-26-2023 13:55-0400 Body weight 68.04 kg Pasha Bland DO Work Phone: [facility] 05-26-2023 13:55-0400 SaO2% (BldA) [Mass fraction] 93 % Pasha Bland DO Work Phone: [facility] 11-24-2022 13:58-0400 Body height 152.4 cm Pasha Bland DO Work Phone: [facility] 11-24-2022 13:58-0400 Body mass index (BMI) [Ratio] 30.27 kg/m2 Pasha Bland DO Work Phone: [facility] 11-24-2022 13:58-0400 Body temperature 98.01 [degF] Pasha Bland DO Work Phone: [facility] 11-24-2022 13:58-0400 Body weight 70.31 kg Pasha Bland DO Work Phone: [facility] 11-24-2022 13:58-0400 Diastolic blood pressure 55 mm[Hg] Pasha Bland DO Work Phone: [facility] 11-24-2022 13:58-0400 Heart rate 60 /min Pasha Bland DO Work Phone: [facility] 11-24-2022 13:58-0400 SaO2% (BldA) [Mass fraction] 97 % Pasha Bland DO Work Phone: [facility] 11-24-2022 13:58-0400 Systolic blood pressure 134 mm[Hg] Pasha Bland DO Work Phone: [facility] 11-02-2022 13:56-0400 Body height 152.4 cm Sung Shen DO Work Phone: [facility] 11-02-2022 13:56-0400 Body weight 68.04 kg Sung hSen DO Work Phone: [facility] 11-02-2022 13:56-0400 Diastolic blood pressure 48 mm[Hg] Sung Shen DO Work Phone: [facility] 11-02-2022 13:56-0400 Heart rate 54 /min Sung Shen DO Work Phone: [facility] 11-02-2022 13:56-0400 SaO2% (BldA) [Mass fraction] 96 % Sung Shen DO Work Phone: [facility] 11-02-2022 13:56-0400 Systolic blood pressure 110 mm[Hg] Sung Shen DO Work Phone: [facility] 05-03-2022 09:51-0400 Body height 152.4 cm Mariah White SYSTEMS PROGRAMMER.HYPERION ANALYST Work Phone: [facility] 05-03-2022 09:51-0400 Body weight 64.68 kg Mariah White SYSTEMS PROGRAMMER.HYPERION ANALYST Work Phone: [facility] 05-03-2022 09:51-0400 Diastolic blood pressure 62 mm[Hg] Mariah White SYSTEMS PROGRAMMER.HYPERION ANALYST Work Phone: [facility] 05-03-2022 09:51-0400 Heart rate 55 /min Mariah White SYSTEMS PROGRAMMER.HYPERION ANALYST Work Phone: [facility] 05-03-2022 09:51-0400 SaO2% (BldA) [Mass fraction] 96 % Mariah White APRN.CNP Work Phone: [facility] 05-03-2022 09:51-0400 Systolic blood pressure 134 mm[Hg] Mariah White APRN.CNP Work Phone: [facility] Encounters Encounter Date Encounter Type Care Provider Facility Start: 06-16-2023 End: 06-16-2023 ambulatory PASHA BLAND [facility] Start: 06-16-2023 End: 06-16-2023 Clinical Support [facility] Schedule [facility] Procedures Date Procedure Procedure Detail Performing Clinician Start: 05-26-2023 Lipid 1996 panel - S thanh or Plasma [facility] Schedule Start: 11-25-2022 Lipid 1996 panel - S thanh or Plasma Pasha Bland DO Work Phone: Start: 05-27-2022 Lipid 1996 panel - S thanh or Plasma Pasha Bland DO Work Phone: Plan of Treatment Date Care Activity Detail Author Start: 05-26-2028 Lipid panel Lipid Panel [facility] Start: 11-26-2027 Lipid panel Lipid Panel [facility] Start: 05-27-2027 Lipid panel Lipid Panel [facility] Start: 05-26-2024 Creatinine measurement Creatinine Level [facility] Start: 05-26-2024 Potassium measurement Potassium Level [facility] Start: 04-07-2024 DIABETES SCREEN DIABETES SCREEN [facility] Start: 11-26-2023 Creatinine measurement Creatinine Level [facility] Start: 11-26-2023 Potassium measurement Potassium Level [facility] Start: 11-24-2023 End: 11-24-2023 Patient encounter procedure 11/24/2023 1:30 PM EDT Office Visit [facility] [address] [place] [address] Pasha Bland DO [address] [place] [address] [facility] Start: 06-16-2023 End: 06-16-2023 Clinical Support 06/16/2023 9:20 AM EDT Clinical Support [facility] [address] [place] [address] [facility] Start: 06-14-2023 Potassium measurement Potassium Level [facility] Start: 05-27-2023 Creatinine measurement Creatinine Level [facility] Start: 05-26-2023 End: 05-26-2024 CBC W Auto Differential panel - Blood CBC auto differential Lab Routine Normochromic normocytic anemia Expected: 05/26/2023 (Approximate), Expires: 05/26/2024 [facility] Work Phone: Immunizations Immunization Date Immunization Notes Care Provider Fa cili 05-26-2023 Influenza, Seasonal, Quadrivalent, Adjuvanted Pasha Petrilla DO Work Phone: [facility] 05-26-2022 Influenza, Seasonal, Quadrivalent, Adjuvanted Pasha Petrilla DO Work Phone: [facility] 05-26-2022 unknown vaccine or immune globulin Pasha Jefflla DO Work Phone: [facility] 05-26-2022 influenza virus vacc ine, unspecified formulation Pasha Jefflla DO Work Phone: [facility] 05-26-2021 Influenza, High-dose Seasonal, Quadrivalent, Preservative Free Pasha Petrilla DO Work Phone: [facility] 10-23-2020 Mercedes SARS-CoV-2 Vaccination Pasha Petrilla DO Work Phone: [facility] 06-19-2020 influenza virus vacc ine, unspecified formulation Pasha Petrilla DO Work Phone: [facility] 06-19-2020 influenza, seasonal, injectable, preservative free Pasha Petrilla DO Work Phone: [facility] 07-23-2019 influenza, high dose seasonal, preservative-free Mraiah Santos RN [facility] 05-29-2018 influenza, high dose seasonal, preservative-free Mariah Santos RN [facility] 06-06-2017 influenza, injectabl e, quadrivalent, contains preservative Mariah Santos RN [facility] 05-07-2016 influenza virus vacc ine, unspecified formulation Pasha Bland DO Work Phone: [facility] 05-07-2016 influenza, seasonal, injectable Mariah Santos RN [facility] 05-07-2016 pneumococcal polysaccharide vaccine, 23 valent Mariah Santos RN [facility] 07-14-2015 pneumococcal conjuga te vaccine, 13 valent Mariah Santos RN [facility] 05-14-2015 influenza virus vacc ine, unspecified formulation Pasha Montelongojuan m DO Work Phone: [facility] 05-14-2015 influenza, high dose seasonal, preservative-free Mariah Santos RN [facility] 05-25-2014 influenza virus vacc ine, unspecified formulation Pasha Montelongojuan m DO Work Phone: [facility] 05-25-2014 influenza, seasonal, injectable Mariah Santos RN [facility] 05-25-2014 zoster vaccine, live Mariah Santos RN [facility] 02-28-2008 pneumococcal polysaccharide vaccine, 23 valent Mariah White SYSTEMS PROGRAMMER.HYPERION ANALYST Work Phone: [facility] 06-19-2007 influenza virus vacc ine, unspecified formulation Mariah Santos RN [facility] Work Phone: 06-19-2007 influenza, seasonal, injectable Mariah Santos RN [facility] Payers Date Payer Category Payer Medicare ANTHEM MEDICARE ADVANTAGE ANTH MEDICARE ADVANTAGE [id number] 2021-Present [address] [place] [address] Medicare O [id number] 2020 Unknown 2020 Unknown ANTHEM BLUE [facility] AND BLUE [facility] [id number] 2020 [address] [place] [address] [facility] [id number] 2020 Unknown [id number] 1940 Unknown [id number] 1938 Unknown [id number] 1938 Unknown [id number] 1938 Unknown [id number] 1938 Unknown [id number] Social History Date Type Detail Facility Start: 05-03-2022 End: 05-26-2023 Tobacco smoking status NHIS Ex-smoker [facility] History of tobacco use Chews Tobacco [facility] Start: 10-15-2021 End: 05-26-2023 Alcohol intake Current drinker of alcohol (finding) [facility] Start: 02-19-2020 History SDOH Financial 5 [facility] Start: 02-19-2020 History SDOH Food Worry 1 [facility] Start: 02-19-2020 History SDOH Transpo rt Med 2 [facility] Start: 1940 Sex Assigned At Not on file C [facility] End: 07-14-1993 History of tobacco use Current smoker [facility] Start: 05-03-2022 End: 05-26-2023 Tobacco use and exposure Former smokeless tobacco user [facility] Start: 05-03-2022 Tobacco Comment QUIT IN 1992 [facility] End: 07-14-1993 History of tobacco use Cigarette Smoker [facility] End: 04-26-1999 History of tobacco use User of smokeless tobacco [facility] Start: 11-24-2022 End: 05-26-2023 Alcohol intake [facility] Start: 11-14-2022 End: 11-24-2022 Exposure to SARS-CoV-2 (event) Not sure [facility] Start: 11-24-2022 End: 05-26-2023 Tobacco use panel [facility] Clinical Notes 02-01-2020 to 06-16-2023 Nandini [...] Provider Department Center 06/16/2023 9:20 AM SCHEDULE, [facility] 11/24/2023 1:30 PM Pasha Bland DO [facility] Placed call to patient. Was able to speak to patient. All concerns in message have been addressed. No questions at this time. Call ended documented in this encounter [facility] 05-26-2023 History of Present illness Narrative Do not need another manager english however. I just picked up some but he last night. [facility] [address] [facility] [address] [place] [facility] [address] Visit type: Established Patient Reason [...] Problem Relation Name Age of Onset Other (70060) Sister MVA Diabetes Brother 6 Other (37869) Brother infancy Stroke Mother 75 acute CVA Lung cancer Brother age 69 Other ([address]74) Brother infancy Cancer Father 73 ,met gastric CA Colon cancer Sister age 68 Other (43177) Sister 3 all 6 bro and 3 [...] No skin breakdowns. documented in this encounter [facility] 05-05-2023 Note HNO ID: [id number] Author: Moisés Sosa APRN.HYPERION ANALYST Service: ? Author Type: Nurse Practitioner Type: Progress Notes Filed: 05/09/2023 11:05 AM Note Text: [facility] Department of Cardiovascular Medicine SECTION [...] which included preparing to see the patient, [id number] patient care, completing clinical documentation, performing a [...] prior to the follow up. Moisés Sosa APRN.[facility] Cardiology Nurse Practitioner Section of Regional Cardiology [facility] Dept of Cardiovascular Medicine [facility] [address] [place] [address] Office Office May 05, 2023 2:30 PM This note was partially generated using [employer] voice recognition system and may contain errors [...] reviewed the Electro (more content not included)... [facility] 01-17-2023 Miscellaneous Notes Rx loaded Medication name: [...] the medication: Yes documented in this encounter [facility] 01-17-2023 Telephone encounter Note Rx loaded [facility] 01-17-2023 Telephone encounter Note Medication name: [...] prior to picking up the medication: Yes [facility] 11-24-2022 History of Present illness Narrative Images from the original note were not included. [facility] [address] [facility] [address] Visit type: Established Patient Reason for Visit: [...] dysfunction and intermittent heart failure. Recently saw commercial baker helper with no change in meds. Last fall [...] Problem Relation Name Age of Onset Other (55310) Sister MVA Diabetes Brother 6 Other (51097) Brother infancy Stroke Mother 75 acute CVA Lung cancer Brother age 69 Other ([id number]) Brother infancy Cancer Father 73 ,met gastric CA Colon cancer Sister age 68 Other ([address]3930) Sister 3 all 6 bro and 3 [...] which is chronic. documented in this encounter [facility] 11-02-2022 Note HNO ID: [id number] Author: Sung Shen DO Service: ? Author Type: Physician Type: Progress Notes Filed: 11/02/2022 2:13 PM Note Text: [facility] SECTION OF [facility] CARDIOLOGY [facility] OUTPATIENT VISIT DATE November 02, 2022 PRIMARY CARE PHYSICIAN: PASHA BLAND [address] [place] [address] HISTORY OF PRESENT ILLNESS: Mr. Mock is [...] per Dr Nicole COLONOSCOPY - DIAGNOSTIC [address] [facility]: colonoscopy per Dr. Rodney: WNL COLONOSCOPY FLX DX W/COLLJ SPEC WHEN PFRMD 05/08/13 Colonoscopy repeat 2 years COLONOSCOPY FLX DX W/COLLJ SPEC WHEN PFRMD 11/27/15 Colonoscopy COLONOSCOPY W/BIOPSY SINGLE/MULTIPLE 03/24/09 ESOPHAGOGASTRODUODENOSCOPY TRANSORAL DIAGNOSTIC 05/08/13 EGD NEUROPLASTY AND/VIGIL (more content not included)... [facility] 11-02-2022 History of Present illness Narrative Images from the original note were not included. [facility] SECTION OF [facility] CARDIOLOGY [facility] OUTPATIENT VISIT DATE November 02, 2022 PRIMARY CARE PHYSICIAN: PASHA BLAND [address] [place], [place] [address] HISTORY OF PRESENT ILLNESS: Mr. Mock is [...] per Dr Nicole COLONOSCOPY - DIAGNOSTIC [address] [facility]: colonoscopy per Dr. Rodney: WNL [...] cap Take 1 capsule by mouth. Saw Boyd Fruit 450 mg cap Take 1 capsule [...] Department of Medicine and Division of Cardiology, [facility] Paratransit Operatorproperty management coordinator [facility] Paratransit Operator of Congestive Heart Failure Clinic [facility] Cardiology Office Paratransit Operator [facility] Staff Development Representative, [facility] Department of Cardiovascular Medicine/[facility], [facility] Clinical Audit Partner Profressor of Medicine, [facility] Please note: This note has been produced using speech recognition software and may contain errors related to that system including vish, punctuation, spelling, words, gender and phrases that may be inappropriate. documented in this encounter [facility] 05-03-2022 History of Present illness Narrative Images from the original note were not included. [facility] Department of Cardiovascular Medicine SECTION OF CLINICAL CARDIOLOGY OUTPATIENT VISIT DATE May 01, 2022 OUTPATIENT VISIT TYPE ESTABLISHED PRIMARY CARE PHYSICIAN: [place] [address] REASON FOR VISIT: 6 month follow up [...] per Dr Nicole COLONOSCOPY - DIAGNOSTIC [address] [facility]: colonoscopy per Dr. Rodney: WNL [...] cap Take 1 capsule by mouth. Saw Boyd Fruit 450 mg cap Take 1 capsule [...] 7. History of TIA - Ad[facility] 06/2020, neuroimaging negative for acute stroke [...] Cardiology Nurse Practitioner Section of Regional Cardiology [facility] Dept of Cardiovascular Medicine [facility] [address] [place] [address] Office Office This note was partially generated using [employer] voice recognition system, and there may be some incorrect words, spellings, and punctuation that were not noted in checking the note before saving. I personally interviewed, confirmed and edited the above information if obtained by others. documented in this encounter [facility] 11-13-2021 Miscellaneous Notes Received call from Zoë at Dr. Bland's office. Trying to find out if patient is supposed to be taking Lasix and Losartan. Returned call; per notes, no medication changes were made during STACY. Patient self-discontinued losartan potassium back on 06/16/2021. Per request, faxed current med report and STACY notes to [phone]. documented in this encounter [facility] 04-07-2021 Note HNO ID: [id number] Author: Teresita Klein APRN.GREG Service: ? Author Type: Nurse Practitioner Type: Progress Notes Filed: 04/07/2021 10:42 AM Note Text: [facility] OUTPATIENT VISIT DATE April [...] 12 months. Admission was on 03/28/2021 in [place] in which he was treated for heart [...] The patient was seen by Cardiology via [facility] on 04/02/2021 for complaints of lower [...] Laterality Date - COLONOSCOP W/ OR W/O [facility] SPEC 05/08/13 Colonoscopy repeat 2 years - COLONOSCOP W/ OR W/O [facility] SPEC 11/27/15 Colonoscopy - COLONOSCOPY - DIAGNOSTIC [address] [facility]: colonoscopy per Dr. Rodney: WNL - COLONOSCOPY W/BX 03/24/09 - EGD W/O OR W/ (more content not included)... [facility] 09-02-2020 Note HNO ID: [id number] Author: Nanette Anguiano Service: ? Author Type: Nurse Practitioner Type: Progress Notes Filed: 09/02/2020 11:57 AM Note Text: [facility] OUTPATIENT VISIT DATE September [...] x 1 week at which time his [id number] was increased to 10 mg daily. He [...] Laterality Date - COLONOSCOP W/ OR W/O [facility] SPEC 05/08/13 Colonoscopy repeat 2 years - COLONOSCOP W/ OR W/O [facility] SPEC 11/27/15 Colonoscopy - COLONOSCOPY - DIAGNOSTIC [address] [facility]: colonoscopy per Dr. Rodney: WNL [...] Cancer Sister - (more content not included)... [facility] 06-04-2020 Note HNO ID: [id number] Author: Nanette Oliva) Silvio Service: ? 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 Author Type: Nurse Practitioner Type: Progress Notes Filed: 05/21/2020 10:41 AM Note Text: [facility] OUTPATIENT VISIT DATE May [...] hypertension 09/13/2005 - (more content not included)... [facility] documented as of this encounter (statuses as of 11/13/2021) [facility] History of Past illness Narrative* Problem [...] of this encounter (statuses as of 05/03/2022) [facility] History of Past illness Narrative* Problem [...] of this encounter (statuses as of 11/02/2022) [facility] note* Diagnosis Chronic diastolic CHF (congestive heart failure) (HCC)- Primary Chronic diastolic heart failure RBBB Right bundle branch block Essential hypertension Unspecified essential hypertension Mixed hyperlipidemia documented in this encounter [facility] note* Diagnosis Chronic diastolic CHF (congestive heart failure) (HCC)- Primary Chronic diastolic heart failure Essential hypertension Unspecified essential hypertension Mixed hyperlipidemia RBBB Right bundle branch block documented in this encounter [facility] note* Diagnosis Essential hypertension- Primary Unspecified essential hypertension Normochromic normocytic anemia Hypercholesterolemia Pure hypercholesterolemia Impaired fasting glucose Chronic renal impairment, stage 2 (mild) [facility] Diagnosis Essential hypertension- Primary Unspecified essential hypertension Hypercholesterolemia Pure hypercholesterolemia Chronic renal impairment, stage 2 (mild) Normochromic normocytic anemia Congestive heart failure, unspecified HF chronicity, unspecified heart failure type (HCC) [facility] Diagnosis Essential hypertension Unspecified essential hypertension [facility] Outpatient Procedure (Routine) - Closed Specialty Diagnoses / Procedures Referred By Contac t Referred To Contact [facility] Diagnoses Chronic diastolic CHF (congestive heart failure) (HCC) RBBB Essential hypertension Mixed hyperlipidemia Procedures ECG COMPLETE ECG ROUTINE ECG W/LEAST 12 LDS W/I&R Mariah White APRN.CNP [address] [place] [address] [facility] [address] [place] [id number] Referral ID Status Reason Start Date Expiration Date V isits Requested Visits Authorized [id number] Closed Auto-Generate d Referral 05/03/2022 05/01/2023 1 1 [facility] Summary Purpose Family History No Family History Records FoundNo Family History Records FoundNo Family History Records FoundNo Family History Records FoundNo Family History Records Found Advance Directives No Advanced Directives Records FoundDocuments on File Type Date 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 Advance Directive(s) 06/12/2020 12:15 PM [...] DATE CREATED AUTHOR AUTHOR'S ORGANIZ ATION 09/08/2020 [facility] DATE CREATED AUTHOR AUTHOR'S ORGANIZ ATION 04/08/2021 [facility] DATE CREATED AUTHOR AUTHOR'S ORGANIZ ATION 06/14/2023 [facility] DATE CREATED AUTHOR AUTHOR'S ORGANIZ ATION 06/21/2023 [facility] Source Comments (unrecognize d section and content) In the event this informatio n is protected by the Federal Confidentiality of Alcohol and Drug Abuse Patient Records regulations: The Federal rules restrict any use of the information to criminally investigate or prosecute any alcohol or drug abuse patient.[facility] the event this information is protected by the Federal Confidentiality of Alcohol and Drug Abuse Patient Records regulations: The Federal rules restrict any use of the information to criminally investigate or prosecute any alcohol or drug abuse patient.[facility] the event this information is protected by the Federal Confidentiality of Alcohol and Drug Abuse Patient Records regulations: The Federal rules restrict any use of the information to criminally investigate or prosecute any alcohol or drug abuse patient.[facility] Reason for Visit (unrecogniz ed section and content) Reason Comments Cardiology Follow Up Reason Comments Established Patient Follow-Up Swelling i n legs Reason Comments Follow-up 6 month med check Reason Onset Date Comments Med Refill 01/17/2023 Reason Comments Blood Pressure Check Elevated in the off ice Care Teams (unrecognized sec tion and content) Cloth Painter Relationship Specialty Start Date End Date Pasha Bland [address] [place] [id number] PCP - General Family Practice 07/18/20 Kiana Alejandre MD [address] [place] [address] Consulting Neurology 07/29/20 Yani Woodson MD [address] [facility] [place] [address] Consulting Neurology 07/29/20 Sung Shen, DO [address] [place] [address] Development Representative Cardiology 04/05/21 Cloth Painter Relationship Specialty Start Date End Date Pasha Bland [address] [address] PCP - General Family Medicine 07/18/20 Kiana Alejandre MD [address] [place] [address] Consulting Neurology 07/29/20 Yani Woodson MD [address] [place] [address] Consulting Neurology 07/29/20 Sung Shen, DO [address] [place] [address] Development Representative Cardiology 04/05/21 Cloth Painter Relationship Specialty Start Date End Date Pasha Bland, [address] [id number] PCP - General 02/11/15 Cloth Painter Relationship Specialty Start Date End Date Pasha Bland, [address] [id number] PCP - General 02/11/15 Cloth Painter Relationship Specialty Start Date End Date Pasha Bland DO [address] [place] [id number] PCP - General 02/11/15 Cloth Painter Relationship Specialty Start Date End Date Pasha Bland DO [address] [place] [address] PCP - General 02/11/15 Cloth Painter Relationship Specialty Start Date End Date Pasha Bland DO [address] [place] [address] PCP - General 02/11/15 FOR [...] BE BASED ON THE PRIMARY CLINICAL RECORDS. [facility]. provides no warranty or guarantee of the accuracy or completeness of information in this document.
--- OUTSIDE RECORDS SUMMARY | 2023-08-13 14:57 | XMS RPT_ITS | CCD ---
Author Name Unknown Address [address] [place] [address] Organization [facility] Care Team Providers Care Plycor Operator Name Role Phone Petrilla, Pasha Attending Unavailable [...] Primary Care Provider Kiana Alejandre MD Unavailable [phone] Yani Woodson MD Unavailable Sung Shen DO [...] [ACETAMINOPHEN] Drug Allergy 0 Other: See Comments [facility] (4 sources) Seasonal allergy; Translations: [SEASONAL ALLERGIES] Propensity to adverse reactions 9 [facility] Work Phone: (4 sources) Adhesive Tape-Silicones; Translations: [ADHESIVE TAPE-SILICONES] Drug Allergy 0 Rash [facility] (2 sources) Sea salt; Translations: [SEA SALT] Drug Allergy 3 Hives, Shortness of Breath [facility] (5 sources) Acetaminophen Drug Allergy 0 [facility] (5 sources) Non-steroidal anti-inflammatory agent Drug Intolerance 6 [facility] (5 sources) Sodium Chloride Drug Allergy 3 Hives, Shortness of breath [facility] (5 sources) traMADol Drug Allergy 6 Shortness of breath [facility] (5 sources) Other Propensity to adverse reactions 9 [facility] (5 sources) Wound Dressing Adhesive Drug Allergy 0 Rash [facility] Medications Current Medications Medication Drug Class(es) Dates [...] 06-16-2023 09:08-0400 Diastolic blood pressure 70 mm[Hg] [facility] Schedule [facility] 06-16-2023 09:08-0400 Heart rate 57 /min [facility] Schedule [facility] 06-16-2023 09:08-0400 SaO2% (BldA) [Mass fraction] 97 % [facility] Schedule [facility] 06-16-2023 09:08-0400 Systolic blood pressure 127 mm[Hg] [facility] Schedule [facility] 05-26-2023 14:29-0400 Diastolic blood pressure 84 mm[Hg] Pasha Bland DO Work Phone: [facility] 05-26-2023 14:29-0400 Heart rate 68 /min Pasha Bland DO Work Phone: [facility] 05-26-2023 14:29-0400 Systolic blood pressure 144 mm[Hg] Pasha Bland DO Work Phone: [facility] 05-26-2023 13:55-0400 Body height 152.4 cm Pasha Bland DO Work Phone: [facility] 05-26-2023 13:55-0400 Body mass index (BMI) [Ratio] 29.29 kg/m2 Pasha Bland DO Work Phone: [facility] 05-26-2023 13:55-0400 Body temperature 98.6 [degF] Pasha Bland DO Work Phone: [facility] 05-26-2023 13:55-0400 Body weight 68.04 kg Pasha Bland DO Work Phone: [facility] 05-26-2023 13:55-0400 SaO2% (BldA) [Mass fraction] 93 % Pasha Bland DO Work Phone: [facility] 11-24-2022 13:58-0400 Body height 152.4 cm Pasha Bland DO Work Phone: [facility] 11-24-2022 13:58-0400 Body mass index (BMI) [Ratio] 30.27 kg/m2 Pasha Bland DO Work Phone: [facility] 11-24-2022 13:58-0400 Body temperature 98.01 [degF] Pasha Bland DO Work Phone: [facility] 11-24-2022 13:58-0400 Body weight 70.31 kg Pasha Bland DO Work Phone: [facility] 11-24-2022 13:58-0400 Diastolic blood pressure 55 mm[Hg] Pasha Bland DO Work Phone: [facility] 11-24-2022 13:58-0400 Heart rate 60 /min Pasha Bland DO Work Phone: [facility] 11-24-2022 13:58-0400 SaO2% (BldA) [Mass fraction] 97 % Pasha Bland DO Work Phone: [facility] 11-24-2022 13:58-0400 Systolic blood pressure 134 mm[Hg] Pasha Bland DO Work Phone: [facility] 11-02-2022 13:56-0400 Body height 152.4 cm Sung Shen DO Work Phone: [facility] 11-02-2022 13:56-0400 Body weight 68.04 kg Sugn Shen DO Work Phone: [facility] 11-02-2022 13:56-0400 Diastolic blood pressure 48 mm[Hg] Sung Shen DO Work Phone: [facility] 11-02-2022 13:56-0400 Heart rate 54 /min Sung Shen DO Work Phone: [facility] 11-02-2022 13:56-0400 SaO2% (BldA) [Mass fraction] 96 % Sung Shen DO Work Phone: [facility] 11-02-2022 13:56-0400 Systolic blood pressure 110 mm[Hg] Sung Shen DO Work Phone: [facility] 05-03-2022 09:51-0400 Body height 152.4 cm Mariah White CHILD DEVELOPMENT INSTRUCTOR.PASTRY BAKER Work Phone: [facility] 05-03-2022 09:51-0400 Body weight 64.68 kg Mariah White CHILD DEVELOPMENT INSTRUCTOR.PASTRY BAKER Work Phone: [facility] 05-03-2022 09:51-0400 Diastolic blood pressure 62 mm[Hg] Mariah White CHILD DEVELOPMENT INSTRUCTOR.PASTRY BAKER Work Phone: [facility] 05-03-2022 09:51-0400 Heart rate 55 /min Mariah White CHILD DEVELOPMENT INSTRUCTOR.PASTRY BAKER Work Phone: [facility] 05-03-2022 09:51-0400 SaO2% (BldA) [Mass fraction] 96 % Mariah White APRN.CNP Work Phone: [facility] 05-03-2022 09:51-0400 Systolic blood pressure 134 mm[Hg] Mariah White APRN.CNP Work Phone: [facility] Encounters Encounter Date Encounter Type Care Provider Facility Start: 06-16-2023 End: 06-16-2023 ambulatory PASHA BLAND [facility] Start: 06-16-2023 End: 06-16-2023 Clinical Support [facility] Schedule [facility] Procedures Date Procedure Procedure Detail Performing Clinician Start: 05-26-2023 Lipid 1996 panel - S thanh or Plasma [facility] Schedule Start: 11-25-2022 Lipid 1996 panel - S thanh or Plasma Pasha Bland DO Work Phone: Start: 05-27-2022 Lipid 1996 panel - S thanh or Plasma Pasha Bland DO Work Phone: Plan of Treatment Date Care Activity Detail Author Start: 05-26-2028 Lipid panel Lipid Panel [facility] Start: 11-26-2027 Lipid panel Lipid Panel [facility] Start: 05-27-2027 Lipid panel Lipid Panel [facility] Start: 05-26-2024 Creatinine measurement Creatinine Level [facility] Start: 05-26-2024 Potassium measurement Potassium Level [facility] Start: 04-07-2024 DIABETES SCREEN DIABETES SCREEN [facility] Start: 11-26-2023 Creatinine measurement Creatinine Level [facility] Start: 11-26-2023 Potassium measurement Potassium Level [facility] Start: 11-24-2023 End: 11-24-2023 Patient encounter procedure 11/24/2023 1:30 PM EDT Office Visit [facility] [address] [place] [address] Pasha Bland DO [address] [place] [address] [facility] Start: 06-16-2023 End: 06-16-2023 Clinical Support 06/16/2023 9:20 AM EDT Clinical Support [facility] [address] [place] [address] [facility] Start: 06-14-2023 Potassium measurement Potassium Level [facility] Start: 05-27-2023 Creatinine measurement Creatinine Level [facility] Start: 05-26-2023 End: 05-26-2024 CBC W Auto Differential panel - Blood CBC auto differential Lab Routine Normochromic normocytic anemia Expected: 05/26/2023 (Approximate), Expires: 05/26/2024 [facility] Work Phone: Immunizations Immunization Date Immunization Notes Care Provider Fa cili 05-26-2023 Influenza, Seasonal, Quadrivalent, Adjuvanted Pasha Petrilla DO Work Phone: [facility] 05-26-2022 Influenza, Seasonal, Quadrivalent, Adjuvanted Pasha Petrilla DO Work Phone: [facility] 05-26-2022 unknown vaccine or immune globulin Pasha Jefflla DO Work Phone: [facility] 05-26-2022 influenza virus vacc ine, unspecified formulation Pasha Jefflla DO Work Phone: [facility] 05-26-2021 Influenza, High-dose Seasonal, Quadrivalent, Preservative Free Pasha Petrilla DO Work Phone: [facility] 10-23-2020 Mercedes SARS-CoV-2 Vaccination Pasha Petrilla DO Work Phone: [facility] 06-19-2020 influenza virus vacc ine, unspecified formulation Pasha Petrilla DO Work Phone: [facility] 06-19-2020 influenza, seasonal, injectable, preservative free Pasha Petrilla DO Work Phone: [facility] 07-23-2019 influenza, high dose seasonal, preservative-free Mariah Santos RN [facility] 05-29-2018 influenza, high dose seasonal, preservative-free Mariah Santos RN [facility] 06-06-2017 influenza, injectabl e, quadrivalent, contains preservative Mariah Santos RN [facility] 05-07-2016 influenza virus vacc ine, unspecified formulation Pasha Bland DO Work Phone: [facility] 05-07-2016 influenza, seasonal, injectable Mariah Santos RN [facility] 05-07-2016 pneumococcal polysaccharide vaccine, 23 valent Mariah Santos RN [facility] 07-14-2015 pneumococcal conjuga te vaccine, 13 valent Mariah Santos RN [facility] 05-14-2015 influenza virus vacc ine, unspecified formulation Pasha Montelongojuan m DO Work Phone: [facility] 05-14-2015 influenza, high dose seasonal, preservative-free Mariah Santos RN [facility] 05-25-2014 influenza virus vacc ine, unspecified formulation Pasha Montelongojuan m DO Work Phone: [facility] 05-25-2014 influenza, seasonal, injectable Mariah Santos RN [facility] 05-25-2014 zoster vaccine, live Mariah Santos RN [facility] 02-28-2008 pneumococcal polysaccharide vaccine, 23 valent Mariah White CHILD DEVELOPMENT INSTRUCTOR.PASTRY BAKER Work Phone: [facility] 06-19-2007 influenza virus vacc ine, unspecified formulation Mariah Santos RN [facility] Work Phone: 06-19-2007 influenza, seasonal, injectable Mariah Santos RN [facility] Payers Date Payer Category Payer Medicare ANTHEM MEDICARE ADVANTAGE ANTH MEDICARE ADVANTAGE [id number] 2021-Present [address] [place] [address] Medicare O [id number] 2020 Unknown 2020 Unknown [address] [facility] S AND BLUE [facility] [id number] 2020 [address] [place] [address] [facility] [id number] 2020 Unknown [id number] 1938 Unknown [id number] 1938 Unknown [id number] 1938 Unknown [id number] 1938 Unknown [id number] 1938 Unknown [id number] Social History Date Type Detail Facility Start: 05-03-2022 End: 05-26-2023 Tobacco smoking status NHIS Ex-smoker [facility] History of tobacco use Chews Tobacco [facility] Start: 10-15-2021 End: 05-26-2023 Alcohol intake Current drinker of alcohol (finding) [facility] Start: 02-19-2020 History SDOH Financial 5 [facility] Start: 02-19-2020 History SDOH Food Worry 1 [facility] Start: 02-19-2020 History SDOH Transpo rt Med 2 [facility] Start: 1940 Sex Assigned At Not on file [facility] End: 07-14-1993 History of tobacco use Current smoker [facility] Start: 05-03-2022 End: 05-26-2023 Tobacco use and exposure Former smokeless tobacco user [facility] Start: 05-03-2022 Tobacco Comment [facility] End: 07-14-1993 History of tobacco use Cigarette Smoker [facility] End: 04-26-1999 History of tobacco use User of smokeless tobacco [facility] Start: 11-24-2022 End: 05-26-2023 Alcohol intake [facility] Start: 11-14-2022 End: 11-24-2022 Exposure to SARS-CoV-2 (event) Not sure [facility] Start: 11-24-2022 End: 05-26-2023 Tobacco use panel [facility] Clinical Notes 02-01-2020 to 06-16-2023 Nandini Romano [...] Provider Department Center 06/16/2023 9:20 AM SCHEDULE, [facility] 11/24/2023 1:30 PM Pasha Bland DO [facility] Placed call to patient. Was able to speak to patient. All concerns in message have been addressed. No questions at this time. 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 [facility] [address] [facility] [address] Visit type: Established Patient Reason [...] Problem Relation Name Age of Onset Other (07231) Sister MVA Diabetes Brother 6 Other ([id number]) Brother infancy Stroke Mother 75 acute CVA Lung cancer Brother age 69 Other (58954) Brother infancy Cancer Father 73 ,met gastric CA Colon cancer Sister age 68 Other ([id number]) Sister 3 all 6 bro and 3 [...] No skin breakdowns. documented in this encounter [facility] 05-05-2023 Note HNO ID: [id number] Author: Moisés Sosa APRN.PASTRY BAKER Service: ? Author Type: Nurse Practitioner Type: Progress Notes Filed: 05/09/2023 11:05 AM Note Text: [facility] [place] [facility] Department of Cardiovascular Medicine SECTION [...] which included preparing to see the patient, [id number] patient care, completing clinical documentation, performing a [...] prior to the follow up. Moisés Sosa APRN.[facility] Cardiology Nurse Practitioner Section of Regional Cardiology [facility] Dept of Cardiovascular Medicine [facility] [place] [address] [place] [address] Office Office May 05, 2023 2:30 PM This note was partially generated using [email or web address] voice recognition system and may contain errors [...] reviewed the Electro (more content not included)... [facility] 01-17-2023 Miscellaneous Notes Rx loaded Medication [...] the medication: Yes documented in this encounter [facility] 01-17-2023 Telephone encounter Note Rx loaded [facility] 01-17-2023 Telephone encounter Note Medication name: NIFEdipine [...] prior to picking up the medication: Yes [facility] 11-24-2022 History of Present illness Narrative Images from the original note were not included. [facility] [address] [facility] [id number] Visit type: Established Patient Reason for Visit: [...] dysfunction and intermittent heart failure. Recently saw insurance compliance analyst with no change in meds. Last fall [...] Problem Relation Name Age of Onset Other (71251) Sister MVA Diabetes Brother 6 Other (05941) Brother infancy Stroke Mother 75 acute CVA Lung cancer Brother age 69 Other ([id number]) Brother infancy Cancer Father 73 ,met gastric CA Colon cancer Sister age 68 Other (68640) Sister 3 all 6 bro and 3 [...] which is chronic. documented in this encounter [facility] 11-02-2022 Note HNO ID: [id number] Author: Sung Shen DO Service: ? Author Type: Physician Type: Progress Notes Filed: 11/02/2022 2:13 PM Note Text: [facility] SECTION OF [facility] CARDIOLOGY [facility] OUTPATIENT VISIT DATE November 02, 2022 PRIMARY CARE PHYSICIAN: PASHA BLAND [address] [place] [address] HISTORY OF PRESENT ILLNESS: Mr. Mock is [...] per Dr Nicole COLONOSCOPY - DIAGNOSTIC [facility]: colonoscopy per Dr. Rodney: WNL COLONOSCOPY FLX DX W/COLLJ SPEC WHEN PFRMD 05/08/13 Colonoscopy repeat 2 years COLONOSCOPY FLX DX W/COLLJ SPEC WHEN PFRMD 11/27/15 Colonoscopy COLONOSCOPY W/BIOPSY SINGLE/MULTIPLE 03/24/09 ESOPHAGOGASTRODUODENOSCOPY TRANSORAL DIAGNOSTIC 05/08/13 EGD NEUROPLASTY AND/VIGIL (more content not included)... [facility] 11-02-2022 History of Present illness Narrative Images from the original note were not included. [facility] SECTION OF [facility] CARDIOLOGY [facility] OUTPATIENT VISIT DATE November 02, 2022 PRIMARY CARE PHYSICIAN: PASHA BLAND [address] [place], [place] [id number] HISTORY OF PRESENT ILLNESS: Mr. Mock is [...] per Dr Nicole COLONOSCOPY - DIAGNOSTIC [facility]: colonoscopy per Dr. Rodney: WNL COLONOSCOPY [...] cap Take 1 capsule by mouth. Saw Montgomery Fruit 450 mg cap Take 1 capsule [...] Department of Medicine and Division of Cardiology, [facility] Plastic Surgery Specialistgovernment program manager [facility] Plastic Surgery Specialist of Congestive Heart Failure Clinic [facility] Cardiology Office Plastic Surgery Specialist [facility] Staff Editor In Chief, Leif and Shayy Blanton Department of Cardiovascular Medicine/[facility] [place], [facility] Clinical Boning Room Worker Profressor of Medicine, [place] [facility] Please note: This note has been produced using speech recognition software and may contain errors related to that system including vish, punctuation, spelling, words, gender and phrases that may be inappropriate. documented in this encounter [facility] 05-03-2022 History of Present illness Narrative Images from the original note were not included. [facility] [place] [facility] Department of Cardiovascular Medicine SECTION OF CLINICAL CARDIOLOGY OUTPATIENT VISIT DATE May 01, 2022 OUTPATIENT VISIT TYPE ESTABLISHED PRIMARY CARE PHYSICIAN: [place] [address] REASON FOR VISIT: 6 month follow up [...] per Dr Nicole COLONOSCOPY - DIAGNOSTIC [facility]: colonoscopy per Dr. Rodney: WNL COLONOSCOPY [...] cap Take 1 capsule by mouth. Saw Montgomery Fruit 450 mg cap Take 1 capsule [...] 7. History of TIA - Admit to [facility] 06/2020, neuroimaging negative for acute stroke [...] Cardiology Nurse Practitioner Section of Regional Cardiology [facility] Dept of Cardiovascular Medicine [facility] [place] [address] [place] [address] Office Office This note was partially generated using [email or web address] voice recognition system, and there may be some incorrect words, spellings, and punctuation that were not noted in checking the note before saving. I personally interviewed, confirmed and edited the above information if obtained by others. documented in this encounter [facility] 11-13-2021 Miscellaneous Notes Received call from Zoë at Dr. Bland's office. Trying to find out if patient is supposed to be taking Lasix and Losartan. Returned call; per notes, no medication changes were made during STACY. Patient self-discontinued losartan potassium back on 06/16/2021. Per request, faxed current med report and TSACY notes to [phone]. documented in this encounter [facility] 04-07-2021 Note HNO ID: [id number] Author: Teresita Klein APRN.GREG Service: ? Author Type: Nurse Practitioner Type: Progress Notes Filed: 04/07/2021 10:42 AM Note Text: [facility] [place] [facility] Heart Failure Clinic OUTPATIENT VISIT DATE [...] 12 months. Admission was on 03/28/2021 in [place] in which he was treated for heart [...] The patient was seen by Cardiology via [facility] on 04/02/2021 for complaints of lower [...] Laterality Date - COLONOSCOP W/ OR W/O [facility] SPEC 05/08/13 Colonoscopy repeat 2 years - COLONOSCOP W/ OR W/O [facility] SPEC 11/27/15 Colonoscopy - COLONOSCOPY - DIAGNOSTIC [facility]: colonoscopy per Dr. Rodney: WNL - COLONOSCOPY W/BX 03/24/09 - EGD W/O OR W/ (more content not included)... [facility] 09-02-2020 Note HNO ID: [id number] Author: Nanette Anguiano Service: ? Author Type: Nurse Practitioner Type: Progress Notes Filed: 09/02/2020 11:57 AM Note Text: [facility] [place] [facility] Heart Failure Clinic OUTPATIENT VISIT DATE [...] x 1 week at which time his [id number] was increased to 10 mg daily. He [...] Laterality Date - COLONOSCOP W/ OR W/O [facility] SPEC 05/08/13 Colonoscopy repeat 2 years - COLONOSCOP W/ OR W/O [facility] SPEC 11/27/15 Colonoscopy - COLONOSCOPY - DIAGNOSTIC [facility]: colonoscopy per Dr. Rodney: WNL - [...] Cancer Sister - (more content not included)... [facility] 06-04-2020 Note HNO ID: [id number] Author: Nanette Oliva) Silvio Service: ? 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 Author Type: Nurse Practitioner Type: Progress Notes Filed: 05/21/2020 10:41 AM Note Text: [facility] [place] [facility] Heart Failure Clinic OUTPATIENT VISIT DATE [...] hypertension 09/13/2005 - (more content not included)... [facility] documented as of this encounter (statuses as of 11/13/2021) [facility] History of Past illness Narrative* [...] of this encounter (statuses as of 05/03/2022) [facility] History of Past illness Narrative* [...] of this encounter (statuses as of 11/02/2022) [facility] note* Diagnosis Chronic diastolic CHF (congestive heart failure) (HCC)- Primary Chronic diastolic heart failure RBBB Right bundle branch block Essential hypertension Unspecified essential hypertension Mixed hyperlipidemia documented in this encounter [facility] note* Diagnosis Chronic diastolic CHF (congestive heart failure) (HCC)- Primary Chronic diastolic heart failure Essential hypertension Unspecified essential hypertension Mixed hyperlipidemia RBBB Right bundle branch block documented in this encounter [facility] note* Diagnosis Essential hypertension- Primary Unspecified essential hypertension Normochromic normocytic anemia Hypercholesterolemia Pure hypercholesterolemia Impaired fasting glucose Chronic renal impairment, stage 2 (mild) [facility] Diagnosis Essential hypertension- Primary Unspecified essential hypertension Hypercholesterolemia Pure hypercholesterolemia Chronic renal impairment, stage 2 (mild) Normochromic normocytic anemia Congestive heart failure, unspecified HF chronicity, unspecified heart failure type (HCC) [facility]* Diagnosis Essential hypertension Unspecified essential hypertension [facility] Outpatient Procedure (Routine) - Closed Specialty Diagnoses / Procedures Referred By Contac t Referred To Contact [facility] Diagnoses Chronic diastolic CHF (congestive heart failure) (HCC) RBBB Essential hypertension Mixed hyperlipidemia Procedures ECG COMPLETE ECG ROUTINE ECG W/LEAST 12 LDS W/I&R Mariah White APRN.CNP [address] [place] [address] [facility] [place] [address] [place] [address] Referral ID Status Reason Start Date Expiration Date V isits Requested Visits Authorized [id number] Closed Auto-Generate d Referral 05/03/2022 05/01/2023 1 1 [facility] Summary Purpose Family History No Family History Records FoundNo Family History Records FoundNo Family History Records FoundNo Family History Records FoundNo Family History Records Found Advance Directives No Advanced Directives Records FoundDocuments on File Type Date 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 Advance Directive(s) 06/12/2020 12:15 PM [...] DATE CREATED AUTHOR AUTHOR'S ORGANIZ ATION 09/08/2020 [facility] DATE CREATED AUTHOR AUTHOR'S ORGANIZ ATION 04/08/2021 [facility] DATE CREATED AUTHOR AUTHOR'S ORGANIZ ATION 06/14/2023 [facility] DATE CREATED AUTHOR AUTHOR'S ORGANIZ ATION 06/21/2023 [facility] Source Comments (unrecognize d section and content) In the event this informatio n is protected by the Federal Confidentiality of Alcohol and Drug Abuse Patient Records regulations: The Federal rules restrict any use of the information to criminally investigate or prosecute any alcohol or drug abuse patient.[facility] the event this information is protected by the Federal Confidentiality of Alcohol and Drug Abuse Patient Records regulations: The Federal rules restrict any use of the information to criminally investigate or prosecute any alcohol or drug abuse patient.[facility] Hospital[facility] the event this information is protected by the Federal Confidentiality of Alcohol and Drug Abuse Patient Records regulations: The Federal rules restrict any use of the information to criminally investigate or prosecute any alcohol or drug abuse patient.[facility] Reason for Visit (unrecogniz ed section and content) Reason Comments Cardiology Follow Up Reason Comments Established Patient Follow-Up Swelling i n legs Reason Comments Follow-up 6 month med check Reason Onset Date Comments Med Refill 01/17/2023 Reason Comments Blood Pressure Check Elevated in the off ice Care Teams (unrecognized sec tion and content) Plycor Operator Relationship Specialty Start Date End Date Pasha Bland [address] [place] [id number] PCP - General Family Practice 07/18/20 Kiana Alejandre MD [address] [place] [address] Consulting Neurology 07/29/20 Yani Woodson MD [address] [facility] [place] [address] Consulting Neurology 07/29/20 Sung Shen, DO [address] [place] [address] Editor In Chief Cardiology 04/05/21 Plycor Operator Relationship Specialty Start Date End Date Pasha Bland [address] [address] PCP - General Family Medicine 07/18/20 Kiana Alejandre MD [address] [place] [address] Consulting Neurology 07/29/20 Yani Woodson MD [address] [place] [address] Consulting Neurology 07/29/20 Sung Shen, DO [address] [place] [address] Editor In Chief Cardiology 04/05/21 Plycor Operator Relationship Specialty Start Date End Date Pasha Bland, [address] [place] [place], [place] [id number] PCP - General 02/11/15 Plycor Operator Relationship Specialty Start Date End Date Pasha Bland, [address] [place], [place] [id number] PCP - General 02/11/15 Plycor Operator Relationship Specialty Start Date End Date Pasha Bland DO [address] [place], [place] [id number] PCP - General 02/11/15 Plycor Operator Relationship Specialty Start Date End Date Pasha Bland DO [address] [place] [address] PCP - General 02/11/15 Plycor Operator Relationship Specialty Start Date End Date Pasha Bland DO [address] [place] [address] PCP - General 02/11/15 FOR [...] BE BASED ON THE PRIMARY CLINICAL RECORDS. [facility]. provides no warranty or guarantee of the accuracy or completeness of information in this document.
[2023-08-13 16:02] LABS: CPK Total, Creatine Kinase 196 U/L (39-308); CRP 7.96 mg/L (0.0-3.0); LDH 246 U/L (87-241)
[2023-08-13 16:10] LABS: BNP,B-Type NATRIURETIC PEPTIDE 166.9 pg/mL (0-100)
[2023-08-13 16:36] LABS: Prothrombin Time (Protime)PT. 13.3 SECONDS (11.7-14.9)
[2023-08-13 16:37] LABS: Fibrinogen 566 mg/dl (203-444)
[2023-08-13 16:48] LABS: D-Dimer Quantitative (DVT/PE) 0.45 FEU/ug/m (0.27-0.49)
[2023-08-13 17:10] LABS: Lactic Acid 1.2 mmol/L (0.4-1.9)
[2023-08-13] MEDS: 0.9% Normal Saline (1000mL) 1,000 ML 100 ML IV (17:21)
[2023-08-13] MEDS: 0.9% Saline Lock 10 ML Syringe IV (17:21)
[2023-08-13 17:33] LABS: Procalcitonin 0.14 ng/mL (0.00-0.09)
[2023-08-13] MEDS: Remdesivir 200 MG in 0.9% Normal Saline (250mL Bag) 210 ML 250 MG IV (18:15)
[2023-08-13] MEDS: Ensure Plus High Protein 120 ML LIQUID PO ×2 (18:17→21:03)
[2023-08-13] MEDS: guaiFENesin/D-Methorphan TAB.SR.12H 2 TABLET PO (21:03)
[2023-08-13] MEDS: Enoxaparin 30 MG/0.3 ML Syringe SC (21:03)
[2023-08-13] MEDS: Carvedilol 12.5 MG Tablet PO (21:03)
[2023-08-13] MEDS: Doxazosin 4 MG Tablet 8 MG PO (21:03)
[2023-08-14] VITALS (11 sets, daily range): BP systolic 127–183; BP diastolic 52–88; PULSE 64–73; RESP 16–20; TEMP 36.7–37.3; O2SAT 93–97
[2023-08-14] MEDS: 0.9% Normal Saline (1000mL) 1,000 ML 100 ML IV (04:09)
[2023-08-14 06:31] LABS: Absolute Lymphocyte Count 0.59 X10^3/uL (0.83-4.51); Basophil# 0.02 X10^3/uL; Basophil% 0.2 % (0-1); Hematocrit 34.5 % (40-54); Hemoglobin 11.3 g/dL (13.0-16.5); Lymphocyte # 0.59 X10^3/ul (0.83-4.51); Lymphocyte % 5.9 % (19-41); Mean Corp Hgb Conc 32.8 g/dL (32-36); Mean Corpuscular Volume 91.5 fL (80-94); Mean Platelet Vol. 11.2 fl (6.2-12.0); Monocyte% 13.1 % (0-10); NRBC Flagged by Analyzer 0 % (0-5); Neutrophil # 7.97 X10^3/uL (2.7-7.7); Neutrophil % 80.1 % (47-70); POSITIVE DIFFERENTIAL YES; Platelet Count 165 K/mm3 (150-450); RBC Distribution Width CV 12.3 % (11.6-14.6); RBC Distribution Width SD 41.1 fl (35.1-43.9); Red Blood Count 3.77 M/mm3 (4.6-6.2)
[2023-08-14 06:32] LABS: Differential Indicated SCAN CRITERIA MET
[2023-08-14 06:47] LABS: Differential Comment SCANNED
[2023-08-14 06:57] LABS: ALB/GLOB Ratio 0.8 RATIO (0.9-2.4); AST(SGOT) 18 U/L (15-37); Alanine Aminotransfer ALT/SGPT 22 U/L (16-61); Albumin, Serum 2.7 g/dL (3.2-5.0); Alkaline Phosphatase 55 U/L (45-117); Anion Gap 2 (5-15); BUN 32 mg/dL (7-18); BUN/Creat Ratio 29.4 RATIO (10-20); Calcium,Total 8.3 mg/dL (8.5-10.1); Chloride 112 mmol/L (98-107); Creatinine, Serum 1.09 mg/dL (0.70-1.30); EST Glomerular Filtration Rate 68 mL/min (>60); Est Glom Filt Rate - Afr Amer 83 mL/min (>60); Estimated Creatinine Clearance 37.32 ml/min; Globulin 3.3 g/dL (2.2-4.2); Glucose 148 mg/dL (74-106); Potassium 4.3 mmol/L (3.5-5.1); Sodium Level 140 mmol/L (136-145)
[2023-08-14] MEDS: Ipratropium/Albuterol Sulfate 3 ML AMPUL.NEB INHALATION ×3 (07:11→21:03)
--- NOTE | 2023-08-14 07:52 | PCM.PN.HOSP ---
Reason for Visit Reason for Visit: Diagnoses Chronic obstructive pulmonary disease with (acute) exacerbation (08/13/23) COVID-19 (08/13/23) Objective Data Objective Data Vital Signs: Vital Signs Temp Pulse Resp BP Pulse Ox O2 Del Method O2 Flow Rate 98.6 F 65 18 127/88 H 93 Nasal Cannula 2 08/14/23 03:23 08/14/23 07:11 08/14/23 07:11 08/14/23 03:23 08/14/23 07:11 08/14/23 07:11 08/14/23 07:11 Oxygen Flow Rate (L/min) 2 Oxygen Delivery Method Nasal Cannula Weight: 138 lb 7.205 oz Body Mass Index (BMI) 26.2 Intake & Output: Intake and Output for Last 24 Hours 08/12/23 08/13/23 08/14/23 23:59 23:59 23:59 Intake Total 760 / 1010 1118.33 / 1118.33 Output Total 320 / 320 Balance 760 / 690 798.33 / 798.33 Lab / Micro Data 08/14/23 06:17 08/14/23 06:17 Labs: Laboratory Results - last 24 hr 08/13/23 08:58: WBC 9.1, RBC 4.56 L, Hgb 13.9, Hct 40.4, MCV 88.6, MCH 30.5, MCHC 34.4, RDW Std Deviation 39.6, RDW Coeff of Sapna 12.2, Plt Count 197, MPV 11.4, Immature Gran % (Auto) 0.300, Neut % (Auto) 77.5 H, Lymph % (Auto) 6.[address] L, [place] % (Auto) 13.1 H, Eos % (Auto) 2.4, Baso % (Auto) 0.4, Absolute Neuts (auto) 7.0, Absolute Lymphs (auto) 0.57 L, Nucleated RBC % 0, Differential Comment SCANNED, PT 13.3, INR 1.0, Fibrinogen 566 H, D-Dimer Quant (PE/DVT) 0.45, Sodium 139, Potassium 4.2, Chloride 106, Carbon Dioxide 28.0, Anion Gap 5, BUN 34 H, Creatinine 1.31 H, Estim Creat Clear Calc 31.05, Est GFR (MDRD) Af Amer 67, Est GFR (MDRD) Non-Af 55 L, BUN/Creatinine Ratio 26.0 H, Glucose 143 H, Calcium 9.4, Magnesium 2.2, Total Bilirubin 0.30, Direct Bilirubin 0.13, AST 17, ALT 24, Alkaline Phosphatase 72, Lactate Dehydrogenase 246 H, Total Creatine Kinase 196, C-React Prot Ext Range 7.96 H, B-Natriuretic Peptide 166.9 H, Total Protein 7.6, Albumin 3.8, Globulin 3.8 08/13/23 16:30: Lactic Acid 1.2, Procalcitonin 0.14 H 08/14/23 06:17: WBC 10.0, RBC 3.77 L, Hgb 11.3 L, Hct 34.5 L, MCV 91.5, MCH 30.0, MCHC 32.8, RDW Std Deviation 41.1, RDW Coeff of Sapna 12.3, Plt Count 165, MPV 11.2, Immature Gran % (Auto) 0.700, Neut % (Auto) 80.1 H, Lymph % (Auto) 5.[address] L, [address] % (Auto) 13.1 H, Eos % (Auto) 0.0, Baso % (Auto) 0.2, Absolute Neuts (auto) 8.0 H, Absolute Lymphs (auto) 0.59 L, Nucleated RBC % 0, Differential Comment SCANNED, Sodium 140, Potassium 4.3, Chloride 112 H, Carbon Dioxide 26.0, Anion Gap 2 L, BUN 32 H, Creatinine 1.09, Estim Creat Clear Calc 37.32, Est GFR (MDRD) Af Amer 83, Est GFR (MDRD) Non-Af 68, BUN/Creatinine Ratio 29.4 H, Glucose 148 H, Calcium 8.3 L, Total Bilirubin 0.30, AST 18, ALT 22, Alkaline Phosphatase 55, Total Protein 6.0 L, Albumin 2.7 L, Globulin 3.3, Albumin/Globulin Ratio 0.8 L Micro: Microbiology 08/13/23 21:05 Sputum, Expectorated/Coughed Gram Stain - Preliminary 08/13/23 20:15 Urine, Clean Catch Legionella Antigen - Final 08/13/23 20:15 Urine, Clean Catch Streptococcus pneumoniae Antigen (M - Final 08/13/23 09:30 Mucosa - Nose SARS-CoV-2, Influenza & RSV (PCR) - Final SARS-CoV-2 (COVID 19 PCR) Radiography Diagnostic Testing: Radiology Impression Chest X-Ray 08/13/23 10:00 IMPRESSION: 1. Hyperinflated lungs with mild diffuse interstitial prominence although no focal airspace disease likely secondary to COPD. 2. Nonspecific partially visualized bowel gas pattern with moderate amount of colonic gas identified. Possible air-fluid levels partially visualized on frontal view. Consider abdominal radiographs or CT if there is high clinical suspicion. Electronically Signed: Tino Raines, DO at 11:00 EST , Physical Exam Narrative At baseline, patient is only does not walk outside home and has only 40 stairs to climb. He states walking within the home he does not get short of breath. Today is mild short of breath at rest on 2 L of oxygen. Mild wheezing. Physical exam: General: Alert, Oriented x3, Cooperative HEENT: Bilateral hard of hearing. Atraumatic, PERRLA, EOMI, Normocephalic Oral: Oral mucosa dry. No Gingival or Mucosal Lesions/ Ulcerations Neck: Supple, No JVD, Negative Carotid Bruits Lungs: Air entry diminished in bilateral lungs. Bilateral coarse crepitation and wheezing. On 2 L of oxygen. Cardiovascular: Regular rate, Regular Rhythm, Normal S1, Normal S2, systolic murmur right second ICS, . Abdomen: Bowel Sounds Present, Soft, Non Tender, Non-Distended : No renal angle tenderness. No suprapubic tenderness. Extremities: No edema, Capillary Refill Less than 3 Seconds Skin: No rashes, No breakdown Musculoskeletal: No Tenderness to Palpation of Joints or Extremities, muscle strength 5/5 at major joints. Neurological: Cranial nerves II-XII grossly intact, DTR 2+/4. No acute focal neurological deficit. Psych/Mental Status: Normal Affect, Appropriate. Assessment & Plan Assessment/Plan (1) COPD exacerbation: (2) COVID-19 virus infection: PLAN: Plan This is a 82-year-old gentleman being admitted for cough, shortness of breath URI symptoms consistent with COVID-19 bronchitis 1. COPD/asthma overlap exacerbation most likely due to COVID-19 viral bronchitis: Patient is being admitted to [facility] with telemetry. Patient chest x-ray initially did not show acute infiltrate or consolidation. Patient is started on dexamethasone and remdesivir. Liver chemistry normal. COVID-19 acute inflammatory labs ordered. Patient is being managed on scheduled bronchodilator, Mucinex, incentive spirometry and Pep. Urinary antigens ordered. COVID-19 PCR positive but RSV and flu are negative. Patient had Jung vaccination about a year ago. Never had COVID infection before. Enhanced COVID precaution for 9 days from symptom onset which is 08/10/2023. 08/14: Patient on 2 L of oxygen. Normal WBC count but patient has lymphopenia 5.9% ALC, less than 0.59K. Monocytosis 13%. Inflammatory markers fibrinogen, CRP, LDH, BNP are elevated. Lactic acid normal. Procalcitonin mildly elevated. D-dimer normal. CK normal. Liver chemistry shows normal transaminases, alkaline phosphatase and total bilirubin. Urinary antigens are negative. Prelim sputum culture pending. Continue dexamethasone and remdesivir. 2. SHIVA most likely prerenal on CKD stage IIIb: Patient baseline creatinine runs around 1.0 admitted with 1.31. BUN 34, BUNs/creatinine ratio 26. IV fluid normal saline at 100 mill per hour for 2 L. Monitor kidney function. Electrolytes in normal range. Serum magnesium level normal. 08/14: BUNs/creatinine 32/1.09. Repeat creatinine is around baseline. Estimated creatinine clearance 37 mL/min. Monitor kidney function on remdesivir. 3. Hyperglycemia: Glucose 143. A1c ordered for tomorrow. Patient does not carry diagnosis of diabetes mellitus. Long history of COPD/asthma with 69 pack years of smoking: Patient on Ventolin HFA at home otherwise no scheduled inhaler. 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 3. Hypertension and dyslipidemia: Blood pressure in normal range. Hold antihypertensive medications may be resumed from tomorrow. On simvastatin. 4. BPH: BPH: Doxazosin and finasteride ordered. Patient on multiple herbal medications including saw palmetto milk thistle, lecithin, ginseng like fish oil. DVT prophylaxis: Lovenox 30 mg SQ twice daily adjusted to the creatinine clearance as per COVID protocol. Living will/advanced directive/end of life care: Patient does not have living will or advanced directive. He states his next of kin is Roddy Wray, he is jeremiah. After discussion of benefits/risks procedures involved with full code, DNR CC arrest and DNR CC, the patient opted for full code. Patient does want artificial life support including intubation, tube feed, ventilator and/chest compression, central venous catheter, vasopressor and DC shock if needed Total time spent in [id number] encounter in discussion of advanced directive 17 minutes. Clinical Impression(s) from Imaging Studies Chest X-Ray 08/13/23 10:00 IMPRESSION: 1. Hyperinflated lungs with mild diffuse interstitial prominence although no focal airspace disease likely secondary to COPD. 2. Nonspecific partially visualized bowel gas pattern with moderate amount of colonic gas identified. Possible air-fluid levels partially visualized on frontal view. Consider abdominal radiographs or CT if there is high clinical suspicion. 03/29/2021 Interpretation Summary Normal LV size. Left ventricular systolic function is normal. The estimated ejection fraction is 65 %. Stage 1 diastolic dysfunction. Pulmonary artery systolic pressure is 45 mmHg. Mild aortic stenosis. Charges/Coding Visit Charges Inpatient E&M: 79743 Subs Hosp L2
[2023-08-14] MEDS: dexAMETHasone 10 MG/ML Vial 6 MG IV (10:53)
[2023-08-14] MEDS: Enoxaparin 30 MG/0.3 ML Syringe SC ×2 (10:54→21:31)
[2023-08-14] MEDS: 0.9% Saline Lock 10 ML Syringe IV ×2 (10:54→23:06)
[2023-08-14] MEDS: Cholecalciferol (VIT D3) 25 MCG TABLET (1,000 UNITS) 50 MCG PO (10:54)
[2023-08-14] MEDS: Finasteride 5 MG Tablet PO (10:54)
[2023-08-14] MEDS: Aspirin 81 MG TAB.CHEW PO (10:55)
[2023-08-14] MEDS: NIFEdipine 30 MG Tablet PO (10:55)
[2023-08-14] MEDS: Calcium (Elemental) 500 MG Tablet PO (10:56)
[2023-08-14] MEDS: Carvedilol 12.5 MG Tablet PO (10:56)
[2023-08-14] MEDS: guaiFENesin/D-Methorphan TAB.SR.12H 2 TABLET PO ×2 (10:56→21:31)
[2023-08-14] MEDS: Ascorbic Acid 500 MG Tablet 1000 MG PO (10:57)
[2023-08-14] MEDS: Ensure Plus High Protein 120 ML LIQUID PO ×2 (10:57→21:32)
[2023-08-14] MEDS: cloNIDine HCl 0.1 MG Tablet 0.100000000000000006 MG PO (17:51)
[2023-08-14] MEDS: hydrALAZINE 20 MG/ML Vial 10 MG IV (17:52)
[2023-08-14] MEDS: Doxazosin 4 MG Tablet 8 MG PO (21:31)
[2023-08-14] MEDS: Carvedilol 25 MG Tablet PO (21:31)
[2023-08-14] MEDS: Atorvastatin Calcium 40 MG Tablet PO (21:31)
[2023-08-14] MEDS: Remdesivir 100 MG in 0.9% Normal Saline (250mL Bag) 230 ML 250 MG IV (23:06)
[2023-08-15] VITALS (8 sets, daily range): BP systolic 121–153; BP diastolic 55–63; PULSE 60–68; RESP 14–20; TEMP 36.6–36.7; O2SAT 82–96
[2023-08-15] MEDS: cloNIDine HCl 0.1 MG Tablet 0.100000000000000006 MG PO ×2 (05:48→14:06)
[2023-08-15 06:42] LABS: Absolute Lymphocyte Count 0.77 X10^3/uL (0.83-4.51); Basophil# 0.01 X10^3/uL; Basophil% 0.1 % (0-1); Hematocrit 35.6 % (40-54); Lymphocyte # 0.77 X10^3/ul (0.83-4.51); Lymphocyte % 6.9 % (19-41); Mean Corp Hgb Conc 33.7 g/dL (32-36); Mean Corpuscular Hgb 30.1 pg (27.0-32.0); Mean Corpuscular Volume 89.2 fL (80-94); Mean Platelet Vol. 11.8 fl (6.2-12.0); Monocyte# 1.34 X10^3/uL; NRBC Flagged by Analyzer 0 % (0-5); Neutrophil # 9.02 X10^3/uL (2.7-7.7); Neutrophil % 80.7 % (47-70); Platelet Count 184 K/mm3 (150-450); RBC Distribution Width CV 12.5 % (11.6-14.6); RBC Distribution Width SD 41.2 fl (35.1-43.9); Red Blood Count 3.99 M/mm3 (4.6-6.2); White Blood Count 11.2 K/mm3 (4.4-11.0)
[2023-08-15 07:12] LABS: ALB/GLOB Ratio 0.7 RATIO (0.9-2.4); AST(SGOT) 21 U/L (15-37); Alanine Aminotransfer ALT/SGPT 21 U/L (16-61); Albumin, Serum 2.6 g/dL (3.2-5.0); Alkaline Phosphatase 52 U/L (45-117); Anion Gap 4 (5-15); BUN 28 mg/dL (7-18); BUN/Creat Ratio 28.1 RATIO (10-20); Calcium,Total 8.6 mg/dL (8.5-10.1); Chloride 109 mmol/L (98-107); EST Glomerular Filtration Rate 76 mL/min (>60); Est Glom Filt Rate - Afr Amer 92 mL/min (>60); Estimated Creatinine Clearance 40.68 ml/min; Globulin 3.5 g/dL (2.2-4.2); Glucose 121 mg/dL (74-106); Potassium 4.3 mmol/L (3.5-5.1); Protein, Total 6.1 g/dL (6.4-8.2); Sodium Level 140 mmol/L (136-145)
[2023-08-15] MEDS: Ipratropium/Albuterol Sulfate 3 ML AMPUL.NEB INHALATION (07:46)
--- NOTE | 2023-08-15 08:12 | DCINST_ITS ---
Discharge Instructions Diet Discharge Diet: No restrictions Activity Discharge Activity: Return to Normal Activity Weight Bearing Status: Weight bearing as tolerated Dressing / Incision Call your doctor if you observe: Fever of 101 or Higher, Coldness, Increased Pain, Numbness or Tingling, Change in Color, Inability to urinate, Inability to have a bowel movement, Shortness of breath, Dizziness, Fainting spells, Swelling in the ankles, Chest pain, Prolonged hiccupping, Increased palpitations (irregular heartbeat) and Calf discomfort Follow Up Care When: IN 2 WEEKS Test Results: Test results from this visit will be discussed in further detail at your follow- up appointment, if applicable. Discharge Plan Admission Admit Date/Time: 08/13/23 12:41 Primary Reason for Your Visit: COVID bronchitis Attending Provider: Anthony Bhatia Primary Care Provider: Pasha Bland Instructions Additional Instructions / Restrictions: Patient is discharged on oxygen Discharge Orders/Prescriptions Prescriptions: New dexamethasone 6 mg tablet 6 mg PO DAILY Qty: 8 0RF pseudoephedrine-guaifenesin [Mucus D] 120-1,200 mg tablet extended release 12 hr 1 tab PO Q12H 7 Days Qty: 14 0RF Continued carvedilol [Coreg] 25 MG tablet 25 mg PO BID simvastatin 40 MG tablet 40 mg PO QHS clonidine HCl 0.2 MG tablet 0.1 mg PO TID doxazosin 4 MG tablet 8 mg PO QHS albuterol sulfate [Ventolin HFA] 1 INHALER inhaler 2 puff inhalation Q6H PRN PRN (Reason: Asthma) ascorbic acid (vitamin C) [Vitamin C] 1,000 MG tablet 1,000 mg PO DAILY carica papaya 1 EACH tablet 1 ea PO DAILY milk thistle 150 MG capsule 150 mg PO DAILY calcium carbonate 500 MG tablet 500 mg PO DAILY vitamin B complex-folic acid [Super B Maxi Complex] 0.4 MG tablet 0.4 mg PO DAILY Fish Oil 500 MG capsule,delayed release(DR/EC) 500 mg PO DAILY cholecalciferol (vitamin D3) [Vitamin D3] 2,000 UNIT capsule 2,000 unit PO DAILY aspirin 81 MG tablet,chewable 81 mg PO DAILY@0800 Qty: 90 0RF nifedipine 60 mg tablet extended release 24hr 30 mg PO DAILY Patient Comments: TAKE 1 TABLET BY MOUTH EVERY DAY finasteride [Proscar] 5 mg tablet 5 mg PO DAILY Patient Comments: TAKE 1 TABLET BY MOUTH EVERY DAY Held ginseng 100 MG capsule 100 mg PO DAILY Hold Instructions: Follow with PCP. lecithin 1,200 MG capsule 1,200 mg PO DAILY Hold Instructions: Follow with PCP. capsicum (cayenne) 450 MG capsule 450 mg PO DAILY Hold Instructions: Follow with PCP. garlic 1,000 MG capsule 1,000 mg PO DAILY Hold Instructions: Follow with PCP. saw palmetto 500 MG capsule 500 mg PO DAILY Hold Instructions: Follow with PCP. Referrals / Follow Up: Pasha Bland DO [Primary Care Provider] - Wilian Dumont DO [Med Staff - Active Staff] - Within 1 Month (History of COPD/asthma. Admitted for COVID) Disposition Disposition (needs filled in before D/C Order can be placed): Home, Self Care
[2023-08-15] MEDS: NIFEdipine 30 MG Tablet PO (09:10)
[2023-08-15] MEDS: Ascorbic Acid 500 MG Tablet 1000 MG PO (09:10)
[2023-08-15] MEDS: Carvedilol 25 MG Tablet PO (09:11)
[2023-08-15] MEDS: Finasteride 5 MG Tablet PO (09:11)
[2023-08-15] MEDS: Aspirin 81 MG TAB.CHEW PO (09:11)
[2023-08-15] MEDS: Calcium (Elemental) 500 MG Tablet PO (09:11)
[2023-08-15] MEDS: Cholecalciferol (VIT D3) 25 MCG TABLET (1,000 UNITS) 50 MCG PO (09:12)
[2023-08-15] MEDS: guaiFENesin/D-Methorphan TAB.SR.12H 2 TABLET PO (09:12)
[2023-08-15] MEDS: Ensure Plus High Protein 120 ML LIQUID PO ×2 (09:13→14:06)
[2023-08-15] MEDS: Enoxaparin 30 MG/0.3 ML Syringe SC (09:13)
--- NOTE | 2023-08-15 11:08 | DS.PCM_ITS ---
Providers Date of Admission: 08/13/23 Date of Discharge: 08/15/23 Primary Care Physician: Dr. Pasha Bland DO Reason For Visit: COVID Diagnosis Discharge Diagnosis (1) COPD exacerbation: Status: Chronic Code(s): J44.1 - Chronic obstructive pulmonary disease with (acute) exacerbation (2) COVID-19 virus infection: Status: Acute Code(s): U07.1 - COVID-19 Plan This is a 82-year-old gentleman being admitted for cough, shortness of breath URI symptoms consistent with COVID-19 bronchitis 1. COPD/asthma overlap exacerbation most likely due to COVID-19 viral bronchitis: Patient is being admitted to [facility] with telemetry. Patient chest x-ray initially did not show acute infiltrate or consolidation. Patient is started on dexamethasone and remdesivir. Liver chemistry normal. COVID-19 acute inflammatory labs ordered. Patient is being managed on scheduled bronchodilator, Mucinex, incentive spirometry and Pep. Urinary antigens ordered. COVID-19 PCR positive but RSV and flu are negative. Patient had Aug vaccination about a year ago. Never had COVID infection before. Enhanced COVID precaution for 9 days from symptom onset which is 08/10/2023. 08/14: Patient on 2 L of oxygen. Normal WBC count but patient has lymphopenia 5.9% ALC, less than 0.59K. Monocytosis 13%. Inflammatory markers fibrinogen, CRP, LDH, BNP are elevated. Lactic acid normal. Procalcitonin mildly elevated. D-dimer normal. CK normal. Liver chemistry shows normal transaminases, alkaline phosphatase and total bilirubin. Urinary antigens are negative. Prelim sputum culture pending. Continue dexamethasone and remdesivir. 08/15/23: Patient wants to go home. Next, patient 93% on room air, on ambulation, 82% on room air and 96% on 2 L of oxygen. Patient is discharged on oxygen. Patient is ambulatory in home and in the community and requires home oxygen with portability for hypoxia as he does not want to stay further. Prescription for dexamethasone given to complete total of 10 days and Mucinex DM. Follow-up in pulmonary clinic for PFT and sleep study mild hypoxia. 2. SHIVA most likely prerenal on CKD stage IIIb: Patient baseline creatinine runs around 1.0 admitted with 1.31. BUN 34, BUNs/creatinine ratio 26. IV fluid normal saline at 100 mill per hour for 2 L. Monitor kidney function. Electrolytes in normal range. Serum magnesium level normal. 08/14: BUNs/creatinine 32/1.09. Repeat creatinine is around baseline. Estimated creatinine clearance 37 mL/min. Monitor kidney function on remdesivi r. 08/15: Electrolytes in normal range. BUNs/creatinine 28/1.0. 3. Hyperglycemia: Glucose 143. A1c ordered for tomorrow. Patient does not carry diagnosis of diabetes mellitus. Long history of COPD/asthma with 69 pack years of smoking: Patient on Ventolin HFA at home otherwise no scheduled inhaler. 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 3. Hypertension and dyslipidemia: Blood pressure in normal range. Hold antihypertensive medications may be resumed from tomorrow. On simvastatin. 4. BPH: BPH: Doxazosin and finasteride ordered. Patient on multiple herbal medications including saw palmetto milk thistle, lecithin, ginseng like fish oil. DVT prophylaxis: Lovenox 30 mg SQ twice daily adjusted to the creatinine clearance as per COVID protocol. Discharge medication reconciliation done. Discharge follow-up instructions completed. Discharge process discussed with the patient and all questions were answered to patient's satisfaction. Follow with PCP in 1 to 2 weeks Total time spent, exact 35 minutes on discharge meds reconciliation, examination, coordination of care with nurses and ancillary staff, review of imaging and blood test and discussion with the patient on follow-up instructions. Living will/advanced directive/end of life care: Patient does not have living wi ll or advanced directive. He states his next of kin is Roddy Wray, he is jeremiah. After discussion of benefits/risks procedures involved with full code, DNR CC arrest and DNR CC, the patient opted for full code. Patient does want artificial life support including intubation, tube feed, ve ntilator and/chest compression, central venous catheter, vasopressor and DC shock if needed Total time spent in [id number] encounter in discussion of advanced directive 17 minutes. Clinical Impression(s) from Imaging Studies Chest X-Ray 08/13/23 10:00 IMPRESSION: 1. Hyperinflated lungs with mild diffuse interstitial prominence although no focal airspace disease likely secondary to COPD. 2. Nonspecific partially visualized bowel gas pattern with moderate amount of colonic gas identified. Possible air-fluid levels partially visualized on frontal view. Consider abdominal radiographs or CT if there is high clinical suspicion. 03/29/2021 Interpretation Summary Normal LV size. Left ventricular systolic function is normal. The estimated ejection fraction is 65 %. Stage 1 diastolic dysfunction. Pulmonary artery systolic pressure is 45 mmHg. Mild aortic stenosis. Medications at Discharge Home Medications albuterol sulfate 90 mcg/actuation aerosol inhaler (Ventolin HFA) 2 puff inhalation Q6H PRN PRN Asthma 08/25/16 carvedilol 25 mg tablet (Coreg) 25 mg PO BID blood pressure 08/25/16 clonidine HCl 0.2 mg tablet 0.1 mg PO TID blood pressure 08/25/16 doxazosin 4 mg tablet 8 mg PO QHS prostate 08/25/16 simvastatin 40 mg tablet 40 mg PO QHS cholesterol 08/25/16 ascorbic acid (vitamin C) 1,000 mg tablet (Vitamin C) 1,000 mg PO DAILY vitamin 01/20/17 calcium carbonate 500 mg calcium (1,250 mg) tablet 500 mg PO DAILY supplement 01/20/17 capsicum (cayenne) 450 mg capsule 450 mg PO DAILY supplement 01/20/17 carica papaya 1 ea PO DAILY supplement 01/20/17 cholecalciferol (vitamin D3) 50 mcg (2,000 unit) capsule (Vitamin D3) 2,000 unit PO DAILY vitamin 01/20/17 garlic 1,000 mg capsule 1,000 mg PO DAILY supplement 01/20/17 ginseng 100 mg capsule 100 mg PO DAILY supplement 01/20/17 lecithin 1,200 mg capsule 1,200 mg PO DAILY supplement 01/20/17 milk thistle 150 mg capsule 150 mg PO DAILY supplement 01/20/17 omega 3-dha 60 mg-epa 90 mg-fish oil 500 mg capsule, delayed release (Fish Oil) 500 mg PO DAILY supplement 01/20/17 saw palmetto 500 mg capsule 500 mg PO DAILY supplement 01/20/17 vitamin B complex-folic acid 0.4 mg tablet (Super B Maxi Complex) 0.4 mg PO DAILY vitamin 01/20/17 aspirin 81 mg chewable tablet 81 mg PO DAILY@0800 [employer] ##90 06/20/20 finasteride 5 mg tablet (Proscar) 5 mg PO DAILY prostate 03/28/21 nifedipine 60 mg tablet,extended release 24 hr 30 mg PO DAILY blood pressure 03/28/21 dexamethasone 6 mg tablet 6 mg PO DAILY #8 tabs 08/15/23 pseudoephedrine-guaifenesin ER 120 mg-1,200 mg tab,extend release 12hr (Mucus D) 1 tab PO Q12H cold symptoms 1 week #14 tabs 08/15/23 Physical Exam Narrative Patient states he is not short of breath. Mild cough. At rest he is on on room air not hypoxic. Physical exam: General: Alert, Oriented x3, Cooperative HEENT: Bilateral hard of hearing. Atraumatic, PERRLA, EOMI, Normocephalic Oral: Oral mucosa dry. No Gingival or Mucosal Lesions/ Ulcerations Neck: Supple, No JVD, Negative Carotid Bruits Lungs: Air entry diminished in bilateral lungs. Mild bilateral coarse crepitation and wheezing. Cardiovascular: Regular rate, Regular Rhythm, Normal S1, Normal S2, systolic murmur right second ICS, . Abdomen: Bowel Sounds Present, Soft, Non Tender, Non-Distended : No renal angle tenderness. No suprapubic tenderness. Extremities: No edema, Capillary Refill Less than 3 Seconds Skin: No rashes, No breakdown Musculoskeletal: No Tenderness to Palpation of Joints or Extremities, muscle strength 5/5 at major joints. Neurological: Cranial nerves II-XII grossly intact, DTR 2+/4. No acute focal neurological deficit. Psych/Mental Status: Normal Affect, Appropriate. Weight / BMI Weight Weight: 138 lb 7.205 oz Body Mass Index (BMI) 26.2 ABG / Lab / Microbiology Data 08/15/23 05:38 08/15/23 05:38 Laboratory: Laboratory Results - last 24 hr 08/15/23 05:38: WBC 11.2 H, RBC 3.99 L, Hgb 12.0 L, Hct 35.6 L, MCV 89.2, MCH 30 .1, MCHC 33.7, RDW Std Deviation 41.2, RDW Coeff of Sapna 12.5, Plt Count 184, MPV 11.8, Immature Gran % (Auto) 0.300, Neut % (Auto) 80.7 H, Lymph % (Auto) 6.9 L, [place] % (Auto) 12.0 H, Eos % (Auto) 0.0, Baso % (Auto) 0.1, Absolute Neuts (auto) 9.0 H, Absolute Lymphs (auto) 0.77 L, Nucleated RBC % 0, Sodium 140, Potassium 4.3, Chloride 109 H, Carbon Dioxide 27.0, Anion Gap 4 L, BUN 28 H, Creatinine 1.00, Estim Creat Clear Calc 40.68, Est GFR (MDRD) Af Amer 92, Est GFR (MDRD) Non-Af 76, BUN/Creatinine Ratio 28.1 H, Glucose 121 H, Calcium 8.6, Total Bilirubin 0.30, AST 21, ALT 21, Alkaline Phosphatase 52, Total Protein 6.1 L, Albumin 2.6 L, Globulin 3.5, Albumin/Globulin Ratio 0.7 L Microbiology: Microbiology 08/13/23 21:05 Sputum, Expectorated/Coughed Gram Stain - Final 08/13/23 20:15 Urine, Clean Catch Legionella Antigen - Final 08/13/23 20:15 Urine, Clean Catch Streptococcus pneumoniae Antigen (M - Final 08/13/23 09:30 Mucosa - Nose SARS-CoV-2, Influenza & RSV (PCR) - Final SARS-CoV-2 (COVID 19 PCR) D/C Instructions Discharge Diet: No restrictions Weight Bearing Status: Weight bearing as tolerated Call your doctor if you observe: Fever of 101 or Higher, Coldness, Increased Pain, Numbness or Tingling, Change in Color, Inability to urinate, Inability to have a bowel movement, Shortness of breath, Dizziness, Fainting spells, Swelling in the ankles, Chest pain, Prolonged hiccupping, Increased palpitations (irregular heartbeat) and Calf discomfort When: IN 2 WEEKS Meaningful Use Info Meaningful Use Diagnoses (Choose all that apply): None applicable Discharge Plan Admission Admit Date/Time: 08/13/23 12:41 Primary Reason for Your Visit: COVID bronchitis Attending Provider: Anthony Bhatia Primary Care Provider: Pasha Bland Instructions Additional Instructions / Restrictions: Patient is discharged on oxygen Discharge Orders/Prescriptions Prescriptions: New dexamethasone 6 mg tablet 6 mg PO DAILY Qty: 8 0RF pseudoephedrine-guaifenesin [Mucus D] 120-1,200 mg tablet extended release 12 hr 1 tab PO Q12H 7 Days Qty: 14 0RF Continued carvedilol [Coreg] 25 MG tablet 25 mg PO BID simvastatin 40 MG tablet 40 mg PO QHS clonidine HCl 0.2 MG tablet 0.1 mg PO TID doxazosin 4 MG tablet 8 mg PO QHS albuterol sulfate [Ventolin HFA] 1 INHALER inhaler 2 puff inhalation Q6H PRN PRN (Reason: Asthma) ascorbic acid (vitamin C) [Vitamin C] 1,000 MG tablet 1,000 mg PO DAILY carica papaya 1 EACH tablet 1 ea PO DAILY milk thistle 150 MG capsule 150 mg PO DAILY calcium carbonate 500 MG tablet 500 mg PO DAILY vitamin B complex-folic acid [Super B Maxi Complex] 0.4 MG tablet 0.4 mg PO DAILY Fish Oil 500 MG capsule,delayed release(DR/EC) 500 mg PO DAILY cholecalciferol (vitamin D3) [Vitamin D3] 2,000 UNIT capsule 2,000 unit PO DAILY aspirin 81 MG tablet,chewable 81 mg PO DAILY@0800 Qty: 90 0RF nifedipine 60 mg tablet extended release 24hr 30 mg PO DAILY Patient Comments: TAKE 1 TABLET BY MOUTH EVERY DAY finasteride [Proscar] 5 mg tablet 5 mg PO DAILY Patient Comments: TAKE 1 TABLET BY MOUTH EVERY DAY Held ginseng 100 MG capsule 100 mg PO DAILY Hold Instructions: Follow with PCP. lecithin 1,200 MG capsule 1,200 mg PO DAILY Hold Instructions: Follow with PCP. capsicum (cayenne) 450 MG capsule 450 mg PO DAILY Hold Instructions: Follow with PCP. garlic 1,000 MG capsule 1,000 mg PO DAILY Hold Instructions: Follow with PCP. saw palmetto 500 MG capsule 500 mg PO DAILY Hold Instructions: Follow with PCP. Referrals / Follow Up: Wilian Dumont DO [Med Staff - Active Staff] - Within 1 Month (History of COPD/asthma. Admitted for COVID) Pasha Bland DO [Primary Care Provider] - Disposition Disposition (needs filled in before D/C Order can be placed): Home, Self Care Charges/Coding Visit Charges Inpatient E&M: 21757 Disch Hosp >30min
[2023-08-15] MEDS: dexAMETHasone 4 MG Tablet 6 MG PO (12:17)
== END 2023-08-15 14:41 | disposition home or self-care (01) | DRG 178 ==
LOC: ED 11:59 → MS3 12:49 → PCU 14:54
PROVIDERS: Admitting Provider Internal Medicine; Emergency Provider Emergency Medicine; PCP Family Medicine; Visit Provider Internal Medicine
DX: U07.1 COVID-19 (principal); J45.901 Unspecified asthma with (acute) exacerbation; N17.9 Acute kidney failure, unspecified; J44.1 Chronic obstructive pulmonary disease with (acute) exacerbation; N18.32 Chronic kidney disease, stage 3b; I12.9 Hypertensive chronic kidney disease with stage 1 through stage 4 chronic kidney disease, or unspecified chronic kidney disease; E78.5 Hyperlipidemia, unspecified; Z51.5 Encounter for palliative care; R73.9 Hyperglycemia, unspecified; Z79.82 Long term (current) use of aspirin; Z79.52 Long term (current) use of systemic steroids; Z87.891 Personal history of nicotine dependence; Z66 Do not resuscitate; N40.0 Benign prostatic hyperplasia without lower urinary tract symptoms
CPT/HCPCS: 36415; 71046; 80048; 80053; 80076; 82550; 83605; 83615; 83735; 83880; 84145; 85025; 85379; 85384; 85610; 86140; 87070; 87077; 87205; 87449; 87631; 93005; 94640; 94668; 97802; 99285; J7030; J7050; A4216; J0248

== ENCOUNTER 2023-09-04 04:29 | Inpatient (IN) | payer MEDICARE, SELFPAY ==
[2023-09-04] VITALS (10 sets, daily range): BP systolic 148–165; BP diastolic 65–89; PULSE 71–93; RESP 18–28; TEMP 36.4–38.6; O2SAT 87–98; BMI 28.0; BMI 25.0
--- NOTE | 2023-09-04 05:08 | EDS_ITS ---
HPI HPI - GI History of Present Illness Chief Complaint: Abd Pain Informant: patient Narrative Narrative: Patient presents with right upper quadrant pain. Patient states this started last night maybe 9 or 10:00. He had beets for dinner. But then he did not eat up high before bed and then this started. It has started and stayed in the right upper quadrant. It does not radiate anywhere else. At first he denied nausea vomiting. Then I noticed his EMS reports had vomiting. After 3 more times questioning he admitted that with this he did vomit but did not bring anything up and he is nauseated. He denies any diarrhea or change in stool. No blood in his stool. He denies any prior abdominal surgery in his life. He has had surgery on vocal cords and no other surgery. I ask him about his abdomen because it appears distended. He states it has been that way for years and years. It is not any different than normal. He denies any chest pain or trouble breathing. No radiation of the pain into his chest or back. [facility] Medical History Acute exacerbation of congestive heart failure Asthma Cardiac murmur CHF (congestive heart failure) CKD (chronic kidney disease) COPD (chronic obstructive pulmonary disease) HTN (hypertension) Hyperlipidemia Hypertension Hypoxemia TIA (transient ischemic attack) Home Medications albuterol sulfate 90 mcg/actuation aerosol inhaler (Ventolin HFA) 2 puff inhalation Q6H PRN PRN Asthma 08/25/16 [History Last Taken Unknown] carvedilol 25 mg tablet (Coreg) 25 mg PO BID blood pressure 08/25/16 [History Last Taken Unknown] clonidine HCl 0.2 mg tablet 0.1 mg PO TID blood pressure 08/25/16 [History Last Taken Unknown] doxazosin 4 mg tablet 8 mg PO QHS prostate 08/25/16 [History Last Taken Unknown] simvastatin 40 mg tablet 40 mg PO QHS cholesterol 08/25/16 [History Last Taken Unknown] ascorbic acid (vitamin C) 1,000 mg tablet (Vitamin C) 1,000 mg PO DAILY vitamin 01/20/17 [History Last Taken Unknown] calcium carbonate 500 mg calcium (1,250 mg) tablet 500 mg PO DAILY supplement 01/20/17 [History Last Taken Unknown] capsicum (cayenne) 450 mg capsule 450 mg PO DAILY supplement 01/20/17 [History Last Taken Unknown] carica papaya 1 ea PO DAILY supplement 01/20/17 [History Last Taken Unknown] cholecalciferol (vitamin D3) 50 mcg (2,000 unit) capsule (Vitamin D3) 2,000 unit PO DAILY vitamin 01/20/17 [History Last Taken Unknown] garlic 1,000 mg capsule 1,000 mg PO DAILY supplement 01/20/17 [History Last Taken Unknown] ginseng 100 mg capsule 100 mg PO DAILY supplement 01/20/17 [History Last Taken Unknown] lecithin 1,200 mg capsule 1,200 mg PO DAILY supplement 01/20/17 [History Last Taken Unknown] milk thistle 150 mg capsule 150 mg PO DAILY supplement 01/20/17 [History Last Taken Unknown] omega 3-dha 60 mg-epa 90 mg-fish oil 500 mg capsule, delayed release (Fish Oil) 500 mg PO DAILY supplement 01/20/17 [History Last Taken Unknown] saw palmetto 500 mg capsule 500 mg PO DAILY supplement 01/20/17 [History Last Taken Unknown] vitamin B complex-folic acid 0.4 mg tablet (Super B Maxi Complex) 0.4 mg PO DAILY vitamin 01/20/17 [History Last Taken Unknown] aspirin 81 mg chewable tablet 81 mg PO DAILY@0800 [facility]) ##90 06/20/20 [Rx Last Taken Unknown] finasteride 5 mg tablet (Proscar) 5 mg PO DAILY prostate 03/28/21 [History Last Taken Unknown] nifedipine 60 mg tablet,extended release 24 hr 30 mg PO DAILY blood pressure 03/28/21 [History Last Taken Unknown] dexamethasone 6 mg tablet 6 mg PO DAILY #8 tabs 08/15/23 [Rx Last Taken Unknown] Allergy/AdvReac Type Severity Reaction Status Date / Time acetaminophen [From Tylenol] AdvReac Other Verified 09/04/23 04:46 Family History Other CVA (cerebral vascular accident) Cancer Surgical History History of tonsillectomy Previous back surgery Previous back surgery Social History Smoking Status: Former smoker substance use type: does not use ROS ROS ED ROS Narrative A complete review of systems was performed and is negative except as documented in the history of present illness. Some specific details below. Constitutional: No recent fevers or chills. ENT: No difficulty swallowing. No swelling. No pain. No GERD symptoms CV: No chest pain or palpitations. Respiratory: No dyspnea. No hemoptysis. No difficulty taking breaths. GI: Please see history of present illness. : No frequency dysuria or hematuria. Musculoskeletal: No recent trauma. No pains. He does have some mild chronic edema which is unchanged. Skin: No rash. Nondiaphoretic. Neuro: No weakness or numbness. Endocrine: No polyuria or polydipsia. EXAM Physical Exam Narrative Exam Narrative: CONSTITUTIONAL: Patient is nontoxic in appearance. The patient looks comfortable. HEENT: No notable trauma. Mucous membranes moist. EYES: No conjunctival injection. CARDIOVASCULAR: Regular rate. Regular rhythm. No notable murmur. No JVD. RESPIRATORY: No respiratory distress. Breathing is unlabored. No wheezes. No rhonchi. No rales. No pain with a deep breath. GASTROINTESTINAL: Patient's abdomen does look distended but is not tight. But he states it has been that way for many years and is unchanged. Bowel sounds are normal. He does have some right upper quadrant tenderness. No tenderness anywhere else in the abdomen. No real rebound. No guarding. GENITOURINARY: No tenderness over the bladder. No CVA tenderness. MUSCULOSKELETAL: Atraumatic. He has mild bilateral peripheral edema which he states is chronic. NEUROLOGICAL: Patient is alert and appropriate. No focal deficit noted. SKIN: No noted rashes. No diaphoresis. PSYCHIATRIC: Patient is calm. Mood is appropriate. Const Vital Signs: 09/04/23 04:30 09/04/23 06:32 Temperature 97.5 F L Temperature Source Oral Pulse Rate 71 72 Respiratory Rate 24 H Blood Pressure 148/65 H Blood Pressure Mean 92 Pulse Ox 91 Oxygen Delivery Method Room Air MDM MDM MDM Narrative Medical decision making narrative: My independent interpretation of the patient's CT does show multiple gallstones. Possibly a little bit of thickening but no obvious fluid or significant edema. There is some small bowel in the right inguinal canal. No sign of obstruction. Final reading is similar. Dr. Gregorio was in the emergency department and saw his scan. She evaluated the patient. She was able to easily reduce that hernia. She agrees that there is no pain there at all right upper quadrant. Plan is to get ultrasound to better define this. Patient's CBC shows mild elevation in the white count at 12 4. Minimal anemia. Platelets are normal. Patient's electrolytes show mildly high BUN but he is given IV fluids here. Lipase is mildly elevated 79. Patient's liver function test show slight rise of ALT and alk phos. 08: 40. Patient is still having some discomfort but he states it is better. But he still has tenderness when I press. I am awaiting results of his ultrasound. Patient's ultrasound does show acute cholecystitis. I discussed the case again with Dr. Aleman. recommend admit to medicine and she will consult. I then discussed the case with . Lab Data Attestation: I reviewed the patient's lab results. Labs: Laboratory Results - last 24 hr 09/04/23 05:00 WBC 12.4 H RBC 3.73 L Hgb 11.4 L Hct 33.4 L MCV 89.5 MCH 30.6 MCHC 34.1 RDW Std Deviation 41.9 RDW Coeff of Sapna 12.8 Plt Count 197 MPV 11.6 Immature Gran % (Auto) 0.500 Neut % (Auto) 82.4 H Lymph % (Auto) 7.5 L [place] % (Auto) 6.5 Eos % (Auto) 2.7 Baso % (Auto) 0.4 Absolute Neuts (auto) 10.2 H Absolute Lymphs (auto) 0.93 Nucleated RBC % 0 Sodium 141 Potassium 3.7 Chloride 107 Carbon Dioxide 30.0 Anion Gap 4 L BUN 32 H Creatinine 1.06 Estim Creat Clear Calc 42.78 Est GFR (MDRD) Af Amer 85 Est GFR (MDRD) Non-Af 71 BUN/Creatinine Ratio 30.2 H Glucose 133 H Calcium 8.6 Total Bilirubin 0.40 AST 40 H ALT 121 H Alkaline Phosphatase 173 H Total Protein 6.6 Albumin 2.7 L Globulin 3.9 Albumin/Globulin Ratio 0.7 L Lipase 79 H Radiography Diagnostic Testing: Clinical Impression(s) from Imaging Studies Abdomen/Pelvis CT 09/04/23 06:12 IMPRESSION: 1. The gallbladder is distended and contains multiple stones, and there is some mild prominence of the gallbladder wall. Findings could indicate acute cholecystitis. Correlate for right upper quadrant symptoms and consider an ultrasound for correlation. 2. There is a short segment of small bowel extending into a right inguinal hernia. Narrowing of the small bowel as it enters and exits the hernia. Correlate clinically for incarceration. Some mild distention of the more proximal small bowel loops, which could indicate a partial obstruction. Electronically Signed: Tung Yang MD at 6:28 EST , Gallbladder Ultrasound 09/04/23 06:31 IMPRESSION: Acute cholecystitis, refer to general surgery 1. Acute cholecystitis with distended gallbladder, multiple stones, and pericholecystic fluid. Electronically Signed: Inderjit Ames MD at 9:00 EST , EKG Initial EKG: Comments: My independent interpretation the patient's EKG shows sinus rhythm with right bundle branch block and overall rate of 67. No ventricular ectopy. Mild nonspecific ST and T wave change but no sign of acute infarct. MD interval and QTc are normal. QRS duration is slightly long and 134 ms. Management Discussion w/another healthcare provider: Hospitalist and [employer] Discharge Plan Triage Chief Complaint: Abd Pain ED Provider: Damian Casas Dx/Rx/DC Orders Clinical Impression: Elevated liver function tests, Leukocytosis, Acute cholecystitis Prescriptions: No Action carvedilol [Coreg] 25 MG tablet 25 mg PO BID simvastatin 40 MG tablet 40 mg PO QHS clonidine HCl 0.2 MG tablet 0.1 mg PO TID doxazosin 4 MG tablet 8 mg PO QHS albuterol sulfate [Ventolin HFA] 1 INHALER inhaler 2 puff inhalation Q6H PRN PRN (Reason: Asthma) ascorbic acid (vitamin C) [Vitamin C] 1,000 MG tablet 1,000 mg PO DAILY ginseng 100 MG capsule 100 mg PO DAILY Hold Instructions: Follow with PCP. carica papaya 1 EACH tablet 1 ea PO DAILY lecithin 1,200 MG capsule 1,200 mg PO DAILY Hold Instructions: Follow with PCP. capsicum (cayenne) 450 MG capsule 450 mg PO DAILY Hold Instructions: Follow with PCP. garlic 1,000 MG capsule 1,000 mg PO DAILY Hold Instructions: Follow with PCP. milk thistle 150 MG capsule 150 mg PO DAILY calcium carbonate 500 MG tablet 500 mg PO DAILY saw palmetto 500 MG capsule 500 mg PO DAILY Hold Instructions: Follow with PCP. vitamin B complex-folic acid [Super B Maxi Complex] 0.4 MG tablet 0.4 mg PO DAILY Fish Oil 500 MG capsule,delayed release(DR/EC) 500 mg PO DAILY cholecalciferol (vitamin D3) [Vitamin D3] 2,000 UNIT capsule 2,000 unit PO DAILY aspirin 81 MG tablet,chewable 81 mg PO DAILY@0800 Qty: 90 0RF nifedipine 60 mg tablet extended release 24hr 30 mg PO DAILY Patient Comments: TAKE 1 TABLET BY MOUTH EVERY DAY finasteride [Proscar] 5 mg tablet 5 mg PO DAILY Patient Comments: TAKE 1 TABLET BY MOUTH EVERY DAY dexamethasone 6 mg tablet 6 mg PO DAILY Qty: 8 0RF Primary Care Provider: Pasha Bland Referrals: Pasha Bland DO [Primary Care Provider] - Disposition Disposition: Acute Care Hospital [facility]
[2023-09-04] MEDS: 0.9% Normal Saline (1000mL) 500 ML 1000 ML IV (05:19)
[2023-09-04] MEDS: Ondansetron 4 MG/2 ML Vial IV (05:20)
[2023-09-04] MEDS: Morphine 2 MG/ML Syringe IV ×2 (05:20→09:18)
[2023-09-04 05:28] LABS: Absolute Lymphocyte Count 0.93 X10^3/uL (0.83-4.51); Absolute Neutrophil Count 10.2 X10^3/uL (2.0-7.7); Basophil# 0.05 X10^3/uL; Basophil% 0.4 % (0-1); Eosinophil# 0.34 X10^3/uL; Eosinophils% 2.7 % (0-5); Hematocrit 33.4 % (40-54); Hemoglobin 11.4 g/dL (13.0-16.5); Lymphocyte # 0.93 X10^3/ul (0.83-4.51); Lymphocyte % 7.5 % (19-41); Mean Corp Hgb Conc 34.1 g/dL (32-36); Mean Corpuscular Hgb 30.6 pg (27.0-32.0); Mean Corpuscular Volume 89.5 fL (80-94); Mean Platelet Vol. 11.6 fl (6.2-12.0); Monocyte% 6.5 % (0-10); NRBC Flagged by Analyzer 0 % (0-5); Neutrophil % 82.4 % (47-70); Platelet Count 197 K/mm3 (150-450); RBC Distribution Width CV 12.8 % (11.6-14.6); RBC Distribution Width SD 41.9 fl (35.1-43.9); Red Blood Count 3.73 M/mm3 (4.6-6.2); White Blood Count 12.4 K/mm3 (4.4-11.0)
[2023-09-04 06:04] LABS: ALB/GLOB Ratio 0.7 RATIO (0.9-2.4); AST(SGOT) 40 U/L (15-37); Alanine Aminotransfer ALT/SGPT 121 U/L (16-61); Albumin, Serum 2.7 g/dL (3.2-5.0); Alkaline Phosphatase 173 U/L (45-117); Anion Gap 4 (5-15); BUN 32 mg/dL (7-18); BUN/Creat Ratio 30.2 RATIO (10-20); Calcium,Total 8.6 mg/dL (8.5-10.1); Chloride 107 mmol/L (98-107); Creatinine, Serum 1.06 mg/dL (0.70-1.30); EST Glomerular Filtration Rate 71 mL/min (>60); Est Glom Filt Rate - Afr Amer 85 mL/min (>60); Estimated Creatinine Clearance 42.78 ml/min; Globulin 3.9 g/dL (2.2-4.2); Glucose 133 mg/dL (74-106); Lipase 79 U/L (13-75); Potassium 3.7 mmol/L (3.5-5.1); Protein, Total 6.6 g/dL (6.4-8.2); Sodium Level 141 mmol/L (136-145)
--- NOTE | 2023-09-04 06:12 | CT_ITS ---
EXAM: CT ABDOMEN AND PELVIS WITH INTRAVENOUS CONTRAST CLINICAL INDICATION: pain TECHNIQUE: Helically acquired images were obtained of the abdomen and pelvis with intravenous contrast. This CT exam was performed using one or more of the following dose reduction techniques: automated exposure control, adjustment of the mA and/or kV according to patient size, and/or use of iterative reconstruction technique. CONTRAST: IV 75mL Isovue-370 RADIATION DOSE: CTDIvol = 10.19 mGy, DLP = 491.99 mGy-cm COMPARISON: No relevant prior studies available. FINDINGS: LOWER THORAX: Unremarkable. Lung bases are clear. No cardiomegaly. No significant pericardial effusion. ABDOMEN: LIVER: Hepatomegaly. GALLBLADDER AND BILE DUCTS: The gallbladder is distended and contains multiple stones, and there is some mild prominence of the gallbladder wall. PANCREAS: Unremarkable. No focal cystic or solid mass. SPLEEN: Unremarkable. Normal size without focal cystic or solid mass. ADRENALS: Unremarkable. No nodules. KIDNEYS AND URETERS: Unremarkable. Normal renal size and position. No hydronephrosis. STOMACH AND BOWEL: There is a short segment of small bowel extending into a right inguinal hernia. Some mild distention of the more proximal small bowel loops, which could indicate a partial obstruction. No focal inflammatory change. PELVIS: APPENDIX: No evidence of acute appendicitis. BLADDER: Unremarkable. REPRODUCTIVE: Prostate brachytherapy. ABDOMEN and PELVIS: INTRAPERITONEAL SPACE: Unremarkable. No ascites or other fluid collection. No free air. BONES/JOINTS: Degenerative changes of the spine. No suspicious lytic or blastic abnormality. SOFT TISSUES: Right inguinal hernia defect containing small bowel as described above. Narrowing of the small bowel as it enters and exits the hernia. The hernia defect measures 2.4 cm, the hernia sac measures 5.5 x 3.7 x 3.2 cm. There is also a small fat-containing left inguinal hernia. VASCULATURE: Moderate atherosclerotic changes of the abdominal aorta without aneurysm. LYMPH NODES: Unremarkable. No enlarged lymph nodes. CT/Abdomen/Pelvis W IV Cont ONLY IMPRESSION: 1. The gallbladder is distended and contains multiple stones, and there is some mild prominence of the gallbladder wall. Findings could indicate acute cholecystitis. Correlate for right upper quadrant symptoms and consider an ultrasound for correlation. 2. There is a short segment of small bowel extending into a right inguinal hernia. Narrowing of the small bowel as it enters and exits the hernia. Correlate clinically for incarceration. Some mild distention of the more proximal small bowel loops, which could indicate a partial obstruction. Electronically Signed: Tung Yang MD at 6:28 EST ,
--- NOTE | 2023-09-04 06:31 | US_ITS ---
STUDY: ABDOMINAL ULTRASOUND - RIGHT UPPER QUADRANT REASON FOR VISIT: Male, 82 years old pain -- ABD PAIN X 2 DAYS TECHNIQUE: Ultrasound evaluation of the right upper quadrant was performed with real-time and static leija-scale imaging. TECHNICAL QUALITY: Adequate. COMPARISON: CT of abdomen and pelvis dated September 04, 2023 FINDINGS: Liver: The liver is mildly enlarged measuring 20.2 cm. There is increased echogenicity consistent with fatty infiltration. The bile ducts are within normal limits. There is hepatic color flow. The direction of portal flow is hepatopetal. There is no demonstrated mass lesion. Gallbladder: There is a markedly distended gallbladder. The gallbladder wall measures 3.2 mm. A tiny amount of pericholecystic fluid is present. There are multiple echogenic structures within the gallbladder, consistent with multiple gallstones, occupying 30% of the gallbladder lumen. Common Bile Duct (C.B.D.): The common bile duct measures 6.3 mm. Pancreas: Normal size of the head, body and tail of the pancreas. There is normal echogenicity of the pancreas. There is no demonstrated pancreatic mass or cyst. Right Kidney: Normal size of the right kidney. The right kidney measures 11.4 x 5.2 x 4.8 cm. Normal renal cortex. The right cortex measures cm. There is no demonstrated renal mass or cyst. There is no right hydronephrosis. US/Gallbladder IMPRESSION: Acute cholecystitis, refer to general surgery 1. Acute cholecystitis with distended gallbladder, multiple stones, and pericholecystic fluid. Electronically Signed: Inderjit Ames MD at 9:00 EST ,
[2023-09-04] MEDS: Piperacil/Tazobactam 4.5 GM in 0.9% Normal Saline (100mL MB+) 100 ML IV (07:26)
--- NOTE | 2023-09-04 08:40 | ED.RN ---
Pt. gave this RN permission to update son, óscar, on his plan of care. Óscar updated that pt. would likely be admitted.
--- NOTE | 2023-09-04 09:25 | HP.PCM.HOS_ITS ---
HPI - General General Date of Admission: 09/04/23 HPI Narrative CARMEN MOCK, is a 82 M who presents to the hospital with right upper quadrant abdominal pain that started about 9 PM last night and has steadily worsened throughout the evening and into the morning. Ultrasound of the gallbladder demonstrated acute cholecystitis but he does have some medical history with recent admission for COVID bronchitis so general surgery asked for a medical admission. CT scan of the abdomen pelvis also showed a hernia and surgery was able to reduce this in the ER. He was given a dose of Zosyn as well as pain medication. Plan would be for operative intervention on Tuesday. [facility] Medical History (Updated 09/04/23 @ 10:[address] Sandra Gregorio MD) Acute exacerbation of congestive heart failure Asthma Cardiac murmur CHF (congestive heart failure) CKD (chronic kidney disease) COPD (chronic obstructive pulmonary disease) HTN (hypertension) Hyperlipidemia Hypertension Hypoxemia Right inguinal hernia TIA (transient ischemic attack) Home Medications albuterol sulfate 90 mcg/actuation aerosol inhaler (Ventolin HFA) 2 puff inhalation Q6H PRN PRN Asthma 08/25/16 [History Last Taken Unknown] carvedilol 25 mg tablet (Coreg) 25 mg PO BID blood pressure 08/25/16 [History Last Taken Unknown] clonidine HCl 0.2 mg tablet 0.1 mg PO TID blood pressure 08/25/16 [History Last Taken Unknown] doxazosin 4 mg tablet 8 mg PO QHS prostate 08/25/16 [History Last Taken Unknown] simvastatin 40 mg tablet 40 mg PO QHS cholesterol 08/25/16 [History Last Taken Unknown] ascorbic acid (vitamin C) 1,000 mg tablet (Vitamin C) 1,000 mg PO DAILY vitamin 01/20/17 [History Last Taken Unknown] calcium carbonate 500 mg calcium (1,250 mg) tablet 500 mg PO DAILY supplement 01/20/17 [History Last Taken Unknown] capsicum (cayenne) 450 mg capsule 450 mg PO DAILY supplement 01/20/17 [History Last Taken Unknown] carica papaya 1 ea PO DAILY supplement 01/20/17 [History Last Taken Unknown] cholecalciferol (vitamin D3) 50 mcg (2,000 unit) capsule (Vitamin D3) 2,000 unit PO DAILY vitamin 01/20/17 [History Last Taken Unknown] garlic 1,000 mg capsule 1,000 mg PO DAILY supplement 01/20/17 [History Last Taken Unknown] ginseng 100 mg capsule 100 mg PO DAILY supplement 01/20/17 [History Last Taken Unknown] lecithin 1,200 mg capsule 1,200 mg PO DAILY supplement 01/20/17 [History Last Taken Unknown] milk thistle 150 mg capsule 150 mg PO DAILY supplement 01/20/17 [History Last Taken Unknown] omega 3-dha 60 mg-epa 90 mg-fish oil 500 mg capsule, delayed release (Fish Oil) 500 mg PO DAILY supplement 01/20/17 [History Last Taken Unknown] saw palmetto 500 mg capsule 500 mg PO DAILY supplement 01/20/17 [History Last Taken Unknown] vitamin B complex-folic acid 0.4 mg tablet (Super B Maxi Complex) 0.4 mg PO DAILY vitamin 01/20/17 [History Last Taken Unknown] aspirin 81 mg chewable tablet 81 mg PO DAILY@0800 [place] ##90 06/20/20 [Rx Last Taken Unknown] finasteride 5 mg tablet (Proscar) 5 mg PO DAILY prostate 03/28/21 [History Last Taken Unknown] nifedipine 60 mg tablet,extended release 24 hr 30 mg PO DAILY blood pressure 03/28/21 [History Last Taken Unknown] dexamethasone 6 mg tablet 6 mg PO DAILY #8 tabs 08/15/23 [Rx Last Taken Unknown] Allergy/AdvReac Type Severity Reaction Status Date / Time acetaminophen [From Tylenol] AdvReac Other Verified 09/04/23 04:46 Family History Other CVA (cerebral vascular accident) Cancer Surgical History History of tonsillectomy Previous back surgery Previous back surgery Social History Smoking Status: Former smoker substance use type: does not use ROS Constitutional Constitutional: Denies chills, fatigue, fever(s) or malaise Eyes Eyes: Denies blurry vision ENT HEENT: Denies headache(s) or nasal discharge Cardiovascular Cardiovascular: Denies chest pain, dyspnea on exertion or syncope Respiratory/Chest Respiratory/Chest: Denies cough, shortness of breath at rest or shortness of breath with exertion Gastrointestinal Gastrointestinal: Reports abdominal pain, nausea and vomiting; Denies constipation or diarrhea Genitourinary Genitourinary: Denies dysuria Neurologic Neurologic: Denies focal weakness, numbness or tremor(s) Psychiatric Psychiatric: Denies anxiety or depression Vital Signs Vital Signs Vital Signs: 09/04/23 04:30 09/04/23 06:32 09/04/23 09:21 Temperature 97.5 F L Temperature Source Oral Pulse Rate 71 72 93 Respiratory Rate 24 H 28 H Blood Pressure 148/65 H 156/89 H Blood Pressure Mean 92 111 Pulse Ox 91 98 Oxygen Delivery Method Room Air Room Air Weight Weight: 148 lb 5.938 oz Body Mass Index (BMI) 28.0 Physical Exam Narrative General: Alert, Oriented x3, Cooperative, No apparent distress HEENT: Atraumatic, PERRLA, EOMI, Normocephalic Oral: Moist Mucosa Neck: Supple, No JVD Lungs: Diminished, Normal air movement, No rhonchi, No wheeze, No rales Cardiovascular: Regular rate, Regular Rhythm, Normal S1, Normal S2, No murmurs Abdomen: Soft, RUQ tender, Non-Distended, No Hepato-splenomegaly Extremities: No edema, Capillary Refill Less than 3 Seconds Skin: No rashes, No breakdown Musculoskeletal: No Tenderness to Palpation of Joints or Extremities Neurological: No focal neurological deficits, Motor Exam 5/5 strength throughout, Sensory exam intact to light touch and pain Psych/Mental Status: Normal Affect, Appropriate Results Lab / Micro Data 09/04/23 05:00 09/04/23 05:00 Labs: Laboratory Results - last 24 hr 09/04/23 05:00: WBC 12.4 H, RBC 3.73 L, Hgb 11.4 L, Hct 33.4 L, MCV 89.5, MCH 30.6, MCHC 34.1, RDW Std Deviation 41.9, RDW Coeff of Sapna 12.8, Plt Count 197, MPV 11.6, Immature Gran % (Auto) 0.500, Neut % (Auto) 82.4 H, Lymph % (Auto) 7.5 L, [place] % (Auto) 6.5, Eos % (Auto) 2.7, Baso % (Auto) 0.4, Absolute Neuts (auto) 10.2 H, Absolute Lymphs (auto) 0.93, Nucleated RBC % 0, Sodium 141, Potassium 3.7, Chloride 107, Carbon Dioxide 30.0, Anion Gap 4 L, BUN 32 H, Creatinine 1.06, Estim Creat Clear Calc 42.78, Est GFR (MDRD) Af Amer 85, Est GFR (MDRD) Non-Af 71, BUN/Creatinine Ratio 30.2 H, Glucose 133 H, Calcium 8.6, Total Bilirubin 0.40, AST 40 H, ALT 121 H, Alkaline Phosphatase 173 H, Total Protein 6.6, Albumin 2.7 L, Globulin 3.9, Albumin/Globulin Ratio 0.7 L, Lipase 79 H Imagaing Radiology Impression Abdomen/Pelvis CT 09/04/23 06:12 IMPRESSION: 1. The gallbladder is distended and contains multiple stones, and there is some mild prominence of the gallbladder wall. Findings could indicate acute cholecystitis. Correlate for right upper quadrant symptoms and consider an ultrasound for correlation. 2. There is a short segment of small bowel extending into a right inguinal hernia. Narrowing of the small bowel as it enters and exits the hernia. Correlate clinically for incarceration. Some mild distention of the more proximal small bowel loops, which could indicate a partial obstruction. Electronically Signed: Tung Yang MD at 6:28 EST , Gallbladder Ultrasound 09/04/23 06:31 IMPRESSION: Acute cholecystitis, refer to general surgery 1. Acute cholecystitis with distended gallbladder, multiple stones, and pericholecystic fluid. Electronically Signed: Inderjit Ames MD at 9:00 EST , Assessment & Plan Assessment/Plan (1) Acute cholecystitis: PLAN: Plan 1. Acute cholecystitis ? No cholestatic pattern ? Continue with Zosyn ? Consult general surgery for operative intervention tomorrow ? Continue with Zosyn and pain medication 2. HTN/HLD ? Blood pressure stable ? Resume his home medications will monitor and make adjustments as necessary ? Echo in 2020 with an EF of 65% stage I diastolic dysfunction with a PASP of 45 mmHg 3. 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 Currently not in exacerbation ? Continue with his home inhalers DVT: Lovenox 75 minutes was spent on direct patient care, including documentation as well as chart review and collaboration with colleagues Charges/Coding Visit Charges Inpatient E&M: 22110 Init Hosp L3
--- NOTE | 2023-09-04 10:19 | CON.PCM.SX_ITS ---
Assessment & Plan Assessment/Plan (1) Acute cholecystitis: (2) Leukocytosis: (3) Elevated liver function tests: (4) Right inguinal hernia: PLAN: Plan Will plan for laparoscopic cholecystectomy with cholangiograms, possible open vs cholecystostomy tube tomorrow. Review risks including but not limited to blee ding, infection, hernia, bile leak, retained gallstones requiring another procedure ERCP- Endoscopic Retrograde Cholangiopancreatography, injury to another organ (bile ducts, common bile duct, small bowel, etc.) and conversion to an open procedure. NPO, IVF IV zosyn pain control right inguinal hernia is easily reducible-- pt didn't know he had one and nontender even when reducing. Sandra Gregorio M.D. Pager: [phone] [facility] [address] [place] [address], [facility], [address] [place] [address] Office: [phone] HPI Consult Data Date of Consult: 09/05/23 HPI Narrative Reason for Consultation: ruq pain/cholecystitis HPI Narrative: CARMEN MOCK, is a 82 M who presents to ER due to RUQ pain starting at 9PM last night after eating pie. +n/v, pt initially states he never had this pain before then he states it went away before. CT a/p showed distended GB w stones, right inguinal hernia w SB. US showed distended GB, cholelithiasis, trace pericholecystic fluid, normal wall/CBD. Pt had wbc 12- received zosyn in ER, elevated LFTs -AST/ALT/alk phos but normal TB. Patient did have COVID earlier this year. Past medical history for COPD, chronic heart failure with preserved ejection fraction, mild aortic stenosis. [facility] Medical History Acute exacerbation of congestive heart failure Asthma Cardiac murmur CHF (congestive heart failure) CKD (chronic kidney disease) COPD (chronic obstructive pulmonary disease) HTN (hypertension) Hyperlipidemia Hypertension Hypoxemia Right inguinal hernia TIA (transient ischemic attack) Home Medications albuterol sulfate 90 mcg/actuation aerosol inhaler (Ventolin HFA) 2 puff inh alation Q6H PRN PRN Asthma 08/25/16 [History Last Taken Unknown] carvedilol 25 mg tablet (Coreg) 25 mg PO BID blood pressure 08/25/16 [History Last Taken Unknown] clonidine HCl 0.2 mg tablet 0.1 mg PO TID blood pressure 08/25/16 [History Last Taken Unknown] doxazosin 4 mg tablet 8 mg PO QHS prostate 08/25/16 [History Last Taken Unknown] simvastatin 40 mg tablet 40 mg PO QHS cholesterol 08/25/16 [History Last Taken Unknown] ascorbic acid (vitamin C) 1,000 mg tablet (Vitamin C) 1,000 mg PO DAILY vitamin 01/20/17 [History Last Taken Unknown] calcium carbonate 500 mg calcium (1,250 mg) tablet 500 mg PO DAILY supplement 01/20/17 [History Last Taken Unknown] capsicum (cayenne) 450 mg capsule 450 mg PO DAILY supplement 01/20/17 [History Last Taken Unknown] carica papaya 1 ea PO DAILY supplement 01/20/17 [History Last Taken Unknown] cholecalciferol (vitamin D3) 50 mcg (2,000 unit) capsule (Vitamin D3) 2,000 unit PO DAILY vitamin 01/20/17 [History Last Taken Unknown] garlic 1,000 mg capsule 1,000 mg PO DAILY supplement 01/20/17 [History Last Taken Unknown] ginseng 100 mg capsule 100 mg PO DAILY supplement 01/20/17 [History Last Taken Unknown] lecithin 1,200 mg capsule 1,200 mg PO DAILY supplement 01/20/17 [History Last Taken Unknown] milk thistle 150 mg capsule 150 mg PO DAILY supplement 01/20/17 [History Last Taken Unknown] omega 3-dha 60 mg-epa 90 mg-fish oil 500 mg capsule, delayed release (Fish Oil) 500 mg PO DAILY supplement 01/20/17 [History Last Taken Unknown] saw palmetto 500 mg capsule 500 mg PO DAILY supplement 01/20/17 [History Last Taken Unknown] vitamin B complex-folic acid 0.4 mg tablet (Super B Maxi Complex) 0.4 mg PO DAILY vitamin 01/20/17 [History Last Taken Unknown] aspirin 81 mg chewable tablet 81 mg PO DAILY@0800 [employer] ##90 06/20/20 [Rx Last Taken Unknown] finasteride 5 mg tablet (Proscar) 5 mg PO DAILY prostate 03/28/21 [History Last Taken Unknown] nifedipine 30 mg tablet,extended release 30 mg PO QHS BLOOD PRESSURE 09/04/23 [History Last Taken Unknown] nifedipine 30 mg tablet,extended release 24 hr 60 mg PO DAILY BLOOD PRESSURE 09/04/23 [History Last Taken Unknown] Allergy/AdvReac Type Severity Reaction Status Date / Time acetaminophen [From Tylenol] AdvReac Other Verified 09/04/23 04:46 Family History Other CVA (cerebral vascular accident) Cancer Surgical History History of tonsillectomy Previous back surgery Previous back surgery Social History Smoking Status: Former smoker substance use type: does not use ROS Constitutional Constitutional: Reports anorexia Eyes Eyes: Denies change in vision ENT HEENT: Denies dysphagia Cardiovascular Cardiovascular: Denies chest pain at rest Respiratory/Chest Respiratory/Chest: Denies cough Gastrointestinal Gastrointestinal: Reports abdominal pain, nausea and vomiting; Denies constipation or diarrhea Genitourinary Genitourinary: Denies dysuria Integumentary Integumentary: Denies jaundice Endocrine Endocrinology: Denies palpitations Hematologic/Lymphatic Hematologic/Lymphatic: Denies easy bleeding Physical Exam Const alert, oriented x3 and no apparent distress HEENT normocephalic and head/scalp atraumatic Resp normal respiratory effort Cardio regular rate GI soft to palpation; Negative for non-distended Palpation: tender RUQ and Muro's sign and hernia other (right inguinal easily reducible.--non tender in right groin); Negative for guarding Extremity no clubbing, cyanosis or edema Neuro CN's II-XII intact bilaterally Psych mental status grossly normal Lab / Micro Data 09/05/23 04:40 09/05/23 04:40 Labs: Laboratory Results - last 24 hr 09/04/23 05:00: WBC 12.4 H, RBC 3.73 L, Hgb 11.4 L, Hct 33.4 L, MCV 89.5, MCH 30.6, MCHC 34.1, RDW Std Deviation 41.9, RDW Coeff of Sapna 12.8, Plt Count 197, MPV 11.6, Immature Gran % (Auto) 0.500, Neut % (Auto) 82.4 H, Lymph % (Auto) 7.5 L, [place] % (Auto) 6.5, Eos % (Auto) 2.7, Baso % (Auto) 0.4, Absolute Neuts (auto) 10.2 H, Absolute Lymphs (auto) 0.93, Nucleated RBC % 0, Sodium 141, Potassium 3.7, Chloride 107, Carbon Dioxide 30.0, Anion Gap 4 L, BUN 32 H, Creatinine 1.06, Estim Creat Clear Calc 42.78, Est GFR (MDRD) Af Amer 85, Est GFR (MDRD) Non-Af 71, BUN/Creatinine Ratio 30.2 H, Glucose 133 H, Calcium 8.6, Total Bilirubin 0.40, AST 40 H, ALT 121 H, Alkaline Phosphatase 173 H, Total Protein 6.6, Albumin 2.7 L, Globulin 3.9, Albumin/Globulin Ratio 0.7 L, Lipase 79 H Imagaing Radiology Impression Abdomen/Pelvis CT 09/04/23 06:12 IMPRESSION: 1. The gallbladder is distended and contains multiple stones, and there is some mild prominence of the gallbladder wall. Findings could indicate acute cholecystitis. Correlate for right upper quadrant symptoms and consider an ultrasound for correlation. 2. There is a short segment of small bowel extending into a right inguinal hernia. Narrowing of the small bowel as it enters and exits the hernia. Correlate clinically for incarceration. Some mild distention of the more proximal small bowel loops, which could indicate a partial obstruction. Electronically Signed: Tung Yang MD at 6:28 EST , Gallbladder Ultrasound 09/04/23 06:31 IMPRESSION: Acute cholecystitis, refer to general surgery 1. Acute cholecystitis with distended gallbladder, multiple stones, and pericholecystic fluid. Electronically Signed: Inderjit Ames MD at 9:00 EST , Charges/Coding Visit Charges Inpatient E&M: 85056 Init Hosp L2
[2023-09-04] MEDS: Carvedilol 25 MG Tablet PO ×2 (11:53→21:20)
[2023-09-04] MEDS: Finasteride 5 MG Tablet PO (11:53)
[2023-09-04] MEDS: Acetaminophen 325 MG Tablet 650 MG PO (11:53)
[2023-09-04] MEDS: cloNIDine HCl 0.1 MG Tablet PO ×2 (14:06→21:20)
[2023-09-04] MEDS: NIFEdipine 30 MG Tablet PO (14:06)
[2023-09-04] MEDS: Piperacil/Tazobactam 3.375 GM in 0.9% Normal Saline (50mL MB+) 50 ML IV ×2 (14:07→21:11)
[2023-09-04] MEDS: Atorvastatin Calcium 20 MG Tablet PO (21:20)
[2023-09-04] MEDS: Doxazosin 4 MG Tablet 8 MG PO (21:20)
[2023-09-05] VITALS (22 sets, daily range): BP systolic 115–161; BP diastolic 48–75; PULSE 62–80; RESP 14–24; TEMP 36.9–38.6; O2SAT 91–98
[2023-09-05] MEDS: Morphine 2 MG/ML Syringe IV ×2 (00:37→09:12)
[2023-09-05] MEDS: Acetaminophen 325 MG Tablet 650 MG PO (00:55)
[2023-09-05 05:12] LABS: Absolute Lymphocyte Count 0.97 X10^3/uL (0.83-4.51); Absolute Neutrophil Count 14.4 X10^3/uL (2.0-7.7); Basophil# 0.03 X10^3/uL; Basophil% 0.2 % (0-1); Eosinophil# 0.02 X10^3/uL; Eosinophils% 0.1 % (0-5); Hematocrit 30.4 % (40-54); Lymphocyte # 0.97 X10^3/ul (0.83-4.51); Lymphocyte % 5.7 % (19-41); Mean Corp Hgb Conc 32.9 g/dL (32-36); Mean Corpuscular Hgb 29.8 pg (27.0-32.0); Mean Corpuscular Volume 90.5 fL (80-94); Mean Platelet Vol. 11.3 fl (6.2-12.0); Monocyte% 8.8 % (0-10); NRBC Flagged by Analyzer 0 % (0-5); Neutrophil # 14.39 X10^3/uL (2.7-7.7); Neutrophil % 84.3 % (47-70); Platelet Count 174 K/mm3 (150-450); RBC Distribution Width CV 13.2 % (11.6-14.6); RBC Distribution Width SD 43.1 fl (35.1-43.9); Red Blood Count 3.36 M/mm3 (4.6-6.2); White Blood Count 17.1 K/mm3 (4.4-11.0)
[2023-09-05 05:22] LABS: Partial Thromboplast Time 36.6 Seconds (24.1-36.2)
[2023-09-05] MEDS: Piperacil/Tazobactam 3.375 GM in 0.9% Normal Saline (50mL MB+) 50 ML IV ×3 (05:22→22:09)
[2023-09-05] MEDS: cloNIDine HCl 0.1 MG Tablet PO ×3 (05:31→22:08)
[2023-09-05 06:10] LABS: Anion Gap 4 (5-15); BUN 22 mg/dL (7-18); BUN/Creat Ratio 19.8 RATIO (10-20); Calcium,Total 8.3 mg/dL (8.5-10.1); Chloride 107 mmol/L (98-107); Creatinine, Serum 1.11 mg/dL (0.70-1.30); EST Glomerular Filtration Rate 67 mL/min (>60); Est Glom Filt Rate - Afr Amer 81 mL/min (>60); Estimated Creatinine Clearance 36.65 ml/min; Glucose 111 mg/dL (74-106); Potassium 4.3 mmol/L (3.5-5.1); Sodium Level 139 mmol/L (136-145)
[2023-09-05 07:04] LABS: Bedside Glucose 120 mg/dL (74-106)
--- NOTE | 2023-09-05 07:33 | ECHOD_ITS ---
Reason For Study: Arrhythmia Procedure This was a 2D Doppler, Color Flow transthoracic echocardiogram. Exam performed portable in patient room. Left Ventricle Normal LV size. Mild concentric left ventricular hypertrophy. Left ventricular systolic function is normal. The estimated ejection fraction is 65 %. No regional wall motion abnormalities noted. Right Ventricle Normal RV size. Normal systolic function. Atria Normal left atrium. Normal right atrium. Mitral Valve There is mild mitral annular calcification. Mild (1+) eccentric mitral valve insufficiency. Tricuspid Valve Normal tricuspid valve. Mild (1+) tricuspid valve insufficiency. Pulmonary artery systolic pressure is 38 mmHg. Aortic Valve Trisinus/trileaflet aortic valve. Pulmonic Valve Normal pulmonic valve. Great Vessels Normal aortic root. The pulmonary artery is normal size. Inferior vena cava collapse with respiration. Pericardium/Pleural No pericardial effusion. MMode/2D Measurements & Calculations LVIDd: 4.2 cm IVSd: 1.2 cm LVOT diam: 2.0 cm LVIDs: 2.5 cm LVPWd: 1.3 cm LVOT area: 3.1 cm2 RVDd: 3.9 cm FS: 41.9 % Ao root diam: 3.2 cm LAV(MOD-bp): 41.8 ml LVAd ap4: 24.7 cm2 LAV(MOD-bp) Indexed: 26.4 ml/m2 LVLd ap4: 8.2 cm LAV(MOD-sp2): 34.5 ml EDV(MOD-sp4): 61.8 ml LAV(MOD-sp4): 45.3 ml EDV(sp4-el): 63.0 ml LVAs ap4: 11.7 cm2 LVLs ap4: 6.6 cm ESV(MOD-sp4): 18.2 ml ESV(sp4-el): 17.6 ml EF(MOD-sp4): 70.5 % EF(sp4-el): 72.2 % LVAd ap2: 28.6 cm2 SV(MOD-sp4): 43.6 ml SV(MOD-sp2): 62.3 ml LVLd ap2: 7.9 cm EDV(MOD-sp2): 90.9 ml EDV(sp2-el): 87.7 ml LVAs ap2: 14.7 cm2 LVLs ap2: 6.7 cm ESV(MOD-sp2): 28.6 ml ESV(sp2-el): 27.2 ml EF(MOD-sp2): 68.6 % SV(sp4-el): 45.5 ml LA dimension(2D): 3.3 cm LA A4 area: 17.6 cm2 RA A4 area: 14.1 cm2 TAPSE: 2.2 cm Time Measurements MV dec time: 0.24 sec Doppler Measurements & Calculations MV E max sandro: 130.8 cm/sec Lat Peak E' Sandro: 7.2 cm/sec Med Peak E' Sandro: 5.3 cm/sec MV A max sandro: 104.9 cm/sec E/E' lat: 18.3 E/E' med: 24.6 MV E/A: 1.2 MV V2 max: 137.7 cm/sec MV P1/2t max sandro: 137.7 cm/sec Ao V2 max: 216.5 cm/sec MV max P.6 mmHg MV P1/2t: 81.6 msec Ao max P.8 mmHg MV V2 mean: 75.3 cm/sec Ao V2 mean: 139.1 cm/sec MV mean P.8 mmHg MV dec slope: 494.1 cm/sec2 Ao mean P.9 mmHg MV V2 VTI: 45.0 cm MVA(P1/2t): 2.7 cm2 Ao V2 VTI: 49.3 cm AV (velocity ratio): 0.67 MVA(VTI): 2.3 cm2 AMBER(I,D): 2.1 cm2 AMBER(V,D): 1.9 cm2 LV V1 max: 135.3 cm/sec SV(LVOT): 102.8 ml PA V2 max: 99.9 cm/sec LV V1 max P.3 mmHg LV V1 mean P.2 mmHg LV V1 mean: 97.1 cm/sec LV V1 VTI: 33.1 cm TR max sandro: 293.4 cm/sec TR max P.4 mmHg ECHO/Echo Complete Interpretation Summary Normal LV size. Left ventricular systolic function is normal. The estimated ejection fraction is 65 %. Mild concentric left ventricular hypertrophy. Pulmonary artery systolic pressure is 38 mmHg. Ordering Physician: Sandra Gregorio Referring Physician: Pasha Bland Performed By: Kristen Barksdale RDCS
--- NOTE | 2023-09-05 07:40 | RAD_ITS ---
STUDY: X-RAY CHEST REASON FOR EXAM: Male, 82 years old. Preoperative exam TECHNIQUE: Frontal view of the chest COMPARISON: 08/13/2023 FINDINGS: The lungs are hyperinflated, but clear. There are no pleural effusions. There is no pneumothorax. The heart is normal in size. The visualized osseous structures are within normal limits. RAD/Chest 1 View (Portable) IMPRESSION: No acute thoracic pathology. Electronically Signed: Óscar Bearden MD at 9:05 EST ,
--- NOTE | 2023-09-05 07:57 | PN.SURG_ITS ---
Subjective Subjective Patient has been having fevers overnight, still complaining of right upper quadrant pain controlled with pain meds which he has not asked for often, white blood count up to 17 Objective Data Objective Data Vital Signs: Vital Signs Temp Pulse Resp BP Pulse Ox O2 Del Method O2 Flow Rate 99.5 F H 80 20 H 133/70 H 94 Nasal Cannula 2 09/05/23 05:33 09/05/23 05:33 09/05/23 05:33 09/05/23 05:33 09/05/23 05:33 09/05/23 05:33 09/05/23 05:33 Oxygen Flow Rate (L/min) 2 Oxygen Delivery Method Nasal Cannula Weight: 132 lb 11.492 oz Body Mass Index (BMI) 25.0 Intake & Output: Intake and Output for Last 24 Hours 09/03/23 09/04/23 09/05/23 23:59 23:59 23:59 Intake Total 1750 / 1750 250 / 250 Output Total 250 / 250 350 / 350 Balance 1500 / 1500 -100 / -100 Medical Nutrition Assessment Dietitian: Malnutrition Criteria Met Start: 09/04/23 13:38 Freq: Status: Active Protocol: Document 09/04/23 13:38 AG (Rec: 09/04/23 13:38 [id number]) Nutrition Malnutrition Evidence of Malnutrition Exists Yes Malnutrition (moderate): Acute Illness/Injury Evidenced By Suboptimal Energy Intake ( Moderate),Weight Loss ( Moderate) Clinical Problem Chronic Disease or Condition Related Malnutrition Etiology moderate, acute malnutrition related to inadequate energy intake w/ recent acute illness , GI dysfunction Signs/Symptoms as evidenced by reported poor PO intake/appetite x 3 weeks X [employer]IPMENT [employer], 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 Lab / Micro Data 09/05/23 04:40 09/05/23 04:40 Labs: Laboratory Results - last 24 hr 09/05/23 04:40: WBC 17.1 H, RBC 3.36 L, Hgb 10.0 L, Hct 30.4 L, MCV 90.5, MCH 29.8, MCHC 32.9, RDW Std Deviation 43.1, RDW Coeff of Sapna 13.2, Plt Count 174, MPV 11.3, Immature Gran % (Auto) 0.900, Neut % (Auto) 84.3 H, Lymph % (Auto) 5.7 L, Barnes % (Auto) 8.8, Eos % (Auto) 0.1, Baso % (Auto) 0.2, Absolute Neuts (auto) 14.4 H, Absolute Lymphs (auto) 0.97, Nucleated RBC % 0, APTT 36.6 H, Sodium 139, Potassium 4.3, Chloride 107, Carbon Dioxide 28.0, Anion Gap 4 L, BUN 22 H, Creatinine 1.11, Estim Creat Clear Calc 36.65, Est GFR (MDRD) Af Amer 81, Est GFR (MDRD) Non-Af 67, BUN/Creatinine Ratio 19.8, Glucose 111 H, Calcium 8.3 L 09/05/23 06:47: POC Glucose 120 H Radiography Diagnostic Testing: Radiology Impression Gallbladder Ultrasound 09/04/23 06:31 IMPRESSION: Acute cholecystitis, refer to general surgery 1. Acute cholecystitis with distended gallbladder, multiple stones, and pericholecystic fluid. Electronically Signed: Inderjit Ames MD at 9:00 EST Reading Location ID and State: [address] [place] [address] , Service support , Physical Exam Narrative Diaphoretic mild Const oriented x3 Resp Resp Narrative: On 2 L nasal cannula Auscultation: diminished lung sounds bilateral lower Cardio regular rate GI GI Narrative: Tender to palpation right upper quadrant, patient does have protuberant abdomen which patient states is normal for him, right inguinal hernia reduced Extremity normal to inspection Assessment & Plan Assessment/Plan (1) Acute cholecystitis: (2) Leukocytosis: (3) Elevated liver function tests: (4) Right inguinal hernia: PLAN: Plan Will plan for cholecystomy tube after discussing with patient, son, anesthesia with H COPD, , recent COVID. Will plan for interval cholecystectomy as an outpatient. NPO, IVF--okay for clears after Gabriela tube placed IV zosyn pain control right inguinal hernia is easily reducible-- Sandra Gregorio M.D. Pager: [phone] [facility] [address] [place] [address], [facility], [address] [place] [address] Office: [phone]
[2023-09-05 08:28] LABS: AST(SGOT) 242 U/L (15-37); Alanine Aminotransfer ALT/SGPT 293 U/L (16-61); Alkaline Phosphatase 270 U/L (45-117); Bilirubin, Direct 3.76 mg/dL (0.00-0.30); Globulin 3.4 g/dL (2.2-4.2); Protein, Total 5.4 g/dL (6.4-8.2)
[2023-09-05] MEDS: Carvedilol 25 MG Tablet PO ×2 (09:10→22:08)
[2023-09-05] MEDS: Menthol/Lanolin/Calamine/Znox 113 GM Tube 1 APPLIC TOPICAL ×2 (09:11→22:08)
[2023-09-05] MEDS: NIFEdipine 30 MG Tablet PO (09:11)
[2023-09-05] MEDS: Finasteride 5 MG Tablet PO (09:11)
[2023-09-05] MEDS: 0.9% Saline Lock 10 ML Syringe IV (09:12)
--- NOTE | 2023-09-05 11:07 | PCM.PROGNOTE ---
Subjective Subjective Patient seen and examined. He complained of abdominal pain. He denied any fever, chills, palpitations, dizziness, nausea or vomiting or any other symptoms. Review of systems otherwise negative. He is to have a cholecystostomy tube inserted today. Objective Data Objective Data Vital Signs: Vital Signs Temp Pulse Resp BP Pulse Ox O2 Del Method O2 Flow Rate 98.5 F 62 20 H 143/69 H 91 Room Air 1.5 09/05/23 09:05 09/05/23 09:05 09/05/23 09:05 09/05/23 09:05 09/05/23 09:15 09/05/23 09:15 09/05/23 09:05 Oxygen Flow Rate (L/min) 1.5 Oxygen Delivery Method Room Air Weight: 132 lb 11.492 oz Body Mass Index (BMI) 25.0 Intake & Output: Intake and Output for Last 24 Hours 09/03/23 09/04/23 09/05/23 23:59 23:59 23:59 Intake Total 1750 / 1750 300 / 300 Output Total 250 / 250 350 / 350 Balance 1500 / 1500 -50 / -50 Medical Nutrition Assessment Dietitian: Malnutrition Criteria Met Start: 09/04/23 13:38 Freq: Status: Active Protocol: Document 09/04/23 13:38 AG (Rec: 09/04/23 13:38 [id number]) Nutrition Malnutrition Evidence of Malnutrition Exists Yes Malnutrition (moderate): Acute Illness/Injury Evidenced By Suboptimal Energy Intake ( Moderate),Weight Loss ( Moderate) Clinical Problem Chronic Disease or Condition Related Malnutrition Etiology moderate, acute malnutrition related to inadequate energy intake w/ recent acute illness , GI dysfunction Signs/Symptoms as evidenced by reported poor PO intake/appetite 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 Lab / Micro Data 09/05/23 04:40 09/05/23 04:40 Labs: Laboratory Results - last 24 hr 09/05/23 04:40: WBC 17.1 H, RBC 3.36 L, Hgb 10.0 L, Hct 30.4 L, MCV 90.5, MCH 29.8, MCHC 32.9, RDW Std Deviation 43.1, RDW Coeff of Sapna 13.2, Plt Count 174, MPV 11.3, Immature Gran % (Auto) 0.900, Neut % (Auto) 84.3 H, Lymph % (Auto) 5.7 L, Foster % (Auto) 8.8, Eos % (Auto) 0.1, Baso % (Auto) 0.2, Absolute Neuts (auto) 14.4 H, Absolute Lymphs (auto) 0.97, Nucleated RBC % 0, APTT 36.6 H, Sodium 139, Potassium 4.3, Chloride 107, Carbon Dioxide 28.0, Anion Gap 4 L, BUN 22 H, Creatinine 1.11, Estim Creat Clear Calc 36.65, Est GFR (MDRD) Af Amer 81, Est GFR (MDRD) Non-Af 67, BUN/Creatinine Ratio 19.8, Glucose 111 H, Calcium 8.3 L, Total Bilirubin 4.10 H, Direct Bilirubin 3.76 H, AST 242 H, ALT 293 H, Alkaline Phosphatase 270 H, Total Protein 5.4 L, Albumin 2.0 L, Globulin 3.4 09/05/23 06:47: POC Glucose 120 H Radiography Diagnostic Testing: Radiology Impression Chest X-Ray 09/05/23 07:40 IMPRESSION: No acute thoracic pathology. Electronically Signed: Óscar Bearden MD at 9:05 EST Reading Location ID and State: [facility], [facility] / [place] Tel , Service support , Physical Exam Const alert and oriented x3 Constitutional Narrative: mild distress due to pain HEENT normocephalic, head/scalp atraumatic, moist oral mucous membranes and oropharynx normal Eyes PERRL and EOMs intact bilaterally Neck no lymphadenopathy, supple and no JVD Lymph Lymphatic: no lymphadenopathy noted and no lymphedema noted Resp normal respiratory effort, normal air movement and clear to auscultation bilaterally Cardio regular rate, regular rhythm, S1 normal heart sound, S2 normal heart sound and no murmurs GI GI Narrative: obese abdomen, mildly distended, which he says is the norm for him; moderate generalised tenderness. Muro's sign is positive. Extremity normal capillary refill, no clubbing, cyanosis or edema and no calf tenderness General Extremity: no tenderness to palpation of joints or extremities Skin General Skin Exam: no breakdown Neuro CN's II-XII intact bilaterally, no focal motor deficits, no sensory deficits noted and deep tendon reflexes 2+ bilaterally Motor Exam: strength 5/5 throughout and general weakness Psych thought process normal and cooperative Appearance: appropriate Assessment & Plan Assessment/Plan (1) Acute cholecystitis: PLAN: Plan #Acute cholecystitis general surgery on board. For cholecystostomy tube insertion today on IV zosyn; wbc is eleved at 17.1 on IV morphine prn as well as PO oxycodone liver enzymes elevated with Togal bilirubin of 4.1, direct bilirubin of 3.76; AST/ALT/ALP are also elevated. Will monitor. IV zofran prn #Hypertension; on carvedilol and clonidine as well as nifedipine #Hyperlipidemia: on statins DVT prophylaxis: lovenox
[2023-09-05] MEDS: Midazolam 2 MG/2 ML Syringe IV (11:25)
[2023-09-05] MEDS: Lidocaine 2% (20 ml mdv) 20 ML Vial INFILT (11:39)
[2023-09-05] MEDS: fentaNYL 100 MCG/2 ML Ampul IV (11:40)
[2023-09-05] MEDS: 0.9% Normal Saline (250mL Bag) 250 ML 15 ML IV (14:47)
--- NOTE | 2023-09-05 14:49 | PRO.PCM_ITS ---
Procedure Report Date of Procedure: 09/05/23 (6730) Assessment & Plan Assessment/Plan (1) Acute cholecystitis: PLAN: PROCEDURE: CT DIRECTED PERCUTANEOUS CHOLECYSTOSTOMY DRAINAGE, PERITONEAL ORDERING PROVIDER: Dr. Gregorio INDICATION: Male, 82 years old. Cholecystitis. PROVIDER: Madeline Garces APRN-ARCHITECTURAL PRACTICE MANAGER CONSENT: Written informed consent was obtained having explained the risks, benefits and alternatives in detail with the patient who accepted the risks and agreed to proceed. Laboratory review and clinical assessment was performed. PRE-PROCEDURE SEDATION ASSESSMENT: Current history and physical dictated by referring physician and reviewed. No clinical changes since date of exam. Patient has an ASA Class of 2. PROCEDURAL SEDATION PROTOCOL: The Drugs used were: 0.5 mg Versed, IV, and 25 mcg Fentanyl, IV. The sedation time was: 33 minutes, starting at 1125 and terminated at 1158. The procedural sedation protocol was independently monitored by the department nurse. RADIATION DOSAGE (If Supplied By Facility): CTDIvol = 17.08 mGy, DLP = 1292.64 mGycm Individualized dose optimization techniques were used for this CT. CONSENT: Written informed consent was obtained having explained the risks, benefits and alternatives in detail with the patient who accepted the risks and agreed to proceed. Laboratory review and clinical assessment was performed. TECHNIQUE: CT sections were made through the abdomen and pelvis revealing acute cholecystitis and dilated gallbladder.. The skin surface was prepped with betadine and draped in a sterile fashion. Puncture of this collection was performed with a 5 Persian catheter and clear fluid began to drain. Placement was confirmed with image documentation. The drainage catheter was then inserted into the collection and formed into position by the pigtail fastener. Additional fluid was aspirated for a total of approximately 110 ml of dark red/brown colored fluid. A Yoandy-Murray drain was attached to the catheter, and the catheter was secured with a StayFIX dress to allow for continued drainage. Followup CT sections reveals good position of the catheter. IMPRESSION: 1. CT directed drainage of dilated gallbladder with drain placement using CT image guidance and image documentation as described. 2. Procedural Sedation protocol utilized with independent monitoring by the department nurse. Procedures Radiology Radiology US Procedures: Other Procedure See Report (CT GUIDED PLACEMENT OF PERCUTANEOUS CHOLECYSTOSTOMY DRAIN PLACEMENT 09069?)
--- NOTE | 2023-09-05 16:02 | CHAPLAIN ---
Type of Pastoral Visit _x__ Initial Visit ___ Follow-up Visit ___ On-call Visit ___ General Patient Visit ___ Spiritual Assessment ___ Family Conference ___ Bereavement ___ Rapid Response ___ Code Blue ___ Other (describe below) Pastoral Care Referral From _x__ Patient ___ Family ___ Nurse ___ Physician ___ Dryer Operator ___ Construction Technology Instructor ___ Other (describe below) Sacrament/Intervention _x__ Active listening ___ Anointing ___ Roman Catholic ___ Bereavement ___ Communion _x__ Zena exploration ___ ___ Life review _x__ Prayer ___ Reconciliation ___ Sacrament of Sick ___ Supportive presence ___ Wedding ___ Other (describe below) Pastoral Comments patient is back in the room after a procedure today; pt is very welcoming and identifies self as a Yazdanism and active in his adventist; daughter is with pt in the room; pt gives details about future procedures and surgeries for himself; pt is and lives alone but confident that he can get back to his normal; pt does not exhibit or speak of any worries or concerns but asks for prayer which I will always take; pt welcomes future visits anytime
--- NOTE | 2023-09-05 16:09 | CASEMGMT ---
RORO LUCAS Assessment Face to Face with patient for initial transition planning/care coordination assessment. RORO LUCAS introduced self and role at [facility], pt voices understanding. Pt is A&Ox4 and is resting comfortably in bed and is calm. Pt daughter at bedside. Care providers, pharmacy, and demographics verified. Pt was recently here and there was not an assessment completed d/t the holiday weekend/ staffing. Admitting dx:Cholecystitis LACE Strata: 3 PCP: Edwina Specialists: Tory (Cardio in [place]), Dr. Dumont Preferred Pharmacy: [facility] Insurance: [employer] Prescription Benefit: Yes LNOK: Rashel Wray (Son), Julieta Canela (Daughter) Living Arrangements: Pt lives alone in a trailer with a ramp to enter with a handrail. Pt states his son lives very close and helps him as needed. ADLs/IADLs: Ind Transportation: Pt unable to drive at this time with his ger tube. Pt son and daughter drive. DME: Pt has a cane and walker at home but does not use. Lift chair. Shower with grab bar. Pt states he has home O2 through [employer]. States his current order is 2L continuous, will verify. HHC/SNF: Denies history or needs. Pt?s goal: Home via his son or daughter. Plan: Pt states that he plans to DC home with no additional needs at this time. Candida Howard RN, CM
[2023-09-05] MEDS: Atorvastatin Calcium 20 MG Tablet PO (22:08)
[2023-09-05] MEDS: Doxazosin 4 MG Tablet 8 MG PO (22:08)
[2023-09-06] VITALS (20 sets, daily range): BP systolic 80–165; BP diastolic 38–86; PULSE 49–69; RESP 16–20; TEMP 36.1–36.9; O2SAT 92–96; BMI 25.0
[2023-09-06 04:47] LABS: Absolute Lymphocyte Count 1.18 X10^3/uL (0.83-4.51); Absolute Neutrophil Count 9.8 X10^3/uL (2.0-7.7); Basophil# 0.03 X10^3/uL; Basophil% 0.2 % (0-1); Eosinophil# 0.32 X10^3/uL; Eosinophils% 2.5 % (0-5); Hematocrit 28.6 % (40-54); Hemoglobin 9.6 g/dL (13.0-16.5); Lymphocyte # 1.18 X10^3/ul (0.83-4.51); Lymphocyte % 9.4 % (19-41); Mean Corp Hgb Conc 33.6 g/dL (32-36); Mean Corpuscular Hgb 30.1 pg (27.0-32.0); Mean Corpuscular Volume 89.7 fL (80-94); Mean Platelet Vol. 11.3 fl (6.2-12.0); Monocyte# 1.11 X10^3/uL; Monocyte% 8.8 % (0-10); NRBC Flagged by Analyzer 0 % (0-5); Neutrophil # 9.84 X10^3/uL (2.7-7.7); Neutrophil % 78.1 % (47-70); Platelet Count 194 K/mm3 (150-450); RBC Distribution Width CV 13.3 % (11.6-14.6); RBC Distribution Width SD 43.9 fl (35.1-43.9); Red Blood Count 3.19 M/mm3 (4.6-6.2); White Blood Count 12.6 K/mm3 (4.4-11.0)
[2023-09-06] MEDS: Piperacil/Tazobactam 3.375 GM in 0.9% Normal Saline (50mL MB+) 50 ML IV ×3 (04:55→21:23)
[2023-09-06 05:17] LABS: AST(SGOT) 79 U/L (15-37); Alanine Aminotransfer ALT/SGPT 197 U/L (16-61); Alkaline Phosphatase 241 U/L (45-117); Anion Gap 4 (5-15); BUN 28 mg/dL (7-18); BUN/Creat Ratio 23.3 RATIO (10-20); Bilirubin, Direct 1.01 mg/dL (0.00-0.30); Calcium,Total 8.4 mg/dL (8.5-10.1); Chloride 105 mmol/L (98-107); EST Glomerular Filtration Rate 61 mL/min (>60); Est Glom Filt Rate - Afr Amer 74 mL/min (>60); Globulin 3.9 g/dL (2.2-4.2); Glucose 89 mg/dL (74-106); Magnesium 2.5 mg/dL (1.6-2.6); Potassium 4.4 mmol/L (3.5-5.1); Protein, Total 5.9 g/dL (6.4-8.2); Sodium Level 137 mmol/L (136-145)
--- NOTE | 2023-09-06 08:37 | PN.SURG_ITS ---
Subjective Subjective Patient got cholecystostomy tube yesterday, patient's LFTs did go up yesterday currently back down to 1.1 patient is planning to do an ERCP today., Patient's right upper quadrant pain is much improved after the cholecystostomy tube. Objective Data Objective Data Vital Signs: Vital Signs Temp Pulse Resp BP Pulse Ox O2 Del Method O2 Flow Rate 98.3 F 69 18 149/68 H 93 Nasal Cannula 3 09/06/23 04:50 09/06/23 04:50 09/06/23 04:50 09/06/23 04:50 09/06/23 07:15 09/06/23 07:15 09/06/23 07:15 Oxygen Flow Rate (L/min) 3 Oxygen Delivery Method Nasal Cannula Weight: 132 lb 11.492 oz Body Mass Index (BMI) 25.0 Intake & Output: Intake and Output for Last 24 Hours 09/04/23 09/05/23 09/06/23 23:59 23:59 23:59 Intake Total 1750 / 1750 590.75 / 590.75 226.25 / 226.25 Output Total 250 / 250 840 / 840 650 / 650 Balance 1500 / 1500 -249.25 / -249.25 -423.75 / -423.75 Medical Nutrition Assessment Dietitian: Malnutrition Criteria Met Start: 09/04/23 13:38 Freq: Status: Active Protocol: Document 09/04/23 13:38 AG (Rec: 09/04/23 13:38 [id number]) Nutrition Malnutrition Evidence of Malnutrition Exists Yes Malnutrition (moderate): Acute Illness/Injury Evidenced By Suboptimal Energy Intake ( Moderate),Weight Loss ( Moderate) Clinical Problem Chronic Disease or Condition Related Malnutrition Etiology moderate, acute malnutrition related to inadequate energy intake w/ recent acute illness , GI dysfunction Signs/Symptoms as evidenced by reported poor PO intake/appetite x 3 weeks 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 Lab / Micro Data 09/06/23 04:30 09/06/23 04:30 Labs: Laboratory Results - last 24 hr 09/06/23 04:30: WBC 12.6 H, RBC 3.19 L, Hgb 9.6 L, Hct 28.6 L, MCV 89.7, MCH 30.1, MCHC 33.6, RDW Std Deviation 43.9, RDW Coeff of Sapna 13.3, Plt Count 194, MPV 11.3, Immature Gran % (Auto) 1.000 H, Neut % (Auto) 78.1 H, Lymph % (Auto) 9.4 L, [place] % (Auto) 8.8, Eos % (Auto) 2.5, Baso % (Auto) 0.2, Absolute Neuts (auto) 9.8 H, Absolute Lymphs (auto) 1.18, Nucleated RBC % 0, Sodium 137, Potassium 4.4, Chloride 105, Carbon Dioxide 28.0, Anion Gap 4 L, BUN 28 H, Creatinine 1.20, Estim Creat Clear Calc 33.90, Est GFR (MDRD) Af Amer 74, Est GFR (MDRD) Non-Af 61, BUN/Creatinine Ratio 23.3 H, Glucose 89, Calcium 8.4 L, Magnesium 2.5, Total Bilirubin 1.40 H, Direct Bilirubin 1.01 H, AST 79 H, ALT 197 H, Alkaline Phosphatase 241 H, Total Protein 5.9 L, Albumin 2.0 L, Globulin 3.9 Micro: Microbiology 09/05/23 11:45 Aspirate - Abdominal Gram Stain - Final Radiography Diagnostic Testing: Radiology Impression Echocardiogram 09/05/23 07:33 Interpretation Summary Normal LV size. Left ventricular systolic function is normal. The estimated ejection fraction is 65 %. Mild concentric left ventricular hypertrophy. Pulmonary artery systolic pressure is 38 mmHg. Ordering Physician: Sandra Gregorio Referring Physician: Pasha Bland Performed By: Kristen Barksdale RDCS Chest X-Ray 09/05/23 07:40 IMPRESSION: No acute thoracic pathology. Electronically Signed: Óscar Bearden MD at 9:05 EST , Physical Exam Const oriented x3 and no apparent distress Resp normal respiratory effort Cardio regular rate GI soft to palpation GI Narrative: Tender in the right upper quadrant?improved, no peritoneal signs, cholecystostomy tube bilious Inspection: Negative for abdominal distention Assessment & Plan Assessment/Plan (1) Acute cholecystitis: (2) Leukocytosis: (3) Elevated liver function tests: PLAN: Plan Patient is currently n.p.o. for an ERCP today due to elevation of liver functions which have come down after the Gabriela tube. Okay for diet when okay with GI Continue Gabriela tube plan for interval cholecystectomy in the future as outpatient Continue IV Zosyn-blood count down to 12 from 17 Sandra Gregorio M.D. Pager: [phone] [facility] [address] [place] [address], [facility], [address] [place] [id number] Office: [phone] Charges/Coding Visit Charges Inpatient E&M: 36294 Subs Hosp L2
[2023-09-06] MEDS: traMADol 50 MG Tablet PO (09:46)
[2023-09-06] MEDS: Carvedilol 25 MG Tablet PO (09:46)
[2023-09-06] MEDS: Finasteride 5 MG Tablet PO (09:47)
[2023-09-06] MEDS: cloNIDine HCl 0.1 MG Tablet PO (09:47)
[2023-09-06] MEDS: Menthol/Lanolin/Calamine/Znox 113 GM Tube 1 APPLIC TOPICAL ×2 (09:47→21:29)
[2023-09-06] MEDS: NIFEdipine 30 MG Tablet PO (09:47)
[2023-09-06] MEDS: Bisacodyl 5 MG Tablet PO (10:23)
--- NOTE | 2023-09-06 10:38 | PCM.PROGNOTE ---
Subjective Subjective Patient seen and examined. He has no active complaints and tells me he feels much better than he did yesterday. He had a cholecystostomy tube inserted yesterday. He denies any abdominal pain, fever or chills, nausea or vomiting or any other symptoms. Review of systems otherwise negative. Objective Data Objective Data Vital Signs: Vital Signs Temp Pulse Resp BP Pulse Ox O2 Del Method O2 Flow Rate 98.5 F 67 20 H 165/86 H 94 Nasal Cannula 3 09/06/23 09:32 09/06/23 09:32 09/06/23 09:32 09/06/23 09:32 09/06/23 09:32 09/06/23 09:32 09/06/23 09:32 Oxygen Flow Rate (L/min) 3 Oxygen Delivery Method Nasal Cannula Weight: 132 lb 11.492 oz Body Mass Index (BMI) 25.0 Intake & Output: Intake and Output for Last 24 Hours 09/04/23 09/05/23 09/06/23 23:59 23:59 23:59 Intake Total 1750 / 1750 590.75 / 590.75 396.25 / 396.25 Output Total 250 / 250 840 / 840 650 / 650 Balance 1500 / 1500 -249.25 / -249.25 -253.75 / -253.75 Medical Nutrition Assessment Dietitian: Malnutrition Criteria Met Start: 09/04/23 13:38 Freq: Status: Active Protocol: Document 09/04/23 13:38 AG (Rec: 09/04/23 13:38 [id number]) Nutrition Malnutrition Evidence of Malnutrition Exists Yes Malnutrition (moderate): Acute Illness/Injury Evidenced By Suboptimal Energy Intake ( Moderate),Weight Loss ( Moderate) Clinical Problem Chronic Disease or Condition Related Malnutrition Etiology moderate, acute malnutrition related to inadequate energy intake w/ recent acute illness , GI dysfunction Signs/Symptoms as evidenced by reported poor PO intake/appetite 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 Lab / Micro Data 09/06/23 04:30 09/06/23 04:30 Labs: Laboratory Results - last 24 hr 09/06/23 04:30: WBC 12.6 H, RBC 3.19 L, Hgb 9.6 L, Hct 28.6 L, MCV 89.7, MCH 30.1, MCHC 33.6, RDW Std Deviation 43.9, RDW Coeff of Sapna 13.3, Plt Count 194, MPV 11.3, Immature Gran % (Auto) 1.000 H, Neut % (Auto) 78.1 H, Lymph % (Auto) 9.4 L, [place] % (Auto) 8.8, Eos % (Auto) 2.5, Baso % (Auto) 0.2, Absolute Neuts (auto) 9.8 H, Absolute Lymphs (auto) 1.18, Nucleated RBC % 0, Sodium 137, Potassium 4.4, Chloride 105, Carbon Dioxide 28.0, Anion Gap 4 L, BUN 28 H, Creatinine 1.20, Estim Creat Clear Calc 33.90, Est GFR (MDRD) Af Amer 74, Est GFR (MDRD) Non-Af 61, BUN/Creatinine Ratio 23.3 H, Glucose 89, Calcium 8.4 L, Magnesium 2.5, Total Bilirubin 1.40 H, Direct Bilirubin 1.01 H, AST 79 H, ALT 197 H, Alkaline Phosphatase 241 H, Total Protein 5.9 L, Albumin 2.0 L, Globulin 3.9 Micro: Microbiology 09/05/23 11:45 Aspirate - Abdominal Gram Stain - Final 09/05/23 11:45 Aspirate - Abdominal Wound Culture - Preliminary Gram negative mary Radiography Diagnostic Testing: Radiology Impression Echocardiogram 09/05/23 07:33 Interpretation Summary Normal LV size. Left ventricular systolic function is normal. The estimated ejection fraction is 65 %. Mild concentric left ventricular hypertrophy. Pulmonary artery systolic pressure is 38 mmHg. Ordering Physician: Sandra Gregorio Referring Physician: Pasha Bland Performed By: Kristen Barksdale RDCS Physical Exam Const alert, oriented x3 and no apparent distress General Appearance: cooperative and well developed HEENT normocephalic, head/scalp atraumatic, moist oral mucous membranes and oropharynx normal Eyes PERRL and EOMs intact bilaterally Neck no lymphadenopathy, supple and no JVD Lymph Lymphatic: no lymphadenopathy noted and no lymphedema noted Resp normal respiratory effort, normal air movement and clear to auscultation bilaterally Cardio regular rate, regular rhythm, S1 normal heart sound, S2 normal heart sound and no murmurs GI GI Narrative: obese abdomen, mildly distended, which he says is the norm for him; moderate generalised tenderness. Cholecystostomy tube in situ. Extremity normal capillary refill, no clubbing, cyanosis or edema and no calf tenderness General Extremity: no tenderness to palpation of joints or extremities Skin General Skin Exam: no breakdown Neuro CN's II-XII intact bilaterally, no focal motor deficits, no sensory deficits noted and deep tendon reflexes 2+ bilaterally Motor Exam: strength 5/5 throughout and general weakness Psych thought process normal and cooperative Appearance: appropriate Assessment & Plan Assessment/Plan (1) Acute cholecystitis: PLAN: Plan #Acute cholecystitis general surgery on board. Had cholecystostomy tube inserted yesterday. Liver enzymes have trended down with bilirubin down to around 1.4. WBC has also trended down to 12.6. On IV Zosyn. on IV morphine prn as well as PO oxycodone For ERCP today Gastroenterology also on board. As mentioned total bilirubin is down to 1.4 with AST, ALT and ALP all trending downwards. IV zofran prn #Anemia: Hemoglobin is 9.3. Baseline hemoglobin is around 11-12. Will monitor for now and if it drops lower workup further. #Hypertension; on carvedilol and clonidine as well as nifedipine #Hyperlipidemia: on statins DVT prophylaxis: lovenox Charges/Coding Visit Charges Inpatient E&M: 83016 Subs Hosp L2
[2023-09-06] MEDS: 0.9% Normal Saline (1000mL) 1,000 ML 15 ML IV (15:07)
--- NOTE | 2023-09-06 15:45 | RAD_ITS ---
EXAM: FL ERCP Biliary and Pancreatic Ductal Systems HISTORY: PAIN COMPARISON: CT from 09/04/2023 Technique: Placement of the endoscope by Dr. Haddad. There are 376.6 seconds of fluoroscopy dosage of 154.06 MGY, and 27 fluoroscopic images obtained FINDINGS: Endoscope was placed by Dr. Haddad. The ampulla was cannulized and a wire was advanced into the common bile duct. Over the wire, a catheter was advanced and contrast injected which shows a dilated common bile duct, dilated biliary radicles and rounded filling defects within the common bile duct suspicious for retained stones. A balloon and stent were then advanced over the wire and catheter and the balloon was distended using a stent in place. RAD/ERCP Biliary/Pancreas IMPRESSION: ERCP demonstrates dilated biliary tree with likely retained stones. The performing physician performed a balloon dilatation with stenting of the common bile duct. Electronically Signed: Grant Siddiqi MD at 19:14 EST ,
--- NOTE | 2023-09-06 17:22 | OP.CCLET_ITS ---
09/06/2023 Pasha Bland Re : ERCP procedure for David Bland This procedure was performed on Wednesday, September 06, 2023. My impressions and recommendations are as follows: Impressions : - The biliary system were dilated, with a stone causing an obstruction. - Choledocholithiasis was found. Complete removal was accomplished by biliary sphincterotomy and balloon extraction. - A biliary sphincterotomy was performed. - The biliary tree was swept. - The lower third of the main bile duct was successfully dilated. - One covered metal stent was placed into the common bile duct. Recommendations : Patient should be able to get the cholecystostomy tube removed when the flow is stopped. My findings are described in the full procedure note, which is enclosed. If I can be of further assistance, please feel free to contact me at . Sincerely, Blayne Mahmood, 09/06/2023 5:21:41 PM This report has been signed electronically.
--- NOTE | 2023-09-06 17:22 | OP.ERCP_ITS ---
Patient Name: David Canela Procedure Date: 09/06/2023 3:28 PM Date of : 1940 Age: 82 Procedure: ERCP Indications: Bile duct stone(s), Suspected ascending cholangitis, Jaundice Providers: Blayne Mahmood DO Medicines: Monitored Anesthesia Care Patient Profile: This is an 82 year old male. Refer to note in patient chart for documentation of history and physical. Patient has symptoms of acute jaundice. This patient has no history of previous ERCP. This patient has no history of surgical alteration of the upper digestive tract anatomy. Complications: No immediate complications. Procedure: Pre-Anesthesia Assessment: - Prior to the procedure, a History and Physical was performed, and patient medications and allergies were reviewed. The patient is competent. The risks and benefits of the procedure and the sedation options and risks were discussed with the patient. All questions were answered and informed consent was obtained. Patient identification and proposed procedure were verified by the physician. Mental Status Examination: normal. Prophylactic Antibiotics: The patient does not require prophylactic antibiotics. Prior Anticoagulants: The patient has taken no anticoagulant or antiplatelet agents. After reviewing the risks and benefits, the patient was deemed in satisfactory condition to undergo the procedure. The anesthesia plan was to use monitored anesthesia care (MAC). Immediately prior to administration of medications, the patient was re-assessed for adequacy to receive sedatives. The heart rate, respiratory rate, oxygen saturations, blood pressure, adequacy of pulmonary ventilation, and response to care were monitored throughout the procedure. The physical status of the patient was re-assessed after the procedure. After obtaining informed consent, the scope was passed under direct vision. Throughout the procedure, the patient's blood pressure, pulse, and oxygen saturations were monitored continuously. The Duodenoscope was introduced through the mouth, and advanced to the duodenum and used to inject contrast into the bile duct and ventral pancreatic duct. The ERCP was accomplished without difficulty. The patient tolerated the procedure well. Scope In: 3:59:58 PM Scope Out: 4:19:03 PM Total Procedure Duration Time 0 hours 19 minutes 5 seconds Findings: The orchard manager film was normal. The esophagus was successfully intubated under direct vision. The scope was advanced to a normal major papilla in the descending duodenum without detailed examination of the pharynx, larynx and associated structures, and upper GI tract. The upper GI tract was grossly normal. The bile duct was deeply cannulated. Contrast was injected. I personally interpreted the bile duct images. There was brisk flow of contrast through the ducts. Image quality was excellent. Contrast extended to the entire biliary tree. Opacification of the entire opacified area was successful. The maximum diameter of the ducts was 10 mm. The lower third of the main bile duct contained multiple stones, the largest of which was 6 mm in diameter. The entire opacified area was diffusely dilated, with a stone causing an obstruction. The largest diameter was 5 mm. An angled Roadrunner wire was passed into the biliary tree. A 5 mm biliary sphincterotomy was made with a traction (standard) sphincterotome using ERBE electrocautery. The sphincterotomy oozed blood. The biliary tree was swept with a 15 mm balloon starting at the right main hepatic duct. Sludge was swept from the duct. All stones were removed. Dilation of the lower third of the main bile duct with 5-7-8.5 Fr catheter dilator was successful. The bile duct was explored endoscopically using the [employer] direct visualization system. The SpyScope was advanced to the right intrahepatic duct(s). Visibility with the scope was excellent. The entire biliary tree except for the cystic duct and gallbladder were normal. One 10 mm by 8 cm transpapillary covered metal stent was placed 5 cm into the common bile duct. This fully covered metal stent was placed over the cystic duct. An occlusion cholangiogram was performed and no contrast was seen going into the cystic duct. Bile flowed through the stent. The stent was in good position. Impression: - The biliary system were dilated, with a stone causing an obstruction. - Choledocholithiasis was found. Complete removal was accomplished by biliary sphincterotomy and balloon extraction. - A biliary sphincterotomy was performed. - The biliary tree was swept. - The lower third of the main bile duct was successfully dilated. - One covered metal stent was placed into the common bile duct. Recommendation: Patient should be able to get the cholecystostomy tube removed when the flow is stopped. Procedure Code(s): --- Professional --- 82011, Endoscopic retrograde cholangiopancreatography (ERCP); with placement of endoscopic stent into biliary or pancreatic duct, including pre- and post-dilation and guide wire passage, when performed, including sphincterotomy, when performed, each stent 64277, Endoscopic retrograde cholangiopancreatography (ERCP); with removal of calculi/debris from biliary/pancreatic duct(s) 81298, Endoscopic cannulation of papilla with direct visualization of pancreatic/common bile duct(s) (List separately in addition to code(s) for primary procedure) 92794, 26, Endoscopic catheterization of the biliary ductal system, radiological supervision and interpretation CPT copyright 2021 [employer]. All rights reserved. The codes documented in this report are preliminary and upon evp sales review may be revised to meet current compliance requirements. Blayne Mahmood DO 09/06/2023 5:21:41 PM This report has been signed electronically. Number of Addenda: 0 Note Initiated On: 09/06/2023 3:28 PM
[2023-09-06] MEDS: Atorvastatin Calcium 20 MG Tablet PO (21:23)
[2023-09-07 04:36] VITALS: BP 141/65; PULSE 65; RESP 18; TEMP 36.9; O2SAT 92
[2023-09-07] MEDS: Piperacil/Tazobactam 3.375 GM in 0.9% Normal Saline (50mL MB+) 50 ML IV ×3 (04:39→21:24)
[2023-09-07] MEDS: cloNIDine HCl 0.1 MG Tablet PO ×3 (04:39→21:23)
[2023-09-07 06:35] LABS: Absolute Lymphocyte Count 0.43 X10^3/uL (0.83-4.51); Absolute Neutrophil Count 6.4 X10^3/uL (2.0-7.7); Basophil# 0.01 X10^3/uL; Basophil% 0.1 % (0-1); Eosinophil# 0.01 X10^3/uL; Eosinophils% 0.1 % (0-5); Hematocrit 30.2 % (40-54); Hemoglobin 10.2 g/dL (13.0-16.5); Lymphocyte # 0.43 X10^3/ul (0.83-4.51); Lymphocyte % 5.9 % (19-41); Mean Corp Hgb Conc 33.8 g/dL (32-36); Mean Corpuscular Hgb 29.9 pg (27.0-32.0); Mean Corpuscular Volume 88.6 fL (80-94); Mean Platelet Vol. 11.7 fl (6.2-12.0); Monocyte# 0.33 X10^3/uL; Monocyte% 4.6 % (0-10); NRBC Flagged by Analyzer 0 % (0-5); Neutrophil # 6.42 X10^3/uL (2.7-7.7); Neutrophil % 88.7 % (47-70); POSITIVE DIFFERENTIAL YES; Platelet Count 250 K/mm3 (150-450); RBC Distribution Width CV 12.6 % (11.6-14.6); RBC Distribution Width SD 40.8 fl (35.1-43.9); Red Blood Count 3.41 M/mm3 (4.6-6.2); White Blood Count 7.2 K/mm3 (4.4-11.0)
[2023-09-07 06:37] LABS: Differential Indicated SCAN CRITERIA MET
[2023-09-07 07:10] LABS: AST(SGOT) 34 U/L (15-37); Alanine Aminotransfer ALT/SGPT 147 U/L (16-61); Albumin, Serum 2.1 g/dL (3.2-5.0); Alkaline Phosphatase 237 U/L (45-117); Anion Gap 3 (5-15); BUN 35 mg/dL (7-18); BUN/Creat Ratio 24.3 RATIO (10-20); Bilirubin, Direct 0.75 mg/dL (0.00-0.30); Calcium,Total 8.9 mg/dL (8.5-10.1); Chloride 104 mmol/L (98-107); Creatinine, Serum 1.44 mg/dL (0.70-1.30); EST Glomerular Filtration Rate 50 mL/min (>60); Est Glom Filt Rate - Afr Amer 60 mL/min (>60); Estimated Creatinine Clearance 28.25 ml/min; Globulin 4.5 g/dL (2.2-4.2); Glucose 215 mg/dL (74-106); Potassium 4.6 mmol/L (3.5-5.1); Protein, Total 6.6 g/dL (6.4-8.2); Sodium Level 135 mmol/L (136-145)
[2023-09-07 07:22] LABS: Differential Comment SCANNED
[2023-09-07] MEDS: Enoxaparin 40 MG/0.4 ML Syringe SC (07:59)
[2023-09-07] MEDS: Carvedilol 25 MG Tablet PO ×2 (07:59→21:23)
[2023-09-07] MEDS: Bisacodyl 5 MG Tablet PO (08:00)
[2023-09-07] MEDS: NIFEdipine 30 MG Tablet PO (08:00)
[2023-09-07] MEDS: Finasteride 5 MG Tablet PO (08:00)
[2023-09-07 08:02] VITALS: O2SAT 91
[2023-09-07] MEDS: Ondansetron 4 MG/2 ML Vial IV (08:02)
[2023-09-07] MEDS: Menthol/Lanolin/Calamine/Znox 113 GM Tube 1 APPLIC TOPICAL ×2 (08:04→21:23)
[2023-09-07 10:30] VITALS: BP 138/93; PULSE 76; RESP 16; TEMP 37.2; O2SAT 92
--- NOTE | 2023-09-07 10:45 | PCM.PN.SRG ---
Subjective Subjective Patient tolerating diet, denies abdominal pain Objective Data Objective Data Vital Signs: Vital Signs Temp Pulse Resp BP Pulse Ox O2 Del Method O2 Flow Rate 98.9 F 76 16 138/93 H 92 Nasal Cannula 4 09/07/23 10:30 09/07/23 10:30 09/07/23 10:30 09/07/23 10:30 09/07/23 10:30 09/07/23 10:30 09/07/23 10:30 Oxygen Flow Rate (L/min) 4 Oxygen Delivery Method Nasal Cannula Weight: 132 lb 11.492 oz Body Mass Index (BMI) 25.0 Intake & Output: Intake and Output for Last 24 Hours 09/05/23 09/06/23 09/07/23 23:59 23:59 23:59 Intake Total 590.75 / 590.75 446.25 / 446.25 303.75 / 303.75 Output Total 840 / 840 2150 / 2150 130 / 130 Balance -249.25 / -249.25 -1703.75 / -1703.75 173.75 / 173.75 Medical Nutrition Assessment Dietitian: Malnutrition Criteria Met Start: 09/04/23 13:38 Freq: Status: Active Protocol: Document 09/04/23 13:38 AG (Rec: 09/04/23 13:38 AG [id number]) Nutrition Malnutrition Evidence of Malnutrition Exists Yes Malnutrition (moderate): Acute Illness/Injury Evidenced By Suboptimal Energy Intake ( Moderate),Weight Loss ( Moderate) Clinical Problem Chronic Disease or Condition Related Malnutrition Etiology moderate, acute malnutrition related to inadequate energy intake w/ recent acute illness , GI dysfunction Signs/Symptoms as evidenced by reported poor PO intake/appetite 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 Lab / Micro Data 09/07/23 06:10 09/07/23 06:10 Labs: Laboratory Results - last 24 hr 09/07/23 06:10: WBC 7.2, RBC 3.41 L, Hgb 10.2 L, Hct 30.2 L, MCV 88.6, MCH 29.9, MCHC 33.8, RDW Std Deviation 40.8, RDW Coeff of Sapna 12.6, Plt Count 250, MPV 11.7, Immature Gran % (Auto) 0.600, Neut % (Auto) 88.7 H, Lymph % (Auto) 5.9 L, [place] % (Auto) 4.6, Eos % (Auto) 0.1, Baso % (Auto) 0.1, Absolute Neuts (auto) 6.4, Absolute Lymphs (auto) 0.43 L, Nucleated RBC % 0, Differential Comment SCANNED, Sodium 135 L, Potassium 4.6, Chloride 104, Carbon Dioxide 28.0, Anion Gap 3 L, BUN 35 H, Creatinine 1.44 H, Estim Creat Clear Calc 28.25, Est GFR (MDRD) Af Amer 60, Est GFR (MDRD) Non-Af 50 L, BUN/Creatinine Ratio 24.3 H, Glucose 215 H, Calcium 8.9, Total Bilirubin 1.00, Direct Bilirubin 0.75 H, AST 34, ALT 147 H, Alkaline Phosphatase 237 H, Total Protein 6.6, Albumin 2.1 L, Globulin 4.5 H Micro: Microbiology 09/05/23 11:45 Aspirate - Abdominal Gram Stain - Final 09/05/23 11:45 Aspirate - Abdominal Wound Culture - Preliminary 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 Physical Exam Const oriented x3 and no apparent distress Resp Resp Narrative: On 3 L nasal cannula Cardio regular rate GI soft to palpation GI Narrative: Tender near cholecystostomy tube, serosanguineous drainage, no peritoneal signs Assessment & Plan Assessment/Plan (1) Acute cholecystitis: (2) Leukocytosis: (3) Elevated liver function tests: (4) S/P ERCP: PLAN: Plan Patient tolerating diet Continue Gabriela tube plan for interval cholecystectomy in the future as outpatient?patient will go home with cholecystostomy tube and follow-up in the office in about 2 weeks or sooner if the drain is not putting out anything for several days. Continue IV Zosyn for today Wean O2. Sandra Gregorio M.D. Pager: [phone] [facility] [address] [place] [address], Outpatient Pavilion, [address] [place] [address] Office: [phone] Charges/Coding Visit Charges Inpatient E&M: 50947 Subs Hosp L2
--- NOTE | 2023-09-07 11:05 | PN_ITS ---
Subjective Subjective Patient seen and examined. He had no complaints and said he felt very well. He had ERCP yesterday with removal of a bile duct stone which was causing obstruction. Cholecystostomy tube remains in situ. Review of systems is otherwise negative. Objective Data Objective Data Vital Signs: Vital Signs Temp Pulse Resp BP Pulse Ox O2 Del Method O2 Flow Rate 98.9 F 76 16 138/93 H 92 Nasal Cannula 4 09/07/23 10:30 09/07/23 10:30 09/07/23 10:30 09/07/23 10:30 09/07/23 10:30 09/07/23 10:30 09/07/23 10:30 Oxygen Flow Rate (L/min) 4 Oxygen Delivery Method Nasal Cannula Weight: 132 lb 11.492 oz Body Mass Index (BMI) 25.0 Intake & Output: Intake and Output for Last 24 Hours 09/05/23 09/06/23 09/07/23 23:59 23:59 23:59 Intake Total 590.75 / 590.75 446.25 / 446.25 303.75 / 303.75 Output Total 840 / 840 2150 / 2150 130 / 130 Balance -249.25 / -249.25 -1703.75 / -1703.75 173.75 / 173.75 Medical Nutrition Assessment Dietitian: Malnutrition Criteria Met Start: 09/04/23 13:38 Freq: Status: Active Protocol: Document 09/04/23 13:38 AG (Rec: 09/04/23 13:38 AG [id number]) Nutrition Malnutrition Evidence of Malnutrition Exists Yes Malnutrition (moderate): Acute Illness/Injury Evidenced By Suboptimal Energy Intake ( Moderate),Weight Loss ( Moderate) Clinical Problem Chronic Disease or Condition Related Malnutrition Etiology moderate, acute malnutrition related to inadequate energy intake w/ recent acute illness , GI dysfunction Signs/Symptoms as evidenced by reported poor PO intake/appetite x 3 weeks 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 Lab / Micro Data 09/07/23 06:10 09/07/23 06:10 Labs: Laboratory Results - last 24 hr 09/07/23 06:10: WBC 7.2, RBC 3.41 L, Hgb 10.2 L, Hct 30.2 L, MCV 88.6, MCH 29.9, MCHC 33.8, RDW Std Deviation 40.8, RDW Coeff of Sapna 12.6, Plt Count 250, MPV 11.7, Immature Gran % (Auto) 0.600, Neut % (Auto) 88.7 H, Lymph % (Auto) 5.9 L, [place] % (Auto) 4.6, Eos % (Auto) 0.1, Baso % (Auto) 0.1, Absolute Neuts (auto) 6.4, Absolute Lymphs (auto) 0.43 L, Nucleated RBC % 0, Differential Comment SCANNED, Sodium 135 L, Potassium 4.6, Chloride 104, Carbon Dioxide 28.0, Anion Gap 3 L, BUN 35 H, Creatinine 1.44 H, Estim Creat Clear Calc 28.25, Est GFR (MDRD) Af Amer 60, Est GFR (MDRD) Non-Af 50 L, BUN/Creatinine Ratio 24.3 H, Glucose 215 H, Calcium 8.9, Total Bilirubin 1.00, Direct Bilirubin 0.75 H, AST 34, ALT 147 H, Alkaline Phosphatase 237 H, Total Protein 6.6, Albumin 2.1 L, Globulin 4.5 H Micro: Microbiology 09/05/23 11:45 Aspirate - Abdominal Gram Stain - Final 09/05/23 11:45 Aspirate - Abdominal Wound Culture - Preliminary GNR lactose locksmith helper GNR lactose locksmith helper#2 GPC Poss Enterococcus sp 09/05/23 11:45 Aspirate - Abdominal Anaerobic Culture - Preliminary Checking for anaerobes, further studies to follow. Physical Exam Const alert, oriented x3 and no apparent distress General Appearance: cooperative and well developed HEENT normocephalic, head/scalp atraumatic, moist oral mucous membranes and oropharynx normal Eyes PERRL and EOMs intact bilaterally Neck no lymphadenopathy, supple and no JVD Lymph Lymphatic: no lymphadenopathy noted and no lymphedema noted Resp normal respiratory effort, normal air movement and clear to auscultation bilaterally Cardio regular rate, regular rhythm, S1 normal heart sound, S2 normal heart sound and no murmurs GI GI Narrative: obese abdomen, mildly distended, which he says is the norm for him; moderate generalised tenderness. Cholecystostomy tube in situ. Extremity normal capillary refill, no clubbing, cyanosis or edema and no calf tenderness General Extremity: no tenderness to palpation of joints or extremities Skin General Skin Exam: no breakdown Neuro CN's II-XII intact bilaterally, no focal motor deficits, no sensory deficits noted and deep tendon reflexes 2+ bilaterally Motor Exam: strength 5/5 throughout and general weakness Psych thought process normal and cooperative Appearance: appropriate Assessment & Plan Assessment/Plan (1) Acute cholecystitis: PLAN: Plan #Acute cholecystitis * general surgery on board. Had cholecystostomy tube inserted yesterday. Liver enzymes have trended down with bilirubin down to around 1.4. * WBC has also trended down to 7.2. On IV Zosyn. * on IV morphine prn as well as PO oxycodone * For ERCP yesterday which showed dilated biliary system with a stone causing obstruction; it was completely removed by biliary sphincerotomy and balloon extraction as well as dilatation of the lowerr third of the main bile duct and insertion of a covered metal stent into the common bile dduct. * Gastroenterology also on board. * As mentioned total bilirubin is down to 1.4 with AST, ALT and ALP all trending downwards. * IV zofran prn * per discussion with general surgery, to keep one more day for IV antibiotics * Cultures growing gram-positive cocci possible Enterococcus species as well as gram-negative rods lactose locksmith helper with speciation pending. * #Anemia: Hemoglobin is 10.2 today. Baseline hemoglobin is around 11-12. Will monitor for now and if it drops lower workup further. #Hypertension; on carvedilol and clonidine as well as nifedipine #Hyperlipidemia: on statins DVT prophylaxis: lovenox Charges/Coding Visit Charges Inpatient E&M: 35023 Subs Hosp L2
[2023-09-07 13:23] VITALS: O2SAT 91
[2023-09-07 15:07] VITALS: BP 142/67; PULSE 71; RESP 16; TEMP 36.8; O2SAT 97
--- NOTE | 2023-09-07 15:41 | CASEMGMT ---
Social Work SW met with pt to discuss advance directives.? Pt confirms she has completed a living will and health care POA naming his son Rashel Wray.? Pt notified that documents are not on file at [facility] and SW requested they be brought in for scanning into the EMR.? DIANNE Victor
--- NOTE | 2023-09-07 15:46 | PN.GI_ITS ---
Subjective Subjective Patient underwent an ERCP yesterday. He tolerated procedure without any problems. He has been eating without any abdominal pain. He is having normal colored stools. Objective Data Objective Data Vital Signs: Vital Signs Temp Pulse Resp BP Pulse Ox O2 Del Method O2 Flow Rate 98.3 F 71 16 142/67 H 97 Nasal Cannula 4 09/07/23 15:07 09/07/23 15:07 09/07/23 15:07 09/07/23 15:07 09/07/23 15:07 09/07/23 15:07 09/07/23 15:07 Oxygen Flow Rate (L/min) 4 Oxygen Delivery Method Nasal Cannula Weight: 132 lb 11.492 oz Body Mass Index (BMI) 25.0 Intake & Output: Intake and Output for Last 24 Hours 09/05/23 09/06/23 09/07/23 23:59 23:59 23:59 Intake Total 590.75 / 590.75 446.25 / 446.25 703.75 / 703.75 Output Total 840 / 840 2150 / 2150 220 / 220 Balance -249.25 / -249.25 -1703.75 / -1703.75 483.75 / 483.75 Medical Nutrition Assessment Dietitian: Malnutrition Criteria Met Start: 09/04/23 13:38 Freq: Status: Active Protocol: Document 09/04/23 13:38 AG (Rec: 09/04/23 13:38 [id number]) Nutrition Malnutrition Evidence of Malnutrition Exists Yes Malnutrition (moderate): Acute Illness/Injury Evidenced By Suboptimal Energy Intake ( Moderate),Weight Loss ( Moderate) Clinical Problem Chronic Disease or Condition Related Malnutrition Etiology moderate, acute malnutrition related to inadequate energy intake w/ recent acute illness , GI dysfunction Signs/Symptoms as evidenced by reported poor PO intake/appetite x 3 weeks 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 Lab / Micro Data 09/07/23 06:10 09/07/23 06:10 Labs: Laboratory Results - last 24 hr 09/07/23 06:10: WBC 7.2, RBC 3.41 L, Hgb 10.2 L, Hct 30.2 L, MCV 88.6, MCH 29.9, MCHC 33.8, RDW Std Deviation 40.8, RDW Coeff of Sapna 12.6, Plt Count 250, MPV 11.7, Immature Gran % (Auto) 0.600, Neut % (Auto) 88.7 H, Lymph % (Auto) 5.9 L, [place] % (Auto) 4.6, Eos % (Auto) 0.1, Baso % (Auto) 0.1, Absolute Neuts (auto) 6.4, Absolute Lymphs (auto) 0.43 L, Nucleated RBC % 0, Differential Comment SCANNED, Sodium 135 L, Potassium 4.6, Chloride 104, Carbon Dioxide 28.0, Anion Gap 3 L, BUN 35 H, Creatinine 1.44 H, Estim Creat Clear Calc 28.25, Est GFR (MDRD) Af Amer 60, Est GFR (MDRD) Non-Af 50 L, BUN/Creatinine Ratio 24.3 H, Glucose 215 H, Calcium 8.9, Total Bilirubin 1.00, Direct Bilirubin 0.75 H, AST 34, ALT 147 H, Alkaline Phosphatase 237 H, Total Protein 6.6, Albumin 2.1 L, Globulin 4.5 H Micro: Microbiology 09/05/23 11:45 Aspirate - Abdominal Gram Stain - Final 09/05/23 11:45 Aspirate - Abdominal Wound Culture - Preliminary GNR lactose sprinkler repair technician GNR lactose sprinkler repair technician#2 GPC Poss Enterococcus sp 09/05/23 11:45 Aspirate - Abdominal Anaerobic Culture - Preliminary Checking for anaerobes, further studies to follow. Radiography Diagnostic Testing: Radiology Impression Endo Retro Cholangiopancreatogram 09/06/23 15:45 IMPRESSION: ERCP demonstrates dilated biliary tree with likely retained stones. The performing physician performed a balloon dilatation with stenting of the common bile duct. Electronically Signed: Grant Siddiqi MD at 19:14 EST Reading Location ID and State: [facility] / [place] , Service support , Physical Exam Const alert, oriented x3 and no apparent distress General Appearance: cooperative and well developed HEENT normocephalic, head/scalp atraumatic, moist oral mucous membranes and oropharynx normal Eyes PERRL and EOMs intact bilaterally Neck no lymphadenopathy, supple and no JVD Lymph Lymphatic: no lymphadenopathy noted and no lymphedema noted Resp normal respiratory effort, normal air movement and clear to auscultation bilaterally Cardio regular rate, regular rhythm, S1 normal heart sound, S2 normal heart sound and no murmurs GI GI Narrative: obese abdomen, mildly distended, which he says is the norm for him; moderate generalised tenderness. Cholecystostomy tube in situ. Extremity normal capillary refill, no clubbing, cyanosis or edema and no calf tenderness General Extremity: no tenderness to palpation of joints or extremities Skin General Skin Exam: no breakdown Neuro CN's II-XII intact bilaterally, no focal motor deficits, no sensory deficits noted and deep tendon reflexes 2+ bilaterally Motor Exam: strength 5/5 throughout and general weakness Psych thought process normal and cooperative Appearance: appropriate Assessment & Plan Assessment/Plan (1) S/P ERCP: (2) Acute cholecystitis: PLAN: Plan Acute cholecystitis status post percutaneous drain placement. Acute ger docholithiasis status post ERCP with stone removal and sphincterotomy. He had a fully covered metal stent placed. I suspect that his drainage from cholecystostomy tube will decrease substantially. Hopefully can get the cholecystostomy tube drain out as an outpatient and follow-up with myself and Dr. Roblero him as an outpatient. Charges/Coding Visit Charges Inpatient E&M: 89881 Subs Hosp L3
[2023-09-07 21:17] VITALS: BP 170/77; PULSE 65; RESP 18; TEMP 36.8; O2SAT 97
[2023-09-07] MEDS: Atorvastatin Calcium 20 MG Tablet PO (21:23)
[2023-09-07] MEDS: Doxazosin 4 MG Tablet 8 MG PO (21:23)
[2023-09-08 04:27] VITALS: BP 147/71; PULSE 62; RESP 18; TEMP 36.8; O2SAT 92
[2023-09-08] MEDS: cloNIDine HCl 0.1 MG Tablet PO ×3 (04:30→20:51)
[2023-09-08] MEDS: Piperacil/Tazobactam 3.375 GM in 0.9% Normal Saline (50mL MB+) 50 ML IV ×3 (04:30→20:52)
[2023-09-08 06:52] LABS: Absolute Lymphocyte Count 0.84 X10^3/uL (0.83-4.51); Absolute Neutrophil Count 10.1 X10^3/uL (2.0-7.7); Basophil# 0.02 X10^3/uL; Basophil% 0.2 % (0-1); Eosinophil# 0.06 X10^3/uL; Eosinophils% 0.5 % (0-5); Hematocrit 27.9 % (40-54); Hemoglobin 9.2 g/dL (13.0-16.5); Lymphocyte # 0.84 X10^3/ul (0.83-4.51); Lymphocyte % 6.8 % (19-41); Mean Corpuscular Hgb 29.4 pg (27.0-32.0); Mean Corpuscular Volume 89.1 fL (80-94); Mean Platelet Vol. 10.6 fl (6.2-12.0); Monocyte# 1.27 X10^3/uL; Monocyte% 10.3 % (0-10); NRBC Flagged by Analyzer 0 % (0-5); Neutrophil # 10.05 X10^3/uL (2.7-7.7); Neutrophil % 81.5 % (47-70); Platelet Count 271 K/mm3 (150-450); RBC Distribution Width CV 12.7 % (11.6-14.6); RBC Distribution Width SD 41.2 fl (35.1-43.9); Red Blood Count 3.13 M/mm3 (4.6-6.2); White Blood Count 12.3 K/mm3 (4.4-11.0)
[2023-09-08 07:17] LABS: ALB/GLOB Ratio 0.5 RATIO (0.9-2.4); AST(SGOT) 31 U/L (15-37); Alanine Aminotransfer ALT/SGPT 103 U/L (16-61); Albumin, Serum 1.8 g/dL (3.2-5.0); Alkaline Phosphatase 240 U/L (45-117); Anion Gap 1 (5-15); BUN 28 mg/dL (7-18); BUN/Creat Ratio 24.1 RATIO (10-20); Calcium,Total 8.4 mg/dL (8.5-10.1); Chloride 106 mmol/L (98-107); Creatinine, Serum 1.16 mg/dL (0.70-1.30); EST Glomerular Filtration Rate 64 mL/min (>60); Est Glom Filt Rate - Afr Amer 77 mL/min (>60); Estimated Creatinine Clearance 35.07 ml/min; Globulin 3.9 g/dL (2.2-4.2); Glucose 132 mg/dL (74-106); Potassium 4.1 mmol/L (3.5-5.1); Protein, Total 5.7 g/dL (6.4-8.2); Sodium Level 135 mmol/L (136-145)
[2023-09-08 07:40] VITALS: O2SAT 92
--- NOTE | 2023-09-08 08:58 | PN.SURG_ITS ---
Subjective Subjective Patient tolerating diet and having bowel function, patient only has slight tenderness at the cholecystostomy tube site, white blood count back up to 12 Objective Data Objective Data Vital Signs: Vital Signs Temp Pulse Resp BP Pulse Ox O2 Del Method O2 Flow Rate 98.2 F 62 18 147/71 H 92 Nasal Cannula 2 09/08/23 04:27 09/08/23 04:27 09/08/23 04:27 09/08/23 04:27 09/08/23 07:40 09/08/23 04:30 09/08/23 07:40 Oxygen Flow Rate (L/min) 2 Oxygen Delivery Method Nasal Cannula Weight: 132 lb 11.492 oz Body Mass Index (BMI) 25.0 Intake & Output: Intake and Output for Last 24 Hours 09/06/23 09/07/23 09/08/23 23:59 23:59 23:59 Intake Total 446.25 / 446.25 1153.75 / 1153.75 50 / 50 Output Total 2150 / 2150 1670 / 1670 1150 / 1150 Balance -1703.75 / -1703.75 -516.25 / -516.25 -1100 / -1100 Medical Nutrition Assessment Dietitian: Malnutrition Criteria Met Start: 09/04/23 13:38 Freq: Status: Active Protocol: Document 09/07/23 15:57 AG (Rec: 09/07/23 15:57 AG [id number]) Nutrition Malnutrition Evidence of Malnutrition Exists Yes Malnutrition (moderate): Acute Illness/Injury Evidenced By Suboptimal Energy Intake ( Moderate),Weight Loss ( Moderate) Clinical Problem Chronic Disease or Condition Related Malnutrition Etiology moderate, acute malnutrition related to inadequate energy intake w/ recent acute illness , GI dysfunction Signs/Symptoms as evidenced by reported poor PO intake/appetite x 3 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, 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 Active Problem Recommendation Dietitian Recommendations/Changes continue cardiac diet as tolerated; resume ONS if pt agreeable- ensure plus high protein 120mL 4x/day however pt declines at this time Lab / Micro Data 09/08/23 06:37 09/08/23 06:37 Labs: Laboratory Results - last 24 hr 09/08/23 06:37: WBC 12.3 H, RBC 3.13 L, Hgb 9.2 L, Hct 27.9 L, MCV 89.1, MCH 29.4, MCHC 33.0, RDW Std Deviation 41.2, RDW Coeff of Sapna 12.7, Plt Count 271, MPV 10.6, Immature Gran % (Auto) 0.700, Neut % (Auto) 81.5 H, Lymph % (Auto) 6.8 L, [place] % (Auto) 10.3 H, Eos % (Auto) 0.5, Baso % (Auto) 0.2, Absolute Neuts (auto) 10.1 H, Absolute Lymphs (auto) 0.84, Nucleated RBC % 0, Sodium 135 L, Potassium 4.1, Chloride 106, Carbon Dioxide 28.0, Anion Gap 1 L, BUN 28 H, Creatinine 1.16, Estim Creat Clear Calc 35.07, Est GFR (MDRD) Af Amer 77, Est GFR (MDRD) Non-Af 64, BUN/Creatinine Ratio 24.1 H, Glucose 132 H, Calcium 8.4 L, Total Bilirubin 0.60, AST 31, ALT 103 H, Alkaline Phosphatase 240 H, Total Protein 5.7 L, Albumin 1.8 L, Globulin 3.9, Albumin/Globulin Ratio 0.5 L Micro: Microbiology 09/05/23 11:45 Aspirate - Abdominal Gram Stain - Final 09/05/23 11:45 Aspirate - Abdominal Wound Culture - Final Escherichia coli Enterococcus gallinarum 09/05/23 11:45 Aspirate - Abdominal Anaerobic Culture - Final No anaerobic bacteria isolated. Radiography Diagnostic Testing: Radiology Impression Endo Retro Cholangiopancreatogram 09/06/23 15:45 IMPRESSION: ERCP demonstrates dilated biliary tree with likely retained stones. The performing physician performed a balloon dilatation with stenting of the common bile duct. Electronically Signed: Grant Siddiqi MD at 19:14 EST , Physical Exam Const oriented x3 and no apparent distress Resp Resp Narrative: On 3 L nasal cannula Cardio regular rate GI soft to palpation GI Narrative: Tender near cholecystostomy tube, serosanguineous drainage, no peritoneal signs, right inguinal hernia reduced Assessment & Plan Assessment/Plan (1) Acute cholecystitis: (2) Leukocytosis: (3) Elevated liver function tests: (4) S/P ERCP: (5) Right inguinal hernia: PLAN: reducible PLAN: Plan Patient tolerating diet Continue Gabriela tube plan for interval cholecystectomy in the future as outpatient?patient will go home with cholecystostomy tube and follow-up in the office in about 2 weeks -will probably keep gabriela tube in until cholecystectomy Continue IV Zosyn for today with increased WBC to 12- unsure etiology continue to Wean O2 Dr. Padilla will be covering tomorrow/weekend Sandra Gregorio M.D. Pager: [phone] [facility] [address] [place] [address], [facility], [address] [place] [address] Office: [phone] Charges/Coding Visit Charges Inpatient E&M: 85772 [facility] Hosp L2
--- NOTE | 2023-09-08 09:55 | PN_ITS ---
Subjective Subjective Patient seen and examined. He had no complaints and felt well. Review of systems is otherwise negative. He has remained hemodynamically stable. Objective Data Objective Data Vital Signs: Vital Signs Temp Pulse Resp BP Pulse Ox O2 Del Method O2 Flow Rate 98.2 F 62 18 147/71 H 92 Nasal Cannula 2 09/08/23 04:27 09/08/23 04:27 09/08/23 04:27 09/08/23 04:27 09/08/23 07:40 09/08/23 04:30 09/08/23 07:40 Oxygen Flow Rate (L/min) 2 Oxygen Delivery Method Nasal Cannula Weight: 132 lb 11.492 oz Body Mass Index (BMI) 25.0 Intake & Output: Intake and Output for Last 24 Hours 09/06/23 09/07/23 09/08/23 23:59 23:59 23:59 Intake Total 446.25 / 446.25 1153.75 / 1153.75 50 / 50 Output Total 2150 / 2150 1670 / 1670 1150 / 1150 Balance -1703.75 / -1703.75 -516.25 / -516.25 -1100 / -1100 Medical Nutrition Assessment Dietitian: Malnutrition Criteria Met Start: 09/04/23 13:38 Freq: Status: Active Protocol: Document 09/07/23 15:57 AG (Rec: 09/07/23 15:57 AG [id number]) Nutrition Malnutrition Evidence of Malnutrition Exists Yes Malnutrition (moderate): Acute Illness/Injury Evidenced By Suboptimal Energy Intake ( Moderate),Weight Loss ( Moderate) Clinical Problem Chronic Disease or Condition Related Malnutrition Etiology moderate, acute malnutrition related to inadequate energy intake w/ recent acute illness , GI dysfunction Signs/Symptoms as evidenced by reported poor PO intake/appetite x 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, 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 Active Problem Recommendation Dietitian Recommendations/Changes continue cardiac diet as tolerated; resume ONS if pt agreeable- ensure plus high protein 120mL 4x/day however pt declines at this time Lab / Micro Data 09/08/23 06:37 09/08/23 06:37 Labs: Laboratory Results - last 24 hr 09/08/23 06:37: WBC 12.3 H, RBC 3.13 L, Hgb 9.2 L, Hct 27.9 L, MCV 89.1, MCH 29.4, MCHC 33.0, RDW Std Deviation 41.2, RDW Coeff of Sapna 12.7, Plt Count 271, MPV 10.6, Immature Gran % (Auto) 0.700, Neut % (Auto) 81.5 H, Lymph % (Auto) 6.8 L, [place] % (Auto) 10.3 H, Eos % (Auto) 0.5, Baso % (Auto) 0.2, Absolute Neuts (auto) 10.1 H, Absolute Lymphs (auto) 0.84, Nucleated RBC % 0, Sodium 135 L, Potassium 4.1, Chloride 106, Carbon Dioxide 28.0, Anion Gap 1 L, BUN 28 H, Creatinine 1.16, Estim Creat Clear Calc 35.07, Est GFR (MDRD) Af Amer 77, Est GFR (MDRD) Non-Af 64, BUN/Creatinine Ratio 24.1 H, Glucose 132 H, Calcium 8.4 L, Total Bilirubin 0.60, AST 31, ALT 103 H, Alkaline Phosphatase 240 H, Total Protein 5.7 L, Albumin 1.8 L, Globulin 3.9, Albumin/Globulin Ratio 0.5 L Micro: Microbiology 09/05/23 11:45 Aspirate - Abdominal Gram Stain - Final 09/05/23 11:45 Aspirate - Abdominal Wound Culture - Final Escherichia coli Enterococcus gallinarum 09/05/23 11:45 Aspirate - Abdominal Anaerobic Culture - Final No anaerobic bacteria isolated. Radiography Diagnostic Testing: Radiology Impression Endo Retro Cholangiopancreatogram 09/06/23 15:45 IMPRESSION: ERCP demonstrates dilated biliary tree with likely retained stones. The performing physician performed a balloon dilatation with stenting of the common bile duct. Electronically Signed: Grant Siddiqi MD at 19:14 EST , Physical Exam Const alert, oriented x3 and no apparent distress Constitutional Narrative: General Appearance: cooperative and well developed HEENT normocephalic, head/scalp atraumatic, moist oral mucous membranes and oropharynx normal Eyes PERRL and EOMs intact bilaterally Neck no lymphadenopathy, supple and no JVD Lymph Lymphatic: no lymphadenopathy noted and no lymphedema noted Resp normal respiratory effort, normal air movement and clear to auscultation bilaterally Cardio regular rate, regular rhythm, S1 normal heart sound, S2 normal heart sound and no murmurs GI GI Narrative: obese abdomen, mildly distended, which he says is the norm for him; moderate generalised tenderness. Cholecystostomy tube in situ. Extremity normal capillary refill, no clubbing, cyanosis or edema and no calf tenderness General Extremity: no tenderness to palpation of joints or extremities Skin General Skin Exam: no breakdown Neuro CN's II-XII intact bilaterally, no focal motor deficits, no sensory deficits noted and deep tendon reflexes 2+ bilaterally Motor Exam: strength 5/5 throughout and general weakness Psych thought process normal and cooperative Appearance: appropriate Assessment & Plan Assessment/Plan (1) Acute cholecystitis: PLAN: Plan #Acute cholecystitis * general surgery on board. Had cholecystostomy tube inserted. Liver enzymes h ave trended down and normalised. * On IV Zosyn.WBC has trended up today from 7.2 to 12.3 * on IV morphine prn as well as PO oxycodone * Had ERCP which showed dilated biliary system with a stone causing obstruction; it was completely removed by biliary sphincerotomy and balloon extraction as well as dilatation of the lowerr third of the main bile duct and insertion of a covered metal stent into the common bile dduct. * Gastroenterology also on board. * IV zofran prn * Cultures growing gram-positive cocci possible Enterococcus gallinarum and E coli. * continue antibiotics in light of wbc trending upwards today. * #Anemia: Hemoglobin is 9.2 today. Baseline hemoglobin is around 11-12. Will monitor for now and if it drops lower workup further. #Hypertension; on carvedilol and clonidine as well as nifedipine #Hyperlipidemia: on statins DVT prophylaxis: lovenox Charges/Coding Visit Charges Inpatient E&M: 66267 Subs Hosp L2
[2023-09-08] MEDS: Enoxaparin 30 MG/0.3 ML Syringe SC (09:58)
[2023-09-08] MEDS: Carvedilol 25 MG Tablet PO ×2 (09:58→20:52)
[2023-09-08] MEDS: Bisacodyl 5 MG Tablet PO (09:58)
[2023-09-08] MEDS: Finasteride 5 MG Tablet PO (09:58)
[2023-09-08] MEDS: NIFEdipine 30 MG Tablet PO (09:58)
[2023-09-08 10:00] VITALS: BP 137/62; PULSE 61; RESP 14; TEMP 36.8; O2SAT 95
[2023-09-08 10:14] VITALS: O2SAT 90
[2023-09-08] MEDS: Menthol/Lanolin/Calamine/Znox 113 GM Tube 1 APPLIC TOPICAL ×2 (10:18→20:51)
--- NOTE | 2023-09-08 12:13 | PN.GI_ITS ---
Subjective Subjective Patient continues to deny any abdominal pain. He is having less and less output from his MEET drain. He continues to be afebrile. Objective Data Objective Data Vital Signs: Vital Signs Temp Pulse Resp BP Pulse Ox O2 Del Method O2 Flow Rate 98.3 F 61 14 137/62 H 90 Nasal Cannula 3 09/08/23 10:00 09/08/23 10:00 09/08/23 10:00 09/08/23 10:00 09/08/23 10:14 09/08/23 10:14 09/08/23 10:14 Oxygen Flow Rate (L/min) 3 Oxygen Delivery Method Nasal Cannula Weight: 132 lb 11.492 oz Body Mass Index (BMI) 25.0 Intake & Output: Intake and Output for Last 24 Hours 09/06/23 09/07/23 09/08/23 23:59 23:59 23:59 Intake Total 446.25 / 446.25 1153.75 / 1153.75 100 / 100 Output Total 2150 / 2150 1670 / 1670 1150 / 1150 Balance -1703.75 / -1703.75 -516.25 / -516.25 -1050 / -1050 Medical Nutrition Assessment Dietitian: Malnutrition Criteria Met Start: 09/04/23 13:38 Freq: Status: Active Protocol: Document 09/07/23 15:57 AG (Rec: 09/07/23 15:57 AG [id number]) Nutrition Malnutrition Evidence of Malnutrition Exists Yes Malnutrition (moderate): Acute Illness/Injury Evidenced By Suboptimal Energy Intake ( Moderate),Weight Loss ( Moderate) Clinical Problem Chronic Disease or Condition Related Malnutrition Etiology moderate, acute malnutrition related to inadequate energy intake w/ recent acute illness , GI dysfunction Signs/Symptoms as evidenced by reported poor PO intake/appetite x 3 weeks 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, 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 Active Problem Recommendation Dietitian Recommendations/Changes continue cardiac diet as tolerated; resume ONS if pt agreeable- ensure plus high protein 120mL 4x/day however pt declines at this time Lab / Micro Data 09/08/23 06:37 09/08/23 06:37 Labs: Laboratory Results - last 24 hr 09/08/23 06:37: WBC 12.3 H, RBC 3.13 L, Hgb 9.2 L, Hct 27.9 L, MCV 89.1, MCH 29.4, MCHC 33.0, RDW Std Deviation 41.2, RDW Coeff of Sapna 12.7, Plt Count 271, MPV 10.6, Immature Gran % (Auto) 0.700, Neut % (Auto) 81.5 H, Lymph % (Auto) 6.8 L, [place] % (Auto) 10.3 H, Eos % (Auto) 0.5, Baso % (Auto) 0.2, Absolute Neuts (auto) 10.1 H, Absolute Lymphs (auto) 0.84, Nucleated RBC % 0, Sodium 135 L, Potassium 4.1, Chloride 106, Carbon Dioxide 28.0, Anion Gap 1 L, BUN 28 H, Creatinine 1.16, Estim Creat Clear Calc 35.07, Est GFR (MDRD) Af Amer 77, Est GFR (MDRD) Non-Af 64, BUN/Creatinine Ratio 24.1 H, Glucose 132 H, Calcium 8.4 L, Total Bilirubin 0.60, AST 31, ALT 103 H, Alkaline Phosphatase 240 H, Total Protein 5.7 L, Albumin 1.8 L, Globulin 3.9, Albumin/Globulin Ratio 0.5 L Micro: Microbiology 09/05/23 11:45 Aspirate - Abdominal Gram Stain - Final 09/05/23 11:45 Aspirate - Abdominal Wound Culture - Final Escherichia coli Enterococcus gallinarum 09/05/23 11:45 Aspirate - Abdominal Anaerobic Culture - Final No anaerobic bacteria isolated. Radiography Diagnostic Testing: Radiology Impression Endo Retro Cholangiopancreatogram 09/06/23 15:45 IMPRESSION: ERCP demonstrates dilated biliary tree with likely retained stones. The performing physician performed a balloon dilatation with stenting of the common bile duct. Electronically Signed: Grant Siddiqi MD at 19:14 EST Reading Location ID and State: [facility] / [place] , Service support , Physical Exam Const alert, oriented x3 and no apparent distress Constitutional Narrative: General Appearance: cooperative and well developed HEENT normocephalic, head/scalp atraumatic, moist oral mucous membranes and oropharynx normal Eyes PERRL and EOMs intact bilaterally Neck no lymphadenopathy, supple and no JVD Lymph Lymphatic: no lymphadenopathy noted and no lymphedema noted Resp normal respiratory effort, normal air movement and clear to auscultation bilaterally Cardio regular rate, regular rhythm, S1 normal heart sound, S2 normal heart sound and no murmurs GI GI Narrative: obese abdomen, mildly distended, which he says is the norm for him; moderate generalised tenderness. Cholecystostomy tube in situ. Extremity normal capillary refill, no clubbing, cyanosis or edema and no calf tenderness General Extremity: no tenderness to palpation of joints or extremities Skin General Skin Exam: no breakdown Neuro CN's II-XII intact bilaterally, no focal motor deficits, no sensory deficits noted and deep tendon reflexes 2+ bilaterally Motor Exam: strength 5/5 throughout and general weakness Psych thought process normal and cooperative Appearance: appropriate Assessment & Plan Assessment/Plan (1) S/P ERCP: (2) Acute cholecystitis: PLAN: Plan Acute cholecystitis status post percutaneous drain placement. Acute choledocholithiasis status post ERCP with stone removal and sphincterotomy. He had a fully covered metal stent placed. I suspect that his drainage from cholecystostomy tube will decrease substantially. Hopefully can get the ch olecystostomy tube drain out as an outpatient and follow-up with myself and Dr. Gregorio as an outpatient. 09/08/23-patient is still on IV Zosyn due to his increased WBC count. I suspect that it is just reactive at this point. If he does get discharged home he can be on Augmentin 875/125 twice a day for 10 days. Continue to monitor. Charges/Coding Visit Charges Inpatient E&M: 95907 Subs Hosp L3
[2023-09-08 14:00] VITALS: BP 152/67; PULSE 67; RESP 14; TEMP 36.9; O2SAT 94
--- NOTE | 2023-09-08 15:26 | CASEMGMT ---
Lela from [facility] states the pt can take a new tank at [place] and the pt is to call [facility] once he gets home so they can pickup his empty tank at home. Pt is aware and states understanding.
[2023-09-08 20:47] VITALS: BP 163/65; PULSE 65; RESP 18; TEMP 37.1; O2SAT 97
[2023-09-08] MEDS: Doxazosin 4 MG Tablet 8 MG PO (20:51)
[2023-09-08] MEDS: Atorvastatin Calcium 20 MG Tablet PO (20:51)
[2023-09-09 04:15] VITALS: BP 166/66; PULSE 60; RESP 18; TEMP 36.7; O2SAT 98
[2023-09-09] MEDS: Piperacil/Tazobactam 3.375 GM in 0.9% Normal Saline (50mL MB+) 50 ML IV (04:33)
[2023-09-09] MEDS: cloNIDine HCl 0.1 MG Tablet PO (04:33)
[2023-09-09 06:34] LABS: Absolute Lymphocyte Count 1.28 X10^3/uL (0.83-4.51); Absolute Neutrophil Count 6.5 X10^3/uL (2.0-7.7); Basophil# 0.06 X10^3/uL; Basophil% 0.6 % (0-1); Eosinophil# 0.42 X10^3/uL; Eosinophils% 4.2 % (0-5); Hematocrit 32.3 % (40-54); Hemoglobin 10.5 g/dL (13.0-16.5); Lymphocyte # 1.28 X10^3/ul (0.83-4.51); Lymphocyte % 12.7 % (19-41); Mean Corp Hgb Conc 32.5 g/dL (32-36); Mean Corpuscular Hgb 29.5 pg (27.0-32.0); Mean Corpuscular Volume 90.7 fL (80-94); Mean Platelet Vol. 11.3 fl (6.2-12.0); Monocyte# 1.61 X10^3/uL; NRBC Flagged by Analyzer 0 % (0-5); Neutrophil # 6.48 X10^3/uL (2.7-7.7); Neutrophil % 64.5 % (47-70); POSITIVE DIFFERENTIAL YES; Platelet Count 363 K/mm3 (150-450); RBC Distribution Width CV 12.7 % (11.6-14.6); RBC Distribution Width SD 42.4 fl (35.1-43.9); Red Blood Count 3.56 M/mm3 (4.6-6.2); White Blood Count 10.1 K/mm3 (4.4-11.0)
[2023-09-09 06:36] LABS: Differential Indicated SCAN CRITERIA MET
[2023-09-09 07:09] LABS: ALB/GLOB Ratio 0.5 RATIO (0.9-2.4); AST(SGOT) 63 U/L (15-37); Alanine Aminotransfer ALT/SGPT 132 U/L (16-61); Alkaline Phosphatase 310 U/L (45-117); Anion Gap 4 (5-15); BUN 24 mg/dL (7-18); BUN/Creat Ratio 22.2 RATIO (10-20); Calcium,Total 8.9 mg/dL (8.5-10.1); Chloride 105 mmol/L (98-107); Creatinine, Serum 1.08 mg/dL (0.70-1.30); EST Glomerular Filtration Rate 69 mL/min (>60); Est Glom Filt Rate - Afr Amer 84 mL/min (>60); Estimated Creatinine Clearance 37.66 ml/min; Globulin 4.2 g/dL (2.2-4.2); Glucose 88 mg/dL (74-106); Protein, Total 6.2 g/dL (6.4-8.2); Sodium Level 137 mmol/L (136-145)
--- NOTE | 2023-09-09 07:20 | PCM.PN.SRG ---
Subjective Subjective Patient reports he is doing well and tolerating a diet with no abdominal pain. Objective Data Objective Data Vital Signs: Vital Signs Temp Pulse Resp BP Pulse Ox O2 Del Method O2 Flow Rate 98.1 F 60 18 166/66 H 98 Nasal Cannula 2 09/09/23 04:15 09/09/23 04:15 09/09/23 04:15 09/09/23 04:15 09/09/23 04:15 09/09/23 04:15 09/09/23 04:15 Oxygen Flow Rate (L/min) 2 Oxygen Delivery Method Nasal Cannula Weight: 132 lb 11.492 oz Body Mass Index (BMI) 25.0 Intake & Output: Intake and Output for Last 24 Hours 09/07/23 09/08/23 09/09/23 23:59 23:59 23:59 Intake Total 1153.75 / 1153.75 150 / 150 50 / 50 Output Total 1670 / 1670 3040 / 3040 1900 / 1900 Balance -516.25 / -516.25 -2890 / -2890 -1850 / -1850 Medical Nutrition Assessment Dietitian: Malnutrition Criteria Met Start: 09/04/23 13:38 Freq: Status: Active Protocol: Document 09/07/23 15:57 AG (Rec: 09/07/23 15:57 AG [id number]) Nutrition Malnutrition Evidence of Malnutrition Exists Yes Malnutrition (moderate): Acute Illness/Injury Evidenced By Suboptimal Energy Intake ( Moderate),Weight Loss ( Moderate) Clinical Problem Chronic Disease or Condition Related Malnutrition Etiology moderate, acute malnutrition related to inadequate energy intake w/ recent acute illness , GI dysfunction Signs/Symptoms as evidenced by reported poor PO intake/appetite 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, 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 Active Problem Recommendation Dietitian Recommendations/Changes continue cardiac diet as tolerated; resume ONS if pt agreeable- ensure plus high protein 120mL 4x/day however pt declines at this time Lab / Micro Data 09/09/23 05:27 09/09/23 05:27 Labs: Laboratory Results - last 24 hr 09/09/23 05:27: WBC 10.1, RBC 3.56 L, Hgb 10.5 L, Hct 32.3 L, MCV 90.7, MCH 29.5, MCHC 32.5, RDW Std Deviation 42.4, RDW Coeff of Sapna 12.7, Plt Count 363, MPV 11.3, Immature Gran % (Auto) 2.000 H, Neut % (Auto) 64.5, Lymph % (Auto) 12.7 L, [place] % (Auto) 16.0 H, Eos % (Auto) 4.2, Baso % (Auto) 0.6, Absolute Neuts (auto) 6.5, Absolute Lymphs (auto) 1.28, Nucleated RBC % 0, Sodium 137, Potassium 4.0, Chloride 105, Carbon Dioxide 28.0, Anion Gap 4 L, BUN 24 H, Creatinine 1.08, Estim Creat Clear Calc 37.66, Est GFR (MDRD) Af Amer 84, Est GFR (MDRD) Non-Af 69, BUN/Creatinine Ratio 22.2 H, Glucose 88, Calcium 8.9, Total Bilirubin 0.70, AST 63 H, ALT 132 H, Alkaline Phosphatase 310 H, Total Protein 6.2 L, Albumin 2.0 L, Globulin 4.2, Albumin/Globulin Ratio 0.5 L Micro: Microbiology 09/05/23 11:45 Aspirate - Abdominal Gram Stain - Final 09/05/23 11:45 Aspirate - Abdominal Wound Culture - Final Escherichia coli Enterococcus gallinarum 09/05/23 11:45 Aspirate - Abdominal Anaerobic Culture - Final No anaerobic bacteria isolated. Physical Exam Const oriented x3 and no apparent distress Resp normal respiratory effort GI normal to inspection, nondistended, normoactive bowel sounds Assessment & Plan Assessment/Plan (1) Acute cholecystitis: PLAN: Patient has cholecystostomy tube in place with some bilious drainage. Follow-up with Dr. Gregorio in 2 weeks. Okay for discharge today with drain in place. Recommend oral antibiotics on discharge. Calvin Shaw MD Pager: [facility] [address] [place] [address], [address] [place] [address] Office:
[2023-09-09] MEDS: Carvedilol 25 MG Tablet PO (07:41)
[2023-09-09] MEDS: Enoxaparin 40 MG/0.4 ML Syringe SC (07:41)
[2023-09-09] MEDS: NIFEdipine 30 MG Tablet PO (07:41)
[2023-09-09] MEDS: Bisacodyl 5 MG Tablet PO (07:41)
[2023-09-09] MEDS: Finasteride 5 MG Tablet PO (07:41)
[2023-09-09] MEDS: Menthol/Lanolin/Calamine/Znox 113 GM Tube 1 APPLIC TOPICAL (07:42)
[2023-09-09 08:23] VITALS: BP 154/76; PULSE 59; RESP 15; TEMP 36.9; O2SAT 94
--- NOTE | 2023-09-09 10:33 | DCINST_ITS ---
Discharge Instructions Diet Discharge Diet: Low fat / Low cholesterol Activity Discharge Activity: Return to Normal Activity Weight Bearing Status: Weight bearing as tolerated Dressing / Incision Call your doctor if you observe: Fever of 101 or Higher, Shortness of breath and Swelling in the ankles Follow Up Care Test Results: Test results from this visit will be discussed in further detail at your follow- up appointment, if applicable. Discharge Plan Admission Admit Date/Time: 09/04/23 09:19 Primary Reason for Your Visit: acute cholecystitis Attending Provider: Crys Haddad Primary Care Provider: Pasha Bland Consulting Providers: Sandra Gregorio; Leonard Robledo Instructions Patient Instructions: GUERITA READ Procedural Sedation Discharge Orders/Prescriptions Prescriptions: New amoxicillin-pot clavulanate 875-125 mg tablet 1 tab PO BID Qty: 14 0RF Continued carvedilol [Coreg] 25 MG tablet 25 mg PO BID simvastatin 40 MG tablet 40 mg PO QHS clonidine HCl 0.2 MG tablet 0.1 mg PO TID doxazosin 4 MG tablet 8 mg PO QHS albuterol sulfate [Ventolin HFA] 1 INHALER inhaler 2 puff inhalation Q6H PRN PRN (Reason: Asthma) ascorbic acid (vitamin C) [Vitamin C] 1,000 MG tablet 1,000 mg PO DAILY ginseng 100 MG capsule 100 mg PO DAILY Hold Instructions: Follow with PCP. carica papaya 1 EACH tablet 1 ea PO DAILY lecithin 1,200 MG capsule 1,200 mg PO DAILY Hold Instructions: Follow with PCP. capsicum (cayenne) 450 MG capsule 450 mg PO DAILY Hold Instructions: Follow with PCP. garlic 1,000 MG capsule 1,000 mg PO DAILY Hold Instructions: Follow with PCP. milk thistle 150 MG capsule 150 mg PO DAILY calcium carbonate 500 MG tablet 500 mg PO DAILY saw palmetto 500 MG capsule 500 mg PO DAILY Hold Instructions: Follow with PCP. vitamin B complex-folic acid [Super B Maxi Complex] 0.4 MG tablet 0.4 mg PO DAILY Fish Oil 500 MG capsule,delayed release(DR/EC) 500 mg PO DAILY cholecalciferol (vitamin D3) [Vitamin D3] 2,000 UNIT capsule 2,000 unit PO DAILY aspirin 81 MG tablet,chewable 81 mg PO DAILY@0800 Qty: 90 0RF finasteride [Proscar] 5 mg tablet 5 mg PO DAILY Patient Comments: TAKE 1 TABLET BY MOUTH EVERY DAY nifedipine 30 mg tablet extended release 24hr 60 mg PO DAILY Patient Comments: TAKE 2 TABLETS BY MOUTH EVERY MORNING AND 1 TABLET EVERY EVENING STRENGTH: 30 MG nifedipine 30 mg tablet extended release 30 mg PO QHS Referrals / Follow Up: Pasha Bland DO [Primary Care Provider] - Within 2 Weeks Sandra Gregorio MD [Med Staff - Active Staff] - Within 2 Weeks Disposition Disposition (needs filled in before D/C Order can be placed): Home, Self Care
--- NOTE | 2023-09-09 10:40 | DS.PCM_ITS ---
Providers Date of Admission: 09/04/23 Date of Discharge: 09/09/23 Primary Care Physician: Dr. Pasha Bland, Consultations 09/04/23 10:45 Consult: General Surgery Routine Consulting Provider: Sandra Gregorio Reason for Consult: Acute Cholecystitis EMERGENT Consult: No Notified: Yes Date Notified: 09/04/23 Time Notified: 09:22 Method of Notification: Verbal 09/05/23 11:24 Consult: Gastroenterology Routine Consulting Provider: [facility] Reason for Consult: elevated LFTs EMERGENT Consult: Yes Notified: Yes Date Notified: 09/05/23 Time Notified: 11:25 Method of Notification: Verbal Reason For Visit: CHOLECYSTITIS Diagnosis Discharge Diagnosis (1) Acute cholecystitis: Status: Acute Code(s): K81.0 - Acute cholecystitis Plan #Acute cholecystitis * general surgery on board. Had cholecystostomy tube inserted. Liver enzymes have trended down and normalised. * On IV Zosyn.WBC has trended up today from 7.2 to 12.3 * on IV morphine prn as well as PO oxycodone * Had ERCP which showed dilated biliary system with a stone causing obstruction; it was completely removed by biliary sphincerotomy and balloon extraction as well as dilatation of the lowerr third of the main bile duct and insertion of a covered metal stent into the common bile dduct. * Gastroenterology also on board. * IV zofran prn * Cultures growing gram-positive cocci possible Enterococcus gallinarum and E coli. * continue antibiotics in light of wbc trending upwards today. * #Anemia: Hemoglobin is 9.2 today. Baseline hemoglobin is around 11-12. Will monitor for now and if it drops lower workup further. #Hypertension; on carvedilol and clonidine as well as nifedipine #Hyperlipidemia: on statins DVT prophylaxis: lovenox Medications at Discharge Home Medications albuterol sulfate 90 mcg/actuation aerosol inhaler (Ventolin HFA) 2 puff inhalation Q6H PRN PRN Asthma 08/25/16 carvedilol 25 mg tablet (Coreg) 25 mg PO BID blood pressure 08/25/16 clonidine HCl 0.2 mg tablet 0.1 mg PO TID blood pressure 08/25/16 doxazosin 4 mg tablet 8 mg PO QHS prostate 08/25/16 simvastatin 40 mg tablet 40 mg PO QHS cholesterol 08/25/16 ascorbic acid (vitamin C) 1,000 mg tablet (Vitamin C) 1,000 mg PO DAILY vitamin 01/20/17 calcium carbonate 500 mg calcium (1,250 mg) tablet 500 mg PO DAILY supplement 01/20/17 capsicum (cayenne) 450 mg capsule 450 mg PO DAILY supplement 01/20/17 carica papaya 1 ea PO DAILY supplement 01/20/17 cholecalciferol (vitamin D3) 50 mcg (2,000 unit) capsule (Vitamin D3) 2,000 unit PO DAILY vitamin 01/20/17 garlic 1,000 mg capsule 1,000 mg PO DAILY supplement 01/20/17 ginseng 100 mg capsule 100 mg PO DAILY supplement 01/20/17 lecithin 1,200 mg capsule 1,200 mg PO DAILY supplement 01/20/17 milk thistle 150 mg capsule 150 mg PO DAILY supplement 01/20/17 omega 3-dha 60 mg-epa 90 mg-fish oil 500 mg capsule, delayed release (Fish Oil) 500 mg PO DAILY supplement 01/20/17 saw palmetto 500 mg capsule 500 mg PO DAILY supplement 01/20/17 vitamin B complex-folic acid 0.4 mg tablet (Super B Maxi Complex) 0.4 mg PO DAILY vitamin 01/20/17 aspirin 81 mg chewable tablet 81 mg PO DAILY@0800 [employer] ##90 06/20/20 finasteride 5 mg tablet (Proscar) 5 mg PO DAILY prostate 03/28/21 nifedipine 30 mg tablet,extended release 30 mg PO QHS BLOOD PRESSURE 09/04/23 nifedipine 30 mg tablet,extended release 24 hr 60 mg PO DAILY BLOOD PRESSURE 09/04/23 amoxicillin 875 mg-potassium clavulanate 125 mg tablet 1 tab PO BID #14 tabs 09/09/23 Hospital Course Operations None Procedures - (cholecystostomy tube insertion) Summary of Care Provided Minutes Spent on Discharge: 55 Hospital Course: Patient is an 82-year-old male with an extensive past medical history as outlined with admitted to the ED on 09/09/2023 with a complaint of right upper quadrant abdominal pain which started about 9 PM the night before admission and gradually worsened. He denied any fever or chills or any nausea or vomiting. On admission, gallbladder ultrasound showed acute cholecystitis. He was admitted and started on IV Zosyn. White cell count was elevated and liver enzymes were also elevated. He had insertion of cholecystostomy tube on 09/05/2023. White cell count subsequently trended down was and liver enzymes also trended downwards and subsequently normalized. General surgery was on board. He had ERCP which showed a dilated biliary system with a stone causing the obstruction. This was completely removed by biliary sphincterotomy and balloon extraction as well as dilatation of the lower third of the main bile duct and insertion of a covered metal stent into the common bile duct. Cultures grew E. coli and Enterococcus gallinarum. This was sensitive to ampicillin so patient was discharged home on p.o. Augmentin for 7-day course. He is to follow-up with his primary care doctor and follow-up with general surgery in 1 week. He was discharged on 09/09/2023. Patient seen and examined prior to discharge. He had no active complaints and had an uneventful night. Review systems otherwise negative. Labs and vitals reviewed. Home medication reviewed and reconciled. Physical Exam Const alert, oriented x3 and no apparent distress Constitutional Narrative: General Appearance: cooperative, comfortable, well kempt and well developed HEENT normocephalic, head/scalp atraumatic, hearing grossly normal bilaterally, moist oral mucous membranes and oropharynx normal Mouth: oral and palatal mucosa normal Eyes PERRL and EOMs intact bilaterally Neck no lymphadenopathy, supple and no JVD Lymph Lymphatic: no lymphadenopathy noted and no lymphedema noted Resp normal respiratory effort, normal air movement and clear to auscultation bilaterally Cardio regular rate, regular rhythm, S1 normal heart sound, S2 normal heart sound and no murmurs GI GI Narrative: obese abdomen, mildly distended, which he says is the norm for him; no tenderness. Cholecystostomy tube in situ. Extremity normal to inspection, full ROM, normal capillary refill, no clubbing, cyanosis or edema and no calf tenderness General Extremity: no tenderness to palpation of joints or extremities Skin no rashes or lesions noted and no wounds General Skin Exam: no breakdown Neuro oriented x3, CN's II-XII intact bilaterally, moves all extremities, no focal motor deficits, no sensory deficits noted and deep tendon reflexes 2+ bilaterally Sensorium / Orientation: awake Motor Exam: strength 5/5 throughout and general weakness Psych thought process normal and cooperative Appearance: appropriate Medical Records Data Medical Nutrition Assessment Dietitian: Malnutrition Criteria Met Start: 09/04/23 13:38 Freq: Status: Active Protocol: Document 01/24/24 15:57 AG (Rec: 09/07/23 15:57 AG [id number]) Nutrition Malnutrition Evidence of Malnutrition Exists Yes Malnutrition (moderate): Acute Illness/Injury Evidenced By Suboptimal Energy Intake ( Moderate),Weight Loss ( Moderate) Clinical Problem Chronic Disease or Condition Related Malnutrition Etiology moderate, acute malnutrition related to inadequate energy intake w/ recent acute illness , GI dysfunction Signs/Symptoms as evidenced by reported poor PO intake/appetite x 3 weeks [employer], 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 Active Problem Recommendation Dietitian Recommendations/Changes continue cardiac diet as tolerated; resume ONS if pt agreeable- ensure plus high protein 120mL 4x/day however pt declines at this time Weight / BMI Weight Weight: 132 lb 11.492 oz Body Mass Index (BMI) 25.0 ABG / Lab / Microbiology Data 09/09/23 05:27 09/09/23 05:27 Laboratory: Laboratory Results - last 24 hr 09/09/23 05:27: WBC 10.1, RBC 3.56 L, Hgb 10.5 L, Hct 32.3 L, MCV 90.7, MCH 29.5, MCHC 32.5, RDW Std Deviation 42.4, RDW Coeff of Sapna 12.7, Plt Count 363, MPV 11.3, Immature Gran % (Auto) 2.000 H, Neut % (Auto) 64.5, Lymph % (Auto) 12.7 L, [place] % (Auto) 16.0 H, Eos % (Auto) 4.2, Baso % (Auto) 0.6, Absolute Neuts (auto) 6.5, Absolute Lymphs (auto) 1.28, Nucleated RBC % 0, Sodium 137, Potassium 4.0, Chloride 105, Carbon Dioxide 28.0, Anion Gap 4 L, BUN 24 H, Creatinine 1.08, Estim Creat Clear Calc 37.66, Est GFR (MDRD) Af Amer 84, Est GFR (MDRD) Non-Af 69, BUN/Creatinine Ratio 22.2 H, Glucose 88, Calcium 8.9, Total Bilirubin 0.70, AST 63 H, ALT 132 H, Alkaline Phosphatase 310 H, Total Protein 6.2 L, Albumin 2.0 L, Globulin 4.2, Albumin/Globulin Ratio 0.5 L Microbiology: Microbiology 09/05/23 11:45 Aspirate - Abdominal Gram Stain - Final 09/05/23 11:45 Aspirate - Abdominal Wound Culture - Final Escherichia coli Enterococcus gallinarum 09/05/23 11:45 Aspirate - Abdominal Anaerobic Culture - Final No anaerobic bacteria isolated. D/C Instructions Discharge Diet: Low fat / Low cholesterol Discharge Activity: Return to Normal Activity Weight Bearing Status: Weight bearing as tolerated Call your doctor if you observe: Fever of 101 or Higher, Shortness of breath and Swelling in the ankles Meaningful Use Info Meaningful Use Diagnoses (Choose all that apply): None applicable Discharge Plan Admission Admit Date/Time: 09/04/23 09:19 Primary Reason for Your Visit: acute cholecystitis Attending Provider: Crys Haddad Primary Care Provider: Pasha Bland Consulting Providers: Sandra Gregorio; Leonard Robledo Instructions Patient Instructions: GUERITA READ Procedural Sedation Discharge Orders/Prescriptions Prescriptions: New amoxicillin-pot clavulanate 875-125 mg tablet 1 tab PO BID Qty: 14 0RF Continued carvedilol [Coreg] 25 MG tablet 25 mg PO BID simvastatin 40 MG tablet 40 mg PO QHS clonidine HCl 0.2 MG tablet 0.1 mg PO TID doxazosin 4 MG tablet 8 mg PO QHS albuterol sulfate [Ventolin HFA] 1 INHALER inhaler 2 puff inhalation Q6H PRN PRN (Reason: Asthma) ascorbic acid (vitamin C) [Vitamin C] 1,000 MG tablet 1,000 mg PO DAILY ginseng 100 MG capsule 100 mg PO DAILY Hold Instructions: Follow with PCP. carica papaya 1 EACH tablet 1 ea PO DAILY lecithin 1,200 MG capsule 1,200 mg PO DAILY Hold Instructions: Follow with PCP. capsicum (cayenne) 450 MG capsule 450 mg PO DAILY Hold Instructions: Follow with PCP. garlic 1,000 MG capsule 1,000 mg PO DAILY Hold Instructions: Follow with PCP. milk thistle 150 MG capsule 150 mg PO DAILY calcium carbonate 500 MG tablet 500 mg PO DAILY saw palmetto 500 MG capsule 500 mg PO DAILY Hold Instructions: Follow with PCP. vitamin B complex-folic acid [Super B Maxi Complex] 0.4 MG tablet 0.4 mg PO DAILY Fish Oil 500 MG capsule,delayed release(DR/EC) 500 mg PO DAILY cholecalciferol (vitamin D3) [Vitamin D3] 2,000 UNIT capsule 2,000 unit PO DAILY aspirin 81 MG tablet,chewable 81 mg PO DAILY@0800 Qty: 90 0RF finasteride [Proscar] 5 mg tablet 5 mg PO DAILY Patient Comments: TAKE 1 TABLET BY MOUTH EVERY DAY nifedipine 30 mg tablet extended release 24hr 60 mg PO DAILY Patient Comments: TAKE 2 TABLETS BY MOUTH EVERY MORNING AND 1 TABLET EVERY EVENING STRENGTH: 30 MG nifedipine 30 mg tablet extended release 30 mg PO QHS Referrals / Follow Up: Pasha Bland DO [Primary Care Provider] - 09/16/23 10:00 am Sandra Gregorio MD [Med Staff - Active Staff] - 09/26/23 2:10 pm Disposition Disposition (needs filled in before D/C Order can be placed): Home, Self Care Charges/Coding Visit Charges Inpatient E&M: 24266 Disch Hosp >30min
--- NOTE | 2023-09-09 11:15 | CASEMGMT ---
RORO Sanches called and updated that the pt will need an O2 test prior to DC and states she will do this once she has time.
--- NOTE | 2023-09-09 12:00 | PHA.DC.MC.R ---
Pharmacy [facility] has performed discharge medication reconciliation and counseling for this patient. The patient's discharge medication list was reviewed for discrepancies and discrepancies were resolved. The patient was counseled on the following discharge medications and changes in medications for homegoing were reviewed. The Reason for Use, instructions for use, and potential side effects were reviewed for all new medications. The patient's questions regarding all of their medications were answered. 1. Amoxicillin/clavulanate 875/125 mg PO BID x 7 days The patient was able to verbally demonstrate an understanding of their discharge medications. Medications at Discharge Home Medications albuterol sulfate 90 mcg/actuation aerosol inhaler (Ventolin HFA) 2 puff inhalation Q6H PRN PRN Asthma 08/25/16 carvedilol 25 mg tablet (Coreg) 25 mg PO BID blood pressure 08/25/16 clonidine HCl 0.2 mg tablet 0.1 mg PO TID blood pressure 08/25/16 doxazosin 4 mg tablet 8 mg PO QHS prostate 08/25/16 simvastatin 40 mg tablet 40 mg PO QHS cholesterol 08/25/16 ascorbic acid (vitamin C) 1,000 mg tablet (Vitamin C) 1,000 mg PO DAILY vitamin 01/20/17 calcium carbonate 500 mg calcium (1,250 mg) tablet 500 mg PO DAILY supplement 01/20/17 capsicum (cayenne) 450 mg capsule 450 mg PO DAILY supplement 01/20/17 carica papaya 1 ea PO DAILY supplement 01/20/17 cholecalciferol (vitamin D3) 50 mcg (2,000 unit) capsule (Vitamin D3) 2,000 unit PO DAILY vitamin 01/20/17 garlic 1,000 mg capsule 1,000 mg PO DAILY supplement 01/20/17 ginseng 100 mg capsule 100 mg PO DAILY supplement 01/20/17 lecithin 1,200 mg capsule 1,200 mg PO DAILY supplement 01/20/17 milk thistle 150 mg capsule 150 mg PO DAILY supplement 01/20/17 omega 3-dha 60 mg-epa 90 mg-fish oil 500 mg capsule, delayed release (Fish Oil) 500 mg PO DAILY supplement 01/20/17 saw palmetto 500 mg capsule 500 mg PO DAILY supplement 01/20/17 vitamin B complex-folic acid 0.4 mg tablet (Super B Maxi Complex) 0.4 mg PO DAILY vitamin 01/20/17 aspirin 81 mg chewable tablet 81 mg PO DAILY@0800 [facility] ##90 06/20/20 finasteride 5 mg tablet (Proscar) 5 mg PO DAILY prostate 03/28/21 nifedipine 30 mg tablet,extended release 30 mg PO QHS BLOOD PRESSURE 09/04/23 nifedipine 30 mg tablet,extended release 24 hr 60 mg PO DAILY BLOOD PRESSURE 09/04/23 amoxicillin 875 mg-potassium clavulanate 125 mg tablet 1 tab PO BID #14 tabs 09/09/23
[2023-09-09 13:00] VITALS: O2SAT 94; O2SAT 95
--- NOTE | 2023-09-09 13:57 | CASEMGMT ---
Pt did not require an increase in oxygen regarding his prescription. Nurse aware to take tank from stock. No further needs identified.
== END 2023-09-09 13:51 | disposition home or self-care (01) | DRG 446 ==
LOC: ED 09:23 → MS3 09:30
PROVIDERS: Anesthesiology; Internal Medicine Gastroenterology; Surgery; Admitting Provider Family Medicine; Emergency Provider Emergency Medicine; PCP Family Medicine; Visit Provider Student in an Organized Health Care Education/Training Program
PROC: 0FC98ZZ Extirpation of Matter from Common Bile Duct, Via Natural or Artificial Opening Endoscopic (ICD-10-PCS; CPT 43260; principal; 2023-09-06 15:10)
DX: K80.42 Calculus of bile duct with acute cholecystitis without obstruction (principal); D64.9 Anemia, unspecified; N18.9 Chronic kidney disease, unspecified; E78.5 Hyperlipidemia, unspecified; K40.20 Bilateral inguinal hernia, without obstruction or gangrene, not specified as recurrent; D72.829 Elevated white blood cell count, unspecified; K83.8 Other specified diseases of biliary tract; Z82.3 Family history of stroke; Z87.891 Personal history of nicotine dependence; Z79.891 Long term (current) use of opiate analgesic; Z79.82 Long term (current) use of aspirin; Z53.39 Other specified procedure converted to open procedure; Z68.25 Body mass index [BMI] 25.0-25.9, adult
CPT/HCPCS: 36415; 71045; 74177; 74330; 75989; 76000; 76705; 80048; 80053; 80076; 82962; 83690; 83735; 85025; 85730; 87070; 87075; 87077; 87186; 87205; 93005; 93306; 94668; 97162; 97166; 97530; 97535; 97802; 97803; 99156; 99157; 99284; J7030; J7050; Q9967; A4216; J2405

== ENCOUNTER → 2023-09-27 | Outpatient (CLI) | payer MEDICARE, SELFPAY ==
--- NOTE | 2023-09-27 09:46 | CT_ITS ---
STUDY: CT ABDOMEN WITHOUT CONTRAST REASON FOR EXAM: Male, 82 years old. Cholecystostomy tube placement -- no contrast oral or IV RADIATION DOSAGE (If Supplied By Facility): CTDIvol = ( 11.46 ) mGy, DLP = ( 302.70 ) mGycm TECHNIQUE: Transaxial images were obtained without intravenous contrast, and without oral contrast. Sagittal and coronal images were reconstructed. Individualized dose optimization techniques were used for this CT. COMPARISON: Comparison is made with prior study dated September 04, 2023. FINDINGS: Linear atelectasis at the left lung base. The visualized portions of the heart are within normal limits. There is evidence of pneumobilia. A biliary stent is seen within the common bile duct. The distal portion is in the second portion of the duodenum. A cholecystostomy tube is seen within a contracted gallbladder. Multiple gallstones are seen within the gallbladder lumen. Normal spleen. Normal pancreas. Normal bilateral adrenal glands. Normal right kidney. Normal left kidney. There is a small hiatal hernia. Normal small intestine. Moderate amount of fecal material is seen in the colon. The appendix is visualized and appears normal. There is diffuse atherosclerotic calcification of the abdominal aorta, without a demonstrated aneurysm. Normal inferior vena cava. Normal retroperitoneum. Normal abdominal wall. There are diffuse degenerative changes of the visualized lumbar spine. CT/Abdomen without IV Contrast IMPRESSION: A cholecystostomy tube is seen within the gallbladder lumen. The gallbladder is contracted. Multiple small gallstones. A biliary stent is seen within the common bile duct. Pneumobilia. Electronically Signed: Justice Valencia MD at 10:53 EST ,
--- OUTSIDE RECORDS SUMMARY | 2023-09-27 10:19 | XMS RPT_ITS | CCD ---
Author Name Unknown Address [address] [place] [address] Organization [facility] Care Team Providers Care Educational Manager Name Role Phone Jaydalla, Pasha Attending Unavailable UNKNOWN, PROVIDER Referring Unavailable [...] Primary Care Provider Kiana Alejandre MD Unavailable [phone] Yani Woodson MD Unavailable Sung Shen DO Unavailable Edwina PETTY Pasha F Primary Care Provider Pasha Bland DO Primary Care Provider Pasha Bland DO Primary Care Provider PASHA BLAND Primary Care Unavailable MOISÉS SOSA Referring Unavailable PASHA BLAND Primary Care Unavailable MOISÉS SOSA Attending Unavailable SUNG SHEN Referring Unavailab SUNG Gonzalez Attending Unavailab le PASHA BLAND F Primary Care Unavailable PETRILLA, PASHA Primary Care Unavailable PETRILLA, PASHA Attending Unavailable PETRILLA, PASHA Attending Unavailable PETRILLA, PASHA Primary Care Unavailable PETRILLA, PASHA Primary Care Unavailable PETRILLA, PASHA Attending Unavailable PETRILLA, PASHA Primary Care Unavailable PETRILLA, PASHA Primary Care Unavailable PETRILLA, PASHA Attending Unavailable Allergies Allergy Classification Reported Allergen(s) Allergy Type Date of Onset Reaction(s) Facility (4 sources) Acetaminophen; Translations: [ACETAMINOPHEN] Drug Allergy 0 Other: See Comments [facility] (4 sources) Seasonal allergy; Translations: [SEASONAL ALLERGIES] Propensity to adverse reactions 9 [facility] Work Phone: (4 sources) Adhesive Tape-Silicones; Translations: [ADHESIVE TAPE-SILICONES] Drug Allergy 0 [facility] (2 sources) Sea salt; Translations: [SEA SALT] Drug Allergy 3 Hives, Shortness of Breath [facility] (7 sources) Acetaminophen Drug Allergy 0 [facility] (7 sources) Non-steroidal anti-inflammatory agent Drug Intolerance 6 [facility] (7 sources) Sodium Chloride Drug Allergy 3 Hives, Shortness of breath [facility] (7 sources) traMADol Drug Allergy 6 Shortness of breath [facility] (7 sources) Other Propensity to adverse reactions 9 [facility] (7 sources) Wound Dressing Adhesive Drug Allergy 0 [facility] Medications Current Medications Medication Drug Class(es) Dates Sig (Normalized) Sig (Original) acetaminophen 325 mg oral tablet (10 sources) take 2 tablets by mouth in [...] infarction, unspecified] Onset: 07-21-2020 07-21-2020 Chronic Asthma (10 sources) Unspecified asthma, uncomplicated; Translations: [Asthma, unspecified type, unspecified] Onset: 08-30-2006 08-30-2006 Chronic Biliary tract disease (2 sources) Obstruction of bile duct; Translations: [Obstruction of bile duct] Onset: 09-16-2023 Chronic Biliary tract disease (2 sources) Calculus of bile duct without cholangitis or cholecystitis without obstruction; Translations: [Calculus of bile duct without cholangitis or cholecystitis without obstruction] Onset: 09-16-2023 Episodic Chronic kidney disease (16 sources) Chronic kidney disease stage 2; Translations: [Chronic kidney disease, stage 2 (mild)] Onset: 08-06-2020 Chronic Chronic kidney disease (2 sources) Chronic kidney disease; Translations: [Chronic kidney disease, stage 3b (HCC)] Onset: 08-23-2023 Conduction disorders (5 sources) Right bundle branch block; Translations: [Unspecified right bundle-branch block] Onset: 04-17-2020 04-05-2021 Chronic Congestive heart failure; nonhypertensive (17 sources) Chronic diastolic heart failure; Translations: [Chronic diastolic (congestive) heart failure] Onset: 01-15-2020 04-05-2021 Chronic Disorders of lipid metabolism (20 sources) Mixed hyperlipidemia; Translations: [Mixed hyperlipidemia] Onset: 09-13-2005 Resolved: 11-24-2022 02-02-2020 Chronic Essential hypertension (17 sources) Essential hypertension; Translations: [Essential (primary) hypertension] Onset: 09-13-2005 02-02-2020 Chronic Hyperplasia of prostate (13 sources) Benign prostatic hypertrophy with outflow obstruction; Translations: [Benign prostatic hyperplasia with lower urinary tract symptoms] Onset: 08-30-2006 08-30-2006 Chronic Other diseases of bladder and urethra (10 sources) Bladder neck obstruction; Translations: [Bladder-neck obstruction] [...] aorta] Onset: 05-15-2018 Chronic Residual codes; unclassified (1 source) Edema; Translations: [Edema, unspecified] 08-23-2023 Episodic Residual codes; unclassified (2 sources) Edema, unspecified; Translations: [Edema, unspecified] Onset: 08-23-2023 Episodic Residual codes; unclassified (2 sources) Other specified postprocedural states; Translations: [Other specified postprocedural states] Onset: 08-14-2018 Spondylosis; intervertebral disc disorders; other back problems (13 sources) Other spondylosis, lumbar region; Translations: [Spondylosis without myelopathy or radiculopathy, lumbar region] Onset: 05-15-2018 05-31-2022 Chronic Transient cerebral ischemia (7 sources) Transient cerebral ischemia; Translations: [Transient cerebral ischemic attack, unspecified] Onset: 08-06-2020 05-31-2022 Chronic Viral infection (1 source) Disease caused by 2019-nCoV; Translations: [COVID-19] 08-23-2023 Episodic Viral infection (2 sources) COVID-19; Translations: [COVID-19] Onset: 08-23-2023 Past or Other Problems Problem Classification Problem Date Documented Date Episodic/Chronic Cardiac dysrhythmias (3 sources) Sinus bradycardia; Translations: [Bradycardia, unspecified] Onset: 01-24-2020 01-24-2020 Episodic Deficiency and other anemia (9 sources) Normocytic normochromic anemia; Translations: [Anemia, unspecified] Onset: 08-01-2016 Episodic Deficiency and other anemia (2 sources) Anemia, unspecified; Translations: [Anemia, unspecified] Onset: 05-31-2022 Episodic Diabetes mellitus without complication (16 sources) Impaired fasting glycemia; Translations: [Impaired fasting glucose] Onset: 07-23-2009 07-23-2009 Episodic E Codes: Adverse effects of medical drugs (7 sources) Non-steroidal anti-inflammatory drug adverse reaction; Translations: [...] 03-24-2009 Episodic Other and unspecified benign neoplasm (7 sources) History of polyp of colon; Translations: [Personal history of colonic polyps] Onset: 07-13-2015 05-31-2022 Episodic Other connective tissue disease (2 sources) Arthrodesis status; Translations: [Arthrodesis status] Onset: 05-15-2018 Episodic Other injuries and conditions due to external causes (7 sources) H/O: fracture; Translations: [Personal history of (healed) traumatic fracture] Onset: 04-26-2016 Resolved: 11-24-2022 11-24-2022 Episodic Other lower respiratory disease (3 sources) Multiple nodules of lung; Translations: [Other nonspecific abnormal finding of lung field] Onset: 01-12-2020 01-15-2020 Episodic Other screening for suspected conditions (not mental disorders or infectious disease) (10 sources) Raised prostate specific antigen; Translations: [Elevated prostate specific antigen [PSA]] Onset: 07-23-2019 Resolved: 11-24-2022 07-23-2020 Episodic Residual codes; unclassified (3 sources) Family history of malignant neoplasm of gastrointestinal tract; Translations: [Family history of malignant neoplasm of digestive organs] Onset: 08-30-2006 08-30-2006 Episodic Residual codes; unclassified (7 sources) Family history of cancer of colon; Translations: [Family history of malignant neoplasm of digestive organs] Onset: 07-13-2015 05-31-2022 Episodic Residual codes; unclassified (7 sources) History of colonoscopy; Translations: [Other specified postprocedural states] Onset: 04-26-2016 Resolved: 11-24-2022 11-24-2022 Episodic Screening and history of mental health and substance abuse codes (3 sources) Ex-tobacco user; Translations: [Personal history of nicotine dependence] Onset: 01-24-2020 01-24-2020 Episodic Spondylosis; intervertebral disc disorders; other back problems (16 sources) Radiculopathy, lumbar region; Translations: [Sciatica, unspecified side] Onset: 08-22-2007 08-22-2007 Episodic Results Test Name Value Interpretation Reference Range Facil ity Vital Signs Date Time Vital Sign Value Performing Clinician Faci lity 08-23-2023 09:43-0500 Body height 152.4 cm Pasha Bland [place] Work Phone: [employer] 08-23-2023 09:43-0500 Body mass index (BMI) [Ratio] 29.1 kg/m2 Pasha Bland [place] Work Phone: [employer] 08-23-2023 09:43-0500 Body temperature 98.1 [degF] Pasha Bland [place] Work Phone: [employer] 08-23-2023 09:43-0500 Body weight 67.59 kg Pasha Bland [place] Work Phone: [employer] 08-23-2023 09:43-0500 Diastolic blood pressure 60 mm[Hg] Pasha Bland [place] Work Phone: [employer] 08-23-2023 09:43-0500 Heart rate 74 /min Pasha Bland DO Work Phone: [employer] 08-23-2023 09:43-0500 SaO2% (BldA) [Mass fraction] 98 % Pasha Bland [place] Work Phone: [employer] 08-23-2023 09:43-0500 Systolic blood pressure 138 mm[Hg] Pasha Bland [place] Work Phone: [employer] 06-16-2023 09:08-0400 Diastolic blood pressure 70 mm[Hg] [facility] [employer] 06-16-2023 09:08-0400 Heart rate 57 /min [facility] [employer] 06-16-2023 09:08-0400 SaO2% (BldA) [Mass fraction] 97 % [facility] Schedule [facility] [employer] 06-16-2023 09:08-0400 Systolic blood pressure 127 mm[Hg] [facility] Schedule [facility] [employer] 05-26-2023 14:29-0400 Diastolic blood pressure 84 mm[Hg] Pasha Bland DO Work Phone: [facility] [employer] 05-26-2023 14:29-0400 Heart rate 68 /min Pasha Bland DO Work Phone: [facility] [employer] 05-26-2023 14:29-0400 Systolic blood pressure 144 mm[Hg] Pasha Bland DO Work Phone: [facility] [employer] 05-26-2023 13:55-0400 Body height 152.4 cm Pasha Bland DO Work Phone: [facility] [employer] 05-26-2023 13:55-0400 Body mass index (BMI) [Ratio] 29.29 kg/m2 Pasha Bland DO Work Phone: [facility] [employer] 05-26-2023 13:55-0400 Body temperature 98.6 [degF] Pasha Bland DO Work Phone: [facility] [employer] 05-26-2023 13:55-0400 Body weight 68.04 kg Pasha Bland DO Work Phone: [facility] [employer] 05-26-2023 13:55-0400 SaO2% (BldA) [Mass fraction] 93 % Pasha Bland DO Work Phone: [facility] [employer] 11-24-2022 13:58-0400 Body height 152.4 cm Pasha Bland DO Work Phone: [facility] [employer] 11-24-2022 13:58-0400 Body mass index (BMI) [Ratio] 30.27 kg/m2 Pasha Bland DO Work Phone: [facility] [employer] 11-24-2022 13:58-0400 Body temperature 98.01 [degF] Pasha Bland DO Work Phone: [facility] [employer] 04-12-2023 13:58-0400 Body weight 70.31 kg Pasha Bland DO Work Phone: [facility] [employer] 11-24-2022 13:58-0400 Diastolic blood pressure 55 mm[Hg] Pasha Bland DO Work Phone: [facility] 11-24-2022 13:58-0400 Heart rate 60 /min Pasha Bland DO Work Phone: [facility] 11-24-2022 13:58-0400 SaO2% (BldA) [Mass fraction] 97 % Pasha Bland DO Work Phone: [facility] 11-24-2022 13:58-0400 Systolic blood pressure 134 mm[Hg] Pasha Bland DO Work Phone: [facility] 11-02-2022 13:56-0400 Body height 152.4 cm Sung Shen DO Work Phone: [facility] 11-02-2022 13:56-0400 Body weight 68.04 kg Sung Shen DO Work Phone: [facility] 11-02-2022 13:56-0400 Diastolic blood pressure 48 mm[Hg] Sung Shen DO Work Phone: [facility] 11-02-2022 13:56-0400 Heart rate 54 /min Sung Shen DO Work Phone: [facility] 11-02-2022 13:56-0400 SaO2% (BldA) [Mass fraction] 96 % Sung Shen DO Work Phone: [facility] 11-02-2022 13:56-0400 Systolic blood pressure 110 mm[Hg] Sunglila Shen DO Work Phone: [facility] 05-03-2022 09:51-0400 Body height 152.4 cm Mariah White APRN.NON FOOD RECEIVING CLERK Work Phone: [facility] 05-03-2022 09:51-0400 Body weight 64.68 kg Mariah White RESPIRATORY THERAPY INSTRUCTOR.NON FOOD RECEIVING CLERK Work Phone: [facility] 05-03-2022 09:51-0400 Diastolic blood pressure 62 mm[Hg] Mariah White RESPIRATORY THERAPY INSTRUCTOR.NON FOOD RECEIVING CLERK Work Phone: [facility] 05-03-2022 09:51-0400 Heart rate 55 /min Mariah White RESPIRATORY THERAPY INSTRUCTOR.NON FOOD RECEIVING CLERK Work Phone: [facility] 05-03-2022 09:51-0400 SaO2% (BldA) [Mass fraction] 96 % Mariah White RESPIRATORY THERAPY INSTRUCTOR.NON FOOD RECEIVING CLERK Work Phone: [facility] 05-03-2022 09:51-0400 Systolic blood pressure 134 mm[Hg] Mariah White RESPIRATORY THERAPY INSTRUCTOR.NON FOOD RECEIVING CLERK Work Phone: [facility] Encounters Encounter Date Encounter Type Care Provider Facility Start: 09-16-2023 End: 09-16-2023 ambulatory [facility] Start: 08-29-2023 Refill Pasha mcgowan DO Work Phone: [facility] Start: 08-23-2023 End: 08-23-2023 ambulatory [facility] Start: 08-23-2023 End: 08-23-2023 Office outpatient visit 15 minutes Pasha Bland DO Work Phone: [facility] Procedures Date Procedure Procedure Detail Performing Clinician Start: 05-26-2023 Lipid 1996 panel - S thanh or Plasma [facility] Start: 11-25-2022 Lipid 1996 panel - S thanh or Plasma Pasha Montelongolouismaximino DO Work Phone: Start: 05-27-2022 Lipid 1996 panel - S thanh or Plasma Pasha Montelongolouismaximino DO Work Phone: Plan of Treatment Date Care Activity Detail Author Start: 05-26-2028 Lipid panel Lipid Panel [facility] Start: 11-26-2027 Lipid panel Lipid Panel [facility] Start: 05-27-2027 Lipid panel Lipid Panel [facility] Start: 05-26-2024 Creatinine measurement Creatinine Level [facility] Start: 05-26-2024 Potassium measurement Potassium Level [facility] Start: 04-07-2024 DIABETES SCREEN DIABETES SCREEN [facility] Start: 11-26-2023 Creatinine measurement Creatinine Level [facility] Start: 11-26-2023 Potassium measurement Potassium Level [facility] Start: 11-24-2023 End: 11-24-2023 Patient encounter procedure 11/24/2023 1:30 PM EDT Office Visit [facility] [address] [place] [address] Pasha Bland, DO [address] [place] [address] [facility] Start: 06-16-2023 End: 06-16-2023 Clinical Support 06/16/2023 9:20 AM EDT Clinical Support [facility] [address] [place] [address] [facility] Start: 06-14-2023 Potassium measurement Potassium Level [facility] [employer] Start: 05-27-2023 Creatinine measurement Creatinine Level [facility] [employer] Start: 05-26-2023 End: 05-26-2024 CBC W Auto Differential panel - Blood CBC auto differential Lab Routine Normochromic normocytic anemia Expected: 05/26/2023 (Approximate), Expires: 05/26/2024 [facility] Work Phone: Immunizations Immunization Date Immunization Notes Care Provider Fa jessica 05-26-2023 Influenza, Seasonal, Quadrivalent, Adjuvanted Pasha Bland DO Work Phone: [facility] [employer] 05-26-2022 Influenza, Seasonal, Quadrivalent, Adjuvanted Pasha Bland DO Work Phone: [facility] [employer] 05-26-2022 unknown vaccine or immune globulin Pasha Bland DO Work Phone: [facility] [employer] 05-26-2022 influenza virus vacc ine, unspecified formulation Pasha Bland DO Work Phone: [facility] [employer] 05-26-2021 Influenza, High-dose Seasonal, Quadrivalent, Preservative Free Pasha Bland DO Work Phone: [facility] 10-23-2020 Mercedes SARS-CoV-2 Vaccination Pasha Bland DO Work Phone: [facility] 06-19-2020 influenza virus vacc ine, unspecified formulation Pasha Bland DO Work Phone: [facility] 06-19-2020 influenza, seasonal, injectable, preservative free Pasha Bland DO Work Phone: [facility] 07-23-2019 influenza, high dose seasonal, preservative-free Mariahterrell Santos RN [facility] 05-29-2018 influenza, high dose seasonal, preservative-free Mariah Santos RN [facility] 06-06-2017 influenza, injectabl e, quadrivalent, contains preservative Mariah Santos RN [facility] 05-07-2016 influenza virus vacc ine, unspecified formulation Pasha Bland DO Work Phone: [facility] 05-07-2016 influenza, seasonal, injectable Mariah Santos RN [facility] 05-07-2016 pneumococcal polysaccharide vaccine, 23 valent Mariah Santos RN [facility] 07-14-2015 pneumococcal conjuga te vaccine, 13 valent Mariah Santos RN [facility] 05-14-2015 influenza virus vacc ine, unspecified formulation Pasha Bland DO Work Phone: [facility] 05-14-2015 influenza, high dose seasonal, preservative-free Mariah Santos RN [facility] 05-25-2014 influenza virus vacc ine, unspecified formulation Pasha Bland DO Work Phone: [facility] 05-25-2014 influenza, seasonal, injectable Mariah Santos RN [facility] 05-25-2014 zoster vaccine, live Mariah Santos RN [facility] 02-28-2008 pneumococcal polysaccharide vaccine, 23 valent Mariahterrell White RESPIRATORY THERAPY INSTRUCTOR.NON FOOD RECEIVING CLERK Work Phone: [facility] 06-19-2007 influenza virus vacc ine, unspecified formulation Mariah Santos RN [facility] Work Phone: 06-19-2007 influenza, seasonal, injectable Mariah Santos RN [facility] Payers Date Payer Category Payer Medicare ANTHEM MEDICARE ADVANTAGE ANTHEM MEDICARE ADVANTAGE [id number] 2021-Present [address] [place] [address] Medicare HMO [id number] 2020 Unknown 2020 Unknown ANTHEM BLUE CROS S AND BLUE SHIELD ANTHEM MEDIBLUE HMO [id number] 2020-Present [phone] [address] [place] [id number] HMO [id number] 2020 Unknown [id number] 1940 Unknown [id number] 1938 Unknown [id number] 1938 Unknown [id number] 1938 Unknown [id number] 1938 Unknown [id number] Social History Date Type Detail Facility Start: 05-03-2022 End: 05-26-2023 Tobacco smoking status NHIS Ex-smoker [facility] History of tobacco use Chews Tobacco [facility] Start: 10-15-2021 End: 08-23-2023 Alcohol intake Current drinker of alcohol (finding) [facility] Start: 02-19-2020 History SDOH Financial 5 [facility] Start: 02-19-2020 History SDOH Food Worry 1 [facility] Start: 02-19-2020 History SDOH Transpo rt Med 2 [facility] Start: 1940 Sex Assigned At Not on file [facility] End: 07-14-1993 History of tobacco use Current smoker [facility] Start: 05-03-2022 End: 05-26-2023 Tobacco use and exposure Former smokeless tobacco user [facility] Start: 05-03-2022 Tobacco Comment QUIT IN 1992 [facility] End: 07-14-1993 History of tobacco use Cigarette Smoker [facility] End: 04-26-1999 History of tobacco use User of smokeless tobacco [facility] Start: 11-24-2022 End: 05-26-2023 Alcohol intake [facility] Start: 11-14-2022 End: 11-24-2022 Exposure to SARS-CoV-2 (event) Not sure [facility] Start: 11-24-2022 End: 05-26-2023 Tobacco use panel [facility] Start: 1940 Sex Assigned At Male [facility] Start: 08-23-2023 Gender identity Identifies as male gender (finding) [facility] Start: 08-23-2023 Sexual orientation Heterosexual (fin ding) [facility] Clinical Notes 02-01-2020 to 08-29-2023 Telephone Encounter - Zoë Younger MA - 08/29/2023 11:13 AM ESTTelephone Encounter - Zoë Younger MA - 08/29/2023 11:13 AM ESTTelephone Encounter - Dilan Sy - 08/29/2023 8:10 AM EST Note Date & Type Note Facility 08-29-2023 Telephone encounter Note Rx loaded [facility] 08-29-2023 Miscellaneous Notes Rx loaded Medication name: Nifedipine Medication dosage: 30 mg (Miligrams Monthly quantity needed: 90 How many day supply requestin days Medication route: oral (PO) Medication administration time(s): 3 times a day (TID) If taking medication PRN, reason for taking medication: N/A If this is a controlled substance do you receive this or any other controlled medication from any other doctor or facility: N/A Ordering provider: Date of last office visit: . Date of next office visit: 11/23/22 Date of last refill: (see medication tab): 02/13/23 Updated/Validated preferred pharmacy: Yes Patient instructed to contact the pharmacy prior to picking up the medication: Yes documented in this encounter [facility] 08-29-2023 Telephone encounter Note Medication name: Nifedipine Medication dosage: 30 mg (Miligrams Monthly quantity needed: 90 How many day supply requestin days Medication route: oral (PO) Medication administration time(s): 3 times a day (TID) If taking medication PRN, reason for taking medication: N/A If this is a controlled substance do you receive this or any other controlled medication from any other doctor or facility: N/A Ordering provider: Date of last office visit: . Date of next office visit: 11/23/22 Date of last refill: (see medication tab): 02/13/23 Updated/Validated preferred pharmacy: Yes Patient instructed to contact the pharmacy prior to picking up the medication: Yes [facility] 08-23-2023 History of Present illness Narrative Images from the original note were not included. [facility] [address] [place] [address] [facility] [address] Visit type: Established Patient Reason for Visit: Hospital Follow-up (For covid) Assessment / Plan: Carmen was seen today for hospital follow-up. Diagnoses and all orders for this visit: COVID-19 (Primary) Comments: Stable, continue O2 at at bedtime to follow-up with Dr. Dumont in a few weeks Other congestive heart failure (HCC) Stage 3b chronic kidney disease (HCC) Edema, unspecified type Comments: Acute worsening, increase Lasix 40 mg daily for 2 weeks then decrease to 20 mg daily. Other orders - furosemide (Lasix) 20 MG tablet; Increase to one tab twice a day for 2 wks, then decrease to one a day Subjective: Patient ID: Carmen Mock is a 82 y.o. male. HPI patient with history of chronic renal and heart failure presents after being treated for acute COVID illness on August 13. 2 days in hospital with IV steroids. No antivirals given from what I see in the record. He feels a lot better. Sent home on oxygen and will be seeing Dr. Dumont group teacher in a few weeks. Denies chest pain or shortness of breath change. Not using oxygen during the day. O2 saturations 94% and above at rest. No round of fever or purulent phlegm. Eating and voiding well Review of Systems has become more edematous on the dexamethasone. Finished that up 2 days ago. Denies fever or confusion. No abdominal pain. Voiding well. Leg edema is worse. Has gained about 9 pounds since the fall. Taking Lasix 20 mg a day. Will be seeing package sealer machine in a few weeks Allergies Allergen Reactions Sodium Chloride Hives and Shortness of breath Pt reaction to pink salt. Tramadol Shortness of breath Nsaids Other reaction(s): Other (See Comments) Renal injury Acetaminophen Other reaction(s): Other: See Comments HTN Other reaction(s): Other: See Comments Other reaction(s): Other Other Wound Dressing Adhesive Rash Current Outpatient [...] tablet Chew 81 mg in the morning. carvedilol (Coreg) 25 MG tablet Take 1 tablet (25 mg) by mouth in the morning and 1 tablet (25 mg) in the evening. Take with meals. 180 tablet 1 Cayenne 450 MG capsule Take 1 capsule by mouth. cholecalciferol (Vitamin D-3) 10 MCG (400 UNIT) capsule Take by mouth. cloNIDine (Catapres) 0.1 MG tablet Take 1 tablet (0.1 mg) by mouth 3 times daily for 270 doses. 270 tablet 1 Cranberry-Vitamin C-Vitamin E (Cranberry Plus Vitamin C) 4200-20-3 MG-MG-UNIT capsule Take 1 capsule by mouth. cyanocobalamin (Vitamin B-12) 500 MCG tablet Take 1 tablet by mouth in the morning. doxazosin (Cardura) 8 MG tablet Take 1 tablet (8 mg) by mouth Nightly. 90 tablet 1 finasteride (Proscar) 5 MG tablet Take 1 tablet (5 mg) by mouth in the morning. 90 tablet 1 Ginseng 100 MG capsule Take by mouth. Lecithin 1200 MG capsule Take 1 capsule by mouth. magnesium 250 MG tablet Take 250 mg by mouth. milk thistle extract 175 MG tablet Take 1 tablet by mouth. Mucinex D Max Strength 120-1200 MG tablet sustained-release 12 hour TAKE 1 TAB BY MOUTH EVERY 12 HOURS FOR COLD SYMPTOMS FOR 1 WEEK NIFEdipine XL (Procardia XL) 30 MG 24 hr tablet TAKE 2 TABLETS BY MOUTH EVERY MORNING AND 1 TABLET EVERY EVENING Strength: 30 mg 90 tablet 5 saw palmetto (Serenoa repens) 450 MG capsule Take 1 capsule by mouth. simvastatin (Zocor) 80 MG tablet Take 1 tablet (80 mg) by mouth Nightly. 90 tablet 1 triamcinolone (Kenalog) 0.5 % cream APPLY TO AFFECTED AREA 3 TIMES A DAY zinc gluconate 50 MG tablet Take 50 mg by mouth. [DISCONTINUED] furosemide (Lasix) 20 MG tablet Take 20 [...] Congestive heart failure (HCC) Lumbar spinal stenosis Stage 3b chronic kidney disease (HCC) Social History Tobacco Use Smoking status: Former Packs/day: 3 Types: Cigarettes Quit date: 07/14/1993 Years since quittin.1 Smokeless tobacco: Former Quit date: 04/26/1999 Substance Use Topics Alcohol use: Yes Alcohol/week: 1.0 standard drink of alcohol Past Surgical History: Procedure Laterality Date COLONOSCOPY 2015 Maira -polyps- COLONOSCOPY [address] Muro- COLONOSCOPY 04/2018 Dr. Jabour- no need for rech LARYNX SURGERY 1981 bx LUMBAR SPINE SURGERY 04/2016 Alvaro Howard MD. postop wound infection IV ancef TONSILLECTOMY (HISTORICAL) 1972 ULNAR TUNNEL RELEASE Left 1995 UPPER GASTROINTESTINAL ENDOSCOPY 2012 Muro- mild gastritis Family History Problem Relation Name Age of Onset Other (25154) Sister MVA Diabetes Brother 6 Other (92781) Brother infancy Stroke Mother 75 acute CVA Lung cancer Brother age 69 Other (35909) Brother infancy Cancer Father 73 ,met gastric CA Colon cancer Sister age 68 Other (52007) Sister 3 all 6 bro and 3 sis , -colon, lung CA, DM, CVA Stroke Brother Objective: BP 138/60 Pulse 74 Temp 36.7 C (98.1 F) (Temporal) Ht 5' (1.524 m) Wt 149 lb (67.6 kg) SpO2 98% BMI 29.10 kg/m Physical Exam very pleasant alert and cooperative. Blood pressure is stable. O2 sats excellent on room air. No pallor or cyanosis. Conjunctive are and nailbeds are pink. No JVD. Heart is regular without ectopy or new murmurs. Breath sounds diminished but no obvious crackles. No egophony or wheezing. Abdomen protuberant obese and nontender. Extremities have 2+ leg edema. Reviewed recent labs and chest x-ray. documented in this encounter [employer] 08-23-2023 Instructions Pasha Bland DO - 08/23/2023 10:00 AM EST COVID booster in 3-4 months-call with update on leg edema and O2 saturations in 2 weeks documented in this encounter [employer] 06-16-2023 History of Present illness Narrative The patient, Carmen Mock, identity was verified by name. Supervising provider for clinic visit: Dr. Bland Chief Complaint Patient presents with Blood Pressure Check Elevated in the office Reason for BP visit: elevated in office BP 127/70 Pulse 57 SpO2 97% BP Readings from Last 3 Encounters: 06/16/23 127/70 10/12/23 (!) 144/84 11/24/22 134/55 Pulse Readings from [...] Provider Department Center 06/16/2023 9:20 AM SCHEDULE, [facility] 11/24/2023 1:30 PM Pasha Bland DO [facility] Placed call to patient. Was able to speak to patient. All concerns in message have been addressed. No questions at this time. Call ended documented in this encounter [facility] 05-26-2023 History of Present illness Narrative Do not need another database manager however. I just picked up some but he last night. [facility] [address] [place] [address] [facility] [phone] Visit type: Established Patient Reason for [...] 65+, (Fluad) preservative free Subjective: Patient ID: aCrmen Mock is a 82 y.o. male. HPI [...] Rodney- no need for rech LARYNX SURGERY 1982 bx LUMBAR SPINE SURGERY 04/2016 Alvaro Howard MD. postop wound infection IV ancef TONSILLECTOMY (HISTORICAL) 1972 ULNAR TUNNEL RELEASE Left 1995 UPPER GASTROINTESTINAL ENDOSCOPY 2012 Bhaskar- mild gastritis Family History Problem Relation Name Age of Onset Other (97344) Sister MVA Diabetes Brother 6 Other (35789) Brother infancy Stroke Mother 75 acute CVA Lung cancer Brother age 69 Other (25860) Brother infancy Cancer Father 73 ,met gastric CA Colon cancer Sister age 68 Other (63696) Sister 3 all 6 bro and 3 [...] No skin breakdowns. documented in this encounter [facility] 05-05-2023 Note HNO ID: [id number] Author: Moisés Sosa APRN.NON FOOD RECEIVING CLERK Service: ? Author Type: Nurse Practitioner Type: Progress Notes Filed: 05/09/2023 11:05 AM Note Text: [facility] Department of Cardiovascular Medicine SECTION [...] which included preparing to see the patient, [id number] patient care, completing clinical documentation, performing a [...] prior to the follow up. Moisés Sosa APRN.[facility] Cardiology Nurse Practitioner Section of [facility] Cardiology [facility] Dept of Cardiovascular Medicine [facility] [place] [address] Office Office May 05, 2023 2:30 PM This note was partially generated using Uberseq voice recognition system and may contain errors [...] reviewed the Electro (more content not included)... [facility] 01-17-2023 Miscellaneous Notes Rx loaded Medication name: [...] the medication: Yes documented in this encounter [facility] 01-17-2023 Telephone encounter Note Rx loaded [facility] 01-17-2023 Telephone encounter Note Medication name: [...] prior to picking up the medication: Yes [facility] 11-24-2022 History of Present illness Narrative Images from the original note were not included. [facility] [address] [facility] [address] Visit type: Established Patient Reason for Visit: [...] dysfunction and intermittent heart failure. Recently saw package sealer machine with no change in meds. Last fall [...] Problem Relation Name Age of Onset Other (11149) Sister MVA Diabetes Brother 6 Other (93910) Brother infancy Stroke Mother 75 acute CVA Lung cancer Brother age 69 Other (82659) Brother infancy Cancer Father 73 ,met gastric CA Colon cancer Sister age 68 Other (18889) Sister 3 all 6 bro and 3 [...] which is chronic. documented in this encounter [facility] 11-02-2022 Note HNO ID: [id number] Author: Sung Shen DO Service: ? Author Type: Physician Type: Progress Notes Filed: 11/02/2022 2:13 PM Note Text: [facility] SECTION OF [facility]AL CARDIOLOGY [facility] OUTPATIENT VISIT DATE November 02, 2022 PRIMARY CARE PHYSICIAN: PASHA BLAND [address] [place] [id number] HISTORY OF PRESENT ILLNESS: Mr. Mock is [...] per Dr Nicole COLONOSCOPY - DIAGNOSTIC 1998 [facility]: colonoscopy per Dr. Rodney: WNL COLONOSCOPY FLX DX W/COLLJ SPEC WHEN PFRMD 05/08/13 Colonoscopy repeat 2 years COLONOSCOPY FLX DX W/COLLJ SPEC WHEN PFRMD 11/27/15 Colonoscopy COLONOSCOPY W/BIOPSY SINGLE/MULTIPLE 03/24/09 ESOPHAGOGASTRODUODENOSCOPY TRANSORAL DIAGNOSTIC 05/08/13 EGD NEUROPLASTY AND/VIGIL (more content not included)... [facility] 11-02-2022 History of Present illness Narrative Images from the original note were not included. [facility] SECTION OF REGIONAL CARDIOLOGY [facility] OUTPATIENT VISIT DATE November 02, 2022 PRIMARY CARE PHYSICIAN: PASHA BLAND [address] [place], [place] [id number] HISTORY OF PRESENT ILLNESS: Mr. Mock is [...] per Dr Nicole COLONOSCOPY - DIAGNOSTIC 1998 [facility]: colonoscopy per Dr. Rodney: WNL COLONOSCOPY FLX DX W/COLLJ SPEC WHEN PFRMD 05/08/13 Colonoscopy repeat 2 years COLONOSCOPY FLX DX W/COLLJ SPEC WHEN PFRMD 4/14/16 Colonoscopy COLONOSCOPY W/BIOPSY SINGLE/MULTIPLE 03/24/09 ESOPHAGOGASTRODUODENOSCOPY TRANSORAL [...] cap Take 1 capsule by mouth. Saw [place] Pool Fruit 450 mg cap Take 1 capsule [...] Department of Medicine and Division of Cardiology, [facility] Package Line Operatoracls nurse [facility] Package Line Operator of Congestive Heart Failure Clinic [facility] Cardiology Office Package Line Operator [facility] Staff Washer And Crusher Tender, Lam [place] Department of Cardiovascular Medicine/[facility], [facility] Clinical Doper Profressor of Medicine, [facility] - [facility] Please note: This note has been produced using speech recognition software and may contain errors related to that system including vish, punctuation, spelling, words, gender and phrases that may be inappropriate. documented in this encounter [facility] 05-03-2022 History of Present illness Narrative Images from the original note were not included. [facility] Department of Cardiovascular Medicine SECTION OF CLINICAL CARDIOLOGY OUTPATIENT VISIT DATE May 01, 2022 OUTPATIENT VISIT TYPE ESTABLISHED PRIMARY CARE PHYSICIAN: PASHA BLAND [address] [place] [id number] REASON FOR VISIT: 6 month follow up [...] per Dr Nicole COLONOSCOPY - DIAGNOSTIC [address] [facility]: colonoscopy per Dr. Rodney: WNL COLONOSCOPY [...] cap Take 1 capsule by mouth. Saw [place] Pool Fruit 450 mg cap Take 1 capsule [...] Stress FBP LVEF % 71 Echocardiogram (03/28/2021; [place]): - Normal LV size. - Left ventricular [...] 7. History of TIA - Admit to [facility] 06/2020, neuroimaging negative for acute stroke [...] should need arise. CONTACT INFORMATION: Mariah White APRN.[facility] Cardiology Nurse Practitioner Section of Regional Cardiology [facility] Dept of Cardiovascular Medicine [facility] Heart and Vascular [facility] [address] [place] [address] Office Office This note was partially generated using Uberseq voice recognition system, and there may be some incorrect words, spellings, and punctuation that were not noted in checking the note before saving. I personally interviewed, confirmed and edited the above information if obtained by others. documented in this encounter [facility] 11-13-2021 Miscellaneous Notes Received call from Zoë at Dr. Bland's office. Trying to find out if patient is supposed to be taking Lasix and Losartan. Returned call; per notes, no medication changes were made during STACY. Patient self-discontinued losartan potassium back on 06/16/2021. Per request, faxed current med report and STACY notes to [phone]. documented in this encounter [facility] 04-07-2021 Note HNO ID: [id number] Author: Teresita Klein APRN.GREG Service: ? Author Type: Nurse Practitioner Type: Progress Notes Filed: 04/07/2021 10:42 AM Note Text: Heart [facility] Heart Failure Clinic OUTPATIENT VISIT DATE April [...] amlodipine. The patient was seen by Dr. Tory in 12/2020. Blood pressure readings had stabilized; [...] 12 months. Admission was on 03/28/2021 in [place] in which he was treated for heart [...] The patient was seen by Cardiology via [facility] on 04/02/2021 for complaints of lower [...] Laterality Date - COLONOSCOP W/ OR W/O [facility] SPEC 05/08/13 Colonoscopy repeat 2 years - COLONOSCOP W/ OR W/O [facility] SPEC 11/27/15 Colonoscopy - COLONOSCOPY - DIAGNOSTIC [address] [facility]: colonoscopy per Dr. Rodney: WNL - COLONOSCOPY W/BX 03/24/09 - EGD W/O OR W/ (more content not included)... [facility] 09-02-2020 Note HNO ID: [id number] Author: Nanette Anguiano Service: ? Author Type: Nurse Practitioner Type: Progress Notes Filed: 09/02/2020 11:57 AM Note Text: [facility] Heart Failure Clinic OUTPATIENT VISIT DATE September 02, 2020 OUTPATIENT VISIT TYPE ESTABLISHED PRIMARY CARE PHYSICIAN: Pasha Bland CHIEF COMPLAINT: Patient presents with: Edema CHF HISTORY OF PRESENT ILLNESS: Carmen Amita Hilton?is a?79 year old man with a history [...] x 1 week at which time his [id number] was increased to 10 mg daily. He [...] Laterality Date - COLONOSCOP W/ OR W/O [facility] SPEC 05/08/13 Colonoscopy repeat 2 years - COLONOSCOP W/ OR W/O [facility] SPEC 11/27/15 Colonoscopy - COLONOSCOPY - DIAGNOSTIC [address] [facility]: colonoscopy per Dr. Rodney: WNL - [...] Cancer Sister - (more content not included)... [facility] 06-04-2020 Note HNO ID: [id number] Author: Nanette Anguiano Service: ? Author Type: [...] encounter diagnosis) (I10) Essential hypertension, benign (Z79.899) rn long term care current use of diuretic Carmen Mock?is a?79 [...] Total Time Spent: 15 minutes Nanette Anguiano APRN.[facility] 05-21-2020 Note HNO ID: [id number] Author: Nanette Anguiano Service: ? Author Type: Nurse Practitioner Type: Progress Notes Filed: 05/21/2020 10:41 AM Note Text: [facility] Heart Failure Clinic OUTPATIENT VISIT DATE May [...] (see telephone encounter dated 04/28/2020). On 05/19/2020, ann's son contacted HF clinic and reported low [...] hypertension 09/13/2005 - (more content not included)... [facility] documented as of this encounter (statuses as of 11/13/2021) [facility]06-19-2020 History of Past illness Narrative* Problem Noted [...] of this encounter (statuses as of 05/03/2022) [facility]06-19-2020 History of Past illness Narrative* Problem Noted [...] of this encounter (statuses as of 11/02/2022) [facility] Diagnosis Chronic diastolic CHF (congestive heart failure) (HCC)- Primary Chronic diastolic heart failure RBBB Right bundle branch block Essential hypertension Unspecified essential hypertension Mixed hyperlipidemia documented in this encounter [facility] note* Diagnosis Chronic diastolic CHF (congestive heart failure) (HCC)- Primary Chronic diastolic heart failure Essential hypertension Unspecified essential hypertension Mixed hyperlipidemia RBBB Right bundle branch block documented in this encounter [facility] note* Diagnosis Essential hypertension- Primary Unspecified essential hypertension Normochromic normocytic anemia Hypercholesterolemia Pure hypercholesterolemia Impaired fasting glucose Chronic renal impairment, stage 2 (mild) [facility] Diagnosis Essential hypertension- Primary Unspecified essential hypertension Hypercholesterolemia Pure hypercholesterolemia Chronic renal impairment, stage 2 (mild) Normochromic normocytic anemia Congestive heart failure, unspecified HF chronicity, unspecified heart failure type (HCC) [facility] Diagnosis Essential hypertension Unspecified essential hypertension [facility] Diagnosis COVID-19- Primary Other congestive heart failure (HCC) Stage 3b chronic kidney disease (HCC) Edema, unspecified type [facility] Outpatient Procedure (Routine) - Closed Specialty Diagnoses / Procedures Referred By Contac t Referred To Contact [facility] Diagnoses Chronic diastolic CHF (congestive heart failure) (HCC) RBBB Essential hypertension Mixed hyperlipidemia Procedures ECG COMPLETE ECG ROUTINE ECG W/LEAST 12 LDS W/I&R Mariah White APRN.CNP [address] [place] [address] [facility] [address] [place] [address] Referral ID Status Reason Start Date Expiration Date V isits Requested Visits Authorized [id number] Closed Auto-Generate d Referral 05/03/2022 05/01/2023 1 1 [facility] Summary Purpose Family History No Family History Records FoundNo Family History Records FoundNo Family History Records FoundNo Family History Records FoundNo Family History Records Found Advance Directives No Advanced Directives Records FoundDocuments on File Type Date Recorded Patient Record Cutter Expl anation Advance Directive(s) 06/12/2020 12:15 PM [...] CREATED AUTHOR AUTHOR'S ORGANIZ ATION 09/08/2020 [facility] DATE CREATED AUTHOR AUTHOR'S ORGANIZ ATION 04/08/2021 [facility] DATE CREATED AUTHOR AUTHOR'S ORGANIZ ATION 06/14/2023 [facility] DATE CREATED AUTHOR AUTHOR'S ORGANIZ ATION 09/18/2023 [facility] Source Comments (unrecognize d section and content) In the event this informatio n is protected by the Federal Confidentiality of Alcohol and Drug Abuse Patient Records regulations: The Federal rules restrict any use of the information to criminally investigate or prosecute any alcohol or drug abuse patient.[facility] the event this information is protected by the Federal Confidentiality of Alcohol and Drug Abuse Patient Records regulations: The Federal rules restrict any use of the information to criminally investigate or prosecute any alcohol or drug abuse patient.[facility] the event this information is protected by the Federal Confidentiality of Alcohol and Drug Abuse Patient Records regulations: The Federal rules restrict any use of the information to criminally investigate or prosecute any alcohol or drug abuse patient.[facility] Reason for Visit (unrecogniz ed section and content) Reason Comments Cardiology Follow Up Reason Comments Established Patient Follow-Up Swelling i n legs Reason Comments Follow-up 6 month med check Reason Onset Date Comments Med Refill 01/17/2023 Reason Comments Blood Pressure Check Elevated in the off ice Reason Comments Hospital Follow-up For covid Reason Onset Date Comments Med Refill 08/29/2023 Care Teams (unrecognized sec tion and content) Educational Manager Relationship Specialty Start Date End Date Pasha Bland [facility] [address] PCP - General Family Practice 07/18/20 Kiana Alejandre MD [address] [place] [place] [address] Consulting Neurology 07/29/20 Yani Woodson MD [address] [place] [address] Consulting Neurology 07/29/20 Sung Shen [facility] [place] [address] Washer And Crusher Tender Cardiology 04/05/21 Educational Manager Relationship Specialty Start Date End Date Pasha Bland [address] [place] [phone] PCP - General Family Medicine 07/18/20 Kiana Alejandre MD [address] [place] [address] Consulting Neurology 07/29/20 Yani Woodson MD [address] [place] [address] Consulting Neurology 07/29/20 Sung Shen DO [facility] [address] Washer And Crusher Tender Cardiology 04/05/21 Educational Manager Relationship Specialty Start Date End Date Pasha Bland [facility] [place] [phone] PCP - General 02/11/15 Educational Manager Relationship Specialty Start Date End Date Pasha Bland, DO [address] [place], [place] [phone] PCP - General 02/11/15 Educational Manager Relationship Specialty Start Date End Date Pasha Bland DO [address] [place], [place] [phone] PCP - General 02/11/15 Educational Manager Relationship Specialty Start Date End Date Pasha Bland DO [address] [place] [address] PCP - General 02/11/15 Educational Manager Relationship Specialty Start Date End Date Pasha Bland DO [address] [place] [phone] PCP - General 02/11/15 Educational Manager Relationship Specialty Start Date End Date Pasha Bland DO [address] [place] [phone] PCP - General 02/11/15 Educational Manager Relationship Specialty Start Date End Date Pasha Bland DO [address] [place] [phone] PCP - General 02/11/15 FOR RECORDS PERTAINING [...] BE BASED ON THE PRIMARY CLINICAL RECORDS. [facility] [employer] [facility]. provides no warranty or guarantee of the accuracy or completeness of information in this document.
== END | disposition home or self-care (01) ==
LOC: CT 09:45
PROVIDERS: PCP Family Medicine; Referring Provider Surgery; Visit Provider Surgery
DX: T85.518A Breakdown (mechanical) of other gastrointestinal prosthetic devices, implants and grafts, initial encounter (principal)
CPT/HCPCS: 74150

== ENCOUNTER → 2023-10-05 | Outpatient (CLI) | payer MEDICARE, SELFPAY | END | disposition home or self-care (01) | PROVIDERS: PCP Family Medicine; Referring Provider Physician Assistant; Visit Provider Physician Assistant | DX: K81.0 Acute cholecystitis (principal); Z98.890 Other specified postprocedural states | CPT/HCPCS: 87070; 87075; 87077; 87186; 87205 ==

== ENCOUNTER 2023-10-21 06:48 | Day surgery (SDC) | payer MEDICARE, SELFPAY ==
[2023-10-11 10:02] VITALS: BP 156/68; PULSE 66; RESP 16; TEMP 37.4; O2SAT 94; BMI 26.6
[2023-10-11] MEDS: Lactated Ringers 1,000 ML 15 ML IV (10:07)
--- NOTE | 2023-10-11 10:12 | PCM.HP.BLA ---
History and Physical Date of Admission: 10/11/23 Date of Service: 09/26/23 MR#: [id number] Acct: [id number] Name: CARMEN MOCK Sr. Rep #: [id number] : 1940 Provider: Dr. Sandra Gregorio MD Age/Sex: 82/M Location: [facility] Status: Signed Intake Vital Signs 09/07/2414:38 09/26/2412:58 Height 5 ft 1 in 5 ft 1 in Weight: 137 lb BMI 25.9 BP 155/69 H Blood Pressure Location Rt brachial Position Sitting Respiration 18 Pulse 66 Pulse Source Monitor Temp 97.4 F L Temp Source Temporal Pulse Oximetry (%) 94 Oxygen Delivery Method room air Intake Visit Reasons: HOSPITAL F/U - GALLBLADDER Chief Complaint: gallbladder f/u Hospice Office Coordinator Required: No Accompanied by: Son Is patient in pain?: No Allergies acetaminophen [From Tylenol] Adverse Reaction (Verified 09/26/23 13:59) Other Medications albuterol sulfate 90 mcg/actuation aerosol inhaler (Ventolin HFA) 2 puff inhalation Q6H PRN PRN Asthma 08/25/16 [History Confirmed 09/04/23] carvedilol 25 mg tablet (Coreg) 25 mg PO BID blood pressure 08/25/16 [History Confirmed 09/04/23] clonidine HCl 0.2 mg tablet 0.1 mg PO TID blood pressure 08/25/16 [History Confirmed 09/04/23] doxazosin 4 mg tablet 8 mg PO QHS prostate 08/25/16 [History Confirmed 09/04/23] simvastatin 40 mg tablet 40 mg PO QHS cholesterol 08/25/16 [History Confirmed 09/04/23] aspirin 81 mg chewable tablet 81 mg PO DAILY@0800 PublishThis ##90 06/20/20 [Rx Confirmed 09/04/23] finasteride 5 mg tablet (Proscar) 5 mg PO DAILY prostate 03/28/21 [History Confirmed 09/04/23] nifedipine 30 mg tablet,extended release 30 mg PO QHS BLOOD PRESSURE 09/04/23 [History Confirmed 09/04/23] nifedipine 30 mg tablet,extended release 24 hr 60 mg PO DAILY BLOOD PRESSURE 09/04/23 [History Confirmed 09/04/23] COUNT INCLUDES THE [facility] Medical History Acute cholecystitis Acute exacerbation of congestive heart failure Asthma Cardiac murmur CHF (congestive heart failure) CKD (chronic kidney disease) COPD (chronic obstructive pulmonary disease) HTN (hypertension) Hyperlipidemia Hypertension Hypoxemia Right inguinal hernia TIA (transient ischemic attack) Surgical History History of tonsillectomy Previous back surgery Previous back surgery S/P ERCP Family History Other CVA (cerebral vascular accident) Cancer Social History (Updated 09/26/23 @ 13:58 by Cheryl Hansen LPN) Smoking Status: Former smoker alcohol intake: never substance use type: does not use HPI HPI HPI: 82 y/o male presents status post cholecystostomy tube for follow-up. Patient has been draining still 40 to 60 cc serous looking fluid. Patient is status post ERCP and metal covered stent placement which does block the cystic duct. Patient presents with his son Rashel. They are interested if he is able to shower with the tube in place if they are able to taper off. Patient states his appetite is come back slowly eats at least 2 meals occasionally 3. +Bowel function. Patient denies any abdominal pain. Patient still denies any pain in the right inguinal region. ROS General General: Yes weight change (loss) HEENT HEENT: Yes eye injury Musc Musculoskeletal: Yes back problems and arthritis Cardio Cardiovascular: Yes murmur and high blood pressure Resp Respiratory: Yes COPD and Yes asthma Gastro Gastrointestinal: Yes gallbladder problem Exam Const General: cooperative, healthy appearing, comfortable and no acute distress [facility] Head: normocephalic and atraumatic Neck Neck: supple Resp Effort & Inspection: normal respiratory effort Cardio Rate: regular rate GI Inspection: non-distended Palpation: soft, no hernias and nontender Other: Cholecystostomy tube in place dressing replaced on it., Drainage 25 cc emptied serous, right inguinal hernia is reduced already on exam Skin General: no rashes or lesions noted Neuro General: CN's II-XI intact bilaterally Extrem General: normal to inspection Psych Mental Status: mental status grossly normal Attitude: cooperative Assessment and Plan Assessment and Plan (1) Acute cholecystitis: Status: Inactive Comment: s/p ger tube (2) Right inguinal hernia: Status: Inactive (3) S/P ERCP: Status: Inactive Orders: Orders Abdomen without IV Contrast Today T85.518A - Breakdown (mechanical) of other gastrointestinal prosthetic devices, implants and grafts, initial encounter Plan Patient does have a follow-up with Dr. Dumont on 10/05/2023 due to COPD and COVID. Lungs are is no concern from Dr. Dumont will plan to proceed with laparoscopic cholecystectomy. Due to the cholecystostomy being serous in nature unsure if it is still in the gallbladder we will check a CT abdomen pelvis to see if this is the case or not. If it is still the gallbladder will leave in place until surgery. If it is out of the gallbladder wall plan to remove prior to surgery. This was discussed with patient and his son. Reviewed the anatomy with the patient and discussed the procedure: laparoscopic cholecystectomy with possible cholangiograms, possible open. Review risks including but not limited to bleeding, infection, hernia, bile leak, retained gallstones requiring another procedure ERCP- Endoscopic Retrograde Cholangiopancreatography, injury to another organ (bile ducts, common bile duct, small bowel, etc.) and conversion to an open procedure. All questions were answered. Sandra Gregorio M.D. Pager: [phone] [facility] [address] [place] [address], [address] [place] [address] Office: [phone] Coding Level of Care Code Off vis,est,level 3 Diagnoses Acute cholecystitis K81.0 Right inguinal hernia K40.90 S/P ERCP Z98.890 09/26/23 1521 <Electronically signed by Sandra Gregorio MD> Date Sandra Gregorio MD
[2023-10-21] VITALS (13 sets, daily range): BP systolic 114–125; BP diastolic 53–59; PULSE 55–69; RESP 16–18; TEMP 36.5–36.8; O2SAT 86–98; BMI 26.2
--- NOTE | 2023-10-21 06:30 | RAD_ITS ---
PROCEDURE: Intraoperative cholangiogram INDICATION: Laparoscopic, cholecystectomy WITH IOC EXAMINATION/TECHNIQUE: Fluoroscopic cine limited spot intraoperative films are presented for evaluation. Total Fluoroscopic Time: 4.3 seconds . Radiation dosage index: 1.31 mGy COMPARISON: No relevant prior comparison study available FINDINGS: Intraoperative cholangiogram cine images are provided and demonstrate stent in the region of the common bile duct. Contrast seen flowing through the stent. Abrupt cut off and occlusion of the mid aspect of the stent. The images are limited. The distal aspect of the stent and the duodenum are not included on this exam. No additional images are available. RAD/Cholangiogram/ O R,Initial IMPRESSION: Abrupt cut off of the contrast in the mid aspect of the stent suggestive of occlusion of the stent as seen on the images provided. Further delayed images are not available. Electronically Signed: Tavon Daniels MD at 10:44 EST ,
[2023-10-21] MEDS: Lactated Ringers 1,000 ML 15 ML IV ×2 (07:02→09:28)
--- NOTE | 2023-10-21 07:30 | GALL_PTH ---
PATIENT: MONIQUE MOCK Sr. LOC: [facility] [place] U#:[id number] AGE/SX: 82/M ROOM: RE10/21/[address]: Dr. Sandra Gregorio MD : 1940 BED: DIS: 10/21/2023 SPEC #: [id number] RECD: 10/21/23 12:50 STATUS: DIANA GLORIA #: [id number] ZULEIMA: 10/21/23 07:[address]: Sandra Gregorio DEPT: SURGICAL PATHOLOGY RECD BY: Joan Gonzalez ENTERED: 10/21/23 12:50 SP TYPE: JOHN VALDEZ DR: Dr. Pasha Bland DO Tissues: Gallbladder, NOS Procedures: Surgery Specimen Level III HEADER OPERATION: Laparoscopic cholecystectomy with IOC PRE-OP DIAGNOSIS: Acute cholecystitis TISSUE SUBMITTED: Gallbladder MICROSCOPIC DIAGNOSIS Gallbladder, cholecystectomy: Acute and chronic cholecystitis and cholelithiasis. AM:prosper 10/24/2023 MICROSCOPIC DESCRIPTION Slides are reviewed. GROSS DESCRIPTION Received is one container labeled with the patient's name and designated gallbladder. The specimen consists of a gallbladder measuring 6.5 cm in length and up to 3.5 cm in diameter. The external surface is pink-rollins, smooth and glistening for the most part. Focally it is granular, hemorrhagic and contains cautery artifact. The gallbladder contains hemorrhagic bile and multiple irregular black stones measuring in aggregate 3.0 x 1.0 x 1.0 cm and 0.2 to 1.5 cm in greatest dimension. The mucosa is bile-stained and without any mass lesions. The gallbladder wall measures up to 0.7 cm in thickness. [employer] sections from the gallbladder and the cystic duct are submitted in one cassette. / SJ:rg 10/21/2023 :2 [facility]: [id number]
[2023-10-21] MEDS: Piperacil/Tazobactam 3.375 GM in 0.9% Normal Saline (50mL MB+) 50 ML IV (07:44)
[2023-10-21] MEDS: Bupivacaine Mpf 0.5% 30 ML VIAL (07:47)
--- NOTE | 2023-10-21 08:56 | PCM.OPRPT ---
Report of Operation Date of Procedure: 10/21/23 Pre-Operative Diagnosis: Acute cholecystitis status post cholecystostomy tube Post-Operative Diagnosis: Same Surgery/Procedure Performed:: Laparoscopic cholecystectomy with cholangiograms, removal of cholecystostomy tube Surgeon: Sandra Gregorio carbon coater machine operator: Gilbert Delarosa Type of Anesthesia: General/Supplemental Anesthesiologist: Saurabh Neff Special Medications: Zosyn 3.375 g IV x 1 Specimen's removed: Gallbladder Estimated Blood Loss (mL): 20 cc Description of Procedure: Indications: this is a 82 year-old male who who was found to have acute cholecystitis status post cholecystostomy tube and choledocholithiasis status post ERCP presents for interval laparoscopic cholecystectomy. Description procedure: The patient was placed on operating table in supine position. A timeout was completed verifying correct patient, procedure, site, position and special equipment prior to beginning procedure. General Anesthesia was induced. The abdomen was prepped and draped in usual sterile fashion. An incision was made in the natural skin line above the umbilicus. The fascia was elevated and incised. The peritoneum was elevated and incised. Entry into the peritoneum was confirmed visually and no bowel was noted in the vicinity of the incision. Pathak trocar was placed. The abdomen was insufflated with carbon dioxide to a pressure of 12-15 mmHg. Patient tolerated insufflation well. The laparoscope was then inserted and abdomen inspected. No injuries from initial trocar placement were noted. Additional trochars were then inserted in the following locations 5 mm trocar in the epigastrium and 2 more 5 mm trochars along the right costal margin. The abdomen was inspected no abnormalities were found. The table is placed in reverse Trendelenburg position with the right side up. The adhesions between the gallbladder and omentum were lysed sharply. The dome of the gallbladder was grasped with atraumatic grasper passed through the lateral port and retracted over the dome of the liver. Infundibulum was then grasped with atraumatic grasper through the midclavicular port and retracted to the right lower quadrant. This maneuver exposed Calot's triangle. The peritoneum overlying the gallbladder infundibulum was then incised and cystic duct and artery identified and circumferentially dissected. Dowling catheter was used for cholangiograms. The cholangiogram showed good filling of the common bile duct covered metal stent with no filling defects, good filling of the right and left bile ducts as well. The cystic duct and artery were then doubly clipped and divided close to the gallbladder. Cholecystostomy tube was cut and removed. The gallbladder then dissected from its peritoneal attachments by electrocautery. Hemostasis was checked and the gallbladder and contained stones were removed using the endoscopic retrieval bag through the umbilical port. The gallbladder is passed off table as specimen. The gallbladder fossa was irrigated with saline and hemostasis obtained. There is no evidence of bleeding from the gallbladder fossa or cystic artery leakage of bile from the cystic duct stump. Secondary trochars removed under direct vision. No bleeding was noted the trocar sites. The laparoscope was withdrawn and umbilical trocar removed. The abdomen was allowed to collapse. The fascia of the 12 mm trocar was closed with a [id number] 0 Vicryl suture. The skin was closed with sutures of 4-0 Monocryl and Steri-Strips. The patient was extubated. The patient tolerated procedure well and was taken to the postanesthesia care unit in stable condition. Complications none
--- NOTE | 2023-10-21 08:59 | DCINST_ITS ---
Discharge Instructions Diet Discharge Diet: Light diet - advance as tolerated Activity Discharge Activity: May Not Drive (while taking narcotic pain medications.) May shower in (days): 1 Lifting Restrictions: no lifting >20 lbs x 2 wks, no strenuous exercise for 4 wks Dressing / Incision Call your doctor if your incision/area has: Continuous Slow Oozing, Sudden Increased Bleeding, Increased Pain/ Swelling, Increased Redness, Foul Smelling Discharge and Swelling at the incision site Call your doctor if you observe: Fever of 101 or Higher Remove Dressing in: 2 days Cleanse incision/area with: Soap & Water Additional Dressing/Incision Instructions:: Steri-Strips will fall off in 7 to 10 days, if they do not fall off okay to remove after 10 days. Follow Up Care Please Follow Up With: Sandra Gregorio MD When: Call the office for a follow-up appointment 2 weeks; after 5 PM and on the weekends call [phone] with any concerns. Test Results: Test results from this visit will be discussed in further detail at your follow- up appointment, if applicable. Discharge Plan Admission Attending Provider: Sandra Gregorio Primary Care Provider: Pasha Bland Discharge Orders/Prescriptions Prescriptions: New tramadol 50 mg tablet 50 mg PO Q6H PRN (Reason: pain) 3 Days Qty: 14 0RF Continued ascorbic acid (vitamin C) 1,000 mg capsule 1 g PO Q6H garlic 1,000 mg capsule 1,000 mg PO BID carica papaya Tablet,Chewable 2 tab PO BID cranberry extract 650 mg capsule 1,300 mg PO BID Rx Instructions: administer with meals dietary supplement Capsule 1 cap PO DAILY Rx Instructions: sunflower lecithin carvedilol [Coreg] 25 MG tablet 25 mg PO BID simvastatin 40 MG tablet 80 mg PO QHS clonidine HCl 0.2 MG tablet 0.1 mg PO TID doxazosin 4 MG tablet 8 mg PO QHS albuterol sulfate [Ventolin HFA] 1 INHALER inhaler 2 puff inhalation Q6H PRN PRN (Reason: Asthma) finasteride [Proscar] 5 mg tablet 5 mg PO DAILY Patient Comments: TAKE 1 TABLET BY MOUTH EVERY DAY ferrous sulfate [iron] 325 mg (65 mg iron) tablet 325 mg PO DAILY nifedipine 30 mg tablet extended release 24hr 60 mg PO DAILY Patient Comments: TAKE 2 TABLETS BY MOUTH EVERY MORNING AND 1 TABLET EVERY EVENING STRENGTH: 30 MG nifedipine 30 mg tablet extended release 30 mg PO QHS Held omega 0-hbc-bjs-fish oil [Fish Oil] 1,200 (144-216) mg capsule 1 cap PO BID Hold Instructions: Resume on 10/23/23. aspirin 81 MG tablet,chewable 81 mg PO DAILY@0800 Qty: 90 0RF Hold Instructions: Resume on 10/23/23. Discontinued amoxicillin-pot clavulanate 875-125 mg tablet 1 tab PO BID Qty: 10 0RF Referrals / Follow Up: Pasha Bland DO [Primary Care Provider] - Disposition Disposition (needs filled in before D/C Order can be placed): Home, Self Care
[2023-10-21] MEDS: traMADol 50 MG Tablet PO (10:56)
[2023-10-21] MEDS: Ipratropium/Albuterol Sulfate 3 ML AMPUL.NEB INHALATION (13:05)
== END 2023-10-21 15:15 | disposition home or self-care (01) ==
LOC: SDC 06:48 → AC 06:49
PROVIDERS: PCP Family Medicine; Referring Provider Surgery; Visit Provider Surgery
PROC: (CPT 47610; principal; 2023-10-21 07:10)
DX: K80.12 Calculus of gallbladder with acute and chronic cholecystitis without obstruction (principal); J44.9 Chronic obstructive pulmonary disease, unspecified; I13.0 Hypertensive heart and chronic kidney disease with heart failure and stage 1 through stage 4 chronic kidney disease, or unspecified chronic kidney disease; I50.9 Heart failure, unspecified; T85.518A Breakdown (mechanical) of other gastrointestinal prosthetic devices, implants and grafts, initial encounter; N18.9 Chronic kidney disease, unspecified; Z86.16 Personal history of COVID-19; K40.90 Unilateral inguinal hernia, without obstruction or gangrene, not specified as recurrent; Z82.3 Family history of stroke; E78.5 Hyperlipidemia, unspecified; Z87.891 Personal history of nicotine dependence; Z86.73 Personal history of transient ischemic attack (TIA), and cerebral infarction without residual deficits
CPT/HCPCS: 47563; 00790; 74300; 76000; 88304; 94640; J7120; J2405

== ENCOUNTER 2023-10-26 08:11 | Emergency (ER) | payer MEDICARE, SELFPAY ==
[2023-10-26] VITALS (17 sets, daily range): BP systolic 133–146; BP diastolic 53–61; PULSE 64–75; RESP 13–22; TEMP 36.5–36.8; O2SAT 89–96; BMI 26.7
--- NOTE | 2023-10-26 08:32 | ED.VIS.GI ---
HPI HPI - GI History of Present Illness Chief Complaint: GI Bleed Detail of Chief Complaint: Dark stool. Informant: patient and family Abdominal Pain/Flank Pain Onset: Days Context: Gradual Onset Timing: Continuous Current Severity: Mild Maximum Severity: Mild Nausea/Vomiting/Emesis GI Symptom: Positive for Nausea, Vomiting and - (X 1 this morning. No coffee-ground. No hematemesis.) Onset: Today Severity: Mild Diarrhea/Melena/Hematochezia GI Symptom: Negative for Diarrhea, Melena or Hematochezia Associated Symptoms Associated Symptoms: Negative for Dysuria, Frequency or Hematuria Narrative Narrative: 82-year-old male history of CHF, COPD, TIA, anemia. On aspirin but no other anticoagulants. Had a cholecystectomy laparoscopically done by Dr. Cheyenne stephenson 1 week ago. Since that time he had dark stool. He had nausea and vomiting x 1 today. No hematemesis. No hematochezia. No history of GI bleed. Prior similar symptoms: No Recent Illness/Hospitalization: Yes [facility] Medical History Acute cholecystitis Acute exacerbation of congestive heart failure Ambulates with cane Asthma Blackout Cardiac murmur Cardiology follow-up encounter CHF (congestive heart failure) CKD (chronic kidney disease) COPD (chronic obstructive pulmonary disease) Former smoker History of echocardiogram History of edema History of ulceration HTN (hypertension) Hyperlipidemia On home oxygen therapy Right inguinal hernia TIA (transient ischemic attack) Urinary retention Wears dentures Wears glasses Home Medications albuterol sulfate 90 mcg/actuation aerosol inhaler (Ventolin HFA) 2 puff inhalation Q6H PRN PRN Asthma 08/25/16 [History Last Taken 10/11/23] carvedilol 25 mg tablet (Coreg) 25 mg PO BID blood pressure 08/25/16 [History Last Taken 10/20/23] clonidine HCl 0.2 mg tablet 0.1 mg PO TID blood pressure 08/25/16 [History Last Taken 10/20/23] doxazosin 4 mg tablet 8 mg PO QHS prostate 08/25/16 [History Last Taken Unknown] simvastatin 40 mg tablet 80 mg PO QHS cholesterol 08/25/16 [History Last Taken 10/20/23] aspirin 81 mg chewable tablet 81 mg PO DAILY@0800 [employer] ##90 06/20/20 [Rx Last Taken 10/17/23] finasteride 5 mg tablet (Proscar) 5 mg PO DAILY prostate 03/28/21 [History Last Taken Unknown] nifedipine 30 mg tablet,extended release 30 mg PO QHS BLOOD PRESSURE 09/04/23 [History Last Taken 10/20/23] nifedipine 30 mg tablet,extended release 24 hr 60 mg PO DAILY BLOOD PRESSURE 09/04/23 [History Last Taken 10/20/23] ferrous sulfate 325 mg (65 mg iron) tablet (iron) 325 mg PO DAILY SUPPLEMENT 09/30/23 [History Last Taken Unknown] ascorbic acid (vitamin C) 1,000 mg capsule 1 g PO Q6H 10/05/23 [History Last Taken Unknown] carica papaya 2 tab PO BID 10/05/23 [History Last Taken Unknown] cranberry extract 650 mg capsule 1,300 mg PO BID 10/05/23 [History Last Taken Unknown] dietary supplement 1 cap PO DAILY 10/05/23 [History Last Taken Unknown] garlic 1,000 mg capsule 1,000 mg PO BID 10/05/23 [History Last Taken Unknown] omega 3-lvl-ner-fish oil 1,200 mg (144 mg-216 mg) capsule (Fish Oil) 1 cap PO BID 10/05/23 [History Last Taken Unknown] tramadol 50 mg tablet 50 mg PO Q6H PRN pain 3 days #14 tabs 10/21/23 [Rx Last Taken Unknown] Allergy/AdvReac Type Severity Reaction Status Date / Time acetaminophen [From Tylenol] AdvReac Other Verified 10/26/23 08:12 Family History Other CVA (cerebral vascular accident) Cancer Surgical History History of cataract extraction History of colonoscopy History of surgery History of tonsillectomy Previous back surgery Previous back surgery S/P ERCP Social History Smoking Status: Former smoker Tobacco: How many years used: 34 alcohol intake: never substance use type: does not use ROS ROS ED ROS Narrative Dark stool. Nausea and vomiting x 1 today. Review of Systems ROS Unobtainable: Denies due to encephalopathy Constitutional Constitutional ED: Denies chills or fever(s) ENT ENT ED: Denies ear pain Cardiovascular Cardiovascular: Denies chest pain Respiratory/Chest Respiratory/Chest: Denies cough or dyspnea Gastrointestinal Gastrointestinal: Reports nausea and vomiting; Denies abdominal pain, constipation, diarrhea or melena Genitourinary Genitourinary ED: Denies dysuria or hematuria Musculoskeletal Musculoskeletal: Denies arthralgias Integumentary Denies abscess Neurologic Neurologic: Denies headache(s) Psychiatric Psychiatric: Denies anxiety Endocrine Endocrinology: Denies polydipsia or polyphagia Hematologic/Lymphatic Hematologic/Lymphatic: Denies easy bleeding or easy bruising Allergic/Immunologic Allergic/Immunologic ED: Denies mouth swelling, tongue swelling or urticaria EXAM Physical Exam Narrative Exam Narrative: 82-year-old male no acute distress vital signs stable afebrile. Initial blood pressure 133/53. Pulse ox 89% on room air. 96 on 2 L. He does have a history of COPD and is on as needed oxygen at home. He denies feeling short of breath. H EENT exam unremarkable. Neck nontender no JVD. No lymphadenopathy. Lungs clear to auscultation bilaterally. Coarse breath sounds. Heart regular rate and rhythm rate about 65 no murmur. Chest wall and ribs nontender. Abdomen soft nontender. Well-healing laparoscopic incisions. Dry and clean. No redness or discharge. Back nontender. Moving all 4 extremities. 1+ pitting edema both lower extremities. He has chronic edema. Neurologically is awake and alert no focal motor deficits. Rectal exam son present in room. Loose brown stool. Not black. No gross blood. No mass. Nontender. Const Vital Signs: 10/26/23 08:13 10/26/23 08:13 10/26/23 08:14 Temperature 97.7 F L Temperature Source Temporal Pulse Rate 68 66 Respiratory Rate 20 H 20 H 20 H Blood Pressure 133/53 H 133/53 H Blood Pressure Mean 79 79 Pulse Ox 89 89 96 Oxygen Delivery Method Room Air Room Air Nasal Cannula Oxygen Flow Rate (L/min) 2 10/26/23 08:27 10/26/23 08:30 10/26/23 08:40 Temperature Temperature Source Pulse Rate 75 70 Respiratory Rate 22 H 20 H Blood Pressure Blood Pressure Mean Pulse Ox 94 Oxygen Delivery Method Room Air Oxygen Flow Rate (L/min) 10/26/23 08:50 10/26/23 09:00 10/26/23 09:10 Temperature Temperature Source Pulse Rate 65 66 64 Respiratory Rate 22 H 18 15 Blood Pressure 135/55 H Blood Pressure Mean 79 Pulse Ox Oxygen Delivery Method Oxygen Flow Rate (L/min) 10/26/23 09:20 10/26/23 09:30 10/26/23 09:40 Temperature Temperature Source Pulse Rate 66 67 67 Respiratory Rate 22 H 14 18 Blood Pressure Blood Pressure Mean Pulse Ox Oxygen Delivery Method Oxygen Flow Rate (L/min) 10/26/23 09:50 10/26/23 10:00 10/26/23 10:10 Temperature Temperature Source Pulse Rate 64 64 66 Respiratory Rate 17 17 18 Blood Pressure 141/60 H Blood Pressure Mean 84 Pulse Ox Oxygen Delivery Method Oxygen Flow Rate (L/min) 10/26/23 10:20 10/26/23 10:30 Temperature Temperature Source Pulse Rate 64 64 Respiratory Rate 15 13 Blood Pressure Blood Pressure Mean Pulse Ox Oxygen Delivery Method Oxygen Flow Rate (L/min) Positive well nourished and well developed; Negative for cachectic, contractures or unkempt General Appearance ED: well developed and NAD; Negative for unkempt, cachectic, contractures or pallor Nutritional Appearance: Negative for cachectic HEENT Reports moist mucous membranes normocephalic and atraumatic; Negative for trauma or tenderness Eyes PERRL and EOMs intact bilaterally General Eye ED: Negative for pale conjunctiva or scleral icterus Neck no lymphadenopathy, supple and no JVD General: Negative for tenderness Carotids: Negative for other Lymph Lymphatic: Negative for other Resp normal respiratory effort and clear to auscultation bilaterally Resp Narrative: Coarse breath sounds bilaterally. Effort and Inspection: Negative for respiratory distress Auscultation: Negative for rales, rhonchi or wheezes Cardio regular rate, regular rhythm, S1 normal heart sound, S2 normal heart sound and no murmurs Rate: Negative for bradycardia or tachycardic Rhythm: Negative for abnormal rhythm GI non-tender, non-distended and no masses GI Narrative: Well-healing laparoscopic incisions. Dry and clean. Inspection: Negative for abdominal distention Auscultation: normoactive bowel sounds Palpation: soft; Negative for tender, guarding or rebound tenderness present Back/Spine no CVA tenderness Cervical Spine: Negative for cervical spine tenderness Thoracic Spine / Upper Back: Negative for thoracic spinal tenderness Lumbar Spine / Lower Back: Negative for lumbar spinal tenderness Coccyx: Negative for other Extremity full ROM General Extremety ED: Yes edema; Negative for tenderness General Extremity: edema Neuro CN's II-XII intact bilaterally and moves all extremities Sensorium / Orientation: alert, oriented to person, oriented to place and oriented to time; Negative for orientation impaired, confused, lethargic or stuporous Motor Exam: strength 5/5 throughout Psych mental status grossly normal and thought process normal Appearance: Negative for unkempt Attitude: No agitated Mood & Affect: Negative for depressed, anxious or tearful Skin no wounds General Skin Exam: Negative for jaundice or pallor Lesions: no lesions Rashes: no rashes Trauma: Negative for abrasion Nails: Negative for discolored MDM MDM MDM Narrative Medical decision making narrative: 82-year-old male status post laparoscopic cholecystectomy a week ago. Complaining of dark stool. On rectal exam now he is normal brown color stool. Screening labs will be obtained. He is also been on iron for a month but just noticed the stool color change. He has no history of GI bleed. He does take 81 mg of aspirin a day. Repeat exam patient is doing well at 11:30 AM. We went over his test results. He will be discharged to home. He can follow-up as needed. History & Record Review Discussion w/independent historian: Patient Lab Data Attestation: I reviewed the patient's lab results. Lab results narrative: CBC shows WBC is 8.8. H&H of 10.9 and 33.1. Platelets 259. Hemoglobin higher than prior levels. Electrolytes show gap of 8. BUN and creatinine 36 and 1.47. Consistent with prior creatinine levels. Glucose 123. Liver enzymes normal. Labs: Laboratory Results - last 24 hr 10/26/23 09:07 WBC 8.8 RBC 3.66 L Hgb 10.9 L Hct 33.1 L MCV 90.4 MCH 29.8 MCHC 32.9 RDW Std Deviation 41.5 RDW Coeff of Sapna 12.5 Plt Count 259 MPV 11.5 Immature Gran % (Auto) 0.600 Neut % (Auto) 74.0 H Lymph % (Auto) 9.7 L [place] % (Auto) 12.6 H Eos % (Auto) 2.8 Baso % (Auto) 0.3 Absolute Neuts (auto) 6.5 Absolute Lymphs (auto) 0.85 Nucleated RBC % 0 Sodium 138 Potassium 4.6 Chloride 105 Carbon Dioxide 25.0 Anion Gap 8 BUN 36 H Creatinine 1.47 H Estim Creat Clear Calc 30.21 Est GFR (MDRD) Af Amer 59 L Est GFR (MDRD) Non-Af 48 L BUN/Creatinine Ratio 24.5 H Glucose 123 H Calcium 8.8 Total Bilirubin 0.40 AST 24 ALT 31 Alkaline Phosphatase 79 Total Protein 7.1 Albumin 3.2 Globulin 3.9 Albumin/Globulin Ratio 0.8 L Radiography Chest X-Ray - ED: 1 View, Read by ED Physician, Read by Radiologist, Heart, Lungs, Mediastinum, Bony Structures, No Acute Disease and Chronic Changes Diagnostic Testing: Clinical Impression(s) from Imaging Studies Chest X-Ray 10/26/23 09:00 IMPRESSION: 1. Redemonstration of chronic fibrotic opacities of the bilateral lower lobes. No new infiltrates or focal areas of consolidation are present. Electronically Signed: Inderjit Ames MD at 9:42 EDT Reading Location ID and State: [facility] / [place] , Service support , Chest x-ray, portable, single view interpreted by by myself and the radiologist shows no acute abnormality. Chronic fibrotic changes. He does have a history of COPD. No pneumonia. No pulmonary edema. No effusions. Normal cardiac silhouette. Discharge Plan Triage Chief Complaint: GI Bleed ED Provider: Yimi Younger Dx/Rx/DC Orders Clinical Impression: History of COPD, Dark stools, History of CHF (congestive heart failure), History of anemia Prescriptions: No Action ascorbic acid (vitamin C) 1,000 mg capsule 1 g PO Q6H garlic 1,000 mg capsule 1,000 mg PO BID carica papaya Tablet,Chewable 2 tab PO BID omega 3-xro-leo-fish oil [Fish Oil] 1,200 (144-216) mg capsule 1 cap PO BID Hold Instructions: Resume on 10/23/23. cranberry extract 650 mg capsule 1,300 mg PO BID Rx Instructions: administer with meals dietary supplement Capsule 1 cap PO DAILY Rx Instructions: sunflower lecithin carvedilol [Coreg] 25 MG tablet 25 mg PO BID simvastatin 40 MG tablet 80 mg PO QHS clonidine HCl 0.2 MG tablet 0.1 mg PO TID doxazosin 4 MG tablet 8 mg PO QHS albuterol sulfate [Ventolin HFA] 1 INHALER inhaler 2 puff inhalation Q6H PRN PRN (Reason: Asthma) aspirin 81 MG tablet,chewable 81 mg PO DAILY@0800 Qty: 90 0RF Hold Instructions: Resume on 10/23/23. finasteride [Proscar] 5 mg tablet 5 mg PO DAILY Patient Comments: TAKE 1 TABLET BY MOUTH EVERY DAY ferrous sulfate [iron] 325 mg (65 mg iron) tablet 325 mg PO DAILY tramadol 50 mg tablet 50 mg PO Q6H PRN (Reason: pain) 3 Days Qty: 14 0RF nifedipine 30 mg tablet extended release 24hr 60 mg PO DAILY Patient Comments: TAKE 2 TABLETS BY MOUTH EVERY MORNING AND 1 TABLET EVERY EVENING STRENGTH: 30 MG nifedipine 30 mg tablet extended release 30 mg PO QHS Primary Care Provider: Pasha Bland Referrals: Pasha Bland DO [Primary Care Provider] - As Needed Activity Restrictions/Additional Instructions: Your labs today look good. No signs of bleeding. In fact your blood count was 10.9 which is higher than it was in August which was 9.2 and then 10.5. Follow-up with your doctor as needed. Currently there is no signs of bleeding. Disposition Disposition: Home, Self Care
--- NOTE | 2023-10-26 09:00 | RAD_ITS ---
STUDY: X-RAY CHEST REASON FOR EXAM: Male, 82 years old. low pulse ox TECHNIQUE: Single AP portable view of the chest. COMPARISON: September 05, 2023 FINDINGS: Redemonstration of chronic fibrotic opacities of the bilateral lower lobes. No new infiltrates or focal areas of consolidation are present. There is no demonstrated pleural abnormality. Normal size heart. Normal mediastinum and khurram. Normal visualized pulmonary arteries. There is atherosclerotic calcification of the aortic arch with tortuosity. There are diffuse degenerative changes of the visualized thoracic spine. Normal visualized ribs, clavicles, and shoulders. There is no demonstrated abnormality of the visualized soft tissue structures of the upper abdomen. RAD/Chest 1 View (Portable) IMPRESSION: 1. Redemonstration of chronic fibrotic opacities of the bilateral lower lobes. No new infiltrates or focal areas of consolidation are present. Electronically Signed: Inderjit Ames MD at 9:42 EDT ,
[2023-10-26 09:15] LABS: Absolute Lymphocyte Count 0.85 X10^3/uL (0.83-4.51); Absolute Neutrophil Count 6.5 X10^3/uL (2.0-7.7); Basophil# 0.03 X10^3/uL; Basophil% 0.3 % (0-1); Eosinophil# 0.25 X10^3/uL; Eosinophils% 2.8 % (0-5); Hematocrit 33.1 % (40-54); Hemoglobin 10.9 g/dL (13.0-16.5); Lymphocyte # 0.85 X10^3/ul (0.83-4.51); Lymphocyte % 9.7 % (19-41); Mean Corp Hgb Conc 32.9 g/dL (32-36); Mean Corpuscular Hgb 29.8 pg (27.0-32.0); Mean Corpuscular Volume 90.4 fL (80-94); Mean Platelet Vol. 11.5 fl (6.2-12.0); Monocyte# 1.11 X10^3/uL; Monocyte% 12.6 % (0-10); NRBC Flagged by Analyzer 0 % (0-5); Neutrophil # 6.49 X10^3/uL (2.7-7.7); Platelet Count 259 K/mm3 (150-450); RBC Distribution Width CV 12.5 % (11.6-14.6); RBC Distribution Width SD 41.5 fl (35.1-43.9); Red Blood Count 3.66 M/mm3 (4.6-6.2); White Blood Count 8.8 K/mm3 (4.4-11.0)
[2023-10-26 09:31] LABS: ALB/GLOB Ratio 0.8 RATIO (0.9-2.4); AST(SGOT) 24 U/L (15-37); Alanine Aminotransfer ALT/SGPT 31 U/L (16-61); Albumin, Serum 3.2 g/dL (3.2-5.0); Alkaline Phosphatase 79 U/L (45-117); Anion Gap 8 (5-15); BUN 36 mg/dL (7-18); BUN/Creat Ratio 24.5 RATIO (10-20); Calcium,Total 8.8 mg/dL (8.5-10.1); Chloride 105 mmol/L (98-107); Creatinine, Serum 1.47 mg/dL (0.70-1.30); EST Glomerular Filtration Rate 48 mL/min (>60); Est Glom Filt Rate - Afr Amer 59 mL/min (>60); Estimated Creatinine Clearance 30.21 ml/min; Globulin 3.9 g/dL (2.2-4.2); Glucose 123 mg/dL (74-106); Potassium 4.6 mmol/L (3.5-5.1); Protein, Total 7.1 g/dL (6.4-8.2); Sodium Level 138 mmol/L (136-145)
== END 2023-10-26 11:58 | disposition home or self-care (01) ==
PROVIDERS: Emergency Provider Emergency Medicine; PCP Family Medicine; Visit Provider Emergency Medicine
DX: R19.5 Other fecal abnormalities (principal); J44.9 Chronic obstructive pulmonary disease, unspecified; I13.0 Hypertensive heart and chronic kidney disease with heart failure and stage 1 through stage 4 chronic kidney disease, or unspecified chronic kidney disease; I50.9 Heart failure, unspecified; Z87.891 Personal history of nicotine dependence; Z86.73 Personal history of transient ischemic attack (TIA), and cerebral infarction without residual deficits; Z79.82 Long term (current) use of aspirin; Z90.49 Acquired absence of other specified parts of digestive tract; N18.9 Chronic kidney disease, unspecified; E78.5 Hyperlipidemia, unspecified; Z99.81 Dependence on supplemental oxygen; Z79.899 Other long term (current) drug therapy; D64.9 Anemia, unspecified
CPT/HCPCS: 71045; 80053; 85025; 99283; J7030

== ENCOUNTER → 2023-11-22 | Outpatient (CLI) | payer MEDICARE, SELFPAY ==
[2023-11-22 13:55] VITALS: PULSE 59; PULSE 60; PULSE 62; PULSE 64; PULSE 66; PULSE 68; PULSE 69; PULSE 71; O2SAT 92; O2SAT 93; O2SAT 94
--- NOTE | 2023-11-22 14:02 | CPS ---
PATIENT FORGOT HIS MARTINEZ FOR TESTING. ALL TESTING DONE ON ROOM AIR. (HE DOES HAVE O2 THROUGH [facility] FOR USE AT ). NO REST BREAKS REQUESTED OR REQUIRED AND HE AMBULATED 737 FT.
--- NOTE | 2023-11-23 07:48 | PCM.PSN.6M ---
PSN 6 Minute Walk Test 6 Minute Walk Test 6 Minute Walk Test: 6 Minute Walk Test PSN:6-Minute Walk Test Start: 11/22/23 13:54 Freq: Status: Active Protocol: [id number].6MINW Document 11/22/23 13:55 [facility] (Rec: 11/22/23 14:03 [facility] [id number]) 6 Minute Walk Test Date Performed 11/22/23 Time Performed 13:45 Height 5 ft 1 in Weight: 128 lb Weight in Pounds 128.[address]: Felix Orellana Assistive device used: None Pre-test Oxygen Delivery Method Room Air Pulse Ox 94 Pulse Rate (60-100) 60 Dyspnea Rafael Scale (0-10) 0 1st minute Oxygen Delivery Method Room Air Pulse Ox 94 Pulse Rate (60-100) 59 L Dyspnea Rafael Scale (0-10) 0 Number of Rests Taken 0 2nd minute Oxygen Delivery Method Room Air Pulse Ox 92 Pulse Rate (60-100) 62 Dyspnea Rafael Scale (0-10) 0 Number of Rests Taken 0 3rd minute Oxygen Delivery Method Room Air Pulse Ox 92 Pulse Rate (60-100) 66 Dyspnea Rafael Scale (0-10) 0 Number of Rests Taken 0 4th minute Oxygen Delivery Method Room Air Pulse Ox 93 Pulse Rate (60-100) 69 Dyspnea Rafael Scale (0-10) 0 Number of Rests Taken 0 5th minute Oxygen Delivery Method Room Air Pulse Ox 93 Pulse Rate (60-100) 68 Dyspnea Rafael Scale (0-10) 0 Number of Rests Taken 0 6th minute Oxygen Delivery Method Room Air Pulse Ox 94 Pulse Rate (60-100) 71 Dyspnea Rafael Scale (0-10) 0 Number of Rests Taken 0 Post-test Oxygen Delivery Method Room Air Pulse Ox 93 Pulse Rate (60-100) 64 Dyspnea Rafael Scale (0-10) 0 Full Laps Walked 12 Partial Lap, Number of Tiles Walked 29 Total Distance Walked (ft) 737 11/22/23 14:02 Cardiopulmonary Services by Hannah Winston PATIENT FORGOT HIS MARTINEZ FOR TESTING. ALL TESTING DONE ON ROOM AIR. (HE DOES HAVE O2 THROUGH [facility] FOR USE AT ). NO REST BREAKS REQUESTED OR REQUIRED AND HE AMBULATED 737 FT. Initialized on 11/22/23 14:02 - END OF NOTE Interpretation Interpretation: The patient ambulated 737 feet over the course of 6 minutes beginning on room air without assistive devices. Pretesting oxygen saturation was noted to be 94% on room air. With ambulation, the bartolome oxygen saturation was 92%. There was no significant exertional oxygen desaturation. Recommendations Recommendations: There is no indication for the use of supplemental oxygen at this time.
== END | disposition home or self-care (01) ==
LOC: PSN 13:26
PROVIDERS: PCP Family Medicine; Referring Provider Internal Medicine Critical Care Medicine; Visit Provider Internal Medicine Critical Care Medicine
DX: R06.00 Dyspnea, unspecified (principal)
CPT/HCPCS: 94618

== ENCOUNTER → 2023-11-28 | Outpatient (CLI) | payer MEDICARE, SELFPAY | END | disposition home or self-care (01) | LOC: PSN 12:41 | PROVIDERS: PCP Family Medicine; Referring Provider Internal Medicine Critical Care Medicine; Visit Provider Internal Medicine Critical Care Medicine | DX: R06.00 Dyspnea, unspecified (principal) | CPT/HCPCS: 94060; 94726; 94729 ==

== ENCOUNTER 2023-11-30 10:00 | Day surgery (SDC) | payer MEDICARE, SELFPAY ==
[2023-11-30] VITALS (8 sets, daily range): BP systolic 94–144; BP diastolic 53–70; PULSE 53–60; RESP 16; TEMP 36.2–36.8; O2SAT 96–99; BMI 25.0
--- NOTE | 2023-11-30 10:06 | EKG12_ITS ---
Test Reason : PREOP Blood Pressure : / mmHG Vent. Rate : 059 BPM Atrial Rate : 059 BPM P-R Int : 166 ms QRS Dur : 132 ms QT Int : 436 ms P-R-T Axes : 058 079 037 degrees QTc Int : 431 ms Sinus bradycardia Right bundle branch block Abnormal ECG When compared with ECG of 04-SEP-2023 05:14, No significant change was found Confirmed by CHELSIE LEON, OSBALDO ([id number]), general expeditor LIANA SEPULVEDA ([id number]) on 12/02/2023 10:46:30 AM Referred By: Pasha Bland Confirmed By:OSBALDO HOLGUIN MD
[2023-11-30] MEDS: Lactated Ringers 1,000 ML 15 ML IV (10:19)
--- NOTE | 2023-11-30 10:39 | PCM.HP.BLA ---
History and Physical Date of Admission: 11/30/23 82 M who presents to the hospital with right upper quadrant abdominal pain that started about 9 PM last night and has steadily worsened throughout the evening and into the morning. Ultrasound of the gallbladder demonstrated acute cholecystitis but he does have some medical history with recent admission for COVID bronchitis so general surgery asked for a medical admission. CT scan of the abdomen pelvis also showed a hernia and surgery was able to reduce this in the ER. He was given a dose of Zosyn as well as pain medication. Plan would be for operative intervention on Tuesday. [facility] Medical History (Updated 09/04/23 @ 10:[address] Sandra Gregorio MD) Acute exacerbation of congestive heart failure Asthma Cardiac murmur CHF (congestive heart failure) CKD (chronic kidney disease) COPD (chronic obstructive pulmonary disease) HTN (hypertension) Hyperlipidemia Hypertension Hypoxemia Right inguinal hernia TIA (transient ischemic attack) Home Medications albuterol sulfate 90 mcg/actuation aerosol inhaler (Ventolin HFA) 2 puff inhalation Q6H PRN PRN Asthma 08/25/16 [History Last Taken Unknown] carvedilol 25 mg tablet (Coreg) 25 mg PO BID blood pressure 08/25/16 [History Last Taken Unknown] clonidine HCl 0.2 mg tablet 0.1 mg PO TID blood pressure 08/25/16 [History Last Taken Unknown] doxazosin 4 mg tablet 8 mg PO QHS prostate 08/25/16 [History Last Taken Unknown] simvastatin 40 mg tablet 40 mg PO QHS cholesterol 08/25/16 [History Last Taken Unknown] ascorbic acid (vitamin C) 1,000 mg tablet (Vitamin C) 1,000 mg PO DAILY vitamin 01/20/17 [History Last Taken Unknown] calcium carbonate 500 mg calcium (1,250 mg) tablet 500 mg PO DAILY supplement 01/20/17 [History Last Taken Unknown] capsicum (cayenne) 450 mg capsule 450 mg PO DAILY supplement 01/20/17 [History Last Taken Unknown] carica papaya 1 ea PO DAILY supplement 01/20/17 [History Last Taken Unknown] cholecalciferol (vitamin D3) 50 mcg (2,000 unit) capsule (Vitamin D3) 2,000 unit PO DAILY vitamin 01/20/17 [History Last Taken Unknown] garlic 1,000 mg capsule 1,000 mg PO DAILY supplement 01/20/17 [History Last Taken Unknown] ginseng 100 mg capsule 100 mg PO DAILY supplement 01/20/17 [History Last Taken Unknown] lecithin 1,200 mg capsule 1,200 mg PO DAILY supplement 01/20/17 [History Last Taken Unknown] milk thistle 150 mg capsule 150 mg PO DAILY supplement 01/20/17 [History Last Taken Unknown] omega 3-dha 60 mg-epa 90 mg-fish oil 500 mg capsule, delayed release (Fish Oil) 500 mg PO DAILY supplement 01/20/17 [History Last Taken Unknown] saw palmetto 500 mg capsule 500 mg PO DAILY supplement 01/20/17 [History Last Taken Unknown] vitamin B complex-folic acid 0.4 mg tablet (Super B Maxi Complex) 0.4 mg PO DAILY vitamin 01/20/17 [History Last Taken Unknown] aspirin 81 mg chewable tablet 81 mg PO DAILY@0800 [employer] ##90 06/20/20 [Rx Last Taken Unknown] finasteride 5 mg tablet (Proscar) 5 mg PO DAILY prostate 03/28/21 [History Last Taken Unknown] nifedipine 60 mg tablet,extended release 24 hr 30 mg PO DAILY blood pressure 03/28/21 [History Last Taken Unknown] dexamethasone 6 mg tablet 6 mg PO DAILY #8 tabs 08/15/23 [Rx Last Taken Unknown] Allergy/AdvReac Type Severity Reaction Status Date / Time acetaminophen [From Tylenol] AdvReac Other Verified 09/04/23 04:46 Family History Other CVA (cerebral vascular accident) Cancer Surgical History History of tonsillectomy Previous back surgery Previous back surgery Social History Smoking Status: Former smoker substance use type: does not use ROS Constitutional Constitutional: Denies chills, fatigue, fever(s) or malaise Eyes Eyes: Denies blurry vision ENT HEENT: Denies headache(s) or nasal discharge Cardiovascular Cardiovascular: Denies chest pain, dyspnea on exertion or syncope Respiratory/Chest Respiratory/Chest: Denies cough, shortness of breath at rest or shortness of breath with exertion Gastrointestinal Gastrointestinal: Reports abdominal pain, nausea and vomiting; Denies constipation or diarrhea Genitourinary Genitourinary: Denies dysuria Neurologic Neurologic: Denies focal weakness, numbness or tremor(s) Psychiatric Psychiatric: Denies anxiety or depression Vital Signs Vital Signs Vital Signs: 09/04/2403:30 09/04/2405:32 09/04/2408:21 Temperature 97.5 F L Temperature Source Oral Pulse Rate 71 72 93 Respiratory Rate 24 H 28 H Blood Pressure 148/65 H 156/89 H Blood Pressure Mean 92 111 Pulse Ox 91 98 Oxygen Delivery Method Room Air Room Air Weight Weight: 148 lb 5.938 oz Body Mass Index (BMI) 28.0 Physical Exam Narrative General: Alert, Oriented x3, Cooperative, No apparent distress HEENT: Atraumatic, PERRLA, EOMI, Normocephalic Oral: Moist Mucosa Neck: Supple, No JVD Lungs: Diminished, Normal air movement, No rhonchi, No wheeze, No rales Cardiovascular: Regular rate, Regular Rhythm, Normal S1, Normal S2, No murmurs Abdomen: Soft, RUQ tender, Non-Distended, No Hepato-splenomegaly Extremities: No edema, Capillary Refill Less than 3 Seconds Skin: No rashes, No breakdown Musculoskeletal: No Tenderness to Palpation of Joints or Extremities Neurological: No focal neurological deficits, Motor Exam 5/5 strength throughout, Sensory exam intact to light touch and pain Psych/Mental Status: Normal Affect, Appropriate Results Lab / Micro Data 09/04/23 05:00 09/04/23 05:00 Labs: Laboratory Results - last 24 hr 09/04/23 05:00: WBC 12.4 H, RBC 3.73 L, Hgb 11.4 L, Hct 33.4 L, MCV 89.5, MCH 30.6, MCHC 34.1, RDW Std Deviation 41.9, RDW Coeff of Sapna 12.8, Plt Count 197, MPV 11.6, Immature Gran % (Auto) 0.500, Neut % (Auto) 82.4 H, Lymph % (Auto) 7.5 L, Brooks % (Auto) 6.5, Eos % (Auto) 2.7, Baso % (Auto) 0.4, Absolute Neuts (auto) 10.2 H, Absolute Lymphs (auto) 0.93, Nucleated RBC % 0, Sodium 141, Potassium 3.7, Chloride 107, Carbon Dioxide 30.0, Anion Gap 4 L, BUN 32 H, Creatinine 1.06, Estim Creat Clear Calc 42.78, Est GFR (MDRD) Af Amer 85, Est GFR (MDRD) Non-Af 71, BUN/Creatinine Ratio 30.2 H, Glucose 133 H, Calcium 8.6, Total Bilirubin 0.40, AST 40 H, ALT 121 H, Alkaline Phosphatase 173 H, Total Protein 6.6, Albumin 2.7 L, Globulin 3.9, Albumin/Globulin Ratio 0.7 L, Lipase 79 H Imagaing Radiology Impression Abdomen/Pelvis CT 09/04/23 06:12 IMPRESSION: 1. The gallbladder is distended and contains multiple stones, and there is some mild prominence of the gallbladder wall. Findings could indicate acute cholecystitis. Correlate for right upper quadrant symptoms and consider an ultrasound for correlation. 2. There is a short segment of small bowel extending into a right inguinal hernia. Narrowing of the small bowel as it enters and exits the hernia. Correlate clinically for incarceration. Some mild distention of the more proximal small bowel loops, which could indicate a partial obstruction. Electronically Signed: Tung Yang MD at 6:28 EST , Gallbladder Ultrasound 09/04/23 06:31 IMPRESSION: Acute cholecystitis, refer to general surgery 1. Acute cholecystitis with distended gallbladder, multiple stones, and pericholecystic fluid. Electronically Signed: Inderjit Ames MD at 9:00 EST , Assessment & Plan Assessment/Plan (1) Acute cholecystitis: PLAN: Plan 1. Acute cholecystitis ? No cholestatic pattern ? Continue with Zosyn ? He underwent cholecystectomy and did well during the procedure. He was discovered to have an abnormal IOC and increased LFTs at the procedure. 2. Choledocholithiasis status post ERCP with stone removal and stent placement comes in for stent removal.
--- NOTE | 2023-11-30 11:15 | RAD_ITS ---
INDICATION: PAIN EXAMINATION/TECHNIQUE: ERCP limited spot intraoperative films are presented for evaluation. Total Fluoroscopic Time: 57.5 seconds AND number of Fluoroscopic Images: 7 OR Radiation dosage index: 14.16 mGy. COMPARISON: No relevant prior comparison study available FINDINGS: The common bile duct was cannulated. Filling defects are seen in the distal common bile duct could represent retained stones. Images were obtained for documentation. No radiologist was present. RAD/ERCP Biliary/Pancreas IMPRESSION: ERCP as described above Electronically Signed: Tavon Daniels MD at 13:02 EDT ,
--- NOTE | 2023-11-30 12:26 | OP.ERCP_ITS ---
Patient Name: Dannie Canela Procedure Date: 11/30/2023 11:43 AM Date of : 1940 Age: 83 Procedure: ERCP Indications: Bile duct stone(s), Stent removal Providers: Blayne Mahmood DO Medicines: Monitored Anesthesia Care Patient Profile: This is an 83 year old male. Refer to note in patient chart for documentation of history and physical. Patient has symptoms of acute right upper quadrant abdominal pain and chronic right upper quadrant abdominal pain. His most recent ERCP for stent and ERCP for stone removal. He is status post laparoscopic cholecystectomy. Complications: No immediate complications. Procedure: Pre-Anesthesia Assessment: - Prior to the procedure, a History and Physical was performed, and patient medications and allergies were reviewed. The patient is competent. The risks and benefits of the procedure and the sedation options and risks were discussed with the patient. All questions were answered and informed consent was obtained. Patient identification and proposed procedure were verified by the physician in the pre-procedure area. Mental Status Examination: normal. Prophylactic Antibiotics: The patient does not require prophylactic antibiotics. Prior Anticoagulants: The patient has taken no anticoagulant or antiplatelet agents. ASA Grade Assessment: II - A patient with mild systemic disease. After reviewing the risks and benefits, the patient was deemed in satisfactory condition to undergo the procedure. The anesthesia plan was to use monitored anesthesia care (MAC). Immediately prior to administration of medications, the patient was re-assessed for adequacy to receive sedatives. The heart rate, respiratory rate, oxygen saturations, blood pressure, adequacy of pulmonary ventilation, and response to care were monitored throughout the procedure. The physical status of the patient was re-assessed after the procedure. After obtaining informed consent, the scope was passed under direct vision. Throughout the procedure, the patient's blood pressure, pulse, and oxygen saturations were monitored continuously. The Duodenoscope was introduced through the mouth, and advanced to the duodenum and used to inject contrast into the bile duct and ventral pancreatic duct. The ERCP was accomplished without difficulty. The patient tolerated the procedure well. Scope In: 12:00:34 PM Scope Out: 12:14:49 PM Total Procedure Duration Time 0 hours 14 minutes 15 seconds Findings: The legislative analyst film was normal. The esophagus was successfully intubated under direct vision. The scope was advanced to a normal major papilla in the descending duodenum without detailed examination of the pharynx, larynx and associated structures, and upper GI tract. The upper GI tract was grossly normal. The bile duct was deeply cannulated with the short-nosed traction sphincterotome. Contrast was injected. I personally interpreted the bile duct and pancreatic duct images. There was brisk flow of contrast through the ducts. Image quality was adequate. Contrast extended to the entire biliary tree. Opacification of the entire biliary tree except for the gallbladder was successful. The maximum diameter of the ducts was 9 mm. The lower third of the main bile duct contained multiple stones, the largest of which was 6 mm in diameter. The entire biliary tree except for the cystic duct and gallbladder were moderately dilated and diffusely dilated, with a stone causing an obstruction. The largest diameter was 9 mm. A cholecystectomy had been performed. A straight Roadrunner wire was passed into the biliary tree. A 5 mm biliary sphincterotomy was made with a monofilament traction (standard) sphincterotome using ERBE electrocautery. The sphincterotomy oozed blood. The biliary tree was swept with a 12 mm balloon starting at the bifurcation. Sludge was swept from the duct. All stones were removed. One stent was removed from the biliary tree using a rat-toothed forceps. The stent was found to be occluded via the water column test. The ventral pancreatic duct was deeply cannulated with the short-nosed traction sphincterotome. Contrast was injected. Opacification of the entire pancreatic ductal system was successful. The maximum diameter of the ducts was 3 mm. The entire opacified area was normal. A long 0.025 inch Jagwire was passed into the ventral pancreatic duct. Impression: - The biliary system were moderately dilated, with a stone causing an obstruction. - The patient has had a cholecystectomy. - Choledocholithiasis was found. Complete removal was accomplished by biliary sphincterotomy and balloon extraction. - A biliary sphincterotomy was performed. - The biliary tree was swept. - One stent was removed from the biliary tree. Procedure Code(s): --- Professional --- 34881, Endoscopic retrograde cholangiopancreatography (ERCP); with removal of foreign body(s) or stent(s) from biliary/pancreatic duct(s) 49823, Endoscopic retrograde cholangiopancreatography (ERCP); with removal of calculi/debris from biliary/pancreatic duct(s) 74369, Endoscopic retrograde cholangiopancreatography (ERCP); with sphincterotomy/papillotomy 64808, 26, Combined endoscopic catheterization of the biliary and pancreatic ductal systems, radiological supervision and interpretation CPT copyright 2021 [employer]. All rights reserved. The codes documented in this report are preliminary and upon information coder review may be revised to meet current compliance requirements. Blayne Mahmood DO 11/30/2023 12:25:44 PM This report has been signed electronically. Number of Addenda: 0 Note Initiated On: 11/30/2023 11:43 AM
--- NOTE | 2023-11-30 12:26 | OP.CCLET_ITS ---
11/30/2023 Pasha Bland Re : ERCP procedure for Dannie Sahni Jaydalouismaximino This procedure was performed on Thursday, November 30, 2023. My impressions and recommendations are as follows: Impressions : - The biliary system were moderately dilated, with a stone causing an obstruction. - The patient has had a cholecystectomy. - Choledocholithiasis was found. Complete removal was accomplished by biliary sphincterotomy and balloon extraction. - A biliary sphincterotomy was performed. - The biliary tree was swept. - One stent was removed from the biliary tree. Recommendations : My findings are described in the full procedure note, which is enclosed. If I can be of further assistance, please feel free to contact me at . Sincerely, Blayne Mahmood, 11/30/2023 12:25:44 PM This report has been signed electronically.
== END 2023-11-30 13:33 | disposition home or self-care (01) ==
LOC: EN 10:01 → AC 10:04
PROVIDERS: PCP Family Medicine; Referring Provider Family Medicine; Visit Provider Internal Medicine Gastroenterology
PROC: (CPT 43260; principal; 2023-11-30 10:55)
DX: K80.43 Calculus of bile duct with acute cholecystitis with obstruction (principal); I50.9 Heart failure, unspecified; I13.0 Hypertensive heart and chronic kidney disease with heart failure and stage 1 through stage 4 chronic kidney disease, or unspecified chronic kidney disease; J44.9 Chronic obstructive pulmonary disease, unspecified; N18.9 Chronic kidney disease, unspecified; Z79.82 Long term (current) use of aspirin; Z87.891 Personal history of nicotine dependence; E78.5 Hyperlipidemia, unspecified; Z86.73 Personal history of transient ischemic attack (TIA), and cerebral infarction without residual deficits; Z79.899 Other long term (current) drug therapy; Z90.49 Acquired absence of other specified parts of digestive tract
CPT/HCPCS: 43262; 43275; 43264; 74330; 76000; 93005; J7120; J2405

== ENCOUNTER 2024-12-20 11:00 | Day surgery (SDC) | payer MEDICARE, SELFPAY ==
--- NOTE | 2024-12-19 16:37 | PAT.ANESEVAL ---
Pre-Assessment Diagnosis/Proposed Procedure Planned Operative Procedure(s): (R) Lap Robotic Inguinal Hernia right inguinal hernia repair with mesh Anesthesia History Anesthesia History - ambulatory care nurse: Anesthesia History - ambulatory care nurse Hx Hospitalization Yes: 07/2023 COVID, 08/202312/12/24 10:09 GALLBLADDER ISSUES Any Problems With Anesthesia No 12/12/24 10:09 Cholinesterase deficiency No 12/12/24 10:09 You/Your Family Experience No 12/12/24 10:09 fever (hyperthermia) with Relationship Recent Exposure to Contagious No 11/30/23 10:15 Disease Does patient have nerve No 12/12/24 10:09 stimulator Patient instructed to have device shut off --Does patient have Pacemaker or ICD? When Was Last Pacemaker Check QUESTION #4 FULL TEXT: You/Your Family Experience fever (hyperthermia) with Anesthesia Last Oral Intake Last Oral intake: Last Oral Intake NPO since Meds taken in AM with sips of water? Meds patient instructed to take am of surgery PONV PONV - ambulatory care nurse: PONV - ambulatory care nurse Female No 12/12/24 10:09 HX of Motion Sickness No 12/12/24 10:09 HX of N/V After Surgery No 12/12/24 10:09 Non-Smoker Yes 12/12/24 10:09 Duration of Surgery greater No 12/12/24 10:09 than 60 minutes Number of Risk Factors 1 12/12/24 10:09 PONV Score Low Risk 12/12/24 10:09 Height & Weight Height & Weight: Anesthesia: Height & Weight Height 5 ft 12/07/24 13:16 Respiratory Assessment Respiratory Assessment - ambulatory care nurse: Respiratory Tract Infection Hx - ambulatory care nurse Hx Respiratory Tract Infection No 12/12/24 10:09 STOP Sleep Apnea STOP Sleep Apnea - ambulatory care nurse: STOP Sleep Apnea - ambulatory care nurse Hx Hypertension Yes: CONTROLLED WITH MED 12/12/24 10:09 Hx Sleep Apnea No 12/12/24 10:09 CPAP BIPAP Do you snore loudly (louder No 12/12/24 10:09 than talking or can be heard Do you often feel tired/ No 12/12/24 10:09 fatigued/ sleepy during daytime? Has anyone observed you stop No 12/12/24 10:09 breathing during sleep? STOP Results Negative 12/12/24 10:09 QUESTION #5 FULL TEXT : Do you snore loudly (louder than talking or can be heard through closed doors)? 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 Specify any problems Hx of Preganancy in last 3 N/A 12/12/24 10:09 Months Nurse Filling Out Transfusion VCHRISTIN 12/12/24 10:09 & Questions: Date: 12/12/24 12/12/24 10:09 Time: 10:10 12/12/24 10:09 Patient unable to answer at this time (ie. confused, unrespo /Reproduction History /Reproductive History - ambulatory care nurse: /Reproductive Hx- ambulatory care nurse Hx Now Gestational Age (in weeks): EDC: Hx Hx Para Hx Section SAB No 12/12/24 10:09 Active Medications Active Medications: Current Medications Generic Name Dose Route Start Last Admin Trade Name Freq PRN Reason Stop Dose Admin Cefazolin Sodium 2 gm/ Sodium 110 mls @ 150 mls/hr 12/20/24 09:35 Chloride IV 12/20/24 10:18 INTRAOP ONE PFSH Medical History (Updated 12/12/24 @ 10:08 by Melanie Fitzpatrick) Wears glasses Wears dentures Ambulates with cane Urinary retention Blackout History of ulceration On home oxygen therapy Former smoker History of edema Cardiology follow-up encounter History of echocardiogram Right inguinal hernia Acute cholecystitis Asthma Acute exacerbation of congestive heart failure Cardiac murmur TIA (transient ischemic attack) CKD (chronic kidney disease) HTN (hypertension) COPD (chronic obstructive pulmonary disease) CHF (congestive heart failure) Hyperlipidemia Home Medications ?Medication ?Instructions ?Recorded ?Last Taken ?Type albuterol sulfate 90 mcg/actuation 2 puff inhalation Q6H PRN PRN 08/25/16 11/29/23 History aerosol inhaler (Ventolin HFA) Asthma carvedilol 25 mg tablet (Coreg) 25 mg PO BID blood pressure 08/25/16 11/30/23 History doxazosin 4 mg tablet 8 mg PO QHS prostate 08/25/16 11/29/23 History simvastatin 40 mg tablet 80 mg PO QHS cholesterol 08/25/16 11/29/23 History aspirin 81 mg chewable tablet 81 mg PO DAILY@0800 [facility] 06/20/20 12/09/24 Rx ##90 finasteride 5 mg tablet (Proscar) 5 mg PO DAILY prostate 03/28/21 11/29/23 History nifedipine 30 mg tablet,extended 30 mg PO QHS BLOOD PRESSURE 09/04/23 10/20/23 History release nifedipine 30 mg tablet,extended 60 mg PO DAILY BLOOD PRESSURE 09/04/23 11/30/23 History release 24 hr ascorbic acid (vitamin C) 1,000 mg 1 g PO Q6H 10/05/23 11/29/23 History capsule carica papaya 2 tab PO BID 10/05/23 11/29/23 History cranberry extract 650 mg capsule 1,300 mg PO BID 10/05/23 11/29/23 History dietary supplement 1 cap PO DAILY 10/05/23 11/29/23 History garlic 1,000 mg capsule 1,000 mg PO BID 10/05/23 11/29/23 History omega 3-ary-gyp-fish oil 1,200 mg 1 cap PO BID 10/05/23 12/09/24 History (144 mg-216 mg) capsule (Fish Oil) clonidine HCl 0.1 mg tablet 0.1 mg PO BID 10/16/24 Unknown History budesonide 160 mcg-glycopyr 9 2 inh inhalation BID 12/12/24 Unknown History mcg-formot 4.8 mcg/actuation HFA inhaler (Breztri Aerosphere) Allergy/AdvReac Type Severity Reaction Status Date / Time acetaminophen (From Tylenol) AdvReac Other Verified 12/12/24 09:53 Family History Other CVA (cerebral vascular accident) Cancer Surgical History (Updated 12/12/24 @ 10:08 by Melanie Fitzpatrick) History of ERCP S/P laparoscopic cholecystectomy History of cataract extraction History of surgery History of colonoscopy S/P ERCP Previous back surgery Previous back surgery History of tonsillectomy Social History Smoking Status: Former smoker Tobacco: How many years used: 34 alcohol intake: never substance use type: does not use Recommendation Anesthesia Recommendation Anesthesia recommendation: Anesthesia NOT approved Reason NOT optimized for anesthesia: This patient needs cardiac clearance as well as pulmonary clearance. Has not seen pulmonary > 1 year and has severe COPD. Should also be cleared by cardiology and have full cardiac workup prior to pursuing surgery. Follow up Details Cardiac/Pulmonary Imaging Recommendation: Yes Consult Recommendation: Yes Outside Record Recommendation: Yes
[2024-12-20] VITALS (10 sets, daily range): BP systolic 130–148; BP diastolic 54–66; PULSE 57–87; RESP 14–18; TEMP 36.4–36.8; O2SAT 90–99; BMI 26.4
--- NOTE | 2024-12-20 09:51 | PAT.ANESEVAL ---
Pre-Assessment Diagnosis/Proposed Procedure Planned Operative Procedure(s): (R) Lap Robotic Inguinal Hernia right inguinal hernia repair with mesh Anesthesia History Anesthesia History - clinical secretary: Anesthesia History - clinical secretary Hx Hospitalization Yes: 07/2023 COVID, 08/202312/12/24 10:09 GALLBLADDER ISSUES Any Problems With Anesthesia No 12/12/24 10:09 Cholinesterase deficiency No 12/12/24 10:09 You/Your Family Experience No 12/12/24 10:09 fever (hyperthermia) with Relationship Recent Exposure to Contagious No 11/30/23 10:15 Disease Does patient have nerve No 12/12/24 10:09 stimulator Patient instructed to have device shut off --Does patient have Pacemaker or ICD? When Was Last Pacemaker Check QUESTION #4 FULL TEXT: You/Your Family Experience fever (hyperthermia) with Anesthesia Last Oral Intake Last Oral intake: Last Oral Intake NPO since Meds taken in AM with sips of water? Meds patient instructed to take am of surgery PONV PONV - clinical secretary: PONV - clinical secretary Female No 12/12/24 10:09 HX of Motion Sickness No 12/12/24 10:09 HX of N/V After Surgery No 12/12/24 10:09 Non-Smoker Yes 12/12/24 10:09 Duration of Surgery greater No 12/12/24 10:09 than 60 minutes Number of Risk Factors 1 12/12/24 10:09 PONV Score Low Risk 12/12/24 10:09 Height & Weight Height & Weight: Anesthesia: Height & Weight Height 5 ft 12/07/24 13:16 Respiratory Assessment Respiratory Assessment - clinical secretary: Respiratory Tract Infection Hx - clinical secretary Hx Respiratory Tract Infection No 12/12/24 10:09 STOP Sleep Apnea STOP Sleep Apnea - clinical secretary: STOP Sleep Apnea - clinical secretary Hx Hypertension Yes: CONTROLLED WITH MED 12/12/24 10:09 Hx Sleep Apnea No 12/12/24 10:09 CPAP BIPAP Do you snore loudly (louder No 12/12/24 10:09 than talking or can be heard Do you often feel tired/ No 12/12/24 10:09 fatigued/ sleepy during daytime? Has anyone observed you stop No 12/12/24 10:09 breathing during sleep? STOP Results Negative 12/12/24 10:09 QUESTION #5 FULL TEXT : Do you snore loudly (louder than talking or can be heard through closed doors)? 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 Specify any problems Hx of Preganancy in last 3 N/A 12/12/24 10:09 Months Nurse Filling Out Transfusion VCHRISTIN 12/12/24 10:09 & Questions: Date: 12/12/24 12/12/24 10:09 Time: 10:10 12/12/24 10:09 Patient unable to answer at this time (ie. confused, unrespo /Reproduction History /Reproductive History - clinical secretary: /Reproductive Hx- clinical secretary Hx Now Gestational Age (in weeks): EDC: Hx Hx Para Hx Section SAB No 12/12/24 10:09 Active Medications Active Medications: Current Medications Generic Name Dose Route Start Last Admin Trade Name Freq PRN Reason Stop Dose Admin Cefazolin Sodium 2 gm/ Sodium 110 mls @ 150 mls/hr 12/20/24 09:35 Chloride IV 12/20/24 10:18 INTRAOP ONE PFSH Medical History (Updated 12/12/24 @ 10:08 by Melanie Fitzpatrick) Wears glasses Wears dentures Ambulates with cane Urinary retention Blackout History of ulceration On home oxygen therapy Former smoker History of edema Cardiology follow-up encounter History of echocardiogram Right inguinal hernia Acute cholecystitis Asthma Acute exacerbation of congestive heart failure Cardiac murmur TIA (transient ischemic attack) CKD (chronic kidney disease) HTN (hypertension) COPD (chronic obstructive pulmonary disease) CHF (congestive heart failure) Hyperlipidemia Home Medications ?Medication ?Instructions ?Recorded ?Last Taken ?Type albuterol sulfate 90 mcg/actuation 2 puff inhalation Q6H PRN PRN 08/25/16 11/29/23 History aerosol inhaler (Ventolin HFA) Asthma carvedilol 25 mg tablet (Coreg) 25 mg PO BID blood pressure 08/25/16 11/30/23 History doxazosin 4 mg tablet 8 mg PO QHS prostate 08/25/16 11/29/23 History simvastatin 40 mg tablet 80 mg PO QHS cholesterol 08/25/16 11/29/23 History aspirin 81 mg chewable tablet 81 mg PO DAILY@0800 [facility] 06/20/20 12/09/24 Rx ##90 finasteride 5 mg tablet (Proscar) 5 mg PO DAILY prostate 03/28/21 11/29/23 History nifedipine 30 mg tablet,extended 30 mg PO QHS BLOOD PRESSURE 09/04/23 10/20/23 History release nifedipine 30 mg tablet,extended 60 mg PO DAILY BLOOD PRESSURE 09/04/23 11/30/23 History release 24 hr ascorbic acid (vitamin C) 1,000 mg 1 g PO Q6H 10/05/23 11/29/23 History capsule carica papaya 2 tab PO BID 10/05/23 11/29/23 History cranberry extract 650 mg capsule 1,300 mg PO BID 10/05/23 11/29/23 History dietary supplement 1 cap PO DAILY 10/05/23 11/29/23 History garlic 1,000 mg capsule 1,000 mg PO BID 10/05/23 11/29/23 History omega 7-wmv-owl-fish oil 1,200 mg 1 cap PO BID 10/05/23 12/09/24 History (144 mg-216 mg) capsule (Fish Oil) clonidine HCl 0.1 mg tablet 0.1 mg PO BID 10/16/24 Unknown History budesonide 160 mcg-glycopyr 9 2 inh inhalation BID 12/12/24 Unknown History mcg-formot 4.8 mcg/actuation HFA inhaler (Breztri Aerosphere) Allergy/AdvReac Type Severity Reaction Status Date / Time acetaminophen (From Tylenol) AdvReac Other Verified 12/12/24 09:53 Family History Other CVA (cerebral vascular accident) Cancer Surgical History (Updated 12/12/24 @ 10:08 by Melanie Fitzpatrick) History of ERCP S/P laparoscopic cholecystectomy History of cataract extraction History of surgery History of colonoscopy S/P ERCP Previous back surgery Previous back surgery History of tonsillectomy Social History Smoking Status: Former smoker Tobacco: How many years used: 34 alcohol intake: never substance use type: does not use Audit: Pertinent Findings Pertinent Findings EKG Perinent findings: December 17, 2024. Normal sinus rhythm. Right bundle branch block. No change from November 30, 2023. 11/30/2023. Sinus bradycardia. Right bundle branch block. No significant change from September 04, 2023. Echo (EF%) pertinent findings: September 05, 2023. Ejection fraction 65%. PASP of 38 mmHg. No aortic stenosis is noted. Consult pertinent findings: December 17, 2024. 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 1. Preop evaluation-no ischemia. Mild diastolic dysfunction with leg edema, no signs of extreme fluid overload. Optimized from a cardiac standpoint. 2. Hypertension?stable. 3. Mitral valve insufficiency-latest echo shows a mild mitral insufficiency. 4. Chronic diastolic heart failure?leg edema today. Lungs are clear. Plan is to restart Lasix 20 mg. 5. Right bundle branch block.?Unchanged. Pulmonary function results/spirometer pertinent findings: Chest x-ray done September 05, 2023. Stable chronic fibrotic opacities of the bilateral lower lobes. No new infiltrates or focal areas of consolidation are present. No demonstrated pleural abnormality. Recommendation Anesthesia Recommendation Anesthesia recommendation: OPTIMIZED for anesthesia (Patient has been cleared by cardiology reviewing old studies. Newer studies do not show any change. Patient will have to be evaluated on day of surgery.)
[2024-12-20] MEDS: Lactated Ringers 1,000 ML 15 ML IV (11:30)
--- NOTE | 2024-12-20 12:07 | PCM.PRE.AN2 ---
ASA Classification* ASA Classification ASA Classification: 3 Assessment & Plan Anesthesia* Anesthesia Assessment Anesthesia Assessment: Discussed sedation and/or anesthesia options, risks, benefits, and alternatives with patient/parents/legal guardian/POA. Questions invited. The patient/parents/legal guardian/POA seems to understand and agrees to proceed with anesthesia plan. Reviewed the physical assessment, medical history, allergy history and patient home medications list prior to surgery/procedure/anesthetic and documented any changes. Performed airway and anesthesia risk assessments. Anesthesia Type Anesthesia Type: General (Consider GlideScope.) History Source History Obtained from:: Patient and Chart Anesthesia Focused Assessment* Temperature: 98.2 F Pulse Rate: 63 Blood Pressure: 144/65 Respiratory Rate: 18 Pulse Ox: 96 Oxygen Delivery Method: Room Air Airway Assessment Mouth opens: >3 cm Mallampati Score: IV Teeth Condition: Dentures (Patient has full upper and lower dentures. They are out.) Neck Range of motion (ROM): Limited ROM Focused Labs Anesthesia Preop lab: CBC WBC 8.8 K/mm3 (4.4-11.0) 10/26/23 09:07 10/26/23 RBC 3.66 M/mm3 (4.6-6.2) L 10/26/23 09:07 10/26/23 Hgb 10.9 g/dL (13.0-16.5) L 10/26/23 09:07 10/26/23 Hct 33.1 % (40-54) L 10/26/23 09:07 10/26/23 Plt Count 259 K/mm3 (150-450) 10/26/23 09:07 10/26/23 CHEMISTRY Potassium 4.6 mmol/L (3.5-5.1) 10/26/23 09:07 10/26/23 Sodium 138 mmol/L (136-145) 10/26/23 09:07 10/26/23 Magnesium 2.5 mg/dL (1.6-2.6) 09/06/23 04:30 09/06/23 Phosphorus 3.9 mg/dL (2.5-4.9) 03/29/21 05:30 03/29/21 BUN 36 mg/dL (7-18) H 10/26/23 09:07 10/26/23 Creatinine 1.47 mg/dL (0.70-1.30) H 10/26/23 09:07 10/26/23 Glucose 123 mg/dL (74-106) H 10/26/23 09:07 10/26/23 POC Glucose 120 mg/dL (74-106) H 09/05/23 06:47 09/05/23 TSH 2.55 uIU/mL (0.358-3.74) 03/29/21 05:30 03/29/21 COAG PT 13.3 SECONDS (11.7-14.9) 08/13/23 08:58 08/13/23 Pre-Assessment Diagnosis/Proposed Procedure Planned Operative Procedure(s): (R) Lap Robotic Inguinal Hernia right inguinal hernia repair with mesh Anesthesia History Anesthesia History - instrumentation engineering technician: Anesthesia History - instrumentation engineering technician Hx Hospitalization Yes: 07/2023 COVID, 08/202312/12/24 10:09 GALLBLADDER ISSUES Any Problems With Anesthesia No 12/12/24 10:09 Cholinesterase deficiency No 12/12/24 10:09 You/Your Family Experience No 12/12/24 10:09 fever (hyperthermia) with Relationship Recent Exposure to Contagious No 12/20/24 11:26 Disease Does patient have nerve No 12/12/24 10:09 stimulator Patient instructed to have device shut off --Does patient have Pacemaker No 12/20/24 11:26 or ICD? When Was Last Pacemaker Check QUESTION #4 FULL TEXT: You/Your Family Experience fever (hyperthermia) with Anesthesia Last Oral Intake Last Oral intake: Last Oral Intake NPO since 00:00 12/20/24 11:26 Meds taken in AM with sips of Yes 12/20/24 11:26 water? Meds patient instructed to COREG 12/20/24 11:26 take am of surgery NIFEDIPINE CLONIDINE PROSCAR Any additional information?: Yes Meds taken in AM with sips of water?: Yes PONV PONV - instrumentation engineering technician: PONV - instrumentation engineering technician Female No 12/12/24 10:09 HX of Motion Sickness No 12/12/24 10:09 HX of N/V After Surgery No 12/12/24 10:09 Non-Smoker Yes 12/12/24 10:09 Duration of Surgery greater No 12/12/24 10:09 than 60 minutes Number of Risk Factors 1 12/12/24 10:09 PONV Score Low Risk 12/12/24 10:09 Height & Weight Height & Weight: Anesthesia: Height & Weight Height 5 ft 1 in 12/20/24 11:26 Weight: 63.5 kg 12/20/24 11:26 Body Mass Index (BMI) 26.4 12/20/24 11:26 Respiratory Assessment Respiratory Assessment - instrumentation engineering technician: Respiratory Tract Infection Hx - instrumentation engineering technician Hx Respiratory Tract Infection No 12/12/24 10:09 STOP Sleep Apnea STOP Sleep Apnea - instrumentation engineering technician: STOP Sleep Apnea - instrumentation engineering technician Hx Hypertension Yes: CONTROLLED WITH MED 12/12/24 10:09 Hx Sleep Apnea No 12/12/24 10:09 CPAP BIPAP Do you snore loudly (louder No 12/12/24 10:09 than talking or can be heard Do you often feel tired/ No 12/12/24 10:09 fatigued/ sleepy during daytime? Has anyone observed you stop No 12/12/24 10:09 breathing during sleep? STOP Results Negative 12/12/24 10:09 QUESTION #5 FULL TEXT : Do you snore loudly (louder than talking or can be heard through closed doors)? 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 Specify any problems Hx of Preganancy in last 3 N/A 12/12/24 10:09 Months Nurse Filling Out Transfusion VCHRISTIN 12/12/24 10:09 & Questions: Date: 12/12/24 12/12/24 10:09 Time: 10:10 12/12/24 10:09 Patient unable to answer at this time (ie. confused, unrespo /Reproduction History /Reproductive History - instrumentation engineering technician: /Reproductive Hx- instrumentation engineering technician Hx Now Gestational Age (in weeks): EDC: Hx Hx Para Hx Section SAB No 12/12/24 10:09 Active Medications Active Medications: Current Medications Generic Name Dose Route Start Last Admin Trade Name Freq PRN Reason Stop Dose Admin Lactated Ringer's 1,000 mls @ 15 mls/hr 12/20/24 11:15 12/20/24 11:30 IV 15 mls/hr .Q48H JUDY Administration PFSH Medical History Wears glasses Wears dentures Ambulates with cane Urinary retention Blackout History of ulceration On home oxygen therapy Former smoker History of edema Cardiology follow-up encounter History of echocardiogram Right inguinal hernia Acute cholecystitis Asthma Acute exacerbation of congestive heart failure Cardiac murmur TIA (transient ischemic attack) CKD (chronic kidney disease) HTN (hypertension) COPD (chronic obstructive pulmonary disease) CHF (congestive heart failure) Hyperlipidemia Home Medications ?Medication ?Instructions ?Recorded ?Last Taken ?Type albuterol sulfate 90 mcg/actuation 2 puff inhalation Q6H PRN PRN 08/25/16 12/19/24 History aerosol inhaler (Ventolin HFA) Asthma carvedilol 25 mg tablet (Coreg) 25 mg PO BID blood pressure 08/25/16 12/20/24 History doxazosin 4 mg tablet 8 mg PO QHS prostate 08/25/16 12/19/24 History simvastatin 40 mg tablet 80 mg PO QHS cholesterol 08/25/16 12/19/24 History aspirin 81 mg chewable tablet 81 mg PO DAILY@0800 [facility] 06/20/20 12/09/24 Rx ##90 finasteride 5 mg tablet (Proscar) 5 mg PO DAILY prostate 03/28/21 12/19/24 History nifedipine 30 mg tablet,extended 30 mg PO QHS BLOOD PRESSURE 09/04/23 12/19/24 History release nifedipine 30 mg tablet,extended 60 mg PO DAILY BLOOD PRESSURE 09/04/23 12/20/24 History release 24 hr ascorbic acid (vitamin C) 1,000 mg 1 g PO Q6H 10/05/23 12/19/24 History capsule carica papaya 2 tab PO BID 10/05/23 12/19/24 History cranberry extract 650 mg capsule 1,300 mg PO BID 10/05/23 12/19/24 History dietary supplement 1 cap PO DAILY 10/05/23 12/19/24 History garlic 1,000 mg capsule 1,000 mg PO BID 10/05/23 12/19/24 History omega 3-pzw-nnq-fish oil 1,200 mg 1 cap PO BID 10/05/23 12/09/24 History (144 mg-216 mg) capsule (Fish Oil) clonidine HCl 0.1 mg tablet 0.1 mg PO BID 10/16/24 12/20/24 History budesonide 160 mcg-glycopyr 9 2 inh inhalation BID 12/12/24 12/19/24 History mcg-formot 4.8 mcg/actuation HFA inhaler (Breztri Aerosphere) Allergy/AdvReac Type Severity Reaction Status Date / Time acetaminophen (From Tylenol) AdvReac Other Verified 12/20/24 12:18 Family History Other CVA (cerebral vascular accident) Cancer Surgical History History of ERCP S/P laparoscopic cholecystectomy History of cataract extraction History of surgery History of colonoscopy S/P ERCP Previous back surgery Previous back surgery History of tonsillectomy Social History Smoking Status: Former smoker Tobacco: How many years used: 34 alcohol intake: never substance use type: does not use Review of Systems (Anesthesia) ROS Narrative System reviewed and no additional complaints, except as documented.
[2024-12-20] MEDS: Ipratropium/Albuterol Sulfate 3 ML AMPUL.NEB INHALATION (12:28)
--- NOTE | 2024-12-20 12:57 | PCM.HP.BLA ---
History and Physical Date of Admission: 12/20/24 Date of Service: 12/07/24 MR#: [id number] Acct: [id number] Name: MONIQUE MOCK Sr. Rep #: [id number] : 1940 Provider: Dr. Sandra Gregorio MD Age/Sex: 84/M Location: [facility] Status: Signed Intake Vital Signs 10/17/2507:22 12/07/2512:16 Height 5 ft 1 in 5 ft Weight: 132 lb 156 lb BMI 24.9 30.4 BP 149/66 H 149/69 H Blood Pressure Location Lt brachial Rt brachial Position Sitting Sitting Respiration 18 18 Pulse 55 L 60 Pulse Source Monitor Monitor Temp 97.4 F L 97.2 F L Temp Source Temporal Pulse Oximetry (%) 96 96 Oxygen Delivery Method room air room air Intake Visit Reasons: INGUINAL HERNIA Chief Complaint: R inguinal henria Is patient in pain?: No Allergies acetaminophen (From Tylenol) Adverse Reaction (Verified 12/07/24 13:17) Other Medications ?Medication ?Instructions ?Recorded ?Confirmed ?Type albuterol sulfate 90 mcg/actuation 2 puff inhalation Q6H PRN PRN 08/25/16 12/07/24 History aerosol inhaler (Ventolin HFA) Asthma carvedilol 25 mg tablet (Coreg) 25 mg PO BID blood pressure 08/25/16 12/07/24 History doxazosin 4 mg tablet 8 mg PO QHS prostate 08/25/16 12/07/24 History simvastatin 40 mg tablet 80 mg PO QHS cholesterol 08/25/16 12/07/24 History aspirin 81 mg chewable tablet 81 mg PO DAILY@0800 [facility] 06/20/20 12/07/24 Rx Held on 11/24/23. ##90 Instructions: UNTIL ERCP 11/30/23 finasteride 5 mg tablet (Proscar) 5 mg PO DAILY prostate 03/28/21 12/07/24 History nifedipine 30 mg tablet,extended 30 mg PO QHS BLOOD PRESSURE 09/04/23 12/07/24 History release nifedipine 30 mg tablet,extended 60 mg PO DAILY BLOOD PRESSURE 09/04/23 12/07/24 History release 24 hr ferrous sulfate 325 mg (65 mg 325 mg PO DAILY SUPPLEMENT 09/30/23 12/07/24 History iron) tablet (iron) Held on 11/24/23. Instructions: UNTIL ERCP ON 11/30/23 ascorbic acid (vitamin C) 1,000 mg 1 g PO Q6H 10/05/23 12/07/24 History capsule carica papaya 2 tab PO BID 10/05/23 12/07/24 History cranberry extract 650 mg capsule 1,300 mg PO BID 10/05/23 12/07/24 History dietary supplement 1 cap PO DAILY 10/05/23 12/07/24 History garlic 1,000 mg capsule 1,000 mg PO BID 10/05/23 12/07/24 History omega 3-sgf-zqy-fish oil 1,200 mg 1 cap PO BID 10/05/23 12/07/24 History (144 mg-216 mg) capsule (Fish Oil) Held on 11/24/23. Instructions: UNTIL ERCP ON 11/30/23 umeclidinium 62.5 mcg-vilanterol 1 inh inhalation QDAY #60 ea 04/02/24 12/07/24 Rx 25 mcg/actuation powdr for inhalation (Anoro Ellipta) clonidine HCl 0.1 mg tablet 0.1 mg PO TID 10/16/24 12/07/24 History Have you fallen in the past year?: Yes PFSH Medical History Wears glasses Wears dentures Ambulates with cane Urinary retention Blackout History of ulceration On home oxygen therapy Former smoker History of edema Cardiology follow-up encounter History of echocardiogram Right inguinal hernia Acute cholecystitis Asthma Acute exacerbation of congestive heart failure Cardiac murmur TIA (transient ischemic attack) CKD (chronic kidney disease) HTN (hypertension) COPD (chronic obstructive pulmonary disease) CHF (congestive heart failure) Hyperlipidemia Surgical History S/P laparoscopic cholecystectomy History of cataract extraction History of surgery History of colonoscopy S/P ERCP Previous back surgery Previous back surgery History of tonsillectomy Family History Other CVA (cerebral vascular accident) Cancer Social History Smoking Status: Former smoker Tobacco: How many years used: 34 alcohol intake: never substance use type: does not use HPI HPI HPI: 84-year-old male presents due to right inguinal hernia. Patient did have this when he had his laparoscopic cholecystectomy (10/21/2023) and it was reducible at that time. Patient denies any pain but is think that its gotten larger. Patient has a past medical history for stage III severe COPD patient states he does not need to take his supplemental oxygen at night as he does test and he is 92 to 93% and is not on any oxygen during the day. ROS General General: Yes weight change (loss); No appetite, fatigue, colon cancer, breast cancer or weakness HEENT HEENT: Yes eye injury; No difficulty swallowing, eye surgery, swollen glands or hoarseness Endo Endocrine: No thyroid disease, diabetes mellitus, thyroid cancer, Hair loss, heat intolerance or cold intolerance Skin Skin: No rash or changing moles Musc Musculoskeletal: Yes back problems and arthritis; No rheumatoid arthritis, gout or joint pain Cardio Cardiovascular: Yes high blood pressure; No murmur, pacemaker, heart disease, atrial fibrillation, heart attack, heart stent, palpitations, shortness of breath with exertion or chest pain Psych Psychiatric: No depression, anxiety or hearing voices Resp Respiratory: Yes shortness of breath, No sleep apnea, No cough, Yes COPD, No asthma, No emphysema and No wheezing Gastro Gastrointestinal: No abdominal pain, No nausea or vomiting, No diarrhea, No constipation, No blood in stool, No acid reflux, No hemorrhoids, No ulcers, No gallbladder problem and No black,tarry stools Aris Hematologic: Yes blood thinners, No blood disorders, No bleeding, No anemia and No blood clots Additional Details: aspirin and fish oil Neuro Neurologic: No numbness, No tingling and No weakness Exam Const General: cooperative, comfortable and no acute distress [facility] Head: normocephalic and atraumatic Neck Neck: supple Resp Effort & Inspection: normal respiratory effort Cardio Rate: regular rate GI Inspection: non-distended Palpation: soft, hernia (Right inguinal hernia reducible) and nontender Skin General: no rashes or lesions noted Neuro General: CN's II-XI intact bilaterally Extrem General: normal to inspection Psych Mental Status: mental status grossly normal Attitude: cooperative Assessment and Plan Assessment and Plan (1) Right inguinal hernia: Status: Chronic Plan Plan to do either a robotic right inguinal hernia repair possible bilateral with mesh or open right inguinal hernia repair with mesh?depending on pulmonology input if they would recommend general anesthesia versus MAC. Reviewed the procedure with the patient including the risks, including but not limited to infection, bleeding, paresthesia, chronic pain, injury to small bowel or contents of the spermatic cord, and recurrence. All questions were answered. Also contacted patient's son standing and discussed. Sandra Gregorio M.D. Pager: [phone] [facility] [address] [place] [address] Office: [phone] Coding Level of Care Code Off vis,est,level 3 Diagnoses Right inguinal hernia K40.90 Clinical Quality Measures Falls Risk Screening/Assistive Devices Have you fallen in the past year?: Yes 12/08/24 0849 <Electronically signed by Sandra Gregorio MD> Date Sandra Gregorio MD
[2024-12-20] MEDS: Cefazolin 2 GM in 0.9% Normal Saline (100mL Bag) 100 ML IV (13:10)
[2024-12-20] MEDS: Bupivacaine Mpf 0.5% 30 ML VIAL (14:20)
--- NOTE | 2024-12-20 14:39 | PCM.POST.ANE ---
Anesthesia: Postop Eval I Current Vital Signs Temperature: 97.7 F Pulse Rate: 57 Blood Pressure: 133/62 Respiratory Rate: 14 Pulse Ox: 99 Oxygen Delivery Method: Venturi Mask Oxygen Flow Rate (L/min): 2 Assessment Airway patent: Yes Spontaneous unlabored respirations: Yes Mental status: Awake and Calm nausea: No Vomiting: No Anesthesia Complication: No Fluid Hydration Crystalloid volume administer (ml): 800 Total IV fluid infused: 800 Progress Note Anesthesia document: Postop Eval 1 completed: Yes
--- NOTE | 2024-12-20 14:59 | OP.PCM_ITS ---
Operative Report (Standard) Operative Information Date of Procedure: 12/20/24 Pre-Operative Diagnosis: Right inguinal hernia Post-Operative Diagnosis: Right direct inguinal hernia, urachal remnant Surgery/Procedure Performed: Robotic right inguinal hernia pair with mesh, ligation of urachal remnant supervisor pyrotechnic loading: Yes Utility Mechanic Supervisor: Yimi Looney Tasks completed by assistant editor: Opening & closing Type of Anesthesia: General/Supplemental RN Documented Start/Stop Times: Operation Date: 12/20/24 12:05 Case Time Into Pre-Op 12/20/24 11:06 Out of Pre-Op 12/20/24 12:59 Anesthesia Start 12/20/24 13:02 Into Room 12/20/24 13:02 Procedure Start 12/20/24 13:19 Procedure End 12/20/24 14:28 Anesthesia End 12/20/24 14:34 Out of Room 12/20/24 14:34 Into Recovery 12/20/24 14:36 Procedure Start Time: 13:19 Procedure Stop Time: 14:28 Select all DRAINS/GRAFTS/IMPLANTS that apply: Implanted device Implanted device details: ProGrip mesh Lot [id number] ref [id number] Special Medications: Ancef 2 g IV x 1 Estimated Blood Loss: 5 cc Specimen collected: No Description of surgery: Indications: 84-year-old male presented with right inguinal hernia which was getting larger/symptomatic. Robotic right inguinal hernia repair with mesh was elected patient was agreeable. Description of procedure: Patient was brought to operating room placed supine operative table. Timeout was completed verifying correct patient, procedure, site, positioning, special, prior to beginning procedure. General anesthesia was induced. Patient's arms were tucked and padded appropriately. Abdomen was prepped and draped in usual sterile fashion. Superior 8 mm incision was made deep into the fascia. fascia was elevated and incised under direct visualization. Entry into the abdomen was confirmed visually. Laparoscope was placed. Verifying no injury during initial trocar placement. Patient was placed in Trendelenburg position. Two 8 mm trochars were placed along the horizontal line in the in the left upper quadrant and right upper quadrant. Both the inguinal regions were inspected and right direct hernia was seen, no hernia on the left. The median umbilical ligament was divided sharply with electrocautery. Peritoneum was incised with the endoscopic scissors along a line 2 cm above the superior edge of the hernia defect extending from the median umbilical ligament to anterior superior iliac spine. Peritoneal flap was mobilized inferiorly using blunt and sharp dissection. The inferior epigastric vessels were exposed and symphysis pubis and identified. There is additional vertical tubular structure in subcutaneous tissue leading to the umbilicus down towards the bladder likely urachal remnant this was clipped and divided. A ProGrip mesh was cut to size and used. The mesh was rolled longitudinally into a compact cylinder and passed through the trocar. The cylinder was placed along the infer ior aspect of the working space and unrolled into place to completely cover the direct, indirect and femoral spaces. Care was taken to avoid the inferolateral triangle containing iliac vessels and genital nerves. The peritoneal flap was closed over mesh and secured with 3-0 V-Loc suture. After ensuring adequate hemostasis, the trochars were removed and pneumoperitoneum allowed to escape. The skin was closed with 4-0 Monocryl interrupted sutures and Steri-Strips. Patient's testicles are also confirmed in the scrotum bilaterally. Patient tolerated procedure well was taken to the postanesthesia care unit in stable condition. Surgical Findings: See operative report Complications Complications: No
--- NOTE | 2024-12-20 15:04 | EX.PCM.DISCH ---
Discharge Instructions Diet Discharge Diet: Light diet - advance as tolerated Activity Discharge Activity: May Not Drive (while taking narcotic pain medications.) May shower in (days): 1 Lifting Restrictions: no lifting >20 lbs x 2 wks, no strenuous exercise for 4 wks Dressing / Incision Call your doctor if your incision/area has: Continuous Slow Oozing, Sudden Increased Bleeding, Increased Pain/ Swelling, Increased Redness, Foul Smelling Discharge and Swelling at the incision site Call your doctor if you observe: Fever of 101 or Higher Remove Dressing in: 2 days Cleanse incision/area with: Soap & Water Additional Dressing/Incision Instructions:: Steri-Strips will fall off in 7 to 10 days, if they do not fall off okay to remove after 10 days. Recommend scrotal support initially for the first week Follow Up Care Please Follow Up With: Sandra Gregorio MD When: Call the office for a follow-up appointment 2 weeks; after 5 PM and on the weekends call [phone] with any concerns. Test Results: Test results from this visit will be discussed in further detail at your follow-up appointment, if applicable. Discharge Plan Admission Attending Provider: Sandra Gregorio Primary Care Provider: Pasha Bland Instructions Print Language: Luxembourgish Discharge Orders/Prescriptions Prescriptions: New tramadol 50 mg tablet 50 mg PO Q6H PRN (Reason: pain) 2 Days Qty: 5 0RF Continued ascorbic acid (vitamin C) 1,000 mg capsule 1 g PO Q6H garlic 1,000 mg capsule 1,000 mg PO BID carica papaya Tablet,Chewable 2 tab PO BID omega 5-jvd-nbh-fish oil [Fish Oil] 1,200 (144-216) mg capsule 1 cap PO BID cranberry extract 650 mg capsule 1,300 mg PO BID Rx Instructions: administer with meals dietary supplement Capsule 1 cap PO DAILY Rx Instructions: sunflower lecithin clonidine HCl 0.1 mg tablet 0.1 mg PO BID carvedilol [Coreg] 25 MG tablet 25 mg PO BID simvastatin 40 MG tablet 80 mg PO QHS doxazosin 4 MG tablet 8 mg PO QHS albuterol sulfate [Ventolin HFA] 1 INHALER inhaler 2 puff inhalation Q6H PRN PRN (Reason: Asthma) finasteride [Proscar] 5 mg tablet 5 mg PO DAILY Patient Comments: TAKE 1 TABLET BY MOUTH EVERY DAY nifedipine 30 mg tablet extended release 24hr 60 mg PO DAILY Patient Comments: TAKE 2 TABLETS BY MOUTH EVERY MORNING AND 1 TABLET EVERY EVENING STRENGTH: 30 MG nifedipine 30 mg tablet extended release 30 mg PO QHS Bretungtri Aerosphere 160-9-4.8 mcg/actuation HFA aerosol inhaler 2 inh inhalation BID Held aspirin 81 MG tablet,chewable 81 mg PO DAILY@0800 Qty: 90 0RF Hold Instructions: Resume on 12/22/24. Referrals / Follow Up: Pasha Bland DO [Primary Care Provider] - Disposition Disposition (needs filled in before D/C Order can be placed): Home, Self Care
--- NOTE | 2024-12-20 15:28 | POSTOPAN2_ITS ---
Anesthesia Postop Eval I Sum Postop Eval Completion status Anesthesia document: Postop Eval 1 completed: Yes Anesthesia Postop Eval I Summary Anesthesia Postop Eval I Summary: Anesthesia Postop Eval I: Assessment Summary Airway patent Yes 12/20/24 14:40 [email or web address] Spontaneous unlabored Yes 12/20/24 14:40 [email or web address] respirations Mental status Awake,Calm 12/20/24 14:40 [email or web address] nausea No 12/20/24 14:40 [email or web address] Vomiting No 12/20/24 14:40 [email or web address] Anesthesia Postop Eval I: Fluid Summary Crystalloid volume administer 800 12/20/24 14:40 [email or web address] (ml) Colloids volume administered ( ml) Blood Product volume administered (ml) Total IV fluid infused 800 12/20/24 14:40 [email or web address] Anesthesia Postop Eval I: Summary Notes Anesthesia Complication No 12/20/24 14:40 [email or web address] Anesthesia Complication Comment: Post-operative progress note Anesthesia: Postop Eval II Evaluation Mental status: Awake and Calm Pain Level: 0 nausea: No Vomiting: No Complications Anesthesia Complication: No
--- NOTE | 2024-12-20 15:28 | PCM.POSTANE2 ---
Anesthesia Postop Eval I Sum Postop Eval Completion status Anesthesia document: Postop Eval 1 completed: Yes Anesthesia Postop Eval I Summary Anesthesia Postop Eval I Summary: Anesthesia Postop Eval I: Assessment Summary Airway patent Yes 12/20/24 14:40 [email or web address] Spontaneous unlabored Yes 12/20/24 14:40 [email or web address] respirations Mental status Awake,Calm 12/20/24 14:40 [email or web address] nausea No 12/20/24 14:40 [email or web address] Vomiting No 12/20/24 14:40 [email or web address] Anesthesia Postop Eval I: Fluid Summary Crystalloid volume administer 800 12/20/24 14:40 [email or web address] (ml) Colloids volume administered ( ml) Blood Product volume administered (ml) Total IV fluid infused 800 12/20/24 14:40 [email or web address] Anesthesia Postop Eval I: Summary Notes Anesthesia Complication No 12/20/24 14:40 [email or web address] Anesthesia Complication Comment: Post-operative progress note Anesthesia: Postop Eval II Evaluation Mental status: Awake and Calm Pain Level: 0 nausea: No Vomiting: No Complications Anesthesia Complication: No
[2024-12-20] MEDS: traMADol 50 MG Tablet PO (16:03)
== END 2024-12-20 17:37 | disposition home or self-care (01) ==
LOC: SDC 11:08 → AC 11:35
PROVIDERS: PCP Family Medicine; Referring Provider Family Medicine; Visit Provider Surgery
PROC: (CPT 49650; principal; 2024-12-20 11:45)
DX: K40.90 Unilateral inguinal hernia, without obstruction or gangrene, not specified as recurrent (principal); J44.9 Chronic obstructive pulmonary disease, unspecified; I10 Essential (primary) hypertension; E78.5 Hyperlipidemia, unspecified; Z99.81 Dependence on supplemental oxygen; Z79.51 Long term (current) use of inhaled steroids; Z79.899 Other long term (current) drug therapy; Z87.891 Personal history of nicotine dependence
CPT/HCPCS: 49650; S2900; 00750; 94640; C1781; J2405

== ENCOUNTER → 2025-07-15 | Outpatient (CLI) | payer MEDICARE, SELFPAY ==
[2025-07-15 12:23] LABS: Color, Urine Yellow (Yellow); Glucose, Dipstick Normal (Normal); Hematocrit 33.8 % (40-54); Hemoglobin 11.6 g/dL (13.0-16.5); Immature Granulocytes Count 0.040 X10^3/uL (0.0-0.0); Ketone-Dipstick Negative (Negative); Leukocyte Esterase-Dipstick Negative /ul (Negative); Mean Corp Hgb Conc 34.3 g/dL (32-36); Mean Corpuscular Volume 91.6 fL (80-94); Mean Platelet Vol. 11.5 fl (6.2-12.0); NRBC Flagged by Analyzer 0 % (0-5); Nitrite-Dipstick Negative (Negative); Occult Blood-Urine 10 /ul (Negative); Platelet Count 214 K/mm3 (150-450); Protein-Dipstick 100 mg/dl (Negative); RBC Distribution Width CV 11.7 % (11.6-14.6); RBC Distribution Width SD 39.2 fl (35.1-43.9); Red Blood Count 3.69 M/mm3 (4.6-6.2); Specific Gravity, Urine 1.010 (1.002-1.030); Urine Bilirubin Dipstick Negative (Negative); White Blood Count 7.1 K/mm3 (4.4-11.0)
[2025-07-15 13:21] LABS: PTHIN 75 pg/mL (11-61)
[2025-07-15 13:24] LABS: Albumin, Serum 4.4 g/dL (3.4-4.8); Anion Gap 13 (5-15); BUN 39 mg/dL (4-19); BUN/Creat Ratio 26.1 RATIO (10-20); Calcium,Total 9.4 mg/dL (7.6-11.0); Carbon Dioxide 24.4 mmol/L (21.0-32.0); Chloride 101 mmol/L (98-108); Glucose 93 mg/dL (70-99); Potassium 4.5 mmol/L (3.3-5.1); Vitamin D,25 Hydroxy 42.5 ng/mL (30-100)
[2025-07-15 14:14] LABS: Creatinine, Urine (random) 25.50 mg/dL (39.00-259.00)
[2025-07-15 14:26] LABS: Microalbumin,Random Urine 993.0 mg/L (<20 mg/L)
== END | disposition home or self-care (01) ==
LOC: LAB 11:49
PROVIDERS: PCP Family Medicine
DX: N18.32 Chronic kidney disease, stage 3b (principal)
CPT/HCPCS: 36415; 80069; 81002; 82043; 82306; 82570; 83883; 83970; 85025

== ENCOUNTER → 2025-07-22 | Outpatient (CLI) | payer MEDICARE, SELFPAY ==
--- NOTE | 2025-07-22 13:59 | US_ITS ---
PROCEDURE: KIDNEY AND BLADDER 07/22/2025 REASON FOR EXAM: CHRONIC KIDNEY DISEASE, STAGE 3B TECHNIQUE: Procedure Code: USKI Modality: US Procedure: KIDNEY AND BLADDER FINDINGS: Right kidney measures 10.6 cm and left kidney measures 9.3 cm. Normal echotexture of bilateral kidneys. No hydronephrosis. No renal stones. Urinary bladder is unremarkable. US/Kidney and Bladder IMPRESSION: No hydronephrosis. Reading Location: [id number]
== END | disposition home or self-care (01) ==
LOC: US 13:59
PROVIDERS: PCP Family Medicine
DX: N18.32 Chronic kidney disease, stage 3b (principal)
CPT/HCPCS: 76770